=== PATIENT | male | born 1940 | race Caucasian/White ===

== ENCOUNTER → 2016-09-24 | Outpatient (CLI) | payer OTHER ==
[~2016-09-24] MED LIST: ASPI81TA28 PO; BUPR-79 PO; CHOL100010 PO; CMD5 PO; EZET10TA44 PO; FENO145T26 PO; FRS/40 PO; INSDGI SC; IPRA1AER2 INH; ISOS120T5 PO; ISOS30TA35 PO; LISI-461 PO; METO50TA7 PO; NIAC1TAB56 PO; NTRGSL/4 UT; NVLGI SC; SPR25 PO; WARF5TAB90 PO
[2016-09-24 12:39] LABS: ALT/SGPT 31 U/L (12-78); AST/SGOT 22 U/L (15-37); BLOOD UREA NITROGEN 24 mg/dl (7-18); BUN/CREATININE RATIO 15.8 (10-20); CALCIUM 9.3 mg/dl (8.5-10.1); CARBON DIOXIDE 28 mmol/L (21-32); CHLORIDE 102 mmol/L (98-107); GLUCOSE 161 mg/dl (70-99); SODIUM 139 mmol/L (136-145)
[2016-09-24 12:44] LABS: ESTIMATED AVERAGE GLUCOSE 200 mg/dl; HA1C FLAG Normal (Normal)
[2016-09-24 12:50] LABS: ALB/GLOB RATIO 0.9 (0.9-2); ALKALINE PHOSPHATASE 66 U/L (45-117); CHOLESTEROL 172 mg/dl (0-200); CHOLESTEROL/HDL RATIO 7.8; HDL CHOLESTEROL 22 mg/dl; TRIGLYCERIDES 636 mg/dl (0-150)
== END | disposition home or self-care (01) ==
LOC: C.LABBFT 09:15
PROVIDERS: ATTEND Internal Medicine
DX: E78.5 Hyperlipidemia, unspecified (principal); E03.9 Hypothyroidism, unspecified; E11.65 Type 2 diabetes mellitus with hyperglycemia

== ENCOUNTER → 2017-03-23 | Outpatient (CLI) | payer OTHER ==
[2017-03-23 12:41] LABS: ESTIMATED AVERAGE GLUCOSE 209 mg/dl; HA1C FLAG Normal (Normal)
[2017-03-23 13:06] LABS: ALT/SGPT 34 U/L (12-78); AST/SGOT 28 U/L (15-37); BLOOD UREA NITROGEN 26 mg/dl (7-18); BUN/CREATININE RATIO 16.3 (10-20); CALCIUM 9.4 mg/dl (8.5-10.1); CARBON DIOXIDE 24 mmol/L (21-32); CHLORIDE 102 mmol/L (98-107); GLUCOSE 213 mg/dl (70-99); HDL CHOLESTEROL 22 mg/dl; POTASSIUM 4.3 mmol/L (3.5-5.1); SODIUM 133 mmol/L (136-145)
[2017-03-23 13:17] LABS: ALB/GLOB RATIO 0.9 (0.9-2); ALKALINE PHOSPHATASE 64 U/L (45-117); CHOLESTEROL 182 mg/dl (0-200); CHOLESTEROL/HDL RATIO 8.3; TRIGLYCERIDES 708 mg/dl (0-150)
== END | disposition home or self-care (01) ==
LOC: C.LABBFT 09:23
PROVIDERS: ATTEND Internal Medicine
DX: E03.9 Hypothyroidism, unspecified (principal); E11.21 Type 2 diabetes mellitus with diabetic nephropathy; E78.5 Hyperlipidemia, unspecified

== ENCOUNTER 2017-07-21 08:56 | Emergency (ER) | payer OTHER ==
[~2017-07-21] VITALS: Ht 188 cm; Wt 121.2 kg
[2017-07-21 08:58] VITALS: TEMP 36.5; Ht 188 cm; Wt 121.2 kg
[2017-07-21] MEDS ORDERED: CIPRO 0.2%/HYDROCORTISONE 1% OTIC SUSP 10 ML BTL OT STA (09:23)
[2017-07-21] MEDS ORDERED: ACETAMINOPHEN 500 MG TAB PO STA (09:23)
[2017-07-21] MEDS ORDERED: CIPROFLOXACIN 500 MG TAB PO STA (09:23)
--- NOTE | 2017-07-21 09:30 | EMERGENCY ROOM VISIT NOTE ---
History First contact with patient: 09:13 Chief Complaint: EAR PAIN Stated Complaint: R EAR PAIN AND PRESSURE History of Present Illness The patient is a 76 year old male who presents to the Emergency Room with complaints of right ear pain. The patient has a history of diabetes and has had similar infections in the past were treated with irrigation and eardrops. The patient started an [id number] earwax drops because he thought he had cerumen impaction. He also started an leqg-djy-zeghjpw drop for pain. The patient has not been seen by his primary care physician for this. He was seen by another provider who recommended the pain drop. The patient denies having any chest pain shortness of breath. He states the pain is moderate to severe especially with pressure on the right ear and putting his hearing aid in the right ear. The patient denies having any difficulty breathing or fever. Denies having any headache. He states the pain is moderate at this time. He is not taking any pain medication the patient has been compliant with his usual medication. Review of Systems See HPI for pertinent positives & negatives. A total of 6 systems reviewed and were otherwise negative. Past Medical/Surgical History Medical Problems: (1) Atrial fibrillation (2) Chronic congestive heart failure (3) Coronary artery bypass grafts x 3 (4) Diabetes (5) Hemorrhoid (6) History of GA (myocardial infarction) (7) Hypertension (8) Ischemic cardiomyopathy (9) Prostate cancer (10) V tach Surgical Problems: (1) History of appendectomy Family History FHx: cancer FHx: coronary artery disease FHx: diabetes Social History Smoking Status: Never Smoker Alcohol Use: none Drug Use: none Marital Status: Housing Status: lives with significant other Occupation Status: retired Current/Historical Medications Scheduled Aspirin (Aspirin Ec), 81 MG PO DAILY Bupropion (Wellbutrin Sr), 150 MG PO DAILY Ciprofloxacin (Otic) (Otiprio), 0.25 ML OTR BID Ciprofloxacin Hcl (Cipro), 500 MG PO BID Ezetimibe/Simvastatin (Vytorin 10MG/80MG), 1 TAB PO QPM Fenofibrate (Tricor), 145 MG PO DAILY Furosemide (Lasix), 60 MG PO BID Insulin Aspart (Novolog), 20 UNITS SQ BID Insulin Glargine (Lantus Solostar), 70 UNITS SC BID Isosorbide Mononitrate Ext Rel (Imdur Ext Rel), 120 MG PO QAM Isosorbide Mononitrate Ext Rel (Imdur Ext Rel), 30 MG PO QPM Lisinopril (Zestril), 10 MG PO HS Metoprolol Succ (Toprol Xl) (Toprol-Xl), 50 MG PO DAILY Niacin (Antihyperlipidemic) (Niacin Er), 1,000 MG PO QPM Nitroglycerin (Nitrostat), 0.4 MG UT PRN Spironolactone (Spironolactone), 25 MG PO DAILY Warfarin Sod (Coumadin), 5 MG PO 4XWK Warfarin Sodium (Coumadin), 2.5 MG PO 3XWK Scheduled PRN Ipratropium-Albuterol (Combivent Respimat), 2 PUFFS INH QID PRN for PHLEGM Physical Exam Vital Signs Date Time Temp Pulse Resp B/P (MAP) Pulse Ox O2 Delivery O2 Flow Rate FiO2 07/21/17 10:04 73 18 111/68 97 07/21/17 08:58 36.5 73 18 151/84 97 Room Air Physical Exam GENERAL: Patient is awake alert in no acute distress patient is resting comfortably and showing no signs of anxiety EYES: The conjunctivae are clear. The pupils are round and reactive. EARS, NOSE, MOUTH AND THROAT: Nares are patent. Posterior oropharynx is clear. Left tympanic membrane is clear. Right tympanic membrane is dull and erythematous. The ear canal is erythematous as well. There is a small amount of discharge which appears to be related to recent ear drops patient. There is a small amount of cerumen noted as well. There is no tenderness over the right mastoid. Pain is noted with movement of the external ear. NECK: The neck is nontender and supple. RESPIRATORY: Normal respiratory effort is noted there is no evidence of wheezing rhonchi or rales CARDIOVASCULAR: Regular rate and rhythm noted there no murmurs rubs or gallops normal S1 normal S2 GASTROINTESTINAL: The abdomen is soft. Bowel sounds are present in all quadrants. Abdomen is nontender MUSCULOSKELETAL/EXTREMITIES: There is no evidence of gross deformity full range of motion is noted in the hips and shoulders SKIN: There is no obvious evidence of any rash. Trace pedal edema was noted bilaterally. NEUROLOGIC: Patient is awake alert and oriented x3. Medical Decision & Procedures Medications Administered Medications (Trade) Dose Ordered Sig/Susy Route Start Time Stop Time Status Last Admin Dose Admin Ciprofloxacin/ Hydrocortisone (Cipro Hc Otic Susp) 2 drops ONE STAT OT 07/21/17 09:23 07/21/17 09:26 DC 07/21/17 09:41 2 DROPS Ciprofloxacin (Cipro Tab) 500 mg NOW STAT PO 07/21/17 09:23 07/21/17 09:26 DC 07/21/17 09:40 500 MG Acetaminophen (Tylenol Tab) 1,000 mg NOW STAT PO 07/21/17 09:23 07/21/17 09:26 DC 07/21/17 09:40 1,000 MG Medical Decision Nursing notes reviewed. Differential diagnosis in this patient could include foreign body, otitis externa, malignant otitis externa, referred pain, cellulitis, trauma, and other differential diagnoses were considered. The patient is a 76-year-old male who presented to the emergency department for evaluation of right ear pain. The patient has had a history of otitis externa in the past which was treated with eardrops. The patient has been using over-the -counter medication without relief. I irrigated a small amount of cerumen from the right ear as well as a small amount of purulent material. There is no tenderness over the mastoid. Overall his physical exam appears to be consistent with otitis externa be given the patient's age and history of diabetes he will be covered for otitis externa caused by Pseudomonas. I discussed patient's condition with him. He was told not to use his hearing aid in the right ear. He was also encouraged to continue all medications as prescribed. He was also encouraged to follow-up with his primary doctor this week for evaluation. Return to the emergency department immediately if symptoms change worsen or the need arises. The patient was started on medications in the emergency department. Medication Reconcilliation Current Medication List: was personally reviewed by me Blood Pressure Screening Patient's blood pressure: Elevated blood pressure Blood pressure disposition: Elevated BP felt to be situational Impression Primary Impression: Otitis externa Departure Information Prescriptions Ciprofloxacin (Otic) (Otiprio) 6 % Nadine 0.25 ML OTR BID, #1 BTL Prov: Joshua Stark DO 07/21/17 Ciprofloxacin Hcl (CIPRO) 500 Mg Tab 500 MG PO BID, #14 TAB Prov: Joshua Stark DO 07/21/17 Referrals Clovis Klein M.D. (PCP) Patient Instructions My [facility] Problem Qualifiers Primary Impression: Otitis externa Otitis externa type: unspecified type Chronicity: acute Laterality: right Qualified Codes: H60.501 - Unspecified acute noninfective otitis externa, right ear
[2017-07-21] MEDS ORDERED: CIPR-255 PO (09:36)
[2017-07-21] MEDS ORDERED: CIPR1SUS5 OTR (09:36)
[2017-07-21] MEDS ORDERED: INSDGIPEN SC (09:44)
[2017-07-21] MEDS ORDERED: NVLG SQ (09:44)
[2017-07-21 10:04] VITALS: BP 111/68; PULSE 73; O2SAT 97
== END 2017-07-21 10:08 | disposition home or self-care (01) ==
LOC: C.EDB 08:58
DX: H60.501 Unspecified acute noninfective otitis externa, right ear (principal); E11.9 Type 2 diabetes mellitus without complications; I11.0 Hypertensive heart disease with heart failure; I50.9 Heart failure, unspecified; I48.91 Unspecified atrial fibrillation; I25.5 Ischemic cardiomyopathy; I25.2 Old myocardial infarction; Z85.46 Personal history of malignant neoplasm of prostate; Z95.1 Presence of aortocoronary bypass graft; Z79.82 Long term (current) use of aspirin; Z79.4 Long term (current) use of insulin; Z79.01 Long term (current) use of anticoagulants; Z82.49 Family history of ischemic heart disease and other diseases of the circulatory system

== ENCOUNTER → 2017-08-21 | Outpatient (CLI) | payer OTHER ==
[~2017-08-21] MED LIST changes: -CHOL100010 PO; +CIPR-255 PO; +CIPR1SUS5 OTR; -INSDGI SC; +INSDGIPEN SC; +NVLG SQ; -NVLGI SC
[2017-08-21 12:27] LABS: BASO % 0.7 %; BASO ABS # 0.04 K/uL (0-0.2); EOS % 3.7 %; EOS ABS # 0.22 K/uL (0-0.5); HEMATOCRIT 44.1 % (42-52); HEMOGLOBIN 14.8 g/dL (14.0-18.0); IG# 0.03 K/uL (0.00-0.02); LYMPH % 33.2 %; LYMPH ABS # 1.99 K/uL (1.2-3.4); MEAN CELL VOLUME 85.3 fL (80-100); MEAN CORPUSCULAR HEMOGLOBIN 28.6 pg (25-34); MEAN CORPUSCULAR HGB CONC 33.6 g/dl (32-36); MEAN PLATELET VOLUME 9.4 fL (7.4-10.4); MONO % 6.7 %; NEUT % 55.2 %; NEUT ABS # 3.31 K/uL (1.4-6.5); PLATELET COUNT 229 K/uL (130-400); RED CELL DISTRIBUTION WIDTH SD 49.7 fL (36.4-46.3); WHITE BLOOD COUNT 5.99 K/uL (4.8-10.8)
[2017-08-21 12:50] LABS: HEMOGLOBIN A1C 8.2 % (4.5-5.6)
[2017-08-21 14:16] LABS: ALBUMIN 3.6 gm/dl (3.4-5.0); ALT/SGPT 37 U/L (12-78); AST/SGOT 34 U/L (15-37); BLOOD UREA NITROGEN 41 mg/dl (7-18); CALCIUM 9.4 mg/dl (8.5-10.1); CARBON DIOXIDE 27 mmol/L (21-32); CHOLESTEROL 205 mg/dl (0-200); CREATININE 2.06 mg/dl (0.60-1.40); GLUCOSE 183 mg/dl (70-99); POTASSIUM 4.2 mmol/L (3.5-5.1); SODIUM 136 mmol/L (136-145)
[2017-08-21 14:27] LABS: ALKALINE PHOSPHATASE 57 U/L (45-117); TOTAL PROTEIN 7.6 gm/dl (6.4-8.2)
== END | disposition home or self-care (01) ==
LOC: C.LABBFT 08:41
PROVIDERS: ATTEND Internal Medicine
DX: E11.21 Type 2 diabetes mellitus with diabetic nephropathy (principal)

== ENCOUNTER 2019-12-24 10:04 | Observation (INO) ==
--- NOTE | 2019-12-24 10:21 | Emergency Department Note ---
Impression & Plan Precordial chest pain, Dizziness, Lightheadedness, Orthostasis ED Provider Note NAME: SAMANTHA SALAS AGE: 79 SEX: M : 1940 ARRIVES VIA: Ambulance INFORMANT: [Patient][ems] ED PROVIDER(S): [Indio Treviño MD] CHIEF COMPLAINT: Chest pain HISTORY OF PRESENT ILLNESS: The patient is a 79-year-old male who presents to the ED with about 5 days of constant chest discomfort. The pain was a 3/10 and described as a knot. The pain was located just to the left of the sternum. Nothing made the pain better or worse. The patient was not short of breath. There was no sweating. The patient states that 2 days ago, he had several bouts of vomiting. The vomiting has resolved. He adds that for the last 5 days since he has had his chest pain, he has been dizzy with standing and has felt off balance. He has stumbled a few times, no injury. There has been no fever, no cough. No stuffy nose. He has not suffered chest trauma. There rouse been no abdominal pain. The patient was given aspirin by the EMS crew, his pain is now resolved. This is the first time he has not had chest pain in 5 days. The patient has a history of a bypass x3. He also has a history of a pacer/defibrillator. He did not feel his defibrillator fire at any point. REVIEW OF SYSTEMS: See HPI for pertinent positives and negatives. A total of ten systems were reviewed and were otherwise negative. PMHx/PSHx: See Below SOCIAL HISTORY: See Below. PHYSICAL EXAM: GENERAL: Patient is in no acute distress. HEENT: No acute trauma, normocephalic atraumatic, mucous membranes moist, no nasal congestion, no scleral icterus. NECK: No stridor, no adenopathy, no meningismus, trachea is midline. LUNGS: Few crackles at his left base, no wheezing, no respiratory distress, equal breath sounds. HEART: Without murmurs gallops or rubs, regular rate and rhythm. Chest: Nontender chest wall, no rash. ABDOMEN: Soft, nontender, bowel sounds positive, no hernias, no peritonitis. EXTREMITIES: No cyanosis or edema, full range of motion of all the joints without pain or difficulty, no signs for acute trauma. NEUROLOGIC: Oriented x 3, no acute motor or sensory deficits, no focal weakness. SKIN: No rash, no jaundice, no diaphoresis. DIFFERENTIAL DIAGNOSIS: EMERGENCY DEPARTMENT COURSE/PROCEDURES: ECG: Indication was chest pain. The EKG shows a ventricular pacemaker with a rate of 68. The QTc is 412. There is no ST elevation, no PVCs. Compared to an ECG from 06 January 2019, there is no significant change. Repeat EKG: Indication was weakness. The EKG shows a ventricular pacemaker with a PVC. There is no ST elevation, no PACs. The ventricular rate was 71. QTc was 502. No real significant change compared to the EKG done earlier today. Continuous Cardiac Monitoring: An order was placed for continuous cardiac monitoring. The monitor shows a rate of 71 with ventricular pacing. Orthostatic vital signs showed a drop in blood pressure to stand although, he did not drop by more than 20 points. No significant increase in the heart rate with standing. He did feel dizzy though. Repeat orthostatic vital signs were done when the patient was feeling poorly and lightheaded. He was orthostatic. Systolic blood pressure dropped by over 20 points. MEDICAL DECISION MAKING: There is no leukocytosis or concerning anemia. No coagulopathy. There is some renal insufficiency however, this is baseline. No concerning electrolyte abnormality. No evidence for liver enzyme elevation. No evidence for pancreatitis. EKG shows ventricular pacing, no acute ischemia. Cardiac enzyme testing x1 is not consistent with acute cardiac injury. Chest film shows some cardiomegaly, no pneumonia or CHF. Orthostatic vital signs were basically positive. The patient received IV saline, a total of 1 L was given. He was given IV Zofran eventually when he noticed some nausea here in the ED. The patient seemed to be doing well at first and arrangements were being made for discharge home. He was reassured by his negative work-up. He then tried to get off the stretcher and became very lightheaded and dizzy, he got quite nauseated. He had to be laid back down. Repeat orthostatic vital signs showed a 20 point drop in systolic blood pressure with standing. The patient at this point is not safe for discharge home, he is not comfortable being at home. I do think further work-up in the hospital is warranted. The cause for the orthostasis is not completely clear. He remains orthostatic despite IV fluids. Possibly, his symptoms are medication related. The reason for the chest pain also is unclear, the pain is not present currently. Certainly, a cardiac etiology must still be considered. I spoke to the patient at length, I talked with case management. The on-call hospitalist was consulted. Past Med/Surg History Medical History Acute diastolic congestive heart failure (Acute) AICD discharge (Acute) DALE (acute kidney injury) (Inactive 08/22/13) Anemia (Acute) Anxiety (Acute) Atrial fibrillation Atrial fibrillation (Acute) Bradycardia (Acute) Cardiomyopathy Chronic congestive heart failure (Acute 04/03/13) Chronic kidney disease, stage III (moderate) (Chronic) COPD, moderate (Acute) Coronary artery disease (Chronic) Depression (Acute) Diabetes Diabetes mellitus type 2, uncontrolled (Acute) Diabetes mellitus with kidney disease Dyslipidemia Hemorrhoid History of [place] (myocardial infarction) Hypercholesterolemia (Acute) Hypertension (Chronic) Hypertension Hypothyroidism (Chronic) Insomnia Ischemic cardiomyopathy (Chronic) Pacemaker malfunction (Acute) Peptic ulcer (Acute) Prostate cancer Prostate cancer (Acute) Sleep apnea (Acute) Ventricular tachycardia (paroxysmal) (Acute) Surgical History History of appendectomy 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) History of heart bypass surgery Family History Unknown Diabetes Prostate cancer Uncle Prostate cancer Father Myocardial infarction Brother Myocardial infarction Other Family history non-contributory Denies family history of Ovarian cancer Breast cancer Colorectal cancer Social History Preferred Language: Upper Sorbian Communication Ability: Effective Hearing Ability: Use of Hearing Aid 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 Servicer Required: No Beliefs That Will Affect Care: None marital status: Current Living Situation: Spouse current occupational status: retired Other Information That Helps Us Care for You: No Feels Safe at Home: Yes Safety Concerns: Feels Safe At This Time Smoking Status: Unknown if ever smoked Hx Alcohol Use: No Hx Substance Use: No Dental Care, Regularly: No Physical Activity Frequency: Does not Exercise Seatbelt Use: never Sunscreen Use: No Allergies Allergies Allergy/AdvReac Type Severity Reaction Status Date / Time carvedilol Allergy Verified 12/24/19 11:07 [facility] Allergy Verified 12/24/19 11:07 Home Meds Home Medications Medication Instructions Recorded Confirmed apixaban 5 mg tablet 5 mg PO BID 02/16/19 12/24/19 ascorbic acid (vitamin C) 500 mg 500 mg PO HS tab 02/16/19 12/24/19 tablet bupropion HCl 150 mg tablet,12 hr 150 mg PO QAM #90 ea 02/16/19 12/24/19 sustained-release folic acid 1 mg tablet 1 mg PO HS tab 02/16/19 12/24/19 furosemide 40 mg tablet 60 mg PO BID tab 02/16/19 12/24/19 lisinopril 10 mg tablet 10 mg PO QAM 02/16/19 12/24/19 niacin 1,000 mg tablet,extended 1,000 mg PO HS tab 02/16/19 12/24/19 release vit C-vit M-fvxlaq-zrha ox-lutein 1 cap PO BID cap 02/16/19 12/24/19 226 mg-200 unit-5 mg-0.8 mg capsule vitamin E (dl, acetate) 400 unit 400 units PO HS 02/16/19 12/24/19 capsule cholecalciferol (vitamin D3) 25 1,000 units PO HS 02/17/19 12/24/19 mcg (1,000 unit) capsule aspirin 81 mg PO HS 12/24/19 12/24/19 dulaglutide [Trulicity] 1.5 mg SQ TH 12/24/19 12/24/19 fenofibrate nanocrystallized 145 mg PO HS 12/24/19 12/24/19 isosorbide mononitrate 30 mg PO HS 12/24/19 12/24/19 isosorbide mononitrate 120 mg PO QAM 12/24/19 12/24/19 levothyroxine 100 mcg PO QAM 12/24/19 12/24/19 omega 8-jgm-vht-fish oil [Fish Oil] 1 cap PO HS 12/24/19 12/24/19 spironolactone 25 mg PO HS 12/24/19 12/24/19 Previous Rx's Medication Instructions Recorded ondansetron HCl 4 mg tablet 4 mg PO Q6H PRN #30 tab 02/21/19 metoprolol succinate 25 mg 25 mg PO BID #60 tab 02/24/19 tablet,extended release 24 hr nitroglycerin 0.4 mg sublingual 0.4 mg SL .COMPLEX PRN #25 tab 05/10/19 tablet ezetimibe 10 mg-simvastatin 80 mg See Rx Instructions .ROUTE 08/22/19 tablet .COMPLEX #90 tablet blood sugar diagnostic #100 ea 11/15/19 insulin degludec 100 unit/mL (3 80 units SQ BID #45 ml 11/18/19 mL) subcutaneous pen insulin aspart U-100 100 unit/mL 15 units SQ BID #15 ml 12/15/19 (3 mL) subcutaneous pen Results & Data (ED) Vital Signs Vital Signs - 24 hr 12/24/19 10:03 12/24/19 11:01 12/24/19 11:17 Temperature 36.4 C L Temperature Source Oral Pulse Rate - Lying 66 Pulse Rate - Sitting 68 Pulse Rate - Standing 72 Pulse Rate 66 Pulse Rate [Apical] 66 Pulse Rhythm [Apical] Regular Pulse Strength [Apical] Normal Respiratory Rate 20 22 Respiratory Effort / Characteristics Non-Labored Non-Labored Spontaneous Respiratory Depth Normal Normal Respiratory Pattern Regular Blood Pressure - Lying 142/67 H Blood Pressure - Sitting 136/77 Blood Pressure- Standing 124/67 Blood Pressure 163/86 H Blood Pressure [Right Arm] 146/80 H Blood Pressure Mean 111 Blood Pressure Mean [Right Arm] 102 Blood Pressure Position [Right Arm] Sitting Pulse Oximetry 98 97 Oxygen Delivery Method Room Air Room Air Room Air Sepsis Recent Fever Within 48 Hours No Sepsis Action Taken by Nursing No Action Required 12/24/19 13:25 Temperature Temperature Source Pulse Rate - Lying 71 Pulse Rate - Sitting 75 Pulse Rate - Standing 76 Pulse Rate Pulse Rate [Apical] 71 Pulse Rhythm [Apical] Regular Pulse Strength [Apical] Normal Respiratory Rate 24 Respiratory Effort / Characteristics Non-Labored Spontaneous Respiratory Depth Normal Respiratory Pattern Regular Blood Pressure - Lying 125/72 Blood Pressure - Sitting 123/76 Blood Pressure- Standing 113/66 Blood Pressure Blood Pressure [Right Arm] 125/72 Blood Pressure Mean Blood Pressure Mean [Right Arm] 89 Blood Pressure Position [Right Arm] Lying Pulse Oximetry 97 Oxygen Delivery Method Room Air Sepsis Recent Fever Within 48 Hours Sepsis Action Taken by [facility] Medications Current Medication List: was personally reviewed by me Laboratory Data Attestation: I reviewed the patient's lab results. Result diagrams: 12/24/19 09:31 05/23/20 09:31 Lab Results 12/24/19 12/24/19 12/24/19 Range/Units 09:31 09:31 09:31 WBC 6.40 (4.8-10.8) K/uL RBC 4.84 (4.7-6.1) M/uL Hgb 13.8 L (14.0-18.0) g/dL Hct 41.1 L (42-52) % MCV 84.9 (80-100) fL MCH 28.5 (25-34) pg MCHC 33.6 (32-36) g/dL RDW Std Deviation 50.1 H (36.4-46.3) fL RDW Coeff of Beck 16.2 H (11.5-14.5) % Plt Count 178 (130-400) K/uL MPV 9.4 (7.4-10.4) fL Immature Gran % (Auto) 0.3 % Neut % (Auto) 70.4 % Lymph % (Auto) 18.8 % Thomas % (Auto) 7.8 % Eos % (Auto) 2.2 % Baso % (Auto) 0.5 % Immature Gran # (Auto) 0.02 (0.00-0.02) K/uL Neut # (Auto) 4.51 (1.4-6.5) K/uL Lymph # (Auto) 1.20 (1.2-3.4) K/uL Thomas # (Auto) 0.50 (0.11-0.59) K/uL Eos # (Auto) 0.14 (0-0.5) K/uL Baso # (Auto) 0.03 (0-0.2) K/uL PT 11.1 (9.0-12.0) Seconds INR 1.1 (0.9-1.1) APTT 30.9 (21.0-31.0) Seconds PTT Ratio 1.1 Sodium 138 (136-145) mmol/L Potassium 3.6 (3.5-5.1) mmol/L Chloride 103 (98-107) mmol/L Carbon Dioxide 26 (21-32) mmol/L Anion Gap 10.0 (3-11) BUN 26 H (7-18) mg/dl Creatinine 1.41 H (0.6-1.4) mg/dl Est Cr Clr Drug Dosing Not Reportable Est GFR ( Amer) 55.3 Est GFR (Non-Af Amer) 47.7 BUN/Creatinine Ratio 18.2 (10-20) Glucose 151 H (70-99) mg/dl Calcium 9.7 (8.5-10.1) mg/dl Magnesium 2.2 (1.8-2.4) mg/dl Total Bilirubin 0.5 (0.2-1) mg/dl AST 37 (15-37) U/L ALT 45 (12-78) U/L Alkaline Phosphatase 95 (45-117) U/L Troponin I < 0.015 (0-0.045) ng/ml Total Protein 7.6 (6.4-8.2) gm/dl Albumin 3.4 (3.4-5.0) gm/dl Globulin 4.2 H (2.5-4.0) gm/dl Albumin/Globulin Ratio 0.8 L (0.9-2) Lipase 135 (73-393) U/L Administered Medications Furosemide (Lasix) 60 mg PO BID17 [facility] Stop: 01/23/20 16:59 Last Admin: 12/24/19 17:05 Dose: 60 mg Documented by: [id number] Insulin Aspart (Novolog Flexpen) 15 units SQ BIDM [facility] Stop: 01/23/20 16:59 Last Admin: 12/24/19 17:19 Dose: 15 units Documented by: [id number] Cosigned by: [id number] Meclizine HCl (Antivert) 12.5 mg PO Q6H PRN PRN Reason: Dizziness or Vertigo Stop: 01/23/20 15:25 Last Admin: 12/24/19 17:04 Dose: 12.5 mg Documented by: [id number] Miscellaneous (Order Awaiting Action) 1 ea N/A QS [facility] Stop: 01/23/20 15:59 Last Admin: 12/24/19 17:03 Dose: Not Given Documented by: [id number] Spironolactone (Aldactone) 25 mg PO DAILY@1700 [facility] Stop: 01/23/20 16:59 Last Admin: 12/24/19 17:05 Dose: 25 mg Documented by: [id number] Discontinued Medications Sodium Chloride (Nss 1000ml) 500 mls @ 999 mls/hr IV .Q31M ONE Stop: 12/24/19 12:00 Last Infusion: 12/24/19 13:55 Dose: 0 mls/hr Documented by: [id number] Admin: 12/24/19 12:40 Dose: 999 mls/hr Documented by: [id number] Sodium Chloride (Nss 1000ml) 500 mls @ 999 mls/hr IV .Q31M ONE Stop: 12/24/19 14:09 Last Infusion: 12/24/19 14:25 Dose: 0 mls/hr Documented by: [id number] Admin: 12/24/19 13:55 Dose: 999 mls/hr Documented by: [id number] Ondansetron HCl (Zofran) 4 mg IV NOW STA Stop: 12/24/19 13:26 Last Admin: 12/24/19 13:34 Dose: 4 mg Documented by: [id number] Imaging Data Radiologist's Impression: XR chest 1V portable HISTORY: Atypical Chest Pain COMPARISON: Chest 01/06/2019. FINDINGS: No pneumothorax. No pleural effusions. The heart is moderately enlarged. This remains unchanged. There is mild central pulmonary vascular congestion without overt edema. This has improved in the interval. There are a f ew bibasilar linear densities. The upper lung zones remain clear. There is a left-sided pacemaker/defibrillator. IMPRESSION: 1. Mild central pulmonary vascular congestion without overt edema. This has improved in the interval. 2. Stable cardiomegaly. 3. A few bibasilar linear densities. These are nonspecific but favor atelectasis. Blood Pressure Blood Pressure Findings: Elevated blood pressure Blood Pressure Disposition: further management by hospitalist Discharge Plan Visit Data *Final* Discharge Date/Time: 12/24/19 14:59 Chief Complaint: Chest Pain ED Provider: Indio Treviño Discharge Problem: Precordial chest pain, Dizziness, Lightheadedness, Orthostasis Patient Disposition: Being Evaluated by Hospitalist Condition: Good Discharge Instructions Interventions: ED Discharge Assessment Last Done: 12/24/19 14:59
[2019-12-24 10:23] LABS: Basophils # (auto) 0.03 K/uL (0-0.2); Basophils % (auto) 0.5 %; Eosinophils # (auto) 0.14 K/uL (0-0.5); Eosinophils % (auto) 2.2 %; Hematocrit (blood only) 41.1 % (42-52); Hemoglobin 13.8 g/dL (14.0-18.0); Immature Granulocytes # (auto) 0.02 K/uL (0.00-0.02); Immature Granulocytes % (auto) 0.3 %; Lymphocytes % (auto) 18.8 %; Mean Corpuscular Hemoglobin 28.5 pg (25-34); Mean Corpuscular Hgb Conc 33.6 g/dL (32-36); Mean Corpuscular Volume 84.9 fL (80-100); Mean Platelet Volume 9.4 fL (7.4-10.4); Monocytes % (auto) 7.8 %; Neutrophils # (auto) 4.51 K/uL (1.4-6.5); Neutrophils % (auto) 70.4 %; Platelet Count 178 K/uL (130-400); RDW Coefficient of Variation 16.2 % (11.5-14.5); RDW Standard Deviation 50.1 fL (36.4-46.3); Red Blood Count 4.84 M/uL (4.7-6.1)
[2019-12-24 10:35] LABS: INR 1.1 (0.9-1.1); Partial Thromboplastin Ratio 1.1; Partial Thromboplastin Time 30.9 Seconds (21.0-31.0); Prothrombin Time 11.1 Seconds (9.0-12.0)
[2019-12-24 10:36] LABS: Alanine Aminotransferase 45 U/L (12-78); Albumin Level 3.4 gm/dl (3.4-5.0); Aspartate Aminotransferase 37 U/L (15-37); BUN Creatinine Ratio 18.2 (10-20); Blood Urea Nitrogen 26 mg/dl (7-18); Calcium 9.7 mg/dl (8.5-10.1); Carbon Dioxide 26 mmol/L (21-32); Chloride 103 mmol/L (98-107); Est GFR (African American) 55.3; Est GFR (Non-African American) 47.7; Glucose 151 mg/dl (70-99); Lipase 135 U/L (73-393); Magnesium 2.2 mg/dl (1.8-2.4); Potassium 3.6 mmol/L (3.5-5.1); Sodium 138 mmol/L (136-145)
[2019-12-24 10:40] LABS: Albumin Globulin Ratio 0.8 (0.9-2); Alkaline Phosphatase 95 U/L (45-117); Bilirubin,Total 0.5 mg/dl (0.2-1); Globulin 4.2 gm/dl (2.5-4.0); Total Protein 7.6 gm/dl (6.4-8.2); Troponin I < 0.015 ng/ml (0-0.045)
[2019-12-24] MEDS ORDERED: SODIUM CHLORIDE 0.9% 1000ML 500 ML IV ONE ×2 (11:30→13:39)
--- NOTE | 2019-12-24 11:38 | XRay Report ---
XR chest 1V portable HISTORY: Atypical Chest Pain COMPARISON: Chest 01/06/2019. FINDINGS: No pneumothorax. No pleural effusions. The heart is moderately enlarged. This remains uncha nged. There is mild central pulmonary vascular congestion without overt edema. This has improved in t he interval. There are a few bibasilar linear densities. The upper lung zones remain clear. There is a left-sided pacemaker/defibrillator. IMPRESSION: 1. Mild central pulmonary vascular congestion without overt edema. This has improved in the interval. 2. Stable cardiomegaly. 3. A few bibasilar linear densities. These are nonspecific but favor atelectasis. ACT 112: Negative or not required by law. Electronically signed by: Filiberto Camacho M.D. 12/24/2019 11:37 AM
--- NOTE | 2019-12-24 12:16 | Electrocardiogram Report ---
Test Reason : Blood Pressure : / mmHG Vent. Rate : 068 BPM Atrial Rate : 068 BPM P-R Int : 136 ms QRS Dur : 154 ms QT Int : 482 ms P-R-T Axes : -08 043 021 degrees QTc Int : 512 ms Atrial-sensed ventricular-paced rhythm Abnormal ECG When compared with ECG of 06-JAN-2019 21:25, Vent. rate has decreased BY 8 BPM Confirmed by Sj Hilton ([id number]) on 12/24/2019 12:16:04 PM Referred By: REFERRED SELF Confirmed By:Sj Hilton
[2019-12-24] MEDS ORDERED: ONDANSETRON INJ 2 MG/ML 2 ML VIAL IV STA (13:25)
--- NOTE | 2019-12-24 14:32 | History & Physical Report ---
Date of Service December 24, 2019 Assessment & Plan (1) Lightheadedness: Initial concern for orthostatic hypoTN in the setting of multiple medications and dehydration Possibly an issue, however pt has onset of sx with turning his head as well making BPPV a more likely cause CBC, PRP, trop WNL Carotid US done 09/22 were neg for significant stenosis, will not repeat ECHO pending t/c CT head if further concern PT for repositioning maneuvers EKG WNL Pacer interrogation done in ED and reported as no abn findings Tele monitor Holding IVF for now given CHF hx meclizine PRN Continue current meds for now, but may need adjustments given orthostatics if ongoing s/p PT tx Denies recent changes in BP medications (2) Chest pain: Seems likely MSK given resolution with aspirin and reproducible on exam Trop neg Will not monitor further trops (3) Nausea & vomiting: Appears resolved Trulicity is a new medication for pt, has been on about 1 month Monitor for dosing patterns given this is a common side effect of trulicity (4) Uncontrolled type 2 diabetes mellitus with chronic kidney disease, with long-term current use of insulin: Home meds SSI PRN A1c pending Trulicity use on (5) Hypothyroidism: continue home meds (6) Hypercholesterolemia: continue home meds (7) Depression: continue home meds (8) Chronic kidney disease, stage III (moderate): Baseline cr around 1.7, was 1.4 on admission Monitor (9) Chronic congestive heart failure: continue home meds Lasix 60mg BID + spironolactone (10) Atrial fibrillation: continue home meds, eliquis (11) Ischemic cardiomyopathy: ECHO 05/2019 with EF 35-40% (12) Hypertension: continue home meds (13) Sleep apnea: States no home tx (14) DVT prophylaxis: Govind Bartholomew History of Present Illness Primary Care Provider: Clovis Klein MD 79 y/o M c/o lightheadedness. Pt states that he has been having L sided chest pain and feeling weak and lightheaded for about 4-5 days. Pain does not radiate. It is located around the area of his defibrillator. He gets weak and lightheaded any time he moves to stand up or even if he turns his head to either side. He feels like he is "wobbling" from side to side when he walks. He sits down and it does not go away immediately. Sometimes it persists for quite some time. He has never had this issue prior. Pt had 2 days of n/v and abd cramping that resolved spontaneously about 2 days ago. Pt denies fever, SOB, c/d, LE pain or swelling. Pt states he gets immediately nauseated and with some lightheadedness tilting his head to either side or fully turning his head. He can do this on command. Pt was given aspirin by EMS and his chest pain resolved. It has not returned. Pt was noted initially to have a 15 point BP drop when moving from seated to standing, but no full orthostatic hypoTN. He ate lunch in the ED and was feeling improved until they attempted to stand him for d/c, when he had sudden onset of his sx. Pt had repeat orthostatics done and was noted for fully orthostatic BP. Pt took AM meds today. Allergies Allergy/AdvReac Type Severity Reaction Status Date / Time carvedilol Allergy Verified 12/24/19 11:07 dulaglutide [From [facility]] Allergy Verified 12/24/19 11:07 Home Medications Home Medications Medication Instructions Recorded Confirmed Type apixaban 5 mg tablet 5 mg PO BID 02/16/19 12/24/19 History ascorbic acid (vitamin C) 500 mg 500 mg PO HS tab 02/16/19 12/24/19 History tablet bupropion HCl 150 mg tablet,12 hr 150 mg PO QAM #90 ea 02/16/19 12/24/19 History sustained-release folic acid 1 mg tablet 1 mg PO HS tab 02/16/19 12/24/19 History furosemide 40 mg tablet 60 mg PO BID tab 02/16/19 12/24/19 History lisinopril 10 mg tablet 10 mg PO QAM 02/16/19 12/24/19 History niacin 1,000 mg tablet,extended 1,000 mg PO HS tab 02/16/19 12/24/19 History release vit C-vit G-hzbehn-fkzr ox-lutein 1 cap PO BID cap 02/16/19 12/24/19 History 226 mg-200 unit-5 mg-0.8 mg capsule vitamin E (dl, acetate) 400 unit 400 units PO HS 02/16/19 12/24/19 History capsule cholecalciferol (vitamin D3) 25 1,000 units PO HS 02/17/19 12/24/19 History mcg (1,000 unit) capsule ondansetron HCl 4 mg tablet 4 mg PO Q6H PRN #30 tab 02/21/19 12/24/19 Rx metoprolol succinate 25 mg 25 mg PO BID #60 tab 02/24/19 12/24/19 Rx tablet,extended release 24 hr nitroglycerin 0.4 mg sublingual 0.4 mg SL .COMPLEX PRN #25 tab 05/10/19 12/24/19 Rx tablet ezetimibe 10 mg-simvastatin 80 mg See Rx Instructions .ROUTE 08/22/19 12/24/19 Rx tablet .COMPLEX #90 tablet blood sugar diagnostic #100 ea 11/15/19 Rx insulin degludec 100 unit/mL (3 80 units SQ BID #45 ml 11/18/19 12/24/19 Rx mL) subcutaneous pen insulin aspart U-100 100 unit/mL 15 units SQ BID #15 ml 12/15/19 12/24/19 Rx (3 mL) subcutaneous pen aspirin 81 mg PO HS 12/24/19 12/24/19 History dulaglutide [Trulicity] 1.5 mg SQ TH 12/24/19 12/24/19 History fenofibrate nanocrystallized 145 mg PO 12/24/19 12/24/19 History isosorbide mononitrate 30 mg PO HS 12/24/19 12/24/19 History isosorbide mononitrate 120 mg PO QAM 12/24/19 12/24/19 History levothyroxine 100 mcg PO QAM 12/24/19 12/24/19 History omega 2-srw-dim-fish oil [Fish Oil] 1 cap PO HS 12/24/19 12/24/19 History spironolactone 25 mg PO 12/24/19 12/24/19 History Past Med/Surg History Medical History Acute diastolic congestive heart failure (Acute) AICD discharge (Acute) DALE (acute kidney injury) (Inactive 08/22/13) Anemia (Acute) Anxiety (Acute) Atrial fibrillation Atrial fibrillation (Acute) Bradycardia (Acute) Cardiomyopathy Chronic congestive heart failure (Acute 04/03/13) Chronic kidney disease, stage III (moderate) (Chronic) COPD, moderate (Acute) Coronary artery disease (Chronic) Depression (Acute) Diabetes Diabetes mellitus type 2, uncontrolled (Acute) Diabetes mellitus with kidney disease Dyslipidemia Hemorrhoid History of [place] (myocardial infarction) Hypercholesterolemia (Acute) Hypertension (Chronic) Hypertension Hypothyroidism (Chronic) Insomnia Ischemic cardiomyopathy (Chronic) Pacemaker malfunction (Acute) Peptic ulcer (Acute) Prostate cancer Prostate cancer (Acute) Sleep apnea (Acute) Ventricular tachycardia (paroxysmal) (Acute) Surgical History History of appendectomy 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) History of heart bypass surgery Family History (Updated 12/24/19 @ 14:25 by Jenna Campuzano DO) Unknown Diabetes Prostate cancer Uncle Prostate cancer Father Myocardial infarction Brother Myocardial infarction Other Family history non-contributory Denies family history of Ovarian cancer Breast cancer Colorectal cancer Social History Preferred Language: Montenegrin Communication Ability: Effective Hearing Ability: Use of Hearing Aid marital status: Current Living Situation: Alone current occupational status: retired Feels Safe at Home: Yes Smoking Status: Former smoker Age Started Using Tobacco: 13 ; Age Quit Using Tobacco: 57 ; packs per day: 1 ; Cigarettes Per Day: 20 ; Number of Years Since Quit: 32 ; Second Hand Exposure: No ; Hx Alcohol Use: No Hx Substance Use: No Dental Care, Regularly: No Physical Activity Frequency: Does not Exercise Seatbelt Use: never Sunscreen Use: No Review of Systems Review of Systems: Pertinent positives and negatives reviewed in HPI--all others negative Physical Exam Constitutional: WD/WN, vitals as above Eyes: normal visual jaramillo by confrontation and + anicteric sclerae Neck: normal visual inspection and trachea midline Respiratory: normal respiratory effort, lungs clear to auscultation Cardiovascular: Rate/Rhythm: regular rate and regular rhythm Chest (Breasts): Additional Comments: point tender over defibrillator Gastrointestinal (Abdomen): Inspection/Auscultation: abdomen not distended Percussion/Palpation: abdomen soft; abdomen nontender Musculoskeletal: Head/Neck/Chest: normocephalic and head atraumatic negat fadia for edema, peripheral pulses intact Skin: no rashes, warm and dry Neurologic: awake; not confused Speech / Cognition: normal speech Psychiatric: A+Ox3, euthymic affect Results & Data Results & Data ([facility]) Vital Signs (Past 12 Hours) Vital Signs Temp Pulse Pulse Resp BP BP Pulse Ox 12/24/19 13:25 71 24 125/72 97 12/24/19 11:17 66 22 146/80 H 97 12/24/19 10:03 36.4 C L 66 20 163/86 H 98 Diagnostic Findings CXR: neg for acute ECG Additional Comments: ventricular pacing x2 EKGs Code Status & VTE Plan Code Status Full code, although pt states no prolonged mechanical life support, feeding tubes, etc VTE Prophylaxis Plan VTE Prophylaxis will be ordered: Yes PG Care Time/CCT Total # of Minutes Spent Total Time Spent with Patient: Total time spent is greater than 50% in coord ination of care (as documented) at patient's floor/unit and/or counseling patient: Coding Level of Care Code 43627 OBS Care - Level 3 Diagnoses Lightheadedness R42 Chest pain R07.9 Nausea & vomiting R11.2 Uncontrolled type 2 diabetes mellitus with chronic kidney disease, with long- term current use of insulin E11.22; E11.65; Z79.4 Hypothyroidism E03.9 Hypercholesterolemia E78.00 Depression F32.9 Chronic kidney disease, stage III (moderate) N18.3 Chronic congestive heart failure I50.9 Atrial fibrillation I48.91 Ischemic cardiomyopathy I25.5 Hypertension I10 Sleep apnea G47.30 DVT prophylaxis Z29.9
[2019-12-24] MEDS ORDERED: GLUCAGON FOR INJ 1 MG VIAL SQ PRN (15:26)
[2019-12-24] MEDS ORDERED: ACETAMINOPHEN 325 MG TAB PO PRN (15:26)
[2019-12-24] MEDS ORDERED: MAGNESIUM HYDROXIDE SUSP 30 ML UDC PO PRN (15:26)
[2019-12-24] MEDS ORDERED: CARBOHYDRATES FOR HYPOGLYCEMIA PO PRN (15:26)
[2019-12-24] MEDS ORDERED: GLUCOSE 40% GEL 15 GM TUBE PO PRN (15:26)
[2019-12-24] MEDS ORDERED: GLUCOSE 10 TABS/TUBE PO PRN (15:26)
[2019-12-24] MEDS ORDERED: DEXTROSE 50% 50 ML SYRINGE IV PRN (15:26)
[2019-12-24] MEDS ORDERED: NITROGLYCERIN SL 0.4 MG/TAB TAB SL PRN (15:26)
[2019-12-24] MEDS ORDERED: ONDANSETRON 4 MG OD TAB PO PRN (15:35)
[2019-12-24] MEDS: TRULICITY: ORDER AWAITING ACTION SCH (17:03)
[2019-12-24] MEDS: MECLIZINE 12.5 MG TAB PO PRN (17:04)
[2019-12-24] MEDS: SPIRONOLACTONE 25 MG TAB PO SCH (17:05)
[2019-12-24] MEDS: FUROSEMIDE 20 MG TAB PO SCH (17:05)
[2019-12-24] MEDS: INSULIN ASPART 100 UNITS/ML 3 ML PEN SQ SCH (17:19)
[2019-12-24] MEDS: ONDANSETRON INJ 2 MG/ML 2 ML VIAL IV PRN (20:53)
[2019-12-24] MEDS: FENOFIBRATE NANOCRYSTALLIZED 145 MG TABLET PO SCH (21:01)
[2019-12-24] MEDS: TOCOPHERYL, DL-ALPHA 400 UNITS CAP PO SCH (21:01)
[2019-12-24] MEDS: CHOLECALCIFEROL 1,000 UNITS 25 MCG TAB PO SCH (21:02)
[2019-12-24] MEDS: APIXABAN 5 MG TABLET PO SCH (21:02)
[2019-12-24] MEDS: FOLIC ACID 1 MG TAB PO SCH (21:02)
[2019-12-24] MEDS: ASCORBIC ACID 500 MG TAB PO SCH (21:03)
[2019-12-24] MEDS: ASPIRIN 81 MG ECTAB PO SCH (21:03)
[2019-12-24] MEDS: EZETIMIBE 10 MG TABLET PO SCH (21:03)
[2019-12-24] MEDS: NIACIN EXTENDED REL 500 MG TABCR PO SCH (21:04)
[2019-12-24] MEDS: SIMVASTATIN 80 MG TAB PO SCH (21:04)
[2019-12-24] MEDS: OMEGA-3 (PURIFIED FISH OIL) 1 GM CAP PO SCH (21:04)
[2019-12-24] MEDS: ISOSORBIDE MONO EXTENDED REL 30 MG TABCR PO SCH (21:05)
[2019-12-24] MEDS: INSULIN GLARGINE SOLOSTAR 100 UNITS/ML 3 ML PEN SC SCH (21:05)
[2019-12-24] MEDS: METOPROLOL SUCC 25MG EXT REL TAB PO SCH (21:05)
[2019-12-25] MEDS: TRULICITY: ORDER AWAITING ACTION SCH ×4 (03:06→23:44)
[2019-12-25] MEDS: LEVOTHYROXINE SODIUM 100 MCG TABLET PO SCH (06:32)
[2019-12-25 07:00] LABS: BUN Creatinine Ratio 19.6 (10-20); Calcium 9.2 mg/dl (8.5-10.1); Creatinine Clr Calc Pharmacy 57.6 ml/min; Est GFR (African American) 52.6; Est GFR (Non-African American) 45.4; Magnesium 2.2 mg/dl (1.8-2.4); Phosphorus 3.9 mg/dl (2.5-4.9); Potassium 3.8 mmol/L (3.5-5.1)
[2019-12-25] MEDS: APIXABAN 5 MG TABLET PO SCH ×2 (07:44→22:35)
[2019-12-25] MEDS: CEROVITE ADV FORMULA TAB PO SCH (07:44)
[2019-12-25] MEDS: METOPROLOL SUCC 25MG EXT REL TAB PO SCH ×2 (07:44→22:36)
[2019-12-25] MEDS: lisinopriL 10 MG TAB PO SCH (07:45)
[2019-12-25] MEDS: ISOSORBIDE MONO EXTENDED REL 60 MG TABCR PO SCH (07:45)
[2019-12-25] MEDS: BuPROPion SR 150 MG TABCR PO SCH (07:45)
[2019-12-25] MEDS: MECLIZINE 12.5 MG TAB PO PRN ×3 (07:46→15:30)
[2019-12-25] MEDS: FUROSEMIDE 20 MG TAB PO SCH ×2 (07:46→16:58)
[2019-12-25] MEDS: INSULIN ASPART 100 UNITS/ML 3 ML PEN SQ SCH ×2 (08:19→16:59)
[2019-12-25] MEDS: INSULIN GLARGINE SOLOSTAR 100 UNITS/ML 3 ML PEN SC SCH ×2 (08:21→22:37)
--- NOTE | 2019-12-25 09:47 | Electrocardiogram Report ---
Test Reason : Blood Pressure : / mmHG Vent. Rate : 071 BPM Atrial Rate : 071 BPM P-R Int : 000 ms QRS Dur : 154 ms QT Int : 462 ms P-R-T Axes : -14 050 059 degrees QTc Int : 502 ms Normal sinus rhythm Ventricular-paced rhythm with occasional Premature ventricular complexes Abnormal ECG When compared with ECG of 24-DEC-2019 10:09, Premature ventricular complexes are now Present Vent. rate has increased BY 3 BPM Confirmed by Sj Hilton ([id number]) on 12/25/2019 9:46:39 AM Referred By: REFERRED SELF Confirmed By:Sj Hilton
--- NOTE | 2019-12-25 10:06 | Electrocardiogram Report ---
Test Reason : Blood Pressure : / mmHG Vent. Rate : 065 BPM Atrial Rate : 065 BPM P-R Int : 000 ms QRS Dur : 154 ms QT Int : 490 ms P-R-T Axes : 019 179 -12 degrees QTc Int : 509 ms Normal sinus rhythm Ventricular-paced rhythm Biventricular pacemaker detected Abnormal ECG When compared with ECG of 24-DEC-2019 13:29, (unconfirmed) Premature ventricular complexes are no longer Present Vent. rate has decreased BY 6 BPM Confirmed by Sj Hilton ([id number]) on 12/25/2019 10:06:24 AM Referred By: REFERRED SELF Confirmed By:Sj Hilton
[2019-12-25 10:58] LABS: Estimated Average Glucose 209 mg/dl; Hemoglobin A1C 8.9 % (4.5-5.6)
[2019-12-25] MEDS: ONDANSETRON INJ 2 MG/ML 2 ML VIAL IV PRN (12:40)
--- NOTE | 2019-12-25 15:26 | Family Medicine Progress Note ---
Date of Service December 25, 2019 Assessment & Plan (1) Lightheadedness: Suspect positional vertigo As noted, carotid ultrasounds done earlier this year were negative for significant stenosis Echocardiogram repeated today is pending Physical therapy has been ordered Meclizine as needed (2) Nausea & vomiting: Appears to be associated with the vertigo He has some nausea but no vomiting Continue to monitor (3) Uncontrolled type 2 diabetes mellitus with chronic kidney disease, with long-term current use of insulin: Home meds SSI PRN A1c pending Trulicity use on (4) Hypothyroidism: continue home meds (5) Hypercholesterolemia: continue home meds (6) Depression: continue home meds (7) Chronic kidney disease, stage III (moderate): Baseline cr around 1.7, was 1.4 on admission Monitor (8) Chronic congestive heart failure: continue home meds Lasix 60mg BID + spironolactone (9) Atrial fibrillation: continue home meds, eliquis (10) Ischemic cardiomyopathy: ECHO 05/2019 with EF 35-40% Repeat echocardiogram pending (11) Hypertension: continue home meds (12) Sleep apnea: States no home tx (13) DVT prophylaxis: Govind Bartholomew Admission and Anticipated Discharge Date Admission Date: Uncertain Subjective Mr. Taylor is seen early afternoon. I did go into his room this morning but he was sleeping pretty well so I revisited him this afternoon. He is known to be fairly hard of hearing. He is in no obvious distress. He denies having symptoms as long as he lies supine with his head facing forward; if he looks to the left he notes an increase in vertiginous symptoms; he also some vertigo if he looks to the right, but to the left seems much worse. He tel ls me he is unable to go to the bathroom without assistance; walking produces significant vertigo, and some nausea. He tells me he has had this before -but not to the point where he had to be hospitalized. He cannot recall how long ago he had similar symptoms, but it sounds as if it is been off and on. He denies a headache. Denies any visual changes. Denies any focal neuro motor weakness. Review of Systems Constitutional: no fever Eyes: no diplopia Ear, Nose, Mouth, Throat: + hearing loss Respiratory: no cough and no dyspnea Cardiovascular: no chest pain with activity and no dyspnea at rest Gastrointestinal: + nausea and + constipation; no vomiting Genitourinary: no dysuria Neurologic: + unsteadiness; no falls and no generalized weakness Psychiatric: no depression Physical Exam Constitutional: WD/WN, vitals as above Eyes: PERRL, conjunctivae normal, anicteric sclerae ENMT: external ear and nose normal, oropharynx normal Neck: trachea midline, no thyromegaly normal visual inspection and trachea midline; no tracheal deviation Respiratory: normal respiratory effort; no respiratory distress Cardiovascular: Rate/Rhythm: regular rate Gastrointestinal (Abdomen): normal bowel sounds, soft, nontender, no hepatosplenomegaly Inspection/Auscultation: abdomen normal to inspection and normal bowel sounds; abdomen not distended Percussion/Palpation: abdomen nontender and no guarding Musculoskeletal: Head/Neck/Chest: normocephalic Skin: no rashes, warm and dry no rashes Psychiatric: Orientation: oriented x 3 Speech: normal rate/rhythm/volume of speech Results & Data ([facility]) Vital Signs (Past 12 Hours) Vital Signs Temp Pulse Pulse Resp BP Pulse Ox Pulse Ox 12/25/19 15:11 36.8 C 67 18 127/72 96 12/25/19 12:52 36.6 C 66 18 115/69 94 12/25/19 08:00 65 96 12/25/19 07:00 36.8 C 63 20 145/79 H 96 Laboratory Results Labs from this morning show a BUN of 29, creatinine 1.47 -this appears to be around his baseline if not slightly better. Hemoglobin A1c is 8.9%. Bedside glucose have been ranging from 112 to 160 today. Diagnostic Findings Chest x-ray from yesterday showed mild central pulmonary vascular congestion without overt edema, stable cardiomegaly, and some atelectatic changes.
[2019-12-25] MEDS: SPIRONOLACTONE 25 MG TAB PO SCH (16:58)
[2019-12-25] MEDS ORDERED: MECLIZINE HCL 25 MG TAB PO PRN (18:46)
--- NOTE | 2019-12-25 19:20 | CT Scan Report ---
CT OF THE HEAD WITHOUT CONTRAST CLINICAL HISTORY: dizziness/vertigo COMPARISON STUDY: Head CT December 27, 2015. CT DOSE: 537.48 mGy.cm TECHNIQUE: Helical axial images of the head were obtained without IV contrast. Automated exposure con trol was utilized for the study. A dose lowering technique was utilized adhering to the principles o f ALARA. FINDINGS: No acute intracranial hemorrhage, midline shift or mass effect is present. Moderate atrophy is noted. This accounts for mild ventricular dilatation. The basilar cisterns are patent. There are no extra-axial collections. Moderate hypodensity suggests small vessel disease. There are no findings to suggest acute dural sinus thrombosis or acute territorial infarct. Visualized portions of the rig ht maxillary sinus are opacified. This is similar to prior exam and likely chronic. Trace fluid withi n the right mastoid air cells is noted. IMPRESSION: 1. No acute intracranial findings. 2. Trace fluid within the right mastoid air cells. 3. Opacification of the right maxillary sinus, likely chronic. ACT 112: Negative or not required by law. Electronically signed by: Jason La M.D. 12/25/2019 7:19 PM
[2019-12-25] MEDS: ISOSORBIDE MONO EXTENDED REL 30 MG TABCR PO SCH (22:33)
[2019-12-25] MEDS: TOCOPHERYL, DL-ALPHA 400 UNITS CAP PO SCH (22:34)
[2019-12-25] MEDS: OMEGA-3 (PURIFIED FISH OIL) 1 GM CAP PO SCH (22:34)
[2019-12-25] MEDS: ASPIRIN 81 MG ECTAB PO SCH (22:34)
[2019-12-25] MEDS: FOLIC ACID 1 MG TAB PO SCH (22:34)
[2019-12-25] MEDS: FENOFIBRATE NANOCRYSTALLIZED 145 MG TABLET PO SCH (22:35)
[2019-12-25] MEDS: CHOLECALCIFEROL 1,000 UNITS 25 MCG TAB PO SCH (22:35)
[2019-12-25] MEDS: SIMVASTATIN 80 MG TAB PO SCH (22:35)
[2019-12-25] MEDS: ASCORBIC ACID 500 MG TAB PO SCH (22:36)
[2019-12-25] MEDS: EZETIMIBE 10 MG TABLET PO SCH (22:37)
[2019-12-25] MEDS: NIACIN EXTENDED REL 500 MG TABCR PO SCH (22:37)
[2019-12-26] MEDS: ONDANSETRON INJ 2 MG/ML 2 ML VIAL IV PRN (04:11)
[2019-12-26] MEDS: LEVOTHYROXINE SODIUM 100 MCG TABLET PO SCH (06:33)
[2019-12-26] MEDS: ISOSORBIDE MONO EXTENDED REL 60 MG TABCR PO SCH ×2 (08:10→20:09)
[2019-12-26] MEDS: APIXABAN 5 MG TABLET PO SCH ×2 (08:10→20:10)
[2019-12-26] MEDS: lisinopriL 10 MG TAB PO SCH (08:10)
[2019-12-26] MEDS: BuPROPion SR 150 MG TABCR PO SCH (08:10)
[2019-12-26] MEDS: FUROSEMIDE 20 MG TAB PO SCH ×2 (08:11→17:18)
[2019-12-26] MEDS: METOPROLOL SUCC 25MG EXT REL TAB PO SCH ×2 (08:11→20:08)
[2019-12-26] MEDS: CEROVITE ADV FORMULA TAB PO SCH (08:11)
[2019-12-26] MEDS: INSULIN GLARGINE SOLOSTAR 100 UNITS/ML 3 ML PEN SC SCH (08:11)
[2019-12-26] MEDS: INSULIN ASPART 100 UNITS/ML 3 ML PEN SQ SCH ×2 (08:12→17:19)
[2019-12-26] MEDS: TRULICITY: ORDER AWAITING ACTION SCH ×3 (08:18→22:06)
[2019-12-26] MEDS ORDERED: INSULIN GLARGINE 100 UNIT/ML VIAL SC SCH (09:00)
--- NOTE | 2019-12-26 15:26 | Hospitalist Progress Note ---
Date of Service December 26, 2019 Assessment & Plan (1) Lightheadedness: Suspect positional vertigo vs. some mild orthostatic hypotension. As noted, carotid ultrasounds done earlier this year were negative for significant stenosis. - PT discussed today that his exam is inconsistent. Yesterday seemed like BPPV, now with no real signs of BPPV, but more orthostatic. - Continue meclizine as needed - Will get orthostatics (2) Uncontrolled type 2 diabetes mellitus with chronic kidney disease, with long-term current use of insulin: A1c is 8.9% this admission. - Hold home oral meds - Sliding scale insulin - Trulicity use on (3) Hypothyroidism: TSH was 1.9 in 08/2019. - Continue home levothyroxine 100 mcg (4) Chronic kidney disease, stage III (moderate): Baseline cr around 1.7, was 1.4 on admission. - Cr today is 1.5. (5) Chronic congestive heart failure: Chronic systolic heart failure. Echo this admission shows EF 35%. This is stable from prior echo in 05/2019. - Continue home Lasix 60 mg PO BID - Continue home spironolactone, beta-gavin, Imdur, ACEi - Monitor weights and I&Os. Baseline weight appears to be ~120 kg, and he is now below that. Dehydration possibly playing a role. (6) Hypercholesterolemia: - Continue home meds (7) Depression: - Continue home meds (8) Atrial fibrillation: EKG shows sinus rhythm on admission. - Continue home meds, Eliquis (9) Hypertension: BP presently 110/60. - Continue home meds (10) Sleep apnea: States no home tx. (11) DVT prophylaxis: JENNIFER Bartholomews Admission and Anticipated Discharge Date Admission Date: December 24, 2019 Subjective Still with some dizziness. It occurs most with position changes. Less so with head position changes, but overall improved. Still thinks he's unsteady on his feet and unsafe to go home. Reports no fevers/chills, chest pain, shortness of breath, abdominal pain, nausea, or vomiting. Physical Exam Constitutional: WD/WN, vitals as above Eyes: EOM intact bilaterally; no conjunctival abnormality ENMT: external ear and nose normal, oropharynx normal Neck: trachea midline, no thyromegaly normal visual inspection Respiratory: normal respiratory effort, lungs clear to auscultation no respiratory distress Cardiovascular: RRR, no murmur, no edema Gastrointestinal (Abdomen): Inspection/Auscultation: abdomen normal to inspection; abdomen not distended Musculoskeletal: no cyanosis or clubbing, extremities motor strength 5/5 Skin: no rashes, warm and dry Neurologic: moves all extremities and awake Psychiatric: Orientation: alert, oriented to person and cooperative Results & Data Results & Data ([facility]) Vital Signs (Past 12 Hours) Vital Signs Temp Pulse Resp BP BP Pulse Ox 12/26/19 11:21 36.6 C 67 20 112/61 96 12/26/19 07:11 36.6 C 70 15 96/58 L 95 12/26/19 03:37 36.5 C 64 18 122/43 L 96 PG Care Time/CCT Total # of Minutes Spent Total Time Spent with Patient: Total time spent is greater than 50% in coordination of care (as documented) at patient's floor/unit and/or counseling patient: Coding Level of Care Code 62221 Subseq Hosp Care Lvl 2 Diagnoses Lightheadedness R42 Uncontrolled type 2 diabetes mellitus with chronic kidney disease, with long- term current use of insulin E11.22; E11.65; Z79.4 Hypothyroidism E03.9 Chronic kidney disease, stage III (moderate) N18.3 Chronic congestive heart failure I50.9 Hypercholesterolemia E78.00 Depression F32.9 Atrial fibrillation I48.91 Hypertension I10 Sleep apnea G47.30 DVT prophylaxis Z29.9
[2019-12-26] MEDS: SPIRONOLACTONE 25 MG TAB PO SCH (17:18)
[2019-12-26] MEDS: SIMVASTATIN 80 MG TAB PO SCH (20:08)
[2019-12-26] MEDS: EZETIMIBE 10 MG TABLET PO SCH (20:08)
[2019-12-26] MEDS: FENOFIBRATE NANOCRYSTALLIZED 145 MG TABLET PO SCH (20:08)
[2019-12-26] MEDS: OMEGA-3 (PURIFIED FISH OIL) 1 GM CAP PO SCH (20:09)
[2019-12-26] MEDS: FOLIC ACID 1 MG TAB PO SCH (20:09)
[2019-12-26] MEDS: NIACIN EXTENDED REL 500 MG TABCR PO SCH (20:09)
[2019-12-26] MEDS: ASPIRIN 81 MG ECTAB PO SCH (20:10)
[2019-12-26] MEDS: ISOSORBIDE MONO EXTENDED REL 30 MG TABCR PO SCH ×2 (20:11→20:12)
[2019-12-26] MEDS: CHOLECALCIFEROL 1,000 UNITS 25 MCG TAB PO SCH (20:12)
[2019-12-26] MEDS: TOCOPHERYL, DL-ALPHA 400 UNITS CAP PO SCH (20:12)
[2019-12-26] MEDS: ASCORBIC ACID 500 MG TAB PO SCH (20:13)
[2019-12-26] MEDS: INSULIN GLARGINE 100 UNIT/ML VIAL SC SCH (20:15)
[2019-12-27] MEDS: LEVOTHYROXINE SODIUM 100 MCG TABLET PO SCH (06:04)
[2019-12-27 07:24] LABS: Creatinine Clr Calc Pharmacy 50.6 ml/min; Est GFR (African American) 45.1; Est GFR (Non-African American) 38.9
[2019-12-27] MEDS: BuPROPion SR 150 MG TABCR PO SCH (08:32)
[2019-12-27] MEDS: CEROVITE ADV FORMULA TAB PO SCH (08:32)
[2019-12-27] MEDS: FUROSEMIDE 20 MG TAB PO SCH (08:32)
[2019-12-27] MEDS: APIXABAN 5 MG TABLET PO SCH ×2 (08:32→21:45)
[2019-12-27] MEDS: METOPROLOL SUCC 25MG EXT REL TAB PO SCH (08:32)
[2019-12-27] MEDS: lisinopriL 10 MG TAB PO SCH (08:33)
[2019-12-27] MEDS: TRULICITY: ORDER AWAITING ACTION SCH ×2 (08:33→15:42)
[2019-12-27] MEDS: INSULIN GLARGINE 100 UNIT/ML VIAL SC SCH ×2 (08:52→21:50)
[2019-12-27] MEDS: INSULIN ASPART 100 UNITS/ML 3 ML PEN SQ SCH ×2 (08:52→16:58)
--- NOTE | 2019-12-27 16:50 | Hospitalist Progress Note ---
Date of Service December 27, 2019 Assessment & Plan (1) Lightheadedness: Suspect positional vertigo vs. some mild orthostatic hypotension. As noted, carotid ultrasounds done earlier this year were negative for significant stenosis. - PT discussed on 12/25 that his exam is inconsistent. Initially seemed like BPPV, now with no real signs of BPPV, but more orthostatic. - Continue meclizine as needed - Holding diuretics at present (Lasix and spironolactone). LUIS bland. Continue PT/OT work. (2) Uncontrolled type 2 diabetes mellitus with chronic kidney disease, with long-term current use of insulin: A1c is 8.9% this admission. - Hold home oral meds - Sliding scale insulin - Trulicity use on (3) Hypothyroidism: TSH was 1.9 in 08/2019. - Continue home levothyroxine 100 mcg (4) Chronic kidney disease, stage III (moderate): Baseline cr around 1.7, was 1.4 on admission. - Cr today is 1.7. - Holding Lasix & spironolactone today. (5) Chronic congestive heart failure: Chronic systolic heart failure. Echo this admission shows EF 35%. This is stable from prior echo in 05/2019. - Hold home Lasix 60 mg PO BID & spironolactone; lowered beta-gavin & Imdur - Continue home ACEi - Monitor weights and I&Os. Baseline weight appears to be ~120 kg, and he is now below that. Dehydration possibly playing a role. (6) Hypercholesterolemia: - Continue home meds (7) Depression: - Continue home meds (8) Atrial fibrillation: EKG shows sinus rhythm on admission. - Continue home meds, Eliquis (9) Hypertension: BP presently 135/75. - Continue home meds (10) Sleep apnea: States no home tx. (11) DVT prophylaxis: JENNIFER Bartholomews Admission and Anticipated Discharge Date Admission Date: December 24, 2019 Subjective [place] better this morning, but had an episode of orthostasis in the afternoon with PT. Reports no fevers/chills, chest pain, shortness of breath, abdominal pain, nausea, or vomiting. Physical Exam 2 Constitutional: WD/WN, vitals as above Eyes: EOM intact bilaterally; no conjunctival abnormality ENMT: external ear and nose normal, oropharynx normal Neck: trachea midline, no thyromegaly normal visual inspection Respiratory: normal respiratory effort, lungs clear to auscultation no respiratory distress Cardiovascular: RRR, no murmur, no edema Gastrointestinal (Abdomen): Inspection/Auscultation: abdomen normal to inspection; abdomen not distended Musculoskeletal: no cyanosis or clubbing, extremities motor strength 5/5 Skin: no rashes, warm and dry Neurologic: moves all extremities and awake Psychiatric: Orientation: alert, oriented to person and cooperative Results & Data Results & Data ([facility]) Vital Signs (Past 12 Hours) Vital Signs Temp Pulse Pulse Resp BP Pulse Ox 12/27/19 15:46 36.7 C 69 18 134/74 98 12/27/19 14:47 68 12/27/19 14:19 97 12/27/19 11:44 36.3 C L 70 20 119/71 96 12/27/19 07:46 36.3 C L 67 18 120/68 96 12/27/19 07:40 68 PG Care Time/CCT Total # of Minutes Spent Total Time Spent with Patient: Total time spent is greater than 50% in coordination of care (as documented) at patient's floor/unit and/or counseling patient: Coding Level of Care Code 00072 Subseq Hosp Care Lvl 3 Diagnoses Lightheadedness R42 Uncontrolled type 2 diabetes mellitus with chronic kidney disease, with long- term current use of insulin E11.22; E11.65; Z79.4 Hypothyroidism E03.9 Chronic kidney disease, stage III (moderate) N18.3 Chronic congestive heart failure I50.9 Hypercholesterolemia E78.00 Depression F32.9 Atrial fibrillation I48.91 Hypertension I10 Sleep apnea G47.30 DVT prophylaxis Z29.9
[2019-12-27] MEDS: OMEGA-3 (PURIFIED FISH OIL) 1 GM CAP PO SCH (21:44)
[2019-12-27] MEDS: FENOFIBRATE NANOCRYSTALLIZED 145 MG TABLET PO SCH (21:44)
[2019-12-27] MEDS: SIMVASTATIN 80 MG TAB PO SCH (21:44)
[2019-12-27] MEDS: TOCOPHERYL, DL-ALPHA 400 UNITS CAP PO SCH (21:44)
[2019-12-27] MEDS: CHOLECALCIFEROL 1,000 UNITS 25 MCG TAB PO SCH (21:44)
[2019-12-27] MEDS: ASPIRIN 81 MG ECTAB PO SCH (21:45)
[2019-12-27] MEDS: EZETIMIBE 10 MG TABLET PO SCH (21:45)
[2019-12-27] MEDS: ASCORBIC ACID 500 MG TAB PO SCH (21:45)
[2019-12-27] MEDS: FOLIC ACID 1 MG TAB PO SCH (21:45)
[2019-12-27] MEDS: NIACIN EXTENDED REL 500 MG TABCR PO SCH (21:45)
[2019-12-28] MEDS: ONDANSETRON INJ 2 MG/ML 2 ML VIAL IV PRN (04:31)
[2019-12-28] MEDS: LEVOTHYROXINE SODIUM 100 MCG TABLET PO SCH (05:36)
[2019-12-28 07:02] LABS: Hematocrit (blood only) 41.1 % (42-52); Hemoglobin 13.5 g/dL (14.0-18.0); Mean Corpuscular Hemoglobin 28.3 pg (25-34); Mean Corpuscular Hgb Conc 32.8 g/dL (32-36); Mean Corpuscular Volume 86.2 fL (80-100); Mean Platelet Volume 9.3 fL (7.4-10.4); Platelet Count 182 K/uL (130-400); RDW Coefficient of Variation 16.4 % (11.5-14.5); RDW Standard Deviation 51.8 fL (36.4-46.3); Red Blood Count 4.77 M/uL (4.7-6.1); White Blood Count 9.22 K/uL (4.8-10.8)
[2019-12-28 07:28] LABS: BUN Creatinine Ratio 17.6 (10-20); Calcium 9.9 mg/dl (8.5-10.1); Creatinine Clr Calc Pharmacy 53.3 ml/min; Est GFR (African American) 48.2; Est GFR (Non-African American) 41.6; Magnesium 2.5 mg/dl (1.8-2.4); Potassium 4.4 mmol/L (3.5-5.1)
[2019-12-28] MEDS: CEROVITE ADV FORMULA TAB PO SCH (07:56)
[2019-12-28] MEDS: lisinopriL 10 MG TAB PO SCH (07:56)
[2019-12-28] MEDS: METOPROLOL SUCC 25MG EXT REL TAB PO SCH (07:56)
[2019-12-28] MEDS: APIXABAN 5 MG TABLET PO SCH ×2 (07:57→21:56)
[2019-12-28] MEDS: ISOSORBIDE MONO EXTENDED REL 60 MG TABCR PO SCH (07:57)
[2019-12-28] MEDS: BuPROPion SR 150 MG TABCR PO SCH (07:57)
[2019-12-28] MEDS: INSULIN GLARGINE 100 UNIT/ML VIAL SC SCH ×2 (08:44→22:04)
[2019-12-28] MEDS: INSULIN ASPART 100 UNITS/ML 3 ML PEN SQ SCH ×2 (08:45→18:10)
--- NOTE | 2019-12-28 16:08 | Hospitalist Progress Note ---
Date of Service December 28, 2019 Assessment & Plan (1) Ear infection: Patient noted right ear pain to the RN on 12/27. - Exam indicates right-sided inflammation. Left ear is pearly & white. - Started Augmentin on 12/27 for 7-day course. (2) Lightheadedness: Suspect positional vertigo vs. some mild orthostatic hypotension. As noted, carotid ultrasounds done earlier this year were negative for significant stenosis. - Improving today as we held some of his BP medications yesterday. - PT still recommending short-term rehab stay. Will consult CM. (3) Uncontrolled type 2 diabetes mellitus with chronic kidney disease, with long-term current use of insulin: A1c is 8.9% this admission. - Hold home meds - Sliding scale insulin -> Blood sugars generally acceptable today at 140-220. (4) Hypothyroidism: TSH was 1.9 in 08/2019. - Continue home levothyroxine 100 mcg (5) Chronic kidney disease, stage III (moderate): Baseline Cr around 1.7, was 1.4 on admission. - Cr today is 1.6. - Holding Lasix & spironolactone today. (6) Chronic congestive heart failure: Chronic systolic heart failure. Echo this admission shows EF 35%. This is stable from prior echo in 05/2019. - Hold home Lasix 60 mg PO BID & spironolactone; lowered beta-gavin & Imdur - Continue home ACEi - Monitor weights and I&Os. Baseline weight appears to be ~120 kg, and he is now below that. Dehydration possibly playing a role. (7) Hypercholesterolemia: - Continue home meds (8) Depression: - Continue home meds (9) Atrial fibrillation: EKG shows sinus rhythm on admission. - Continue home meds, Eliquis (10) Hypertension: BP presently 115/60. Negative orthostatics today. - Continue home meds (11) Sleep apnea: States no home tx. (12) DVT prophylaxis: Govind Bartholomew Admission and Anticipated Discharge Date Admission Date: December 24, 2019 Subjective Less dizzy today. Reports no fevers/chills, chest pain, shortness of breath, abdominal pain, nausea, or vomiting. Physical Exam Constitutional: WD/WN, vitals as above Eyes: EOM intact bilaterally; no conjunctival abnormality ENMT: external ear and nose normal, oropharynx normal Neck: trachea midline, no thyromegaly normal visual inspection Respiratory: normal respiratory effort, lungs clear to auscultation no respiratory distress Cardiovascular: RRR, no murmur, no edema Gastrointestinal (Abdomen): Inspection/Auscultation: abdomen normal to inspection; abdomen not distended Musculoskeletal: no cyanosis or clubbing, extremities motor strength 5/5 Skin: no rashes, warm and dry Neurologic: moves all extremities and awake Psychiatric: Orientation: alert, oriented to person and cooperative Results & Data Results & Data ([facility]) Vital Signs (Past 12 Hours) Vital Signs Temp Pulse Resp BP Pulse Ox 12/28/19 13:11 96 12/28/19 07:27 36.7 C 67 20 116/61 95 PG Care Time/CCT Total # of Minutes Spent Total Time Spent with Patient: Total time spent is greater than 50% in coordination of care (as documented) at patient's floor/unit and/or counseling patient: Coding Level of Care Code 38624 Subseq Hosp Care Lvl 3 Diagnoses Ear infection H66.90 Lightheadedness R42 Uncontrolled type 2 diabetes mellitus with chronic kidney disease, with long- term current use of insulin E11.22; E11.65; Z79.4 Hypothyroidism E03.9 Chronic kidney disease, stage III (moderate) N18.3 Chronic congestive heart failure I50.9 Hypercholesterolemia E78.00 Depression F32.9 Atrial fibrillation I48.91 Hypertension I10 Sleep apnea G47.30 DVT prophylaxis Z29.9
[2019-12-28] MEDS: AMOXICILLIN/CLAVULANATE 875 MG TAB PO SCH (18:10)
[2019-12-28] MEDS: ASPIRIN 81 MG ECTAB PO SCH (21:55)
[2019-12-28] MEDS: FOLIC ACID 1 MG TAB PO SCH (21:57)
[2019-12-28] MEDS: NIACIN EXTENDED REL 500 MG TABCR PO SCH (21:58)
[2019-12-28] MEDS: ASCORBIC ACID 500 MG TAB PO SCH (21:58)
[2019-12-28] MEDS: CHOLECALCIFEROL 1,000 UNITS 25 MCG TAB PO SCH (21:58)
[2019-12-28] MEDS: FENOFIBRATE NANOCRYSTALLIZED 145 MG TABLET PO SCH (21:58)
[2019-12-28] MEDS: TOCOPHERYL, DL-ALPHA 400 UNITS CAP PO SCH (21:59)
[2019-12-28] MEDS: OMEGA-3 (PURIFIED FISH OIL) 1 GM CAP PO SCH (21:59)
[2019-12-28] MEDS: SIMVASTATIN 80 MG TAB PO SCH (22:00)
[2019-12-28] MEDS: EZETIMIBE 10 MG TABLET PO SCH (22:00)
[2019-12-29] MEDS: LEVOTHYROXINE SODIUM 100 MCG TABLET PO SCH (06:00)
[2019-12-29] MEDS: METOPROLOL SUCC 25MG EXT REL TAB PO SCH (08:43)
[2019-12-29] MEDS: lisinopriL 10 MG TAB PO SCH (08:46)
[2019-12-29] MEDS: CEROVITE ADV FORMULA TAB PO SCH (08:46)
[2019-12-29] MEDS: AMOXICILLIN/CLAVULANATE 875 MG TAB PO SCH ×2 (08:46→17:28)
[2019-12-29] MEDS: BuPROPion SR 150 MG TABCR PO SCH (08:46)
[2019-12-29] MEDS: APIXABAN 5 MG TABLET PO SCH (08:46)
[2019-12-29] MEDS: ISOSORBIDE MONO EXTENDED REL 60 MG TABCR PO SCH (08:46)
[2019-12-29] MEDS: INSULIN ASPART 100 UNITS/ML 3 ML PEN SQ SCH (08:47)
[2019-12-29] MEDS: INSULIN GLARGINE 100 UNIT/ML VIAL SC SCH (08:47)
--- NOTE | 2019-12-29 17:11 | Discharge Summary ---
Date of Service December 29, 2019 Admission HPI Per Admitting Provider 79 y/o M c/o lightheadedness. Pt states that he has been having L sided chest pain and feeling weak and lightheaded for about 4-5 days. Pain does not radiate. It is located around the area of his defibrillator. He gets weak and lightheaded any time he moves to stand up or even if he turns his head to either side. He feels like he is "wobbling" from side to side when he walks. He sits down and it does not go away immediately. Sometimes it persists for quite some time. He has never had this issue prior. Pt had 2 days of n/v and abd cramping that resolved spontaneously about 2 days ago. Pt denies fever, SOB, c/d, LE pain or swelling. Pt states he gets immediately nauseated and with some lightheadedness tilting his head to either side or fully turning his head. He can do this on command. Pt was given aspirin by EMS and his chest pain resolved. It has not returned. Pt was noted initially to have a 15 point BP drop when moving from seated to standing, but no full orthostatic hypoTN. He ate lunch in the ED and was feeling improved until they attempted to stand him for d/c, when he had sudden onset of his sx. Pt had repeat orthostatics done and was noted for fully orthostatic BP. Pt took AM meds today. Principal Diagnosis Inner ear infection Orthostatic hypotension from medications Discharge Exam Constitutional WD/WN, vitals as above Eyes EOM intact bilaterally; no conjunctival abnormality ENMT external ear and nose normal, oropharynx normal Neck trachea midline, no thyromegaly normal visual inspection Respiratory normal respiratory effort, lungs clear to auscultation no respiratory distress Cardiovascular RRR, no murmur, no edema Gastrointestinal (Abdomen) Inspection/Auscultation: abdomen normal to inspection; abdomen not distended Musculoskeletal no cyanosis or clubbing, extremities motor strength 5/5 Skin no rashes, warm and dry Neurologic moves all extremities and awake Psychiatric Orientation: alert, oriented to person and cooperative Discharge Data Allergies Allergy/AdvReac Type Severity Reaction Status Date / Time carvedilol Allergy Verified 12/24/19 11:07 [facility] Allergy Verified 12/24/19 11:07 Consultations 12/24/19 13:52 ED Decision to Admit Stat 12/28/19 16:08 Consult Case Management - Discharge Planning Routine Ordered Studies 12/25/19 18:33 CT head/brain wo con Stat Hospital Course (1) Ear infection: Patient noted right ear pain to the RN on 12/27. - Exam indicates right-sided inflammation. Left ear is pearly & white. - Started Augmentin on 12/27 for 7-day course. Follow up with Dr. Osuna (ENT) in 1 week. (2) Lightheadedness: Suspect positional vertigo vs. some mild orthostatic hypotension. As noted, carotid ultrasounds done earlier this year were negative for significant stenosis. - Resolved with lowering of BP meds and diuretic. Will need to follow up closely with cardiology to prevent CHF exacerbation, but weight was stable at 117 kg in the hospital. (3) Uncontrolled type 2 diabetes mellitus with chronic kidney disease, with long-term current use of insulin: A1c is 8.9% this admission. - Home meds on discharge. Outpatient adjustment as needed. (4) Hypothyroidism: TSH was 1.9 in 08/2019. - Continue home levothyroxine 100 mcg (5) Chronic kidney disease, stage III (moderate): Baseline Cr around 1.7, was 1.4 on admission. - Cr today is 1.6. - Reduced Lasix to daily (6) Chronic congestive heart failure: Chronic systolic heart failure. Echo this admission shows EF 35%. This is stable from prior echo in 05/2019. - Reduced home Lasix 60 mg PO to daily. - Continue home ACEi - Reduced beta-gavin and Imdur to daily as well. Weight here was steady at 117 kg. (7) Hypercholesterolemia: - Continue home meds (8) Depression: - Continue home meds (9) Atrial fibrillation: EKG shows sinus rhythm on admission. - Continue home meds, Eliquis (10) Hypertension: BP presently 115/60. Negative orthostatics today. - Continue home meds (11) Sleep apnea: States no home tx. (12) DVT prophylaxis: Ximenaqudeven SCDs Total Time Total Time Spent Total Time Spent (In Minutes): 35 Discharge Plan Discharge Items Patient Disposition: Home - Home Health Services Reason For Visit: NEAR SYNCOPE Discharge Diagnosis: Ear infection, vertigo from ear issues Condition on Discharge: Good Activity: Resume your previous activity Non-emergency contact: Primary Care Provider and Specialist Call non-emergency contact if: your symptoms worsen Follow-up/Referrals: Clovis Klein III, MD [Primary Care Provider] - Zenia Osuna MD [Surgeon] - (Please see Dr. Osuna in his office in 1-2 weeks.) Diet: Carb Consistent or DM2 and Heart Healthy Addtl Attending Provider Instructions: Mr. Taylor, You were admitted to the hospital with vertigo and dizziness. We believe this was caused by some inner ear issues as well as possibly over-use of some of your heart medications (which can lower blood pressure and also cause dizziness). 1) We started an antibiotic to help your inner ear infection. Please take this antibiotic for 1 week (two times per day) until your ear is feeling better. Please see Dr. Osuna (the ear doctor) in his office sometime in the next few weeks to be sure your ears are improving. 2) We lowered a few of your heart medications. Please see the medication list at the end of your discharge packet. We didn't *STOP* any medications, but we are having you hold some evening doses to prevent some of the lower blood pressures. Please follow up with your cylinder block mechanic (heart doctor) in [place] to touch base on these changes. For your Lasix, we did lower this to once a day dosing instead of twice a day. Please follow your weight at home. At the hospital, it was 258 lbs. If your weight starts to increase at home and goes past 260 lbs, please call your cylinder block mechanic and discuss how to adjust your Lasix. Pending Studies at Discharge: No Stand-Alone Forms: My [facility] [employer], Smoking Cessation Medications and DC Order Prescriptions: New amoxicillin-pot clavulanate [Augmentin] 875-125 mg Tablet 1 tab PO BIDM Qty: 12 RF: 0 Continued nitroglycerin 0.4 mg tablet, sublingual 0.4 mg SL .COMPLEX PRN (Reason: chest pain) Qty: 25 RF: 5 ezetimibe-simvastatin 10-80 mg tablet See Rx Instructions .ROUTE .COMPLEX Qty: 90 RF: 3 (DME) OneTouch Ultra Blue Test Strip Strip See Dose Instructions .ROUTE .MEDSUPPLY Qty: 100 RF: 3 Tresiba FlexTouch U-100 100 unit/mL (3 mL) insulin pen 80 units SQ BID Qty: 45 RF: 5 Novolog Flexpen U-100 Insulin 100 unit/mL (3 mL) insulin pen 15 units SQ BID Qty: 15 RF: 3 folic acid 1 mg tablet 1 mg PO HS RF: 0 bupropion HCl 150 mg tablet sustained-release 12 hr 150 mg PO QAM Qty: 90 RF: 0 ascorbic acid (vitamin C) 500 mg tablet 500 mg PO HS RF: 0 PreserVision Lutein 226 mg-200 unit -5 mg-0.8 mg capsule 1 cap PO BID RF: 0 vitamin E (dl, acetate) 400 unit capsule 400 units PO HS RF: 0 niacin 1,000 mg tablet extended release 1,000 mg PO HS RF: 0 Eliquis 5 mg tablet 5 mg PO BID RF: 0 lisinopril 10 mg tablet 10 mg PO QAM RF: 0 cholecalciferol (vitamin D3) 1,000 unit capsule 1,000 units PO HS RF: 0 ondansetron HCl [Zofran] 4 mg tablet 4 mg PO Q6H PRN (Reason: nausea and vomiting) Qty: 30 RF: 4 aspirin 81 mg Tablet,Delayed Release (Dr/Ec) 81 mg PO HS RF: 0 omega 5-pvg-ucg-fish oil [Fish Oil] 1,000 mg (120 mg-180 mg) Capsule 1 cap PO HS RF: 0 spironolactone 25 mg tablet 25 mg PO HS RF: 0 isosorbide mononitrate 120 mg tablet extended release 24 hr 120 mg PO QAM RF: 0 levothyroxine 100 mcg tablet 100 mcg PO QAM RF: 0 fenofibrate nanocrystallized 145 mg tablet 145 mg PO HS RF: 0 Trulicity 1.5 mg/0.5 mL pen injector 1.5 mg SQ TH RF: 0 Changed furosemide 40 mg tablet 60 mg PO DAILY Qty: 0 RF: 0 metoprolol succinate 25 mg tablet extended release 24 hr 25 mg PO DAILY Qty: 60 RF: 5 Discontinued isosorbide mononitrate 30 mg tablet extended release 24 hr 30 mg PO HS RF: 0 Discharge Orders: Discharge Order (Routine); Ordered 12/29/19 Ordered By: Rusty Ludwig/Other Patient Handouts: Diabetes Type 2 Managing Admission Data Admit Date/Time: 12/24/19 14:22 Attending Provider: Gallegos,Rusty J. Admit Provider: Jenna Campuzano Primary Care Provider: Clovis Klein III Other Providers: Rusty Gallegos ; Jenna Campuzano ; Ashleigh,[facility] Other Interventions: Discharge Summary Assessment (RN) Last Done: 12/29/19 14:31 Coding Level of Care Code D/C Day Management >30 mins Diagnoses Ear infection H66.90 Lightheadedness R42 Uncontrolled type 2 diabetes mellitus with chronic kidney disease, with long- term current use of insulin E11.22; E11.65; Z79.4 Hypothyroidism E03.9 Chronic kidney disease, stage III (moderate) N18.3 Chronic congestive heart failure I50.9 Hypercholesterolemia E78.00 Depression F32.9 Atrial fibrillation I48.91 Hypertension I10 Sleep apnea G47.30 DVT prophylaxis Z29.9
--- NOTE | 2020-01-10 14:05 | Coding Query ---
A supporting diagnosis is required for the test/procedure performed on this patient in order for us to be reimbursed by the patient's insurance. Please provide a supporting diagnosis for the following test/procedure listed below next to the test name along with your signature. *If there is no additional diagnosis for this patient that would support the following test/procedure please document that below next to the test/procedure. Test(s)/Procedure(s) that require a supporting diagnosis: CANALITH REPOSITIONING PROC DIAGNOSIS positional pre-syncope Provider Signature: ____Jenna Campuzano, Date: __01/26/2020 Thank you Ashely Hernandez Health Information Management Once completed, please kindly fax back to [phone] For questions please call [phone] NEVIN
== END 2019-12-29 17:48 | disposition home health service (06) ==
LOC: ED 10:04 → INTOOBSV 14:22 → SUATTDRO 14:22 → 2S 14:22 → 3N 12-27 16:51

== ENCOUNTER 2020-10-25 04:32 | Inpatient (IN) ==
[2020-10-25] MEDS ORDERED: PROMETHAZINE 12.5 MG/50.5 ML BAG IV STA (04:42)
[2020-10-25] MEDS ORDERED: SODIUM CHLORIDE 0.9% 500 ML IV ONE (04:42)
--- NOTE | 2020-10-25 05:01 | Emergency Department Note ---
History of Present Illness General Chief complaint: Abdominal Pain Stated complaint: ABDOMINAL PAIN Time Seen by Provider: 10/25/20 04:35 Source: patient Mode of arrival: EMS Limitations: other (extremely hard of hearing) History of Present Illness This patient is a 79-year-old male who arrives to the emergency department via EMS for evaluation of nausea/vomiting. Patient symptoms started yesterday afternoon, about 12 hours prior to arrival. He has had 5 episodes of vomiting. He has also complained of chills. Patient believes that he ate something bad "from [employer]." He reportedly had some abdominal tenderness on palpati on but was not complaining of pain. Unknown if he has had fevers at home. He denies diarrhea, headache, cough or shortness of breath. History somewhat limited as patient is extremely hard of hearing. Home Medications Medication Instructions Recorded Confirmed Type ascorbic acid (vitamin C) 500 mg 500 mg PO HS tab 02/16/19 10/25/20 History tablet folic acid 1 mg tablet 1 mg PO HS tab 02/16/19 10/25/20 History lisinopril 10 mg tablet 10 mg PO QAM 02/16/19 10/25/20 History cholecalciferol (vitamin D3) 25 1,000 units PO HS 02/17/19 10/25/20 History mcg (1,000 unit) capsule ondansetron HCl 4 mg tablet 4 mg PO Q6H PRN #30 tab 02/21/19 10/25/20 Rx insulin aspart U-100 100 unit/mL 15 units SQ BID #15 ml 12/15/19 10/25/20 Rx (3 mL) subcutaneous pen aspirin 81 mg PO HS 12/24/19 10/25/20 History omega 6-sjx-[id number]-fish oil [Fish Oil] 1 cap PO HS 12/24/19 10/25/20 History fenofibrate nanocrystallized 145 145 mg PO HS #90 tab 02/27/20 10/25/20 Rx mg tablet furosemide 60 mg PO BID 03/19/20 10/25/20 History metoprolol succinate 25 mg PO BID 03/19/20 10/25/20 History nitroglycerin 0.4 mg SL .PPRN/UD PRN 03/19/20 10/25/20 History levothyroxine 100 mcg tablet 100 mcg PO QAM #90 tab 07/17/20 10/25/20 Rx apixaban 5 mg PO BID 07/31/20 10/25/20 History bupropion HCl 150 mg PO BID 07/31/20 10/25/20 History Trulicity 1.5 mg SUBCUT WK 08/01/20 10/25/20 History ezetimibe 10 mg-simvastatin 80 mg 1 tab PO HS #90 tab 08/14/20 10/25/20 Rx tablet insulin degludec 100 unit/mL (3 80 unit SUBCUT BID #15 ml 08/28/20 10/25/20 Rx mL) subcutaneous pen spironolactone 25 mg tablet 25 mg PO QAM #90 tab 09/06/20 10/25/20 Rx isosorbide mononitrate 60 mg 60 mg PO DAILY #90 tab 10/09/20 10/25/20 Rx tablet,extended release 24 hr Allergies Allergy/AdvReac Type Severity Reaction Status Date / Time carvedilol Allergy Unknown Unknown Verified 10/25/20 06:10 Past Med/Surg History Medical History Acute diastolic congestive heart failure AICD discharge DALE (acute kidney injury) (08/22/13) Anemia Anxiety Atrial fibrillation Atrial fibrillation Bradycardia Cardiomyopathy Chronic congestive heart failure (04/03/13) Chronic kidney disease, stage III (moderate) COPD, moderate Coronary artery disease Depression Diabetes Diabetes mellitus type 2, uncontrolled Diabetes mellitus with kidney disease Dyslipidemia Hemorrhoid History of ND (myocardial infarction) Hypercholesterolemia Hypertension Hypertension Hypothyroidism Insomnia Ischemic cardiomyopathy Pacemaker malfunction Peptic ulcer Prostate cancer Prostate cancer Sleep apnea Ventricular tachycardia (paroxysmal) Surgical History History of appendectomy 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) History of heart bypass surgery Family History Unknown Diabetes Prostate cancer Uncle Prostate cancer Father Myocardial infarction Brother Myocardial infarction Other Family history non-contributory Denies family history of Ovarian cancer Breast cancer Colorectal cancer Social History Smoking Status: Former smoker Tobacco Type: Cigarettes Age Started Using Tobacco: 13; Age Quit Using Tobacco: 57; packs per day: 1; Years Smoked: 44; Cigarettes Per Day: 20; Number of Years Since Quit: 32; Second Hand Exposure: No; Hx Alcohol Use: No Hx Substance Use: No Preferred Language: Czech Communication Ability: Impaired Hearing Ability: Use of Hearing Aid Life Insurance Actuary Required: No Beliefs That Will Affect Care: None marital status: Current Living Situation: Spouse current occupational status: retired How many Children do You have: 2 Feels Safe at Home: Yes Dental Care, Regularly: No Physical Activity Frequency: Does not Exercise Seatbelt Use: never Sunscreen Use: No Assistive Devices: Glasses and Hearing Aid - Bilateral Review of Systems A total of 10 systems reviewed and were otherwise negative Physical Exam Vital Signs Vital Signs - 24 hr 10/25/20 04:32 10/25/20 04:46 10/25/20 04:52 Temperature 36.8 C Temperature Source Oral Pulse Rate 81 85 Respiratory Rate 24 25 H Blood Pressure 119/57 L 131/64 Blood Pressure Mean 77 86 Pulse Oximetry 92 93 Oxygen Delivery Method Room Air Room Air Room Air Sepsis Recent Fever Within 48 Hours No Sepsis New/Unexplained Change in Mental Status No Sepsis Action Taken by Nursing No Action Required 10/25/20 05:00 10/25/20 06:00 Temperature Temperature Source Pulse Rate 86 96 H Respiratory Rate 25 H 23 Blood Pressure 126/63 101/66 Blood Pressure Mean 84 77 Pulse Oximetry 94 93 Oxygen Delivery Method Room Air Sepsis Recent Fever Within 48 Hours Sepsis New/Unexplained Change in Mental Status Sepsis Action Taken by Nursing VITALS: Vitals are noted on the nurse's note and reviewed by myself. GENERAL: This is a 79-year-old male, chronically unwell appearing, sitting up in bed. SKIN: The skin was without rashes. EARS: External auditory canals clear, tympanic membranes pearly martinez without erythema or effusion bilaterally. EYES: Pupils equal round and reactive to light and accommodation. MOUTH: Mucous membranes are dry. NECK: Supple without nuchal rigidity. No lymphadenopathy. HEART: Regular rate and rhythm without murmurs gallops or rubs. LUNGS: Clear to auscultation bilaterally without wheezes, rales or rhonchi. ABDOMEN: Positive bowel sounds x 4. Abdomen mildly distended. There is tenderness to palpation in the left upper quadrant. No guarding or rebound tenderness. No palpable masses or organomegaly. RECTAL: Small amount of light brown heme-negative stool present. NEURO: Patient was alert and oriented to person place and time. Course Administered Medications Discontinued Medications Sodium Chloride (Nss) 500 mls @ 999 mls/hr IV .Q31M ONE Stop: 10/25/20 05:12 Last Infusion: 10/25/20 05:09 Dose: 0 mls/hr Documented by: [id number] Admin: 10/25/20 04:53 Dose: 999 mls/hr Documented by: [id number] Promethazine HCl (Phenergan) 12.5 mg in 50.5 mls @ 202 mls/hr IV NOW STA Stop: 10/25/20 04:56 Last Infusion: 10/25/20 05:09 Dose: 0 mls/hr Documented by: [id number] Admin: 10/25/20 04:53 Dose: 202 mls/hr Documented by: [id number] Medical Decision Making Differential Diagnosis Gastroenteritis, food borne illness, infections, appendicitis, diverticulitis, inflammatory bowel disease, obstruction, GI bleed, biliary pathology, volvulus, as well as other pathologies. Medical Records Attestation: I reviewed the patient's medical records. Patient admitted in July 2020 with similar presentation, had Klebsiella b acteremia at that time from unknown source. Home Medications Current Medication List: was personally reviewed by me Laboratory Data Attestation: I reviewed the patient's lab results. Result diagrams: 10/25/20 05:26 10/25/20 05:26 Lab Results 10/25/20 10/25/20 10/25/20 Range/Units 04:56 04:56 05:26 WBC 8.96 (4.8-10.8) K/uL RBC 3.84 L (4.7-6.1) M/uL Hgb 10.4 L (14.0-18.0) g/dL Hct 30.6 L (42-52) % MCV 79.7 L (80-100) fL MCH 27.1 (25-34) pg MCHC 34.0 (32-36) g/dL RDW Std Deviation 45.7 (36.4-46.3) fL RDW Coeff of Beck 15.6 H (11.5-14.5) % Plt Count 184 (130-400) K/uL MPV 8.9 (7.4-10.4) fL Immature Gran % (Auto) 0.3 % Neut % (Auto) 86.4 % Lymph % (Auto) 5.0 % [place] % (Auto) 8.1 % Eos % (Auto) 0.1 % Baso % (Auto) 0.1 % Neut # (Auto) 7.73 H (1.4-6.5) K/uL Lymph # (Auto) 0.45 L (1.2-3.4) K/uL [place] # (Auto) 0.73 H (0.11-0.59) K/uL Eos # (Auto) 0.01 (0-0.5) K/uL Baso # (Auto) 0.01 (0-0.2) K/uL Immature Gran # (Auto) 0.03 H (0.00-0.02) K/uL Sodium (136-145) mmol/L Potassium (3.5-5.1) mmol/L Chloride (98-107) mmol/L Carbon Dioxide (21-32) mmol/L Anion Gap (3-11) BUN (7-18) mg/dl Creatinine (0.6-1.4) mg/dl Est Cr Clr Drug Dosing ml/min Est GFR ( Amer) Est GFR (Non-Af Amer) BUN/Creatinine Ratio (10-20) Glucose (70-99) mg/dl Lactate (0.4-2.0) mmol/L Calcium (8.5-10.1) mg/dl Total Bilirubin (0.2-1) mg/dl AST (15-37) U/L ALT (12-78) U/L Alkaline Phosphatase (45-117) U/L Troponin I (0-0.045) ng/ml Total Protein (6.4-8.2) gm/dl Albumin (3.4-5.0) gm/dl Globulin (2.5-4.0) gm/dl Albumin/Globulin Ratio (0.9-2) Lipase (73-393) U/L COVID-19 Eval Order CovFluRsv at [facility] SARS-CoV-2 (PCR) NEGATIVE (Negative) Influenza Type A (PCR) Negative (Neg) Influenza Type B (PCR) Negative (Neg) RSV (RT-PCR) Negative (Neg) 10/25/20 10/25/20 Range/Units 05:26 05:26 WBC (4.8-10.8) K/uL RBC (4.7-6.1) M/uL Hgb (14.0-18.0) g/dL Hct (42-52) % MCV (80-100) fL MCH (25-34) pg MCHC (32-36) g/dL RDW Std Deviation (36.4-46.3) fL RDW Coeff of Beck (11.5-14.5) % Plt Count (130-400) K/uL MPV (7.4-10.4) fL Immature Gran % (Auto) % Neut % (Auto) % Lymph % (Auto) % [place] % (Auto) % Eos % (Auto) % Baso % (Auto) % Neut # (Auto) (1.4-6.5) K/uL Lymph # (Auto) (1.2-3.4) K/uL [place] # (Auto) (0.11-0.59) K/uL Eos # (Auto) (0-0.5) K/uL Baso # (Auto) (0-0.2) K/uL Immature Gran # (Auto) (0.00-0.02) K/uL Sodium 136 (136-145) mmol/L Potassium 3.6 (3.5-5.1) mmol/L Chloride 106 (98-107) mmol/L Carbon Dioxide 27 (21-32) mmol/L Anion Gap 3.0 (3-11) BUN 24 H (7-18) mg/dl Creatinine 1.66 H (0.6-1.4) mg/dl Est Cr Clr Drug Dosing 50.2 ml/min Est GFR ( Amer) 45.4 Est GFR (Non-Af Amer) 39.2 BUN/Creatinine Ratio 14.5 (10-20) Glucose 98 (70-99) mg/dl Lactate 2.3 H* (0.4-2.0) mmol/L Calcium 8.6 (8.5-10.1) mg/dl Total Bilirubin 0.6 (0.2-1) mg/dl AST 25 (15-37) U/L ALT 19 (12-78) U/L Alkaline Phosphatase 74 (45-117) U/L Troponin I < 0.015 (0-0.045) ng/ml Total Protein 6.7 (6.4-8.2) gm/dl Albumin 2.7 L (3.4-5.0) gm/dl Globulin 4.0 (2.5-4.0) gm/dl Albumin/Globulin Ratio 0.7 L (0.9-2) Lipase 119 (73-393) U/L COVID-19 Eval Order SARS-CoV-2 (PCR) (Negative) Influenza Type A (PCR) (Neg) Influenza Type B (PCR) (Neg) RSV (RT-PCR) (Neg) Imaging Data Attestation: I personally reviewed and interpreted this imaging study as follows: Radiologist's Impression: CT ABDOMEN & PELVIS Without Contrast: Impression: Mild cardiomegaly Dependent gallstone is seen. Left renal cortical cyst with rim calcifications. Colonic diverticulosis. Moderate splenomegaly measuring 21 cm in craniocaudal dimension's's CT HEAD: Impression: Mild cerebral atrophy No acute intracranial process No intracranial metastatic disease identified Radiologist: Bravo Chery MD ECG Data Attestation: I personally reviewed and interpreted this ECG as follows: Indication: + vomiting Rate (beats per minute): 82 Rhythm: + other (paced rhythm) Change: no significant change MDM Narrative Continuous return clerk: Order was placed for continuous return clerk. Patient was placed on the return clerk. Patient was noted to be in normal sinus rhythm at an initial rate of 81 bpm. The patient is a 79-year-old male who presents today for evaluation of vomiting. Patient was diaphoretic on EMS arrival. Labs revealed no leukocytosis. Patient is anemic with a drop in his hemoglobin from 12.3 in August to 10.4. Rectal exam was heme negative. CT of the abdomen/pelvis shows no obstruction or other acute findings. A CT of the head was also performed given patient's possible metastasis and vomiting, which was also negative. Labs showed a cre atinine of 1.66 which is the patient's baseline. Lactate was slightly elevated at 2.3. Blood cultures were drawn and are pending. I am concerned as patient was here in July with very similar symptoms and was bacteremic at that time. Given this, I did feel it was reasonable to keep the patient for observation. [facility] hospitalist was consulted and will evaluate the patient for [facility] care. Antibiotics deferred to hospitalist as urine was still pending. Impression & Plan Vomiting, Elevated lactic acid level Discharge Plan Visit Data Chief Complaint: Abdominal Pain Stated Complaint: ABDOMINAL PAIN ED Provider: Gabriela White ED Midlevel Provider: Erica Lazo Discharge Problem: Vomiting, Elevated lactic acid level Forms Stand Alone Forms: My [facility] [place] People Prescriptions Prescriptions: No Action Novolog Flexpen U-100 Insulin 100 unit/mL (3 mL) insulin pen 15 units SQ BID Qty: 15 RF: 3 fenofibrate nanocrystallized 145 mg tablet 145 mg PO HS Qty: 90 RF: 3 levothyroxine 100 mcg tablet 100 mcg PO QAM Qty: 90 RF: 3 ezetimibe-simvastatin 10-80 mg tablet 1 tab PO HS Qty: 90 RF: 3 Tresiba FlexTouch U-100 100 unit/mL (3 mL) insulin pen 80 unit SUBCUT BID Qty: 15 RF: 5 spironolactone 25 mg tablet 25 mg PO QAM Qty: 90 RF: 3 isosorbide mononitrate 60 mg tablet extended release 24 hr 60 mg PO DAILY Qty: 90 RF: 3 folic acid 1 mg tablet 1 mg PO HS RF: 0 ascorbic acid (vitamin C) 500 mg tablet 500 mg PO HS RF: 0 lisinopril 10 mg tablet 10 mg PO QAM RF: 0 cholecalciferol (vitamin D3) 1,000 unit capsule 1,000 units PO HS RF: 0 ondansetron HCl [Zofran] 4 mg tablet 4 mg PO Q6H PRN (Reason: nausea and vomiting) Qty: 30 RF: 4 nitroglycerin 0.4 mg tablet, sublingual 0.4 mg SL .PPRN/UD PRN (Reason: chest pain) RF: 0 furosemide 40 mg Tablet 60 mg PO BID RF: 0 metoprolol succinate 25 mg tablet extended release 24 hr 25 mg PO BID RF: 0 apixaban 5 mg Tablet 5 mg PO BID RF: 0 bupropion HCl 150 mg Tablet Sustained-Release 12 Hr 150 mg PO BID RF: 0 Trulicity 1.5 mg/0.5 mL pen injector 1.5 mg SUBCUT WK RF: 0 aspirin 81 mg Tablet,Delayed Release (Dr/Ec) 81 mg PO HS RF: 0 omega 8-bxn-ltf-fish oil [Fish Oil] 1,000 mg (120 mg-180 mg) Capsule 1 cap PO HS RF: 0 Discharge Problem: Vomiting Qualifiers: Vomiting type: unspecified Vomiting Intractability: non-intractable Nausea presence: with nausea Qualified Code(s): R11.2 - Nausea with vomiting, unspecified
[2020-10-25 05:34] LABS: Basophils # (auto) 0.01 K/uL (0-0.2); Basophils % (auto) 0.1 %; Eosinophils # (auto) 0.01 K/uL (0-0.5); Eosinophils % (auto) 0.1 %; Hematocrit (blood only) 30.6 % (42-52); Hemoglobin 10.4 g/dL (14.0-18.0); Immature Granulocytes # (auto) 0.03 K/uL (0.00-0.02); Immature Granulocytes % (auto) 0.3 %; Lymphocytes # (auto) 0.45 K/uL (1.2-3.4); Mean Corpuscular Hemoglobin 27.1 pg (25-34); Mean Corpuscular Volume 79.7 fL (80-100); Mean Platelet Volume 8.9 fL (7.4-10.4); Monocytes # (auto) 0.73 K/uL (0.11-0.59); Monocytes % (auto) 8.1 %; Neutrophils # (auto) 7.73 K/uL (1.4-6.5); Neutrophils % (auto) 86.4 %; Platelet Count 184 K/uL (130-400); RDW Coefficient of Variation 15.6 % (11.5-14.5); RDW Standard Deviation 45.7 fL (36.4-46.3); Red Blood Count 3.84 M/uL (4.7-6.1); White Blood Count 8.96 K/uL (4.8-10.8)
[2020-10-25 05:56] LABS: Alanine Aminotransferase 19 U/L (12-78); Albumin Level 2.7 gm/dl (3.4-5.0); Aspartate Aminotransferase 25 U/L (15-37); BUN Creatinine Ratio 14.5 (10-20); Blood Urea Nitrogen 24 mg/dl (7-18); Calcium 8.6 mg/dl (8.5-10.1); Carbon Dioxide 27 mmol/L (21-32); Chloride 106 mmol/L (98-107); Creatinine Clr Calc Pharmacy 50.2 ml/min; Est GFR (African American) 45.4; Est GFR (Non-African American) 39.2; Glucose 98 mg/dl (70-99); Lipase 119 U/L (73-393); Potassium 3.6 mmol/L (3.5-5.1); Sodium 136 mmol/L (136-145)
[2020-10-25 06:01] LABS: Albumin Globulin Ratio 0.7 (0.9-2); Alkaline Phosphatase 74 U/L (45-117); Bilirubin,Total 0.6 mg/dl (0.2-1); Total Protein 6.7 gm/dl (6.4-8.2); Troponin I < 0.015 ng/ml (0-0.045)
[2020-10-25 06:07] LABS: Influenza A virus by PCR Negative (Neg); Influenza B virus by PCR Negative (Neg); RSV by PCR Negative (Neg); SARS CoV2 RNA(COVID-19) InHosp NEGATIVE (Negative)
--- NOTE | 2020-10-25 06:36 | CT Scan Report ---
CT head/brain wo con CLINICAL HISTORY: 79 years-old Male with vomiting, eval for mets. Acutely altered mental status with vomiting TECHNIQUE: Multiple axial CT images of the head were obtained without contrast. A dose lowering tech nique was utilized adhering to the principles of ALARA. CT DOSE: 2559.27 mGy.cm COMPARISON: Head CT 12/25/2019 FINDINGS: Motion degraded exam. Age-related involutional changes with ex vacuo ventriculomegaly. Calcifications of the falx cerebri. White matter hypodensities suggest chronic microvascular ischemic disease. No a cute intracranial hemorrhage, midline shift, intracranial mass, hydrocephalus, territorial ischemia o r abnormal extra-axial collection. The calvarium is intact. The paranasal sinuses, mastoid air cells, and middle ear cavities are clear . IMPRESSION: No acute intracranial abnormality. ACT 112: Negative or not required by law. The above report was generated using voice recognition software. It may contain grammatical, syntax o r spelling errors. Electronically signed by: Mateus Ramsey M.D. 10/25/2020 6:34 AM
[2020-10-25] MEDS ORDERED: PHARMACY GLYCEMIC MGMT CONSULT STA (08:00)
--- NOTE | 2020-10-25 08:03 | History & Physical Report ---
Date of Service October 25, 2020 Assessment & Plan (1) Nausea & vomiting: Presented with 24 hours of nausea/vomiting along with sweats and chills at home. Lactate elevated at 2.3 and creatinine mildly elevated over baseline at 1.66. Has a history of similar presentation recently with admission resulting in Klebsiella bacteremia. Has a known liver mass as well for which he has declined previous work-up, but question if could be an abscess? LFTs, lipase normal With worsening microcytic anemia with hemoglobin of 10, has a history of GERD, could have peptic ulcer disease, gastritis, or esophageal mass? -Bring in on observation -Hydrate with IV fluids -Keep n.p.o. except for sips with meds -Consult GI to see about EGD -Start Protonix 40 mg p.o. twice daily -Follow CBC, CMP, magnesium -Blood cultures were drawn in the ER, will hold off on antibiotics for now unless shows more convincing evidence of sepsis and/or becomes bacteremic -Check UA-pending -IV Zofran as needed, no further Phenergan as it makes him extremely drowsy (2) Liver mass: Known to be 5.2 cm on previous scan, has previously declined work-up Check alpha-fetoprotein Could be metastatic versus primary Hep C antibodies negative from previous Has splenomegaly 21 cm and cirrhosis on previous CT (3) Anemia: As above, worsening and microcytic Check iron studies Follow CBC Consult GI to see about EGD Holding Eliquis in case of bleeding Continue aspirin given high risk with history of CABG (4) Elevated lactic acid level: Elevated on admission at 2.3, now resolved after IV fluids Related to sepsis versus dehydration (5) Atrial fibrillation: With a history of such Is in ventricularly paced rhythm Monitor on telemetry Hold Eliquis in case of procedure Continue metoprolol (6) Chronic congestive heart failure: Chronic systolic CHF ischemic cardiomyopathy with EF 30-35% -Holding home Lasix, spironolactone, and lisinopril for mild renal insufficiency and borderline low blood pressure Continue metoprolol (7) Chronic kidney disease, stage III (moderate): Baseline creatinine around 1.4 -Avoid nephrotoxins -renally dose meds when appropriate -follow BMP With mild renal insufficiency here, holding lisinopril, Lasix, spironolactone (8) COPD, moderate: No acute issues Not on inhalers (9) Coronary artery disease: Status post CABG Continue aspirin, metoprolol, isosorbide No chest pain or acute issues, troponin negative (10) Depression: Continue bupropion (11) Diabetes mellitus type 2, uncontrolled: Glucose within normal limits upon admission likely secondary to recent vomiting Hold all basal insulin and Trulicity from home Glycemic pharmacy management appreciated Insulin sliding scale and Accu-Cheks Check hemoglobin A1c in the morning (12) Hypercholesterolemia: Hold home Vytorin until taking p.o. (13) Hypertension: Blood pressures low on admission from dehydration but improved with IV fluids Holding home lisinopril, Lasix, spironolactone as above Continue metoprolol and isosorbide for history of CAD (14) Hypothyroidism: TSH last year normal, check again in the morning Continue home levothyroxine (15) Ischemic cardiomyopathy: As above (16) Prostate cancer: Status post brachytherapy seeds in prostate Watch for urinary retention issues (17) Pulmonary nodule: Followed as an outpatient (18) Sleep apnea: Noted, will need to find out if he uses CPAP (19) Ventricular tachycardia (paroxysmal): Has ICD in place Monitor on telemetry Continue beta-gavin (20) Anxiety: Continue bupropion (21) DVT prophylaxis: Eliquis on hold in case of procedure Disposition-bring in on observation to telemetry Full code History of Present Illness Chief Complaint: Nausea/vomiting Primary Care Provider: Clovis Klein MD This patient is a 79-year-old male with a history of atrial fibrillation on Eliquis, COPD, CAD status post CABG, HTN, pacemaker, HAYLEE, V. tach, prostate cancer status post brachytherapy seeds, CKD stage III, liver mass, ischemic cardiomyopathy, hypothyroidism, DM 2,? Cirrhosis, with fairly recent admission for Klebsiella bacteremia of unknown source. He presents to the ER similar to last admission with nausea and vomiting at home x24 hours and his reports he had fevers and chills. The patient is very drowsy when I saw him after receiving Phenergan and is unable to give me much information but does deny any abdominal pains. Denies lightheadedness or headache, denies chest pains or shortness of breath. His was contacted over the phone and she speaks [place] and little [place] and was very tired and wanted to go back to sleep and also did not provide much information. Last admission, he was found to have a liver mass which had increased in size from previous. A CT of the abdomen/pelvis here was performed without contrast due to creatinine being 1.6 and showed a hypodense 3 cm lesion, but again was done without contrast. Urinalysis was not collected at the time of admission yet. His CBC was showing worsening microcytic anemia with hemoglobin of 10.4, but no leukocytosis. His lactate was elevated at 2.3. Troponin was negative, LFTs were negative, lipase was negative, and Covid-[address] of the head was negative, his ECG was in a ventricularly paced rhythm. Blood cultures were collected and he will be admitted on observation for nausea/vomiting, with concern for early sepsis with a history of bacteremia. Allergies Allergy/AdvReac Type Severity Reaction Status Date / Time carvedilol Allergy Unknown Unknown Verified 10/25/20 06:10 Home Medications Medication Instructions Recorded Confirmed Type ascorbic acid (vitamin C) 500 mg 500 mg PO HS tab 02/16/19 10/25/20 History tablet folic acid 1 mg tablet 1 mg PO HS tab 02/16/19 10/25/20 History lisinopril 10 mg tablet 10 mg PO QAM 02/16/19 10/25/20 History cholecalciferol (vitamin D3) 25 1,000 units PO HS 02/17/19 10/25/20 History mcg (1,000 unit) capsule ondansetron HCl 4 mg tablet 4 mg PO Q6H PRN #30 tab 02/21/19 10/25/20 Rx insulin aspart U-100 100 unit/mL 15 units SQ BID #15 ml 12/15/19 10/25/20 Rx (3 mL) subcutaneous pen aspirin 81 mg PO HS 12/24/19 10/25/20 History omega 3-xyz-ymg-fish oil [Fish Oil] 1 cap PO HS 12/24/19 10/25/20 History fenofibrate nanocrystallized 145 145 mg PO HS #90 tab 02/27/20 10/25/20 Rx mg tablet furosemide 60 mg PO BID 03/19/20 10/25/20 History metoprolol succinate 25 mg PO BID 03/19/20 10/25/20 History nitroglycerin 0.4 mg SL .PPRN/UD PRN 03/19/20 10/25/20 History levothyroxine 100 mcg tablet 100 mcg PO QAM #90 tab 07/17/20 10/25/20 Rx apixaban 5 mg PO BID 07/31/20 10/25/20 History bupropion HCl 150 mg PO BID 07/31/20 10/25/20 History Trulicity 1.5 mg SUBCUT WK 08/01/20 10/25/20 History ezetimibe 10 mg-simvastatin 80 mg 1 tab PO HS #90 tab 08/14/20 10/25/20 Rx tablet insulin degludec 100 unit/mL (3 80 unit SUBCUT BID #15 ml 08/28/20 10/25/20 Rx mL) subcutaneous pen spironolactone 25 mg tablet 25 mg PO QAM #90 tab 09/06/20 10/25/20 Rx isosorbide mononitrate 60 mg 60 mg PO DAILY #90 tab 10/09/20 10/25/20 Rx tablet,extended release 24 hr Past Med/Surg History Medical History Acute diastolic congestive heart failure AICD discharge [place] (acute kidney injury) (08/22/13) Anemia Anxiety Atrial fibrillation Atrial fibrillation Bradycardia Cardiomyopathy Chronic congestive heart failure (04/03/13) Chronic kidney disease, stage III (moderate) COPD, moderate Coronary artery disease Depression Diabetes Diabetes mellitus type 2, uncontrolled Diabetes mellitus with kidney disease Dyslipidemia Hemorrhoid History of [place] (myocardial infarction) Hypercholesterolemia Hypertension Hypertension Hypothyroidism Insomnia Ischemic cardiomyopathy Pacemaker malfunction Peptic ulcer Prostate cancer Prostate cancer Sleep apnea Ventricular tachycardia (paroxysmal) Surgical History History of appendectomy 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) History of heart bypass surgery Family History Unknown Diabetes Prostate cancer Uncle Prostate cancer Father Myocardial infarction Brother Myocardial infarction Other Family history non-contributory Denies family history of Ovarian cancer Breast cancer Colorectal cancer Social History Smoking Status: Former smoker Tobacco Type: Cigarettes Age Started Using Tobacco: 13; Age Quit Using Tobacco: 57; packs per day: 1; Years Smoked: 44; Cigarettes Per Day: 20; Smoking End Date: age 57; Number of Years Since Quit: 32; Second Hand Exposure: Yes; Do You Dip or Chew Tobacco: No; Tobacco Cessation Education Requested by Patient: No Hx Alcohol Use: No Hx Substance Use: No Preferred Language: [place] Communication Ability: Effective Hearing Ability: Use of Hearing Aid Backpackers Manager Required: No Beliefs That Will Affect Care: None marital status: Current Living Situation: Spouse Current Living Situation Comment: lives w/ current occupational status: retired How many Children do You have: 2 Feels Safe at Home: Yes Safety Concerns: Feels Safe At This Time Dental Care, Regularly: No Physical Activity Frequency: Does not Exercise Seatbelt Use: never Sunscreen Use: No Assistive Devices: Glasses, Hearing Aid - Bilateral, Hearing Aid - Left and Hearing Aid - Right Review of Systems Review of Systems: All systems reviewed & are unremarkable except as noted in HPI & below Physical Exam Constitutional: WD/WN, vitals as above + obese and + lethargic (But wakes up to loud verbal and soft tactile stimulus) Eyes: PERRL, conjunctivae normal, anicteric sclerae ENMT: external ear and nose normal, oropharynx normal Ears: + hearing impairment Neck: trachea midline, no thyromegaly Respiratory: normal respiratory effort, lungs clear to auscultation Cardiovascular: RRR, no murmur, no edema Chest (Breasts): Chest: normal inspection of chest Gastrointestinal (Abdomen): normal bowel sounds, soft, nontender, no hepatosplenomegaly Percussion/Palpation: + hernia (Small reducible periumbilical hernia) Musculoskeletal: Extremities: extremities normal to inspection; no cyanosis and no clubbing Skin: no rashes, warm and dry Neurologic: moves all extremities and awake; no focal motor deficits Psychiatric: Orientation: oriented to person, oriented to place and cooperative; + not alert (Drowsy but able to wake up and answer questions) Speech: normal rate/rhythm/volume of speech Lymphatic: no lymphedema Results & Data Results & Data ([facility]) Vital Signs (Past 12 Hours) Vital Signs Temp Pulse Resp BP Pulse Ox 10/25/20 07:00 18 99/46 L 93 10/25/20 06:00 96 H 23 101/66 93 10/25/20 05:00 86 25 H 126/63 94 10/25/20 04:52 85 25 H 131/64 93 10/25/20 04:32 36.8 C 81 24 119/57 L 92 Laboratory Results 10/25/20 10/25/20 10/25/20 Range/Units 08:07 05:26 05:26 WBC (4.8-10.8) K/uL RBC (4.7-6.1) M/uL Hgb (14.0-18.0) g/dL Hct (42-52) % MCV (80-100) fL MCH (25-34) pg MCHC (32-36) g/dL RDW Std Deviation (36.4-46.3) fL RDW Coeff of Beck (11.5-14.5) % Plt Count (130-400) K/uL MPV (7.4-10.4) fL Immature Gran % (Auto) % Neut % (Auto) % Lymph % (Auto) % Valley % (Auto) % Eos % (Auto) % Baso % (Auto) % Neut # (Auto) (1.4-6.5) K/uL Lymph # (Auto) (1.2-3.4) K/uL Valley # (Auto) (0.11-0.59) K/uL Eos # (Auto) (0-0.5) K/uL Baso # (Auto) (0-0.2) K/uL Immature Gran # (Auto) (0.00-0.02) K/uL Sodium 136 (136-145) mmol/L Potassium 3.6 (3.5-5.1) mmol/L Chloride 106 (98-107) mmol/L Carbon Dioxide 27 (21-32) mmol/L Anion Gap 3.0 (3-11) BUN 24 H (7-18) mg/dl Creatinine 1.66 H (0.6-1.4) mg/dl Est Cr Clr Drug Dosing 50.2 ml/min Est GFR ( Amer) 45.4 Est GFR (Non-Af Amer) 39.2 BUN/Creatinine Ratio 14.5 (10-20) Glucose 98 (70-99) mg/dl Lactate 1.3 2.3 H* (0.4-2.0) mmol/L Calcium 8.6 (8.5-10.1) mg/dl Total Bilirubin 0.6 (0.2-1) mg/dl AST 25 (15-37) U/L ALT 19 (12-78) U/L Alkaline Phosphatase 74 (45-117) U/L Troponin I < 0.015 (0-0.045) ng/ml Total Protein 6.7 (6.4-8.2) gm/dl Albumin 2.7 L (3.4-5.0) gm/dl Globulin 4.0 (2.5-4.0) gm/dl Albumin/Globulin Ratio 0.7 L (0.9-2) Lipase 119 (73-393) U/L COVID-19 Eval Order SARS-CoV-2 (PCR) (Negative) Influenza Type A (PCR) (Neg) Influenza Type B (PCR) (Neg) RSV (RT-PCR) (Neg) 10/25/20 10/25/20 10/25/20 Range/Units 05:26 04:56 04:56 WBC 8.96 (4.8-10.8) K/uL RBC 3.84 L (4.7-6.1) M/uL Hgb 10.4 L (14.0-18.0) g/dL Hct 30.6 L (42-52) % MCV 79.7 L (80-100) fL MCH 27.1 (25-34) pg MCHC 34.0 (32-36) g/dL RDW Std Deviation 45.7 (36.4-46.3) fL RDW Coeff of Beck 15.6 H (11.5-14.5) % Plt Count 184 (130-400) K/uL MPV 8.9 (7.4-10.4) fL Immature Gran % (Auto) 0.3 % Neut % (Auto) 86.4 % Lymph % (Auto) 5.0 % Valley % (Auto) 8.1 % Eos % (Auto) 0.1 % Baso % (Auto) 0.1 % Neut # (Auto) 7.73 H (1.4-6.5) K/uL Lymph # (Auto) 0.45 L (1.2-3.4) K/uL Valley # (Auto) 0.73 H (0.11-0.59) K/uL Eos # (Auto) 0.01 (0-0.5) K/uL Baso # (Auto) 0.01 (0-0.2) K/uL Immature Gran # (Auto) 0.03 H (0.00-0.02) K/uL Sodium (136-145) mmol/L Potassium (3.5-5.1) mmol/L Chloride (98-107) mmol/L Carbon Dioxide (21-32) mmol/L Anion Gap (3-11) BUN (7-18) mg/dl Creatinine (0.6-1.4) mg/dl Est Cr Clr Drug Dosing ml/min Est GFR ( Amer) Est GFR (Non-Af Amer) BUN/Creatinine Ratio (10-20) Glucose (70-99) mg/dl Lactate (0.4-2.0) mmol/L Calcium (8.5-10.1) mg/dl Total Bilirubin (0.2-1) mg/dl AST (15-37) U/L ALT (12-78) U/L Alkaline Phosphatase (45-117) U/L Troponin I (0-0.045) ng/ml Total Protein (6.4-8.2) gm/dl Albumin (3.4-5.0) gm/dl Globulin (2.5-4.0) gm/dl Albumin/Globulin Ratio (0.9-2) Lipase (73-393) U/L COVID-19 Eval Order CovFluRsv at [facility] SARS-CoV-2 (PCR) NEGATIVE (Negative) Influenza Type A (PCR) Negative (Neg) Influenza Type B (PCR) Negative (Neg) RSV (RT-PCR) Negative (Neg) Diagnostic Findings CT SCAN OF THE ABDOMEN AND PELVIS WITHOUT CONTRAST CLINICAL HISTORY: abdominal pain, vomiting COMPARISON STUDY: 07/30/2020 TECHNIQUE: CT scan of the abdomen and pelvis was performed from the lung bases to the proximal femurs. Images are reviewed in the axial, sagittal, and coronal planes. IV contrast was not administered for this examination. A dose lowering technique was utilized adhering to the principles of ALARA. CT DOSE: FINDINGS: Lower chest: The heart is enlarged. There are calcified right hilar lymph nodes. There is respiratory motion artifact. There are dependent atelectatic changes. Liver: There is a stable subtle 3 cm hypodense lesion within the left hepatic lobe. Gallbladder: Cholelithiasis Spleen: The spleen is enlarged measuring 21 cm. Pancreas: Unremarkable. Adrenal glands: Unremarkable. Kidneys: There is no hydronephrosis. There are bilateral vascular calcifications. There is a rim calcified 4 cm left renal cyst Bowel: There are no transition zones indicate bowel obstruction. There is colonic diverticulosis. There is no evidence of acute diverticulitis. The appen denilson appears normal. Peritoneum: There is no intraperitoneal free air or abdominal ascites. There is a fat-containing umbilical hernia Vasculature: There is ectasia of infrarenal abdominal aorta which measures 29 mm. Adenopathy: None. Pelvic viscera: Prostate radiotherapy seeds are visualized. Skeletal structures: No destructive osseous lesions are seen. IMPRESSION: 1. No evidence of bowel obstruction. No evidence of free air 2. No evidence of acute diverticulitis. No evidence of acute appendicitis 3. Stable 3 cm indeterminate left lobe hypodense lesion 4. Cholelithiasis 5. Splenomegaly CT head/brain wo con CLINICAL HISTORY: 79 years-old Male with vomiting, eval for mets. Acutely altered mental status with vomiting TECHNIQUE: Multiple axial CT images of the head were obtained without contrast. A dose lowering technique was utilized adhering to the principles of ALARA. CT DOSE: 2559.27 mGy.cm COMPARISON: Head CT 12/25/2019 FINDINGS: Motion degraded exam. Age-related involutional changes with ex vacuo ventriculomegaly. Calcifications of the falx cerebri. White matter hypodensities suggest chronic microvascular ischemic disease. No acute intracranial hemorrhage, midline shift, intracranial mass, hydrocephalus, territorial ischemia or abnormal extra-axial collection. The calvarium is intact. The paranasal sinuses, mastoid air cells, and middle ear cavities are clear. IMPRESSION: No acute intracranial abnormality. ECG Additional Comments: ECG with ventricularly paced rhythm, rate 82 Code Status & VTE Plan Code Status Full code VTE Prophylaxis Plan VTE Prophylaxis will be ordered: Yes PG Care Time/CCT Total # of Minutes Spent Total Time Spent with Patient: Total time spent is greater than 50% in coordination of care (as documented) at patient's floor/unit and/or counseling patient: Coding Level of Care Code 49045 OBS Care - Level 3 Diagnoses Nausea & vomiting R11.2 Vomiting type: unspecified Vomiting Intractability: unspecified Liver mass R16.0 Anemia D64.9 Elevated lactic acid level R79.89 Atrial fibrillation I48.20 Atrial fibrillation type: unspecified chronic Chronic congestive heart failure I50.9 Heart failure type: unspecified Chronic kidney disease, stage III (moderate) N18.3 COPD, moderate J44.9 Coronary artery disease I25.10 Coronary Disease-Associated Artery/Lesion type: [place] artery [place] vs. transplanted heart: council heart Associated angina: angina presence unspecified Depression F32.9 Depression Type: major depressive disorder Major depression recurrence: unspecified whether recurrent Active/Remission status: remission status unspecified Diabetes mellitus type 2, uncontrolled E11.65 Hypercholesterolemia E78.00 Hypertension I10 Hypertension type: essential hypertension Hypothyroidism E03.9 Hypothyroidism type: unspecified Ischemic cardiomyopathy I25.5 Prostate cancer C61 Pulmonary nodule R91.1 Sleep apnea G47.30 Ventricular tachycardia (paroxysmal) I47.2 Anxiety F41.9 DVT prophylaxis Z29.9 (1) Atrial fibrillation Atrial fibrillation type: unspecified chronic Qualified Code(s): I48.20 - Chronic atrial fibrillation, unspecified (2) Chronic congestive heart failure Heart failure type: unspecified Qualified Code(s): I50.9 - Heart failure, unspecified (3) Coronary artery disease Coronary Disease-Associated Artery/Lesion type: council artery [place] vs. transplanted heart: council heart Associated angina: angina presence unspecified Qualified Code(s): I25.10 - Atherosclerotic heart disease of council coronary artery without angina pectoris (4) Depression Depression Type: major depressive disorder Major depression recurrence: unspecified whether recurrent Active/Remission status: remission status unspecified Qualified Code(s): F32.9 - Major depressive disorder, single episode, unspecified (5) Hypertension Hypertension type: essential hypertension Qualified Code(s): I10 - Essential (primary) hypertension (6) Hypothyroidism Hypothyroidism type: unspecified Qualified Code(s): E03.9 - Hypothyroidism, unspecified (7) Nausea & vomiting Vomiting type: unspecified Vomiting Intractability: unspecified Qualified Code(s): R11.2 - Nausea with vomiting, unspecified
--- NOTE | 2020-10-25 08:21 | CT Scan Report ---
CT SCAN OF THE ABDOMEN AND PELVIS WITHOUT CONTRAST CLINICAL HISTORY: abdominal pain, vomiting COMPARISON STUDY: 07/30/2020 TECHNIQUE: CT scan of the abdomen and pelvis was performed from the lung bases to the proximal femurs . Images are reviewed in the axial, sagittal, and coronal planes. IV contrast was not administered fo r this examination. A dose lowering technique was utilized adhering to the principles of ALARA. CT DOSE: FINDINGS: Lower chest: The heart is enlarged. There are calcified right hilar lymph nodes. There is respiratory motion artifact. There are dependent atelectatic changes. Liver: There is a stable subtle 3 cm hypodense lesion within the left hepatic lobe. Gallbladder: Cholelithiasis Spleen: The spleen is enlarged measuring 21 cm. Pancreas: Unremarkable. Adrenal glands: Unremarkable. Kidneys: There is no hydronephrosis. There are bilateral vascular calcifications. There is a rim calc ified 4 cm left renal cyst Bowel: There are no transition zones indicate bowel obstruction. There is colonic diverticulosis. The re is no evidence of acute diverticulitis. The appendix appears normal. Peritoneum: There is no intraperitoneal free air or abdominal ascites. There is a fat-containing umbi lical hernia Vasculature: There is ectasia of infrarenal abdominal aorta which measures 29 mm. Adenopathy: None. Pelvic viscera: Prostate radiotherapy seeds are visualized. Skeletal structures: No destructive osseous lesions are seen. IMPRESSION: 1. No evidence of bowel obstruction. No evidence of free air 2. No evidence of acute diverticulitis. No evidence of acute appendicitis 3. Stable 3 cm indeterminate left lobe hypodense lesion 4. Cholelithiasis 5. Splenomegaly ACT 112: Negative or not required by law. Electronically signed by: Jose Sanchez M.D. 10/25/2020 8:19 AM
[2020-10-25] MEDS ORDERED: DEXTROSE 50% 50 ML SYRINGE IV PRN (09:05)
[2020-10-25] MEDS ORDERED: NITROGLYCERIN SL 0.4 MG/TAB TAB SL PRN (09:05)
[2020-10-25] MEDS ORDERED: GLUCAGON FOR INJ 1 MG VIAL SQ PRN (09:05)
[2020-10-25] MEDS ORDERED: GLUCOSE 40% GEL 15 GM TUBE PO PRN (09:05)
[2020-10-25] MEDS ORDERED: CARBOHYDRATES FOR HYPOGLYCEMIA PO PRN (09:05)
[2020-10-25] MEDS ORDERED: PROMETHAZINE HCL 12.5 MG in SODIUM CHLORIDE 0.9% 50 ML IV PRN (09:05)
[2020-10-25] MEDS ORDERED: GLUCOSE 10 TABS/TUBE PO PRN (09:05)
[2020-10-25] MEDS: LACTATED RINGER'S 1,000 ML IV SCH ×2 (09:20→19:57)
[2020-10-25] MEDS ORDERED: PHARMACY GLYCEMIC MGMT CONSULT PRN (09:28)
[2020-10-25] MEDS: APIXABAN 5 MG TABLET PO SCH (09:51)
[2020-10-25] MEDS: buPROPion SR 150 MG TABCR PO SCH ×2 (09:52→20:10)
[2020-10-25] MEDS: METOPROLOL SUCC 25MG EXT REL TAB PO SCH ×2 (09:52→20:11)
[2020-10-25] MEDS: ISOSORBIDE MONO EXTENDED REL 60 MG TABCR PO SCH (09:52)
--- NOTE | 2020-10-25 10:33 | Pharmacy Report ---
Pharmacy Glycemic Short Note 2 - Date of Service October 25, 2020 - Glycemic Short BSG Results (Last 24 hours): 10/25/20 05:26 Glucose 98 OUTPATIENT ANTIDIABETIC REGIMEN: * Tresiba 80 units SC BID * Novolog 15 units SC BID * Trulicity 1.5 mg SC weekly * HbA1c = pending ASSESSMENT: * 79 yo M admitted secondary to nausea and vomiting. Pharmacy has been consulted to assist with inpatient glycemic management. Patient is known to pharmacy glycemic service. * BSG upon admission was 98 mg/dL * Will hold all basal insulin at this time per consulting provider * Likely that patient will require some Lantus this evening * Starting Novolog based on previous admission data PLAN FOR INPATIENT GLYCEMIC CONTROL: * Basal insulin * Held this morning * Start a scale for this evening depending on BSG * BSG < 140 mg/dL = 15 units; BSG 140 - 200 mg/dL = 20 units; BSG > 200 mg/dL = 25 units * Bolus insulin * NovoLog per scale ACHS or Q6hrs while NPO * Goal Range: Low 110 mg/dL - High 140 mg/dL * Correction Factor: 10 mg/dL/unit * Nutritional / Prandial insulin per carb ratio of 1 unit per 4 grams CHO consumed PLAN FOR DISCHARGE: * To be determined
[2020-10-25] MEDS: PANTOprazole 40 MG TAB PO SCH ×2 (10:45→20:09)
[2020-10-25] MEDS: INSULIN ASPART 100 UNITS/ML 3 ML PEN SC SCH ×3 (11:32→21:47)
[2020-10-25 15:11] LABS: Appearance Urine Clear (Clear); Bilirubin Urine Negative (Negative); Blood Urine Negative (Negative); Color Urine Yellow; Glucose Urine UA Negative (Negative); Ketones Urine Negative (Negative); Leukocyte Esterase Urine Negative (Negative); Nitrite Urine Negative (Negative); Protein Urine Negative (Negative); Specific Gravity Urine 1.014 (1.000-1.030); Urobilinogen Urine Negative (Negative); pH Urine 6.5 (4.5-7.5)
--- NOTE | 2020-10-25 16:39 | Electrocardiogram Report ---
Test Reason : Blood Pressure : / mmHG Vent. Rate : 082 BPM Atrial Rate : 102 BPM P-R Int : 000 ms QRS Dur : 160 ms QT Int : 430 ms P-R-T Axes : 000 088 041 degrees QTc Int : 502 ms Ventricular-paced rhythm with demand atrial pacing Abnormal ECG When compared with ECG of 30-JUL-2020 21:37, Premature ventricular complexes are no longer Present Vent. rate has decreased BY 16 BPM Confirmed by Duong Cali ([id number]) on 10/25/2020 4:39:28 PM Referred By: REFERRED SELF Confirmed By:Jeet Cali
[2020-10-25] MEDS ORDERED: VANCOMYCIN CONSULT ACTIVE PRN (19:09)
[2020-10-25] MEDS ORDERED: VANCOMYCIN HCL 2,750 MG in SODIUM CHLORIDE 0.9% 500 ML IV ONE (20:00)
[2020-10-25] MEDS: TAMSULOSIN HCL 0.4 MG CAP PO SCH (20:08)
[2020-10-25] MEDS: ASPIRIN 81 MG ECTAB PO SCH (20:08)
[2020-10-25] MEDS: INSULIN GLARGINE SOLOSTAR 100 UNITS/ML 3 ML PEN SC SCH (21:59)
[2020-10-26 06:06] LABS: Basophils # (auto) 0.01 K/uL (0-0.2); Basophils % (auto) 0.1 %; Eosinophils # (auto) 0.09 K/uL (0-0.5); Eosinophils % (auto) 1.2 %; Hematocrit (blood only) 30.1 % (42-52); Hemoglobin 9.9 g/dL (14.0-18.0); Immature Granulocytes # (auto) 0.01 K/uL (0.00-0.02); Immature Granulocytes % (auto) 0.1 %; Lymphocytes # (auto) 1.23 K/uL (1.2-3.4); Lymphocytes % (auto) 16.8 %; Mean Corpuscular Hemoglobin 26.4 pg (25-34); Mean Corpuscular Hgb Conc 32.9 g/dL (32-36); Mean Corpuscular Volume 80.3 fL (80-100); Mean Platelet Volume 9.3 fL (7.4-10.4); Monocytes # (auto) 0.65 K/uL (0.11-0.59); Monocytes % (auto) 8.9 %; Neutrophils # (auto) 5.33 K/uL (1.4-6.5); Neutrophils % (auto) 72.9 %; Platelet Count 182 K/uL (130-400); RDW Coefficient of Variation 16.1 % (11.5-14.5); RDW Standard Deviation 47.4 fL (36.4-46.3); Red Blood Count 3.75 M/uL (4.7-6.1); White Blood Count 7.32 K/uL (4.8-10.8)
[2020-10-26 06:47] LABS: Albumin Level 2.4 gm/dl (3.4-5.0); BUN Creatinine Ratio 19.4 (10-20); Calcium 8.5 mg/dl (8.5-10.1); Creatinine Clr Calc Pharmacy 54.4 ml/min; Est GFR (African American) 49.3; Est GFR (Non-African American) 42.5; Potassium 4.2 mmol/L (3.5-5.1)
[2020-10-26 07:04] LABS: Albumin Globulin Ratio 0.6 (0.9-2); Bilirubin,Total 0.4 mg/dl (0.2-1); Globulin 4.1 gm/dl (2.5-4.0); Thyroid Stimulating Hormone 0.64 uIu/ml (0.300-4.500); Total Protein 6.5 gm/dl (6.4-8.2)
[2020-10-26] MEDS: LACTATED RINGER'S 1,000 ML IV SCH (08:02)
[2020-10-26] MEDS: INSULIN ASPART 100 UNITS/ML 3 ML PEN SC SCH ×4 (08:03→21:03)
[2020-10-26] MEDS: VANCOMYCIN HCL 1,250 MG in SODIUM CHLORIDE 0.9% 250 ML IV SCH ×2 (08:03→20:51)
[2020-10-26] MEDS: INSULIN GLARGINE SOLOSTAR 100 UNITS/ML 3 ML PEN SC SCH ×2 (08:03→21:02)
[2020-10-26] MEDS: PANTOprazole 40 MG TAB PO SCH ×2 (08:05→20:53)
[2020-10-26] MEDS: buPROPion SR 150 MG TABCR PO SCH ×2 (08:05→20:54)
[2020-10-26] MEDS: LEVOTHYROXINE SODIUM 100 MCG TABLET PO SCH (08:05)
[2020-10-26] MEDS: ISOSORBIDE MONO EXTENDED REL 60 MG TABCR PO SCH (08:05)
[2020-10-26] MEDS: METOPROLOL SUCC 25MG EXT REL TAB PO SCH ×2 (08:05→20:54)
[2020-10-26 09:52] LABS: Estimated Average Glucose 160 mg/dl; Hemoglobin A1C 7.2 % (4.5-5.6)
--- NOTE | 2020-10-26 10:38 | Gastrointestinal Consultation ---
Date of Consultation October 26, 2020 Assessment & Plan (1) Vomiting: Resolved at present -Utilize prn anti-emetics for now -Protonix 40 mg BID -Famotidine 20 mg BID (2) Liver mass: Hypodense lesion ranging 3-5 cm on US & CT imaging since August 2020. There was a question regarding a possible abscess, which given his bacteremia seems possible, however if the finding persists despite further antibiotic treatment would need to consider further evaluation with biopsy. Patient has previously refused any further work-up of this liver abnormality and maintains this decision with me during my evaluation. Can check AFP to assess for obvious abnormalities, though not entirely reliable for HCC. (3) Anemia: H/H 9.9/30.1. MCV 80.3. I do not have any records of previous endoscopies. Patient is without overt GI bleeding. -Continue to monitor H/H -Protonix 40 mg BID -Famotidine 20 mg BID -Carafate 1 gm four times daily prior to meals & breakfast -Given bacteremia of unclear source, resolution of n/v, and lack of GI bleeding, would defer endoscopic evaluation at this time. Can consider at a future point when other issues have been treated or if with significant bleeding. Supervising Physician Co-Signing Physician Notes Agree with JAMEEL Shaw as above Discussed case with Dr. Mccrary of Hospitalist service Abd: Soft, NT, ND, +BS Continue current therapy Followup in our office as outpatient for further discussion of endoscopic workup of anemia, and chronic liver disease. History of Present Illness Reason for Consultation: Nausea & vomiting, Anemia, Liver Mass, EGD Attending Physician: Savannah Mccrary MD History of Present Illness Patient is a 79 yo male with PMH of a pulmonary nodule, CKD, liver mass, HAYLEE, prostate cancer, peptic ulcer, hypothyroidism, hyperlipidemia, DM2, depression, CAD, chronic diastolic congestive heart failure, COPD, Afib, & Ischemic cardiomyopathy with ICD placement who presented to [facility] with ongoing issues after a recent hospitalization with Klebsiella bacteremia of unknown source. He returned to the ED with similar symptoms of nausea, vomiting, & rigors/chills. The patient is very hard of hearing. GI has been consulted for further evaluation of nausea, vomiting, anemia, & liver mass. As for the nausea & vomiting, patient reports he had the same symptoms during his last admission for bacteremia and he tells me today that these symptoms were intermittent at home. At the time of my visit, he reports resolution of nausea & vomiting. He denies abdominal pain. He has a history of a liver mass noted in August on an abdominal ultrasound. At the time, this measured up to 5 cm. He has consistently refused further work-up of this abnormality and maintains today that he wants no invasive work-up such as a biopsy. A CT during this admission suggests that this left hepatic lobe hypodense lesion is approximately 3 cm. LFTs are unremarkable. Upon review of his labs otherwise, it appears his H/H is currently 9.9/30.1. Cr 1.55. No pertinent family history noted throughout chart. Allergies Allergy/AdvReac Type Severity Reaction Status Date / Time carvedilol Allergy Unknown Unknown Verified 10/25/20 06:10 Home Medications Medication Instructions Recorded Confirmed Type ascorbic acid (vitamin C) 500 mg 500 mg PO HS tab 02/16/19 10/25/20 History tablet folic acid 1 mg tablet 1 mg PO HS tab 02/16/19 10/25/20 History lisinopril 10 mg tablet 10 mg PO QAM 02/16/19 10/25/20 History cholecalciferol (vitamin D3) 25 1,000 units PO HS 02/17/19 10/25/20 History mcg (1,000 unit) capsule ondansetron HCl 4 mg tablet 4 mg PO Q6H PRN #30 tab 02/21/19 10/25/20 Rx insulin aspart U-100 100 unit/mL 15 units SQ BID #15 ml 12/15/19 10/25/20 Rx (3 mL) subcutaneous pen aspirin 81 mg PO HS 12/24/19 10/25/20 History omega 3-tcf-prc-fish oil [Fish Oil] 1 cap PO HS 12/24/19 10/25/20 History fenofibrate nanocrystallized 145 145 mg PO HS #90 tab 02/27/20 10/25/20 Rx mg tablet furosemide 60 mg PO BID 03/19/20 10/25/20 History metoprolol succinate 25 mg PO BID 03/19/20 10/25/20 History nitroglycerin 0.4 mg SL .PPRN/UD PRN 03/19/20 10/25/20 History levothyroxine 100 mcg tablet 100 mcg PO QAM #90 tab 07/17/20 10/25/20 Rx apixaban 5 mg PO BID 07/31/20 10/25/20 History bupropion HCl 150 mg PO BID 07/31/20 10/25/20 History Trulicity 1.5 mg SUBCUT WK 08/01/20 10/25/20 History ezetimibe 10 mg-simvastatin 80 mg 1 tab PO HS #90 tab 08/14/20 10/25/20 Rx tablet insulin degludec 100 unit/mL (3 80 unit SUBCUT BID #15 ml 08/28/20 10/25/20 Rx mL) subcutaneous pen spironolactone 25 mg tablet 25 mg PO QAM #90 tab 09/06/20 10/25/20 Rx isosorbide mononitrate 60 mg 60 mg PO DAILY #90 tab 10/09/20 10/25/20 Rx tablet,extended release 24 hr Patient History Medical History Acute diastolic congestive heart failure AICD discharge DALE (acute kidney injury) (08/22/13) Anemia Anxiety Atrial fibrillation Atrial fibrillation Bradycardia Cardiomyopathy Chronic congestive heart failure (04/03/13) Chronic kidney disease, stage III (moderate) COPD, moderate Coronary artery disease Depression Diabetes Diabetes mellitus type 2, uncontrolled Diabetes mellitus with kidney disease Dyslipidemia Hemorrhoid History of [place] (myocardial infarction) Hypercholesterolemia Hypertension Hypertension Hypothyroidism Insomnia Ischemic cardiomyopathy Pacemaker malfunction Peptic ulcer Prostate cancer Prostate cancer Sleep apnea Ventricular tachycardia (paroxysmal) Surgical History History of appendectomy 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) History of heart bypass surgery Family History Unknown Diabetes Prostate cancer Uncle Prostate cancer Father Myocardial infarction Brother Myocardial infarction Other Family history non-contributory Denies family history of Ovarian cancer Breast cancer Colorectal cancer Social History Smoking Status: Former smoker Tobacco Type: Cigarettes Age Started Using Tobacco: 13; Age Quit Using Tobacco: 57; packs per day: 1; Years Smoked: 44; Cigarettes Per Day: 20; Smoking End Date: age 57; Number of Years Since Quit: 32; Second Hand Exposure: Yes; Do You Dip or Chew Tobacco: No; Tobacco Cessation Education Requested by Patient: No Hx Alcohol Use: No Hx Substance Use: No Preferred Language: Kazakh Communication Ability: Effective Hearing Ability: Use of Hearing Aid Supply [employer] Project [employer] Required: No Beliefs That Will Affect Care: None marital status: Current Living Situation: Spouse Current Living Situation Comment: lives w/ current occupational status: retired How many Children do You have: 2 Feels Safe at Home: Yes Safety Concerns: Feels Safe At This Time Dental Care, Regularly: No Physical Activity Frequency: Does not Exercise Seatbelt Use: never Sunscreen Use: No Assistive Devices: Glasses, Hearing Aid - Bilateral, Hearing Aid - Left and Hearing Aid - Right Review of Systems Constitutional: chills have resolved Respiratory: no cough and no dyspnea Cardiovascular: no chest pain Gastrointestinal: no abdominal pain, no nausea, no vomiting and no change in bowel habits nausea & vomiting resolved Psychiatric: no problem reported Physical Exam Constitutional: well developed ENMT: Ears: + hearing impairment Respiratory: normal respiratory effort Cardiovascular: Extremities: no edema Gastrointestinal (Abdomen): normal bowel sounds, soft, nontender, no hepatosplenomegaly Musculoskeletal: Head/Neck/Chest: normocephalic Psychiatric: A+Ox3, euthymic affect Results & Data ([facility]) Vital Signs (Past 12 Hours) Vital Signs Temp Pulse Resp BP Pulse Ox 10/26/20 07:55 36.5 C 73 20 154/78 H 96 10/26/20 02:47 36.7 C 71 20 138/73 94 10/25/20 22:57 36.8 C 79 18 104/61 95 PG Care Time/CCT Total # of Minutes Spent Total Time Spent with Patient: Total time spent is greater than 50% in coordination of care (as documented) at patient's floor/unit and/or counseling patient: Coding Level of Care Code 29049 Initial Inpt Care Lvl 3 Diagnoses Vomiting R11.2 Nausea presence: with nausea Vomiting Intractability: non-intractable Vomiting type: unspecified Liver mass R16.0 Anemia D64.9 (1) Vomiting Nausea presence: with nausea Vomiting Intractability: non-intractable Vomiting type: unspecified Qualified Code(s): R11.2 - Nausea with vomiting, unspecified
--- NOTE | 2020-10-26 11:00 | Pharmacy Report ---
Pharmacy Glycemic Short Note 2 - Date of Service October 26, 2020 - Glycemic Short BSG Results (Last 24 hours): 10/25/20 10/25/20 10/25/20 11:26 16:37 20:34 Glucose POC Glucose 150 H 99 122 H 10/26/20 10/26/20 05:46 07:56 Glucose 135 H POC Glucose 126 H OUTPATIENT ANTIDIABETIC REGIMEN: * Tresiba 80 units SC BID * Novolog 15 units SC BID * Trulicity 1.5 mg SC weekly * HbA1c = pending ASSESSMENT: 10/26: * Patient received a total of 16 units of insulin yesterday * 15 units basal + 1 unit bolus * BSGs were well controlled: 150-99-122 mg/dL * Fasting BSG was well controlled at 126 mg/dL * Gave another 15 units of Lantus this AM * Patient remains NPO at this time so plan is to hold any further basal insulin today * No change in Novolog at this time 10/25: * 79 yo M admitted secondary to nausea and vomiting. Pharmacy has been consulted to assist with inpatient glycemic management. Patient is known to pharmacy glycemic service. * BSG upon admission was 98 mg/dL * Will hold all basal insulin at this time per consulting provider * Likely that patient will require some Lantus this evening * Starting Novolog based on previous admission data PLAN FOR INPATIENT GLYCEMIC CONTROL: * Basal insulin * Lantus 15 units x 1 this AM * Bolus insulin * NovoLog per scale ACHS or Q6hrs while NPO * Goal Range: Low 110 mg/dL - High 140 mg/dL * Correction Factor: 10 mg/dL/unit * Nutritional / Prandial insulin per carb ratio of 1 unit per 4 grams CHO consumed PLAN FOR DISCHARGE: * HbA1c = 7.2% (10/26/20). This is at patient's goal of less than 8% and has improved from 8.6% in July 2020. * Recommend continuing outpatient regimen upon discharge.
--- NOTE | 2020-10-26 11:03 | Pharmacy Report ---
Pharmacy Abx Initial Consult - Date of Service October 26, 2020 - Pharmacy Dosing Scope Date of Consult: 10/25/20 Consultation requested by: Dr. Mccrary Pharmacy is consulted to initiate Vancomycin IV dosing therapy, order appropriate labs and adjust drug dose/frequency. - Subjective The patient is a 79 year old M admitted on 10/26/20 09:01. - Objective Height: 6 ft 2 in Weight: 117.5 kg Vital Signs (Past 12hrs): Vital Signs Temp Pulse Resp BP Pulse Ox 10/26/20 07:55 36.5 C 73 20 154/78 H 96 10/26/20 02:47 36.7 C 71 20 138/73 94 Lab Results (24hrs): Laboratory Tests (24 Hours) 10/26/20 10/26/20 05:46 05:46 WBC 7.32 Neut # (Auto) 5.33 Creatinine 1.55 H Est Cr Clr Drug Dosing 54.4 - Risk Factors for Resistance * Hospitalization for 48 hours or more within the past 90 days - Assessment & Plan Assessment 79 year old M admitted secondary to nausea/vomiting * Patient was started on IV vancomycin last evening when blood cultures started growing GPCs in chains * Now listed as strep spp. Will await final cx results * Afebrile. No leukocytosis. Renal fxn stable. * Timothy AGUILAR has been consulted Plan Vancomycin for treatment of bacteremia Vancomycin IV * Loading dose: 2250 mg (25 mg/kg) * Maintenance dose: 1250 mg IV (11 mg/kg) every 12 hours * Goal trough level: 15 to 20 mcg/mL * Trough level ordered for Thursday morning * A less than traditional dose has been selected due to likelihood of drug accumulation in obese patient Pharmacy will continue to follow and will adjust dose/frequency as necessary. Thank you.
--- NOTE | 2020-10-26 12:42 | XCELERA ---
[id number]
[2020-10-26] MEDS: SUCRALFATE 1 GM/10 ML UDC PO SCH ×3 (12:55→20:52)
--- NOTE | 2020-10-26 15:27 | Hospitalist Progress Note ---
Date of Service October 26, 2020 Assessment & Plan (1) Bacteremia: Growing Streptococcus species and 4/4 bottles Unknown source, but does have this liver mass We'll check liver ultrasound again -Continue IV vancomycin Follow-up on final species Consult ID-awaiting recommendations but will most likely need 2 weeks at least of IV antibiotics Checked echocardiogram-no definite valvular vegetation noted, may need SUE but patient will likely not be agreeable to this as he tends to decline most p rocedures Repeat blood cultures at the 24-hour dominique after starting antibiotics which will be tonight (2) Nausea & vomiting: Presented with 24 hours of nausea/vomiting along with sweats and chills at home. Lactate elevated at 2.3 and creatinine mildly elevated over baseline at 1.66. Has a history of similar presentation recently with admission resulting in Klebsiella bacteremia. LFTs, lipase normal -Again presents this time with bacteremia as above Nausea vomiting have now resolved and he is tolerating regular diet With worsening microcytic anemia with hemoglobin of 9-10, has a history of GERD, could have peptic ulcer disease, gastritis, or esophageal mass? -DC IV fluids -Advance diet to regular -Consult GI to see about EGD-plan to do this as an outpatient if patient agreeable once he is over his bacteremia -Continue Protonix 40 mg p.o. twice daily and GI added Pepcid and Carafate today -Follow CBC, CMP, magnesium (3) Liver mass: Known to be 5.2 cm on previous scan, has previously declined work-up CT here noncontrast shows only 3 cm hypodense lesion Question if is abscess versus solid mass? Check [id number] Could be metastatic versus primary Hep C antibodies negative from previous Has splenomegaly 21 cm and cirrhosis on CT Check liver ultrasound (4) Anemia: As above, worsening and microcytic Iron studies consistent with significant iron deficiency although ferritin elevated likely in the setting of infection with bacteremia Follow CBC Consult GI to see about EGD-plan as outpatient as above Okay to restart Eliquis and follow CBC Continue aspirin given high risk with history of CABG -Start ferrous sulfate 325 mg p.o. twice daily Would not give IV iron in the setting of bacteremia (5) Elevated lactic acid level: Elevated on admission at 2.3, now resolved after IV fluids Related to sepsis versus dehydration (6) Atrial fibrillation: With a history of such Is in ventricularly paced rhythm on telemetry here Continue to monitor on telemetry Okay to restart Eliquis as there will be no procedures Continue metoprolol (7) Chronic congestive heart failure: Chronic systolic CHF ischemic cardiomyopathy with EF 30-35% -Initially held home Lasix, spironolactone, and lisinopril for mild renal insufficiency and borderline low blood pressure, however patient insists that we restart his diuretics He is also developing decreased breath sounds at the bases and shortness of breath Echocardiogram with severely reduced EF Continue metoprolol -Restart home Lasix and spironolactone Continue to hold lisinopril (8) Chronic kidney disease, stage III (moderate): Baseline creatinine around 1.4 -Avoid nephrotoxins -renally dose meds when appropriate -follow BMP With mild renal insufficiency here, holding lisinopril, Lasix, spironolactone as above and now restarting Lasix and spironolactone (9) COPD, moderate: No acute issues Not on inhalers (10) Coronary artery disease: Status post CABG Continue aspirin, metoprolol, isosorbide No chest pain or acute issues, troponin negative (11) Depression: Continue bupropion (12) Diabetes mellitus type 2, uncontrolled: Glucose within normal limits upon admission likely secondary to recent vomiting Holding Trulicity from home Glycemic pharmacy management appreciated Insulin sliding scale and Accu-Cheks Hemoglobin A1c well controlled at 7.2% (13) Hypercholesterolemia: Okay to restart home Vytorin as is taking p.o. (14) Hypertension: Blood pressures low on admission from dehydration but improved with IV fluids Continue to hold home lisinopril, but restart Lasix, spironolactone as above Continue metoprolol and isosorbide for history of CAD (15) Hypothyroidism: TSH normal Continue home levothyroxine (16) Ischemic cardiomyopathy: As above (17) Prostate cancer: Status post brachytherapy seeds in prostate Having urinary retention requiring multiple straight catheterizations He is refusing Person catheter Start Flomax Continue to straight cath for PVR greater than 400 mL Consider consulting urology if needed (18) Pulmonary nodule: Followed as an outpatient (19) Sleep apnea: Noted, will need to find out if he uses CPAP (20) Ventricular tachycardia (paroxysmal): Has ICD in place Monitor on telemetry Continue beta-gavin (21) Anxiety: Continue bupropion (22) DVT prophylaxis: Eliquis to be restarted Disposition-continued stay Full code Discussed his care at length with his daughter, Sherrill, on the phone. She will communicate in Tongan using a lithograph designer with patient's -she says this works best. Sherrill is a nurse and is able to do home IV antibiotics if needed. Admission and Anticipated Discharge Date Admission Date: October 26, 2020 Subjective Pt extremely hard of hearing. He insists that the reason he is not able to get his urine out is because he must have his lasix. He demands his lasix to be added back on. He is eating and drinking today and has no further N/V. He has a poor understanding of medical issues in general and insists that he got this bloodstream infection from bad food from [employer] [facility]. He also says that [facility] a new pill for indigestion that is a miracle drug and works in 15 min. He says it replaced Zantac but when I suggested Pepcid or famotidine, he said "no it's one little pill!" He reports weakness and typically can only walk from the chair to the bathroom and back. Review of Systems Review of Systems: All systems reviewed & are unremarkable except as noted in HPI & below Physical Exam Constitutional: WD/WN, vitals as above + obese Eyes: + anicteric sclerae ENMT: Ears: + hearing impairment Neck: trachea midline, no thyromegaly Respiratory: + tachypneic (With exertion to sit himself up in the bed) Auscultation: + diminished lung sounds (At the bases bilaterally); no crackles and no wheezes Cardiovascular: RRR, no murmur, no edema Chest (Breasts): Chest: normal inspection of chest Gastrointestinal (Abdomen): Inspection/Auscultation: normal bowel sounds; abdomen not distended Percussion/Palpation: abdomen soft, + splenomegaly (Palpable) and + hernia (Small reducible periumbilical hernia); abdomen nontender and no guarding Musculoskeletal: Extremities: extremities normal to inspection; no cyanosis and no clubbing Skin: no rashes, warm and dry Neurologic: moves all extremities and awake; no focal motor deficits Psychiatric: Orientation: alert, oriented x 3 and cooperative Eye Contact: good eye contact Speech: normal rate/rhythm/volume of speech Affect: + irritable affect Lymphatic: no lymphedema Results & Data Results & Data ([facility]) Vital Signs (Past 12 Hours) Vital Signs Temp Pulse Pulse Resp BP Pulse Ox 10/26/20 12:25 37 C 78 18 121/62 92 10/26/20 08:00 75 10/26/20 07:55 36.5 C 73 20 154/78 H 96 Laboratory Results 10/26/20 10/26/20 10/26/20 Range/Units 16:21 12:00 07:56 WBC (4.8-10.8) K/uL RBC (4.7-6.1) M/uL Hgb (14.0-18.0) g/dL Hct (42-52) % MCV (80-100) fL MCH (25-34) pg MCHC (32-36) g/dL RDW Std Deviation (36.4-46.3) fL RDW Coeff of Beck (11.5-14.5) % Plt Count (130-400) K/uL MPV (7.4-10.4) fL Immature Gran % (Auto) % Neut % (Auto) % Lymph % (Auto) % [place] % (Auto) % Eos % (Auto) % Baso % (Auto) % Neut # (Auto) (1.4-6.5) K/uL Lymph # (Auto) (1.2-3.4) K/uL [place] # (Auto) (0.11-0.59) K/uL Eos # (Auto) (0-0.5) K/uL Baso # (Auto) (0-0.2) K/uL Immature Gran # (Auto) (0.00-0.02) K/uL Sodium (136-145) mmol/L Potassium (3.5-5.1) mmol/L Chloride (98-107) mmol/L Carbon Dioxide (21-32) mmol/L Anion Gap (3-11) BUN (7-18) mg/dl Creatinine (0.6-1.4) mg/dl Est Cr Clr Drug Dosing ml/min Est GFR ( Amer) Est GFR (Non-Af Amer) BUN/Creatinine Ratio (10-20) Glucose (70-99) mg/dl POC Glucose 187 H 188 H 126 H (70-99) mg/dl Estimat Average Glucose mg/dl Hemoglobin A1c (4.5-5.6) % Calcium (8.5-10.1) mg/dl Magnesium (1.8-2.4) mg/dl Iron (35-175) mcg/dl TIBC (250-450) mcg/dl Transferrin (200-360) mg/dl Transferrin % Sat (20-50) % Ferritin (8-388) ng/ml Total Bilirubin (0.2-1) mg/dl AST (15-37) U/L ALT (12-78) U/L Alkaline Phosphatase (45-117) U/L Total Protein (6.4-8.2) gm/dl Albumin (3.4-5.0) gm/dl Globulin (2.5-4.0) gm/dl Albumin/Globulin Ratio (0.9-2) Tumor Marker AFP TSH (0.300-4.500) uIu/ml 10/26/20 10/26/20 10/26/20 Range/Units 05:46 05:46 05:46 WBC (4.8-10.8) K/uL RBC (4.7-6.1) M/uL Hgb (14.0-18.0) g/dL Hct (42-52) % MCV (80-100) fL MCH (25-34) pg MCHC (32-36) g/dL RDW Std Deviation (36.4-46.3) fL RDW Coeff of Beck (11.5-14.5) % Plt Count (130-400) K/uL MPV (7.4-10.4) fL Immature Gran % (Auto) % Neut % (Auto) % Lymph % (Auto) % [place] % (Auto) % Eos % (Auto) % Baso % (Auto) % Neut # (Auto) (1.4-6.5) K/uL Lymph # (Auto) (1.2-3.4) K/uL [place] # (Auto) (0.11-0.59) K/uL Eos # (Auto) (0-0.5) K/uL Baso # (Auto) (0-0.2) K/uL Immature Gran # (Auto) (0.00-0.02) K/uL Sodium 136 (136-145) mmol/L Potassium 4.2 D (3.5-5.1) mmol/L Chloride 108 H (98-107) mmol/L Carbon Dioxide 25 (21-32) mmol/L Anion Gap 3.0 (3-11) BUN 30 H (7-18) mg/dl Creatinine 1.55 H (0.6-1.4) mg/dl Est Cr Clr Drug Dosing 54.4 ml/min Est GFR ( Amer) 49.3 Est GFR (Non-Af Amer) 42.5 BUN/Creatinine Ratio 19.4 (10-20) Glucose 135 H (70-99) mg/dl POC Glucose (70-99) mg/dl Estimat Average Glucose 160 mg/dl Hemoglobin A1c 7.2 H (4.5-5.6) % Calcium 8.5 (8.5-10.1) mg/dl Magnesium 2.0 (1.8-2.4) mg/dl Iron 29 L (35-175) mcg/dl TIBC 292 (250-450) mcg/dl Transferrin 223 (200-360) mg/dl Transferrin % Sat 9 L (20-50) % Ferritin 103.0 (8-388) ng/ml Total Bilirubin 0.4 (0.2-1) mg/dl AST 17 (15-37) U/L ALT 16 (12-78) U/L Alkaline Phosphatase 61 (45-117) U/L Total Protein 6.5 (6.4-8.2) gm/dl Albumin 2.4 L (3.4-5.0) gm/dl Globulin 4.1 H (2.5-4.0) gm/dl Albumin/Globulin Ratio 0.6 L (0.9-2) Tumor Marker AFP Pending TSH 0.640 (0.300-4.500) uIu/ml 10/26/20 10/25/20 Range/Units 05:46 20:34 WBC 7.32 (4.8-10.8) K/uL RBC 3.75 L (4.7-6.1) M/uL Hgb 9.9 L (14.0-18.0) g/dL Hct 30.1 L (42-52) % MCV 80.3 (80-100) fL MCH 26.4 (25-34) pg MCHC 32.9 (32-36) g/dL RDW Std Deviation 47.4 H (36.4-46.3) fL RDW Coeff of Beck 16.1 H (11.5-14.5) % Plt Count 182 (130-400) K/uL MPV 9.3 (7.4-10.4) fL Immature Gran % (Auto) 0.1 % Neut % (Auto) 72.9 % Lymph % (Auto) 16.8 % [place] % (Auto) 8.9 % Eos % (Auto) 1.2 % Baso % (Auto) 0.1 % Neut # (Auto) 5.33 (1.4-6.5) K/uL Lymph # (Auto) 1.23 (1.2-3.4) K/uL [place] # (Auto) 0.65 H (0.11-0.59) K/uL Eos # (Auto) 0.09 (0-0.5) K/uL Baso # (Auto) 0.01 (0-0.2) K/uL Immature Gran # (Auto) 0.01 (0.00-0.02) K/uL Sodium (136-145) mmol/L Potassium (3.5-5.1) mmol/L Chloride (98-107) mmol/L Carbon Dioxide (21-32) mmol/L Anion Gap (3-11) BUN (7-18) mg/dl Creatinine (0.6-1.4) mg/dl Est Cr Clr Drug Dosing ml/min Est GFR ( Amer) Est GFR (Non-Af Amer) BUN/Creatinine Ratio (10-20) Glucose (70-99) mg/dl POC Glucose 122 H (70-99) mg/dl Estimat Average Glucose mg/dl Hemoglobin A1c (4.5-5.6) % Calcium (8.5-10.1) mg/dl Magnesium (1.8-2.4) mg/dl Iron (35-175) mcg/dl TIBC (250-450) mcg/dl Transferrin (200-360) mg/dl Transferrin % Sat (20-50) % Ferritin (8-388) ng/ml Total Bilirubin (0.2-1) mg/dl AST (15-37) U/L ALT (12-78) U/L Alkaline Phosphatase (45-117) U/L Total Protein (6.4-8.2) gm/dl Albumin (3.4-5.0) gm/dl Globulin (2.5-4.0) gm/dl Albumin/Globulin Ratio (0.9-2) Tumor Marker AFP TSH (0.300-4.500) uIu/ml Blood cultures 4/4 bottles with Streptococcus species PG Care Time/CCT Total # of Minutes Spent Total Time Spent with Patient: Total time spent is greater than 50% in coordination of care (as documented) at patient's floor/unit and/or counseling patient: Coding Level of Care Code 48934 Subseq Hosp Care Lvl 3 Diagnoses Bacteremia R78.81 Nausea & vomiting R11.2 Vomiting Intractability: unspecified Vomiting type: unspecified Liver mass R16.0 Anemia D64.9 Elevated lactic acid level R79.89 Atrial fibrillation I48.20 Atrial fibrillation type: unspecified chronic Chronic congestive heart failure I50.9 Heart failure type: unspecified Chronic kidney disease, stage III (moderate) N18.3 COPD, moderate J44.9 Coronary artery disease I25.10 Associated angina: angina presence unspecified Coronary Disease-Associated Artery/Lesion type: [place] artery [place] vs. transplanted heart: [place] heart Depression F32.9 Active/Remission status: remission status unspecified Depression Type: major depressive disorder Major depression recurrence: unspecified whether recurrent Diabetes mellitus type 2, uncontrolled E11.65 Hypercholesterolemia E78.00 Hypertension I10 Hypertension type: essential hypertension Hypothyroidism E03.9 Hypothyroidism type: unspecified Ischemic cardiomyopathy I25.5 Prostate cancer C61 Pulmonary nodule R91.1 Sleep apnea G47.30 Ventricular tachycardia (paroxysmal) I47.2 Anxiety F41.9 DVT prophylaxis Z29.9 (1) Coronary artery disease Associated angina: angina presence unspecified Coronary Disease-Associated Artery/Lesion type: [place] artery [place] vs. transplanted heart: [place] heart Qualified Code(s): I25.10 - Atherosclerotic heart disease of [place] coronary artery without angina pectoris (2) Chronic congestive heart failure Heart failure type: unspecified Qualified Code(s): I50.9 - Heart failure, unspecified (3) Atrial fibrillation Atrial fibrillation type: unspecified chronic Qualified Code(s): I48.20 - Chronic atrial fibrillation, unspecified (4) Depression Active/Remission status: remission status unspecified Depression Type: major depressive disorder Major depression recurrence: unspecified whether recurrent Qualified Code(s): F32.9 - Major depressive disorder, single episode, unspec ified (5) Hypothyroidism Hypothyroidism type: unspecified Qualified Code(s): E03.9 - Hypothyroidism, unspecified (6) Nausea & vomiting Vomiting Intractability: unspecified Vomiting type: unspecified Qualified Code(s): R11.2 - Nausea with vomiting, unspecified (7) Hypertension Hypertension type: essential hypertension Qualified Code(s): I10 - Essential (primary) hypertension
[2020-10-26] MEDS: FERROUS SULFATE 325 MG TAB PO SCH (17:57)
[2020-10-26] MEDS: FUROSEMIDE 20 MG TAB PO SCH (18:01)
--- NOTE | 2020-10-26 20:51 | Ultrasound Report ---
US liver HISTORY: 79 years-old Male reassess liver mass vs abscess acute upper abdominal pain COMPARISON: CT abdomen and pelvis 10/25/2020 and 07/30/2020, abdominal ultrasound 08/04/2020 TECHNIQUE: Multiple real-time sonographic images of the liver were obtained assessing grayscale appea eduard and color flow FINDINGS: Limited exam secondary to patient inability to breath-hold. Pancreas is partially obscured by bowel gas. Imaged portions appear unremarkable. Respiratory motion artifact limits evaluation of the liver. The previously noted 3 cm left hepatic lobe lesion is not id entified. Mild marginal nodularity of the liver suggestive of cirrhosis. No new hepatic lesions are s een. Gallbladder is unremarkable. No shadowing cholelithiasis, wall thickening or pericholecystic flu id. Normal common bile duct, 4 mm. The imaged right kidney is unremarkable without hydronephrosis. IMPRESSION: 1. Limited exam as above. The previously noted 3 cm indeterminate left hepatic lobe lesion is not josette ntified. Again, this could be better characterized with CT or MRI liver protocol if the patient is ab le. 2. Unremarkable gallbladder. 3. No biliary ductal dilation. ACT 112: Negative or not required by law. The above report was generated using voice recognition software. It may contain grammatical, syntax o r spelling errors. Electronically signed by: Mateus Ramsey M.D. 10/26/2020 8:50 PM
[2020-10-26] MEDS: APIXABAN 5 MG TABLET PO SCH (20:52)
[2020-10-26] MEDS: ASPIRIN 81 MG ECTAB PO SCH (20:52)
[2020-10-26] MEDS: FOLIC ACID 1 MG TAB PO SCH (20:53)
[2020-10-26] MEDS: FAMOTIDINE 20 MG TAB PO SCH (20:53)
[2020-10-26] MEDS: TAMSULOSIN HCL 0.4 MG CAP PO SCH (20:53)
[2020-10-26] MEDS: CHOLECALCIFEROL 1,000 UNITS 25 MCG TAB PO SCH (20:54)
[2020-10-26] MEDS: FENOFIBRATE NANOCRYSTALLIZED 145 MG TABLET PO SCH (20:54)
[2020-10-26] MEDS: EZETIMIBE 10 MG TABLET PO SCH (20:55)
[2020-10-26] MEDS: SIMVASTATIN 40 MG TAB PO SCH (20:55)
[2020-10-26] MEDS ORDERED: EZETIMIBE/SIMVASTATIN 10/80MG TAB PO SCH (21:00)
[2020-10-26] MEDS ORDERED: PANTOprazole 40 MG TAB PO SCH (21:00)
[2020-10-27] MEDS: ONDANSETRON INJ 2 MG/ML 2 ML VIAL IV PRN (03:49)
[2020-10-27] MEDS: LEVOTHYROXINE SODIUM 100 MCG TABLET PO SCH (06:22)
[2020-10-27] MEDS ORDERED: VANCOMYCIN TROUGH ONE (07:30)
[2020-10-27 08:09] LABS: Basophils # (auto) 0.02 K/uL (0-0.2); Basophils % (auto) 0.2 %; Eosinophils # (auto) 0.05 K/uL (0-0.5); Eosinophils % (auto) 0.6 %; Hematocrit (blood only) 32.2 % (42-52); Hemoglobin 10.7 g/dL (14.0-18.0); Immature Granulocytes # (auto) 0.04 K/uL (0.00-0.02); Immature Granulocytes % (auto) 0.4 %; Lymphocytes # (auto) 1.28 K/uL (1.2-3.4); Lymphocytes % (auto) 14.2 %; Mean Corpuscular Hemoglobin 26.6 pg (25-34); Mean Corpuscular Hgb Conc 33.2 g/dL (32-36); Mean Corpuscular Volume 80.1 fL (80-100); Mean Platelet Volume 9.2 fL (7.4-10.4); Monocytes # (auto) 0.73 K/uL (0.11-0.59); Monocytes % (auto) 8.1 %; Neutrophils # (auto) 6.91 K/uL (1.4-6.5); Neutrophils % (auto) 76.5 %; Platelet Count 205 K/uL (130-400); RDW Coefficient of Variation 15.9 % (11.5-14.5); RDW Standard Deviation 46.7 fL (36.4-46.3); Red Blood Count 4.02 M/uL (4.7-6.1); White Blood Count 9.03 K/uL (4.8-10.8)
[2020-10-27 08:41] LABS: BUN Creatinine Ratio 14.5 (10-20); C Reactive Protein 6.78 mg/dl (0-0.29); Calcium 8.9 mg/dl (8.5-10.1); Creatinine Clr Calc Pharmacy 57.3 ml/min; Est GFR (Non-African American) 45.7; Magnesium 2.1 mg/dl (1.8-2.4); Potassium 4.2 mmol/L (3.5-5.1)
[2020-10-27] MEDS: FUROSEMIDE 20 MG TAB PO SCH ×2 (09:17→18:08)
[2020-10-27] MEDS: METOPROLOL SUCC 25MG EXT REL TAB PO SCH ×2 (09:17→19:48)
[2020-10-27] MEDS: buPROPion SR 150 MG TABCR PO SCH ×2 (09:17→19:50)
[2020-10-27] MEDS: ISOSORBIDE MONO EXTENDED REL 60 MG TABCR PO SCH (09:17)
[2020-10-27] MEDS: FAMOTIDINE 20 MG TAB PO SCH ×2 (09:17→19:49)
[2020-10-27] MEDS: FERROUS SULFATE 325 MG TAB PO SCH ×2 (09:17→18:08)
[2020-10-27] MEDS: PANTOprazole 40 MG TAB PO SCH ×2 (09:17→19:49)
[2020-10-27] MEDS: SUCRALFATE 1 GM/10 ML UDC PO SCH ×4 (09:18→19:45)
[2020-10-27] MEDS: SPIRONOLACTONE 25 MG TAB PO SCH (09:18)
[2020-10-27] MEDS: INSULIN ASPART 100 UNITS/ML 3 ML PEN SC SCH ×4 (09:18→21:57)
[2020-10-27] MEDS: INSULIN GLARGINE SOLOSTAR 100 UNITS/ML 3 ML PEN SC SCH ×2 (09:18→21:56)
[2020-10-27] MEDS: APIXABAN 5 MG TABLET PO SCH ×2 (09:20→19:47)
--- NOTE | 2020-10-27 09:20 | Pharmacy Report ---
Pharmacy Abx Dose Short Note - Date of Service October 27, 2020 - Assessment & Plan Assessment * 79 year old M receiving vancomycin for treatment of Strep bacteremia, unknown source but possibly liver mass/abscess * WBC wnl. Low-grade fever noted this AM - possibly due to lack of source control? * SCr with slight trend down x2 days - unclear clinical significance * Blood cultures with 4/4 Strep - species and sensitivities pending Vancomycin * Goal trough 15-20 mcg/mL * Trough of 23.5 mcg/mL is supratherapeutic. However, will only slightly reduce vancomycin dose as would prefer level to be in the upper end of goal range for bacteremia and dose of vancomycin administered prior to the trough was ~1 hour late, thus not making this a true 12 hour level Plan * Decrease vancomycin 1000 mg IV q12h * Trough in 48 hours, 10/29 @ 0930 Pharmacy will continue to follow and will adjust dose/frequency as necessary. Thank you.
[2020-10-27] MEDS ORDERED: VANCOMYCIN HCL 1,000 MG in SODIUM CHLORIDE 0.9% 250 ML IV SCH (10:00)
--- NOTE | 2020-10-27 11:18 | Pharmacy Report ---
Pharmacy Glycemic Short Note 2 - Date of Service October 27, 2020 - Glycemic Short BSG Results (Last 24 hours): 10/26/20 10/26/20 10/26/20 12:00 16:21 20:58 Glucose POC Glucose 188 H 187 H 137 H 10/27/20 10/27/20 07:29 07:39 Glucose 151 H POC Glucose 160 H OUTPATIENT ANTIDIABETIC REGIMEN: * Tresiba 80 units SC BID * Novolog 15 units SC BID * Trulicity 1.5 mg SC weekly * HbA1c = pending ASSESSMENT: 10/27: * Pt has received 50 units of insulin over the past 24hrs * 30 units of basal with Lantus * 20 units of bolus with NovoLog * BSGs [id number] mg/dl * AM fasting BSG above goal range at 160mg/dl. Pt will receive increased Lantus dose this AM of 20 units per Lantus dosing scale. * Post-prandial BSGs elevated - will tighten CR but loosen CF since pt will have more basal insulin on board. 10/26: * Patient received a total of 16 units of insulin yesterday * 15 units basal + 1 unit bolus * BSGs were well controlled: 150-99-122 mg/dL * Fasting BSG was well controlled at 126 mg/dL * Gave another 15 units of Lantus this AM * Patient remains NPO at this time so plan is to hold any further basal insulin today * No change in Novolog at this time 10/25: * 79 yo M admitted secondary to nausea and vomiting. Pharmacy has been consulted to assist with inpatient glycemic management. Patient is known to pharmacy glycemic service. * BSG upon admission was 98 mg/dL * Will hold all basal insulin at this time per consulting provider * Likely that patient will require some Lantus this evening * Starting Novolog based on previous admission data PLAN FOR INPATIENT GLYCEMIC CONTROL: * Basal insulin: no change * Lantus 15-25 units BID - dose based on BSG * Bolus insulin: tighten CR; loosen CF * NovoLog per scale ACHS or Q6hrs while NPO * Goal Range: Low 110 mg/dL - High 140 mg/dL * Correction Factor: 12 mg/dL/unit * Nutritional / Prandial insulin per carb ratio of 1 unit per 3 grams CHO consumed PLAN FOR DISCHARGE: * HbA1c = 7.2% (10/26/20). This is at patient's goal of less than 8% and has improved from 8.6% in July 2020. * Recommend continuing outpatient regimen upon discharge.
--- NOTE | 2020-10-27 12:07 | Hospitalist Progress Note ---
Date of Service October 27, 2020 Assessment & Plan (1) Bacteremia: Growing Enterococcus faecalis 4/4 bottles Unknown source, but does have this liver mass which could be an abscess UA is negative No skin wounds, no abdominal pain, no diarrhea - liver ultrasound performed here and no longer shows a mass -Would recommend repeating CT of the abdomen as an outpatient in 1 month to see if 3 cm lesion still present-could be abscess? -Discontinue IV vancomycin and narrow down to IV ampicillin -Repeat blood cultures drawn on 10/26-no growth to date Consult ID-awaiting official report of recommendations but will most likely need 2 weeks at least of IV antibiotics Checked echocardiogram-no definite valvular vegetation noted; SUE would only be needed if blood cultures remain persistently positive (2) Nausea & vomiting: Presented with 24 hours of nausea/vomiting along with sweats and chills at home. Lactate elevated at 2.3 and creatinine mildly elevated over baseline at 1.66. Has a history of similar presentation recently with admission resulting in Klebsiella bacteremia. And now again here with Enterococcus bacteremia LFTs, lipase normal Nausea vomiting have now resolved and he is tolerating regular diet With worsening microcytic anemia with hemoglobin of 9-10, has a history of GERD, could have peptic ulcer disease, gastritis, or esophageal mass? -Consulted GI to see about EGD-plan to do this as an outpatient if patient agreeable once he is over his bacteremia -Continue Protonix 40 mg p.o. twice daily and GI added Pepcid and Carafate -Follow CBC, CMP, magnesium (3) Liver mass: Known to be 5.2 cm on previous scan, has previously declined work-up CT here noncontrast shows only 3 cm hypodense lesion Question if is abscess versus solid mass? Liver ultrasound here negative for mass Check [id number] Could be metastatic versus primary Hep C antibodies negative from previous Has splenomegaly 21 cm and cirrhosis on CT As above, would repeat CT abdomen in 1 month (4) Anemia: As above, worsening from previous and microcytic, stable today at 10.7 Iron studies consistent with significant iron deficiency although ferritin elevated likely in the setting of infection with bacteremia Follow CBC Consult GI to see about EGD-plan as outpatient as above Okay to continue Eliquis and follow CBC Continue aspirin given high risk with history of CABG -Started ferrous sulfate 325 mg p.o. twice daily Would not give IV iron in the setting of bacteremia (5) Elevated lactic acid level: Elevated on admission at 2.3, now resolved after IV fluids Related to sepsis versus dehydration (6) Atrial fibrillation: With a history of such Is in ventricularly paced rhythm on telemetry here Continue to monitor on telemetry Continue Eliquis as there will be no procedures this admission Continue metoprolol (7) Chronic congestive heart failure: Chronic systolic CHF ischemic cardiomyopathy with EF 30-35% -Initially held home Lasix, spironolactone, and lisinopril for mild renal insufficiency and borderline low blood pressure in the setting of nausea/vomiting Echocardiogram with severely reduced EF Continue metoprolol -Restarted home Lasix and spironolactone Continue to hold lisinopril Follow I's and O's, daily weights (8) Chronic kidney disease, stage III (moderate): Baseline creatinine around 1.4 -Avoid nephrotoxins -renally dose meds when appropriate -follow BMP With mild renal insufficiency here, holding lisinopril, Lasix, spironolactone as above and now restarting Lasix and spironolactone (9) COPD, moderate: No acute issues Not on inhalers (10) Coronary artery disease: Status post CABG Continue aspirin, metoprolol, isosorbide No chest pain or acute issues, troponin negative (11) Depression: Continue bupropion (12) Diabetes mellitus type 2, uncontrolled: Glucose within normal limits upon admission likely secondary to recent vomiting Holding Trulicity from home Glycemic pharmacy management appreciated Insulin sliding scale and Accu-Cheks Hemoglobin A1c well controlled at 7.2% (13) Hypercholesterolemia: Continue Vytorin (14) Hypertension: Blood pressures low on admission from dehydration but improved with IV fluids Continue to hold home lisinopril, but restarted Lasix, spironolactone as above Continue metoprolol and isosorbide for history of CAD (15) Hypothyroidism: TSH normal Continue home levothyroxine (16) Ischemic cardiomyopathy: As above (17) Prostate cancer: Status post brachytherapy seeds in prostate Having urinary retention requiring multiple straight catheterizations He is refusing Person catheter Started Flomax Continue to straight cath for PVR greater than 400 mL-PVRs have been 250 mL max today Consider consulting urology if needed (18) Pulmonary nodule: Followed as an outpatient (19) Sleep apnea: Noted, will need to find out if he uses CPAP (20) Ventricular tachycardia (paroxysmal): Has ICD in place Monitor on telemetry Continue beta-gavin (21) Anxiety: Significantly increased by having to stay in the hospital Continue bupropion -Add on hydroxyzine 10 mg p.o. every 8 hours as needed (22) DVT prophylaxis: Eliquis Disposition-continued stay until repeat blood cultures negative x48 hours, PICC line versus ultrasound-guided IV will need to be placed, and IV antibiotics will need to be set up at home through the [place] Full code Discussed his care at length with his daughter, Sherrill, on the phone. She will communicate in [place] using a prepared foods supervisor with patient's -she says this works best. Sherrill is a nurse and is able to do home IV antibiotics if needed. daughter Sherrill Admission and Anticipated Discharge Date Admission Date: October 26, 2020 Subjective Patient reports feeling extremely anxious about having to remain in the hospital and feels cooped up. We did have a better time communicating today when I started writing things down on a note pad for him as his hearing is extremely poor even with his hearing aids in. He was agreeable to taking medication to help with anxiety-hydroxyzine ordered. I explained to him that he would have to be in the hospital least Thursday until case management can [facility]. He denies any abdominal pain. No further nausea or vomiting is eating well. He is adamant that he be allowed to use a bedside commode as he does not feel like walking to the bathroom. He is agreeable to going for a wheelchair ride in the hallway to get out of the room to help his anxiety. I discussed his care with his daughter on the phone. Telemetry with paced rhythm, PVCs, small runs of PVCs and rates in the 90s. Review of Systems Review of Systems: All systems reviewed & are unremarkable except as noted in HPI & below Physical Exam Constitutional: WD/WN, vitals as above + obese Eyes: + anicteric sclerae ENMT: Ears: + hearing impairment Neck: trachea midline, no thyromegaly Respiratory: + tachypneic (With exertion to sit himself up in the bed) Auscultation: + diminished lung sounds (At the bases bilaterally); no crackles and no wheezes Cardiovascular: RRR, no murmur, no edema Chest (Breasts): Chest: normal inspection of chest Gastrointestinal (Abdomen): normal bowel sounds, soft, nontender, no hepatosplenomegaly Inspection/Auscultation: normal bowel sounds; abdomen not distended Percussion/Palpation: abdomen soft, + splenomegaly (Palpable) and + hernia (Small reducible periumbilical hernia); abdomen nontender and no guarding Musculoskeletal: Extremities: extremities normal to inspection; no cyanosis and no clubbing Skin: no rashes, warm and dry Neurologic: moves all extremities and awake; no focal motor deficits Psychiatric: Orientation: alert, oriented x 3 and cooperative Eye Contact: good eye contact Speech: normal rate/rhythm/volume of speech Affect: + irritable affect Lymphatic: no lymphedema Results & Data Results & Data ([facility]) Vital Signs (Past 12 Hours) Vital Signs Temp Pulse Resp BP Pulse Ox 10/27/20 11:21 36.6 C 91 H 20 100/60 95 10/27/20 07:56 37.7 C H 64 20 113/55 L 90 10/27/20 04:19 36.8 C 80 20 120/61 97 Laboratory Results 10/27/20 10/27/20 10/27/20 Range/Units 16:28 11:29 07:39 WBC (4.8-10.8) K/uL RBC (4.7-6.1) M/uL Hgb (14.0-18.0) g/dL Hct (42-52) % MCV (80-100) fL MCH (25-34) pg MCHC (32-36) g/dL RDW Std Deviation (36.4-46.3) fL RDW Coeff of Beck (11.5-14.5) % Plt Count (130-400) K/uL MPV (7.4-10.4) fL Immature Gran % (Auto) % Neut % (Auto) % Lymph % (Auto) % Teller % (Auto) % Eos % (Auto) % Baso % (Auto) % Neut # (Auto) (1.4-6.5) K/uL Lymph # (Auto) (1.2-3.4) K/uL Teller # (Auto) (0.11-0.59) K/uL Eos # (Auto) (0-0.5) K/uL Baso # (Auto) (0-0.2) K/uL Immature Gran # (Auto) (0.00-0.02) K/uL ESR (0-14) mm/hr Sodium (136-145) mmol/L Potassium (3.5-5.1) mmol/L Chloride (98-107) mmol/L Carbon Dioxide (21-32) mmol/L Anion Gap (3-11) BUN (7-18) mg/dl Creatinine (0.6-1.4) mg/dl Est Cr Clr Drug Dosing ml/min Est GFR ( Amer) Est GFR (Non-Af Amer) BUN/Creatinine Ratio (10-20) Glucose (70-99) mg/dl POC Glucose 121 H 125 H 160 H (70-99) mg/dl Calcium (8.5-10.1) mg/dl Magnesium (1.8-2.4) mg/dl C-Reactive Protein (0-0.29) mg/dl Stool Occult Bld Scrn (Negative) Vancomycin Trough (See Comment) mcg/ml 10/27/20 10/27/20 10/27/20 Range/Units 07:29 07:29 07:29 WBC 9.03 (4.8-10.8) K/uL RBC 4.02 L (4.7-6.1) M/uL Hgb 10.7 L (14.0-18.0) g/dL Hct 32.2 L (42-52) % MCV 80.1 (80-100) fL MCH 26.6 (25-34) pg MCHC 33.2 (32-36) g/dL RDW Std Deviation 46.7 H (36.4-46.3) fL RDW Coeff of Beck 15.9 H (11.5-14.5) % Plt Count 205 (130-400) K/uL MPV 9.2 (7.4-10.4) fL Immature Gran % (Auto) 0.4 % Neut % (Auto) 76.5 % Lymph % (Auto) 14.2 % Teller % (Auto) 8.1 % Eos % (Auto) 0.6 % Baso % (Auto) 0.2 % Neut # (Auto) 6.91 H (1.4-6.5) K/uL Lymph # (Auto) 1.28 (1.2-3.4) K/uL Teller # (Auto) 0.73 H (0.11-0.59) K/uL Eos # (Auto) 0.05 (0-0.5) K/uL Baso # (Auto) 0.02 (0-0.2) K/uL Immature Gran # (Auto) 0.04 H (0.00-0.02) K/uL ESR 44 H (0-14) mm/hr Sodium 134 L (136-145) mmol/L Potassium 4.2 (3.5-5.1) mmol/L Chloride 104 (98-107) mmol/L Carbon Dioxide 23 (21-32) mmol/L Anion Gap 7.0 (3-11) BUN 21 H (7-18) mg/dl Creatinine 1.46 H (0.6-1.4) mg/dl Est Cr Clr Drug Dosing 57.3 ml/min Est GFR ( Amer) 53.0 Est GFR (Non-Af Amer) 45.7 BUN/Creatinine Ratio 14.5 (10-20) Glucose 151 H (70-99) mg/dl POC Glucose (70-99) mg/dl Calcium 8.9 (8.5-10.1) mg/dl Magnesium 2.1 (1.8-2.4) mg/dl C-Reactive Protein 6.78 H (0-0.29) mg/dl Stool Occult Bld Scrn (Negative) Vancomycin Trough (See Comment) mcg/ml 10/27/20 10/27/20 10/26/20 Range/Units 07:29 04:09 20:58 WBC (4.8-10.8) K/uL RBC (4.7-6.1) M/uL Hgb (14.0-18.0) g/dL Hct (42-52) % MCV (80-100) fL MCH (25-34) pg MCHC (32-36) g/dL RDW Std Deviation (36.4-46.3) fL RDW Coeff of Beck (11.5-14.5) % Plt Count (130-400) K/uL MPV (7.4-10.4) fL Immature Gran % (Auto) % Neut % (Auto) % Lymph % (Auto) % Teller % (Auto) % Eos % (Auto) % Baso % (Auto) % Neut # (Auto) (1.4-6.5) K/uL Lymph # (Auto) (1.2-3.4) K/uL Teller # (Auto) (0.11-0.59) K/uL Eos # (Auto) (0-0.5) K/uL Baso # (Auto) (0-0.2) K/uL Immature Gran # (Auto) (0.00-0.02) K/uL ESR (0-14) mm/hr Sodium (136-145) mmol/L Potassium (3.5-5.1) mmol/L Chloride (98-107) mmol/L Carbon Dioxide (21-32) mmol/L Anion Gap (3-11) BUN (7-18) mg/dl Creatinine (0.6-1.4) mg/dl Est Cr Clr Drug Dosing ml/min Est GFR ( Amer) Est GFR (Non-Af Amer) BUN/Creatinine Ratio (10-20) Glucose (70-99) mg/dl POC Glucose 137 H (70-99) mg/dl Calcium (8.5-10.1) mg/dl Magnesium (1.8-2.4) mg/dl C-Reactive Protein (0-0.29) mg/dl Stool Occult Bld Scrn Negative (Negative) Vancomycin Trough 23.5 (See Comment) mcg/ml PG Care Time/CCT Total # of Minutes Spent Total Time Spent with Patient: Total time spent is greater than 50% in coordination of care (as documented) at patient's floor/unit and/or counseling patient: Coding Level of Care Code 31204 Subseq Hosp Care Lvl 3 Diagnoses Bacteremia R78.81 Nausea & vomiting R11.2 Vomiting Intractability: unspecified Vomiting type: unspecified Liver mass R16.0 Anemia D64.9 Elevated lactic acid level R79.89 Atrial fibrillation I48.20 Atrial fibrillation type: unspecified chronic Chronic congestive heart failure I50.9 Heart failure type: unspecified Chronic kidney disease, stage III (moderate) N18.3 COPD, moderate J44.9 Coronary artery disease I25.10 Associated angina: angina presence unspecified Coronary Disease-Associated Artery/Lesion type: [place] artery [place] vs. transplanted heart: [place] heart Depression F32.9 Active/Remission status: remission status unspecified Depression Type: major depressive disorder Major depression recurrence: unspecified whether recurrent Diabetes mellitus type 2, uncontrolled E11.65 Hypercholesterolemia E78.00 Hypertension I10 Hypertension type: essential hypertension Hypothyroidism E03.9 Hypothyroidism type: unspecified Ischemic cardiomyopathy I25.5 Prostate cancer C61 Pulmonary nodule R91.1 Sleep apnea G47.30 Ventricular tachycardia (paroxysmal) I47.2 Anxiety F41.9 DVT prophylaxis Z29.9 (1) Coronary artery disease Associated angina: angina presence unspecified Coronary Disease-Associated Artery/Lesion type: [place] artery [place] vs. transplanted heart: [place] heart Qualified Code(s): I25.10 - Atherosclerotic heart disease of [place] coronary artery without angina pectoris (2) Chronic congestive heart failure Heart failure type: unspecified Qualified Code(s): I50.9 - Heart failure, unspecified (3) Atrial fibrillation Atrial fibrillation type: unspecified chronic Qualified Code(s): I48.20 - Chronic atrial fibrillation, unspecified (4) Depression Active/Remission status: remission status unspecified Depression Type: major depressive disorder Major depression recurrence: unspecified whether recurrent Qualified Code(s): F32.9 - Major depressive disorder, single episode, unspecified (5) Hypothyroidism Hypothyroidism type: unspecified Qualified Code(s): E03.9 - Hypothyroidism, unspecified (6) Nausea & vomiting Vomiting Intractability: unspecified Vomiting type: unspecified Qualified Code(s): R11.2 - Nausea with vomiting, unspecified (7) Hypertension Hypertension type: essential hypertension Qualified Code(s): I10 - Essential (primary) hypertension
[2020-10-27] MEDS: AMPICILLIN 2,000 MG in SODIUM CHLOR 0.9% AD-VAN 100 ML IV SCH ×3 (14:36→22:00)
[2020-10-27] MEDS: ASPIRIN 81 MG ECTAB PO SCH (19:46)
[2020-10-27] MEDS: FOLIC ACID 1 MG TAB PO SCH (19:47)
[2020-10-27] MEDS: TAMSULOSIN HCL 0.4 MG CAP PO SCH (19:47)
[2020-10-27] MEDS: FENOFIBRATE NANOCRYSTALLIZED 145 MG TABLET PO SCH (19:49)
[2020-10-27] MEDS: CHOLECALCIFEROL 1,000 UNITS 25 MCG TAB PO SCH (19:50)
[2020-10-27] MEDS: EZETIMIBE 10 MG TABLET PO SCH (19:51)
[2020-10-27] MEDS: SIMVASTATIN 40 MG TAB PO SCH (19:52)
[2020-10-27] MEDS: hydrOXYzine HCl 10 MG TAB PO PRN (21:57)
[2020-10-28] MEDS: AMPICILLIN 2,000 MG in SODIUM CHLOR 0.9% AD-VAN 100 ML IV SCH ×6 (01:31→22:18)
[2020-10-28] MEDS: LEVOTHYROXINE SODIUM 100 MCG TABLET PO SCH (05:41)
[2020-10-28 07:12] LABS: Basophils # (auto) 0.02 K/uL (0-0.2); Basophils % (auto) 0.2 %; Eosinophils # (auto) 0.04 K/uL (0-0.5); Eosinophils % (auto) 0.5 %; Hematocrit (blood only) 29.3 % (42-52); Hemoglobin 10.2 g/dL (14.0-18.0); Immature Granulocytes # (auto) 0.03 K/uL (0.00-0.02); Immature Granulocytes % (auto) 0.4 %; Lymphocytes # (auto) 1.35 K/uL (1.2-3.4); Lymphocytes % (auto) 16.4 %; Mean Corpuscular Hemoglobin 27.3 pg (25-34); Mean Corpuscular Hgb Conc 34.8 g/dL (32-36); Mean Corpuscular Volume 78.3 fL (80-100); Mean Platelet Volume 8.8 fL (7.4-10.4); Monocytes # (auto) 0.76 K/uL (0.11-0.59); Monocytes % (auto) 9.2 %; Neutrophils # (auto) 6.03 K/uL (1.4-6.5); Neutrophils % (auto) 73.3 %; Platelet Count 205 K/uL (130-400); RDW Coefficient of Variation 15.9 % (11.5-14.5); Red Blood Count 3.74 M/uL (4.7-6.1); White Blood Count 8.23 K/uL (4.8-10.8)
[2020-10-28 07:44] LABS: Albumin Level 2.4 gm/dl (3.4-5.0); BUN Creatinine Ratio 14.6 (10-20); C Reactive Protein 9.52 mg/dl (0-0.29); Calcium 8.5 mg/dl (8.5-10.1); Creatinine Clr Calc Pharmacy 55.7 ml/min; Est GFR (African American) 50.9; Est GFR (Non-African American) 43.9; Potassium 3.7 mmol/L (3.5-5.1)
[2020-10-28 07:48] LABS: Albumin Globulin Ratio 0.6 (0.9-2); Bilirubin,Total 0.6 mg/dl (0.2-1); Globulin 4.1 gm/dl (2.5-4.0); Total Protein 6.5 gm/dl (6.4-8.2)
[2020-10-28] MEDS: SPIRONOLACTONE 25 MG TAB PO SCH (09:26)
[2020-10-28] MEDS: APIXABAN 5 MG TABLET PO SCH ×2 (09:26→20:06)
[2020-10-28] MEDS: FUROSEMIDE 20 MG TAB PO SCH ×2 (09:26→18:02)
[2020-10-28] MEDS: FERROUS SULFATE 325 MG TAB PO SCH ×2 (09:26→18:01)
[2020-10-28] MEDS: SUCRALFATE 1 GM/10 ML UDC PO SCH ×4 (09:26→20:06)
[2020-10-28] MEDS: ISOSORBIDE MONO EXTENDED REL 60 MG TABCR PO SCH (09:26)
[2020-10-28] MEDS: METOPROLOL SUCC 25MG EXT REL TAB PO SCH ×2 (09:26→20:05)
[2020-10-28] MEDS: hydrOXYzine HCl 10 MG TAB PO PRN (09:26)
[2020-10-28] MEDS: FAMOTIDINE 20 MG TAB PO SCH ×2 (09:27→20:05)
[2020-10-28] MEDS: INSULIN GLARGINE SOLOSTAR 100 UNITS/ML 3 ML PEN SC SCH ×2 (09:27→20:46)
[2020-10-28] MEDS: buPROPion SR 150 MG TABCR PO SCH ×2 (09:27→20:05)
[2020-10-28] MEDS: PANTOprazole 40 MG TAB PO SCH ×2 (09:27→20:05)
[2020-10-28] MEDS: INSULIN ASPART 100 UNITS/ML 3 ML PEN SC SCH ×4 (09:28→20:28)
--- NOTE | 2020-10-28 11:13 | Hospitalist Progress Note ---
Date of Service October 28, 2020 Assessment & Plan (1) Bacteremia: Growing Enterococcus faecalis 4/4 bottles on initial BCxs Now repeat BCxs taken at 24 hrs after starting IV abx also 1/2 sets with GPC in chains Unknown source, but does have this liver mass seen on CT abd/pel which could be an abscess-pt declines procedure to biopsy/aspirate this UA is negative No skin wounds, no abdominal pain, no diarrhea - liver ultrasound performed here and no longer shows a mass -Would recommend repeating CT of the abdomen as an outpatient in 1 month to see if 3 cm lesion still present-could be abscess? -have since discontinued IV vancomycin and narrowed down to IV ampicillin -follow BCXs from 10/26--> GPC in chains, likely still Enterococcus -Repeat blood cultures drawn on 10/29-FOLLOW Consult ID-report reviewed via CM with access to [employer] chart--> recommending Ceftriaxone if Strep however now known Enterococcus; recommended SUE if persistent cultures -pt not agreeable to most procedures including SUE; will need to further discuss with ID HOWEVER, most likely would be best if could treat empirically for SBE with 6 weeks IV ampicillin---> this can be given as a continuous infusion at home Checked echocardiogram-no definite valvular vegetation noted -will need PICC line on Thursday once BCxs from today hopefully have no growth (2) Nausea & vomiting: Presented with 24 hours of nausea/vomiting along with sweats and chills at home. Lactate elevated at 2.3 and creatinine mildly elevated over baseline at 1.66. Has a history of similar presentation recently with admission resulting in Klebsiella bacteremia. And now again here with Enterococcus bacteremia LFTs, lipase normal Nausea vomiting have now resolved and he is tolerating regular diet With worsening microcytic anemia with hemoglobin of 9-10, has a history of GERD, could have peptic ulcer disease, gastritis, or esophageal mass? -Consulted GI to see about EGD-plan to do this as an outpatient if patient agreeable once he is over his bacteremia -Continue Protonix 40 mg p.o. twice daily and GI added Pepcid and Carafate -Follow CBC, CMP, magnesium (3) Liver mass: Known to be 5.2 cm on previous scan, has previously declined work-up CT here noncontrast shows only 3 cm hypodense lesion Question if is abscess versus solid mass? Liver ultrasound here negative for mass Check [id number] Could be metastatic versus primary Hep C antibodies negative from previous Has splenomegaly 21 cm and cirrhosis on CT As above, would repeat CT abdomen in 1 month f/u with GI (4) Anemia: As above, worsening from previous and microcytic, stable today at 10.2 Iron studies consistent with significant iron deficiency although ferritin elevated likely in the setting of infection with bacteremia Follow CBC Consult GI to see about EGD-plan as outpatient as above Okay to continue Eliquis and follow CBC Continue aspirin given high risk with history of CABG -Started ferrous sulfate 325 mg p.o. twice daily Would not give IV iron in the setting of bacteremia (5) Elevated lactic acid level: Elevated on admission at 2.3, now resolved after IV fluids Related to sepsis versus dehydration (6) Atrial fibrillation: With a history of such Is in ventricularly paced rhythm on telemetry here Continue to monitor on telemetry Continue Eliquis as there will be no procedures this admission Continue metoprolol (7) Chronic congestive heart failure: Acute on Chronic systolic CHF--now with worsening dyspnea, tachypnea at rest Did receive IVFs on admission for dehydration/N/V ischemic cardiomyopathy with EF 30-35% -Initially held home Lasix, spironolactone, and lisinopril for mild renal insufficiency and borderline low blood pressure in the setting of nausea/vomiting-they have since been restarted except lisinopril Echocardiogram with severely reduced EF here Continue metoprolol -Restarted home Lasix and spironolactone Continue to hold lisinopril -give an extra dose of IV lasix 40mg today for SOB Follow I's and O's, daily weights (8) Chronic kidney disease, stage III (moderate): Baseline creatinine around 1.4 -Avoid nephrotoxins -renally dose meds when appropriate -follow BMP With mild renal insufficiency here, holding lisinopril, Lasix, spironolactone as above and have since restarted Lasix and spironolactone (9) COPD, moderate: No acute issues Not on inhalers (10) Coronary artery disease: Status post CABG Continue aspirin, metoprolol, isosorbide No chest pain or acute issues, troponin negative (11) Depression: Continue bupropion (12) Diabetes mellitus type 2, uncontrolled: Glucose within normal limits upon admission likely secondary to recent vomiting Holding Trulicity from home Glycemic pharmacy management appreciated Insulin sliding scale and Accu-Cheks Hemoglobin A1c well controlled at 7.2% (13) Hypercholesterolemia: Continue Vytorin (14) Hypertension: Blood pressures low on admission from dehydration but improved with IV fluids Continue to hold home lisinopril, but restarted Lasix, spironolactone as above Continue metoprolol and isosorbide for history of CAD (15) Hypothyroidism: TSH normal Continue home levothyroxine (16) Ischemic cardiomyopathy: As above (17) Prostate cancer: Status post brachytherapy seeds in prostate Having urinary retention requiring multiple straight catheterizations He is refusing Person catheter Started Flomax Continue to straight cath for PVR greater than 400 mL-PVRs have been 300 mL max today Consider consulting urology if needed (18) Pulmonary nodule: Followed as an outpatient (19) Sleep apnea: Noted, will need to find out if he uses CPAP (20) Ventricular tachycardia (paroxysmal): Has ICD in place Monitor on telemetry Continue beta-gavin (21) Anxiety: Significantly increased by having to stay in the hospital Continue bupropion -continue hydroxyzine 10 mg p.o. every 8 hours as needed (22) Hyponatremia: Na+ low today at 132, likely due to volume overload giving IV lasix follow BMP in AM (23) DVT prophylaxis: Eliquis Disposition-continued stay until repeat blood cultures negative x48 hours, PICC line versus ultrasound-guided IV will need to be placed, and IV antibiotics will need to be [facility] at [facility] Full code Discussed his care at length with his daughter, Sherrill, on the phone. She will communicate in Bengali using a hospital secretary with patient's -she says this works best. Sherrill is a nurse and is able to do home IV antibiotics if needed. daughter Sherrill Admission and Anticipated Discharge Date Admission Date: October 26, 2020 Subjective Pt remains extremely irritable and anxious about having to be in the hospital. He is forgetful and thinks today is Thursday after being told it is Thursday. Shouts "you told me I'd be discharged today!" This is after a long discussion yesterday about how he would be here until at least Thursday to get SD to set up home IV abx. Pt is significantly more dyspneic today. He begrudgingly worked with PT and was very unsteady on his feet but refuses to go to rehab ever as per his daughter. Continues to complain about how the food here is terrible. After a discussion on notepad about the plan, we also discussed code status. In response to asking if he wanted to be a DNR, he said "yeah, just give it (CPR) a try, that's why I have this (while pointing to his pacer/AICD)." Unfortunately, later in the day, his repeat BCxs 1/2 sets positive again for GPC in chains and repeat BCxs were obtained. Tele with paced thyrhtm, rates 90s , some PVCs Review of Systems Review of Systems: All systems reviewed & are unremarkable except as noted in HPI & below continues to have PVRs as high as 300mL Physical Exam Constitutional: WD/WN, vitals as above + obese Eyes: + anicteric sclerae ENMT: Ears: + hearing impairment Neck: trachea midline, no thyromegaly Respiratory: + tachypneic (at rest) Auscultation: + diminished lung sounds (At the bases bilaterally) and + crackles (bibasilar); no wheezes Cardiovascular: RRR, no murmur, no edema Chest (Breasts): Chest: normal inspection of chest Gastrointestinal (Abdomen): normal bowel sounds, soft, nontender, no hepatosplenomegaly Inspection/Auscultation: normal bowel sounds; abdomen not distended Percussion/Palpation: abdomen soft, + splenomegaly (Palpable) and + hernia (Small reducible periumbilical hernia); abdomen nontender and no guarding Musculoskeletal: Extremities: extremities normal to inspection; no cyanosis and no clubbing Skin: no rashes, warm and dry Neurologic: moves all extremities and awake; no focal motor deficits Psychiatric: Orientation: alert, oriented x 3 and cooperative Eye Contact: good eye contact Speech: normal rate/rhythm/volume of speech Affect: + irritable affect Lymphatic: no lymphedema Results & Data Results & Data ([facility]) Vital Signs (Past 12 Hours) Vital Signs Temp Pulse Resp BP BP Pulse Ox 10/28/20 08:00 36.8 C 84 20 130/79 94 10/28/20 03:24 36.9 C 90 20 127/74 93 Laboratory Results 10/28/20 10/28/20 10/28/20 Range/Units 20:18 16:33 11:46 WBC (4.8-10.8) K/uL RBC (4.7-6.1) M/uL Hgb (14.0-18.0) g/dL Hct (42-52) % MCV (80-100) fL MCH (25-34) pg MCHC (32-36) g/dL RDW Std Deviation (36.4-46.3) fL RDW Coeff of Beck (11.5-14.5) % Plt Count (130-400) K/uL MPV (7.4-10.4) fL Immature Gran % (Auto) % Neut % (Auto) % Lymph % (Auto) % [place] % (Auto) % Eos % (Auto) % Baso % (Auto) % Neut # (Auto) (1.4-6.5) K/uL Lymph # (Auto) (1.2-3.4) K/uL [place] # (Auto) (0.11-0.59) K/uL Eos # (Auto) (0-0.5) K/uL Baso # (Auto) (0-0.2) K/uL Immature Gran # (Auto) (0.00-0.02) K/uL Sodium (136-145) mmol/L Potassium (3.5-5.1) mmol/L Chloride (98-107) mmol/L Carbon Dioxide (21-32) mmol/L Anion Gap (3-11) BUN (7-18) mg/dl Creatinine (0.6-1.4) mg/dl Est Cr Clr Drug Dosing ml/min Est GFR ( Amer) Est GFR (Non-Af Amer) BUN/Creatinine Ratio (10-20) Glucose (70-99) mg/dl POC Glucose 128 H 133 H 118 H (70-99) mg/dl Calcium (8.5-10.1) mg/dl Magnesium (1.8-2.4) mg/dl Total Bilirubin (0.2-1) mg/dl AST (15-37) U/L ALT (12-78) U/L Alkaline Phosphatase (45-117) U/L C-Reactive Protein (0-0.29) mg/dl Total Protein (6.4-8.2) gm/dl Albumin (3.4-5.0) gm/dl Globulin (2.5-4.0) gm/dl Albumin/Globulin Ratio (0.9-2) 10/28/20 10/28/20 10/28/20 Range/Units 07:47 06:44 06:44 WBC 8.23 (4.8-10.8) K/uL RBC 3.74 L (4.7-6.1) M/uL Hgb 10.2 L (14.0-18.0) g/dL Hct 29.3 L (42-52) % MCV 78.3 L (80-100) fL MCH 27.3 (25-34) pg MCHC 34.8 (32-36) g/dL RDW Std Deviation 46.0 (36.4-46.3) fL RDW Coeff of Beck 15.9 H (11.5-14.5) % Plt Count 205 (130-400) K/uL MPV 8.8 (7.4-10.4) fL Immature Gran % (Auto) 0.4 % Neut % (Auto) 73.3 % Lymph % (Auto) 16.4 % [place] % (Auto) 9.2 % Eos % (Auto) 0.5 % Baso % (Auto) 0.2 % Neut # (Auto) 6.03 (1.4-6.5) K/uL Lymph # (Auto) 1.35 (1.2-3.4) K/uL [place] # (Auto) 0.76 H (0.11-0.59) K/uL Eos # (Auto) 0.04 (0-0.5) K/uL Baso # (Auto) 0.02 (0-0.2) K/uL Immature Gran # (Auto) 0.03 H (0.00-0.02) K/uL Sodium 132 L (136-145) mmol/L Potassium 3.7 (3.5-5.1) mmol/L Chloride 103 (98-107) mmol/L Carbon Dioxide 22 (21-32) mmol/L Anion Gap 7.0 (3-11) BUN 22 H (7-18) mg/dl Creatinine 1.51 H (0.6-1.4) mg/dl Est Cr Clr Drug Dosing 55.7 ml/min Est GFR ( Amer) 50.9 Est GFR (Non-Af Amer) 43.9 BUN/Creatinine Ratio 14.6 (10-20) Glucose 88 (70-99) mg/dl POC Glucose 98 (70-99) mg/dl Calcium 8.5 (8.5-10.1) mg/dl Magnesium 2.0 (1.8-2.4) mg/dl Total Bilirubin 0.6 (0.2-1) mg/dl AST 16 (15-37) U/L ALT 14 (12-78) U/L Alkaline Phosphatase 72 (45-117) U/L C-Reactive Protein 9.52 H (0-0.29) mg/dl Total Protein 6.5 (6.4-8.2) gm/dl Albumin 2.4 L (3.4-5.0) gm/dl Globulin 4.1 H (2.5-4.0) gm/dl Albumin/Globulin Ratio 0.6 L (0.9-2) BCxs Enterococcus faecalis BCxs 10/26 with 1/2 + for GPC in chains PG Care Time/CCT Total # of Minutes Spent Total Time Spent with Patient: Total time spent is greater than 50% in coordination of care (as documented) at patient's floor/unit and/or counseling patient: Coding Level of Care Code 39364 Subseq Hosp Care Lvl 3 Diagnoses Bacteremia R78.81 Nausea & vomiting R11.2 Vomiting Intractability: unspecified Vomiting type: unspecified Liver mass R16.0 Anemia D64.9 Elevated lactic acid level R79.89 Atrial fibrillation I48.20 Atrial fibrillation type: unspecified chronic Chronic congestive heart failure I50.9 Heart failure type: unspecified Chronic kidney disease, stage III (moderate) N18.3 COPD, moderate J44.9 Coronary artery disease I25.10 Associated angina: angina presence unspecified Coronary Disease-Associated Artery/Lesion type: [place] artery [place] vs. transplanted heart: [place] heart Depression F32.9 Active/Remission status: remission status unspecified Depression Type: major depressive disorder Major depression recurrence: unspecified whether recurrent Diabetes mellitus type 2, uncontrolled E11.65 Hypercholesterolemia E78.00 Hypertension I10 Hypertension type: essential hypertension Hypothyroidism E03.9 Hypothyroidism type: unspecified Ischemic cardiomyopathy I25.5 Prostate cancer C61 Pulmonary nodule R91.1 Sleep apnea G47.30 Ventricular tachycardia (paroxysmal) I47.2 Anxiety F41.9 Hyponatremia E87.1 DVT prophylaxis Z29.9 (1) Coronary artery disease Associated angina: angina presence unspecified Coronary Disease-Associated Artery/Lesion type: [place] artery [place] vs. transplanted heart: [place] heart Qualified Code(s): I25.10 - Atherosclerotic heart disease of [place] coronary artery without angina pectoris (2) Chronic congestive heart failure Heart failure type: unspecified Qualified Code(s): I50.9 - Heart failure, unspecified (3) Atrial fibrillation Atrial fibrillation type: unspecified chronic Qualified Code(s): I48.20 - Chronic atrial fibrillation, unspecified (4) Depression Active/Remission status: remission status unspecified Depression Type: major depressive disorder Major depression recurrence: unspecified whether recurrent Qualified Code(s): F32.9 - Major depressive disorder, single episode, unspecified (5) Hypothyroidism Hypothyroidism type: unspecified Qualified Code(s): E03.9 - Hypothyroidism, unspecified (6) Nausea & vomiting Vomiting Intractability: unspecified Vomiting type: unspecified Qualified Code(s): R11.2 - Nausea with vomiting, unspecified (7) Hypertension Hypertension type: essential hypertension Qualified Code(s): I10 - Essential (primary) hypertension
[2020-10-28] MEDS ORDERED: FUROSEMIDE 40 MG in SYRINGE 0 ML IV ONE (11:30)
[2020-10-28] MEDS ORDERED: POTASSIUM CHLORIDE CRTAB 20 MEQ TABCR PO ONE (11:30)
[2020-10-28] MEDS: FENOFIBRATE NANOCRYSTALLIZED 145 MG TABLET PO SCH (20:05)
[2020-10-28] MEDS: FOLIC ACID 1 MG TAB PO SCH (20:05)
[2020-10-28] MEDS: SIMVASTATIN 40 MG TAB PO SCH (20:05)
[2020-10-28] MEDS: TAMSULOSIN HCL 0.4 MG CAP PO SCH (20:06)
[2020-10-28] MEDS: CHOLECALCIFEROL 1,000 UNITS 25 MCG TAB PO SCH (20:06)
[2020-10-28] MEDS: ASPIRIN 81 MG ECTAB PO SCH (20:06)
[2020-10-28] MEDS: EZETIMIBE 10 MG TABLET PO SCH (20:06)
[2020-10-28] MEDS ORDERED: SODIUM CHLORIDE 0.65% NA SOLN 45 ML (OCEAN) PRN (22:22)
[2020-10-29] MEDS: AMPICILLIN 2,000 MG in SODIUM CHLOR 0.9% AD-VAN 100 ML IV SCH ×6 (02:05→21:52)
[2020-10-29] MEDS: LEVOTHYROXINE SODIUM 100 MCG TABLET PO SCH (05:06)
[2020-10-29 07:20] LABS: BUN Creatinine Ratio 13.8 (10-20); Calcium 8.4 mg/dl (8.5-10.1); Creatinine Clr Calc Pharmacy 51.9 ml/min; Est GFR (African American) 46.7; Est GFR (Non-African American) 40.3; Potassium 3.6 mmol/L (3.5-5.1)
[2020-10-29] MEDS: buPROPion SR 150 MG TABCR PO SCH ×2 (08:37→20:33)
[2020-10-29] MEDS: FAMOTIDINE 20 MG TAB PO SCH ×2 (08:37→20:38)
[2020-10-29] MEDS: FUROSEMIDE 20 MG TAB PO SCH ×2 (08:37→17:48)
[2020-10-29] MEDS: SUCRALFATE 1 GM/10 ML UDC PO SCH ×4 (08:37→20:36)
[2020-10-29] MEDS: SPIRONOLACTONE 25 MG TAB PO SCH (08:37)
[2020-10-29] MEDS: FERROUS SULFATE 325 MG TAB PO SCH ×2 (08:37→17:48)
[2020-10-29] MEDS: ISOSORBIDE MONO EXTENDED REL 60 MG TABCR PO SCH (08:37)
[2020-10-29] MEDS: APIXABAN 5 MG TABLET PO SCH ×2 (08:37→20:31)
[2020-10-29] MEDS: PANTOprazole 40 MG TAB PO SCH ×2 (08:37→20:34)
[2020-10-29] MEDS: METOPROLOL SUCC 25MG EXT REL TAB PO SCH ×2 (08:37→20:35)
[2020-10-29] MEDS: INSULIN ASPART 100 UNITS/ML 3 ML PEN SC SCH ×4 (08:59→20:41)
[2020-10-29] MEDS ORDERED: INSULIN GLARGINE SOLOSTAR 100 UNITS/ML 3 ML PEN SC SCH (09:00)
--- NOTE | 2020-10-29 09:00 | Pharmacy Report ---
Pharmacy Glycemic Short Note 2 - Date of Service October 29, 2020 - Glycemic Short BSG Results (Last 24 hours): 10/28/20 10/28/20 10/28/20 11:46 16:33 20:18 Glucose POC Glucose 118 H 133 H 128 H 10/29/20 10/29/20 06:34 08:00 Glucose 115 H POC Glucose 122 H OUTPATIENT ANTIDIABETIC REGIMEN: * Tresiba 80 units SC BID * Novolog 15 units SC BID * Trulicity 1.5 mg SC weekly * HbA1c = 7.2% (10/26/20) ASSESSMENT: 10/29: * Pt has received 48 units of insulin over the past 24hrs * 30 units of basal with Lantus * 18 units of bolus with NovoLog * BSGs well controlled at 98, 118, 133, and 128 mg/dL * AM fasting BSG of 122 mg/dL this morning, up from 98 mg/dL yesterday * Will plan to increase basal today ~10-20% * Patient with bacteremia (E. faecalis) secondary to unknown source - receiving ampicillin 2 g IV q4h 10/25: * 79 yo M admitted secondary to nausea and vomiting. Pharmacy has been consulted to assist with inpatient glycemic management. Patient is known to pharmacy glycemic service. * BSG upon admission was 98 mg/dL * Will hold all basal insulin at this time per consulting provider * Likely that patient will require some Lantus this evening * Starting Novolog based on previous admission data PLAN FOR INPATIENT GLYCEMIC CONTROL: * Basal insulin: increase * Lantus 18 units SC this morning * Will plan on scale at HS (15-18 units based on BSG - see EHR for details) * Bolus insulin: continue * NovoLog per scale ACHS or Q6hrs while NPO * Goal Range: Low 110 mg/dL - High 140 mg/dL * Correction Factor: 12 mg/dL/unit * Nutritional / Prandial insulin per carb ratio of 1 unit per 3 grams CHO consumed PLAN FOR DISCHARGE: * HbA1c = 7.2% (10/26/20). This is at patient's goal of less than 8% and has improved from 8.6% in July 2020. * Recommend continuing outpatient regimen upon discharge, provided patient has baseline appetite at discharge * Insulin needs have been significantly reduced as an inpatient (will continue to follow)
[2020-10-29] MEDS ORDERED: VANCOMYCIN TROUGH ONE (09:30)
[2020-10-29] MEDS: TAMSULOSIN HCL 0.4 MG CAP PO SCH (20:31)
[2020-10-29] MEDS: SIMVASTATIN 40 MG TAB PO SCH (20:32)
[2020-10-29] MEDS: EZETIMIBE 10 MG TABLET PO SCH (20:32)
[2020-10-29] MEDS: FENOFIBRATE NANOCRYSTALLIZED 145 MG TABLET PO SCH (20:33)
[2020-10-29] MEDS: ASPIRIN 81 MG ECTAB PO SCH (20:34)
[2020-10-29] MEDS: FOLIC ACID 1 MG TAB PO SCH (20:34)
[2020-10-29] MEDS: CHOLECALCIFEROL 1,000 UNITS 25 MCG TAB PO SCH (20:36)
[2020-10-29] MEDS: INSULIN GLARGINE SOLOSTAR 100 UNITS/ML 3 ML PEN SC SCH (20:42)
[2020-10-29] MEDS: ONDANSETRON INJ 2 MG/ML 2 ML VIAL IV PRN (21:52)
--- NOTE | 2020-10-30 00:22 | Hospitalist Progress Note ---
Date of Service October 29, 2020 Assessment & Plan (1) Bacteremia: Growing Enterococcus faecalis 4/4 bottles on initial BCxs Unknown source, but does have this liver mass seen on CT abd/pel which could be an abscess-pt declines procedure to biopsy/aspirate this UA is negative No skin wounds, no abdominal pain, no diarrhea - liver ultrasound performed here and no longer shows a mass -Would recommend repeating CT of the abdomen as an outpatient in 1 month to see if 3 cm lesion still present -have since discontinued IV vancomycin and narrowed down to IV ampicillin -Repeat blood cultures drawn on 10/29 no growth thus far Consult ID-report reviewed via CM with access to [employer] chart--> recommending Ceftriaxone if Strep however now known Enterococcus; recommended SUE if persistent cultures -pt not agreeable to most procedures including SUE; will need to further discuss with ID HOWEVER, most likely would be best if could treat empirically for SBE with 6 weeks IV ampicillin---> this can be given as a continuous infusion at home Checked echocardiogram-no definite valvular vegetation noted no fever, WBC normal and cultures thus far show no growth patient is adamant about going home in the evening on 10/30, got very angry when I said it might be Wed 10/31 will plan for PICC line and CM will arrange for home IV ampicillin if possible (2) Nausea & vomiting: Presented with 24 hours of nausea/vomiting along with sweats and chills at home. Lactate elevated at 2.3 and creatinine mildly elevated over baseline at 1.66. Has a history of similar presentation recently with admission resulting in Klebsiella bacteremia. And now again here with Enterococcus bacteremia LFTs, lipase normal Nausea vomiting have now resolved and he is tolerating regular diet With worsening microcytic anemia with hemoglobin of 9-10, has a history of GERD, could have peptic ulcer disease, gastritis, or esophageal mass? -Consulted GI to see about EGD-plan to do this as an outpatient if patient agreeable once he is over his bacteremia -Continue Protonix 40 mg p.o. twice daily and GI added Pepcid and Carafate -Follow CBC, CMP, magnesium (3) Liver mass: Known to be 5.2 cm on previous scan, has previously declined work-up CT here noncontrast shows only 3 cm hypodense lesion Question if is abscess versus solid mass? Liver ultrasound here negative for mass Check alpha-fetoprotein: normal, argues against HCC Could be metastatic versus primary, but it is shrinking Hep C antibodies negative from previous Has splenomegaly 21 cm and cirrhosis on CT As above, would repeat CT abdomen in 1 month f/u with GI (4) Anemia: As above, worsening from previous and microcytic, stable though for a few days Iron studies consistent with significant iron deficiency although ferritin elevated likely in the setting of infection with bacteremia Follow CBC Consult GI to see about EGD-plan as outpatient as above Okay to continue Eliquis and follow CBC Continue aspirin given high risk with history of CABG -Started ferrous sulfate 325 mg p.o. twice daily Would not give IV iron in the setting of bacteremia (5) Elevated lactic acid level: Elevated on admission at 2.3, now resolved after IV fluids Related to sepsis versus dehydration (6) Atrial fibrillation: With a history of such Is in ventricularly paced rhythm on telemetry here Continue to monitor on telemetry Continue Eliquis as there will be no procedures this admission Continue metoprolol (7) Chronic congestive heart failure: Acute on Chronic systolic CHF--now with worsening dyspnea, tachypnea at rest Did receive IVFs on admission for dehydration/N/V ischemic cardiomyopathy with EF 30-35% -Initially held home Lasix, spironolactone, and lisinopril for mild renal insufficiency and borderline low blood pressure in the setting of nausea/vomiting-they have since been restarted except lisinopril Echocardiogram with severely reduced EF here Continue metoprolol -Restarted home Lasix and spironolactone Continue to hold lisinopril, BP is low normal (8) Chronic kidney disease, stage III (moderate): Baseline creatinine around 1.4 -Avoid nephrotoxins -renally dose meds when appropriate -follow BMP With mild renal insufficiency here, holding lisinopril, Lasix, spironolactone as above and have since restarted Lasix and spironolactone (9) COPD, moderate: No acute issues Not on inhalers (10) Coronary artery disease: Status post CABG Continue aspirin, metoprolol, isosorbide No chest pain or acute issues, troponin negative (11) Depression: Continue bupropion (12) Diabetes mellitus type 2, uncontrolled: Glucose within normal limits upon admission likely secondary to recent vomiting Holding Trulicity from home Glycemic pharmacy management appreciated Insulin sliding scale and Accu-Cheks Hemoglobin A1c well controlled at 7.2% (13) Hypercholesterolemia: Continue Vytorin (14) Hypertension: Blood pressures low on admission from dehydration but improved with IV fluids Continue to hold home lisinopril, but restarted Lasix, spironolactone as above Continue metoprolol and isosorbide for history of CAD (15) Hypothyroidism: TSH normal Continue home levothyroxine (16) Ischemic cardiomyopathy: As above (17) Prostate cancer: Status post brachytherapy seeds in prostate Having urinary retention requiring multiple straight catheterizations He is refusing Person catheter Started Flomax Continue to straight cath for PVR greater than 400 mL-PVRs have been 300 mL max today Consider consulting urology if needed (18) Pulmonary nodule: Followed as an outpatient (19) Sleep apnea: Noted, will need to find out if he uses CPAP (20) Ventricular tachycardia (paroxysmal): Has ICD in place Monitor on telemetry Continue beta-gavin (21) Anxiety: Significantly increased by having to stay in the hospital Continue bupropion -continue hydroxyzine 10 mg p.o. every 8 hours as needed (22) Hyponatremia: stable (23) DVT prophylaxis: Eliquis Disposition-continued stay until repeat blood cultures negative x48 hours, PICC line versus ultrasound-guided IV will need to be placed, and IV antibiotics will need to be [facility] at [facility] Full code cr [place] Admission and Anticipated Discharge Date Admission Date: October 26, 2020 Subjective patient is feeling fine, he says he just wants to go home on Monday 10/30, he says he was promised this explained that we need to follow up final cultures which so far are negative CM has been talking with his family, can get home IV's, his daughter can help, she is an RN he is complaining about physical therapy seeing him, he said that they threatened that he could not leave the hospital without them evaluating him he says he is going to go home and get an divorce attorney, you "cannot scare people like that" I kindly explained that therapy is just doing their job, physicians order therapy to make sure that someone is strong enough to go home, question of safety he assures me that he get around fine at home with a walker, he absolutely does not want to see therapy vitals stable, labs stable, prior cultures with Enterococcus he has refused SUE and has refused drainage/biopsy of 3cm lesion on liver of note, his AFP returned normal which is reassuring Review of Systems Review of Systems: All systems reviewed & are unremarkable except as noted in Subjective Physical Exam Constitutional: WD/WN, vitals as above Neck: trachea midline, no thyromegaly Respiratory: normal respiratory effort, lungs clear to auscultation Cardiovascular: RRR, no murmur, no edema Gastrointestinal (Abdomen): normal bowel sounds, soft, nontender, no hepatosplenomegaly Musculoskeletal: no cyanosis or clubbing, extremities motor strength 5/5 Skin: no rashes, warm and dry Neurologic: patellar DTR's 2+ bilat, sensation intact and PERRL, EOMI, accommodation nl, no face palsy, no dysarthria Psychiatric: A+Ox3, euthymic affect Lymphatic: no cervical or axillary lymphadenopathy Results & Data Results & Data ([facility]) Vital Signs (Past 12 Hours) Vital Signs Temp Pulse Resp BP Pulse Ox 10/29/20 22:51 36.6 C 91 H 18 105/58 L 93 10/29/20 16:17 36.6 C 92 H 18 111/63 93 Laboratory Results Laboratory Results - last 24 hr 10/26/20 10/29/20 10/29/20 05:46 06:34 08:00 Sodium 131 L Potassium 3.6 Chloride 101 Carbon Dioxide 21 Anion Gap 8.0 BUN 22 H Creatinine 1.62 H Est Cr Clr Drug Dosing 51.9 Est GFR ( Amer) 46.7 Est GFR (Non-Af Amer) 40.3 BUN/Creatinine Ratio 13.8 Glucose 115 H POC Glucose 122 H Calcium 8.4 L Tumor Marker AFP 2.3 10/29/20 10/29/20 10/29/20 12:05 16:53 20:38 Sodium Potassium Chloride Carbon Dioxide Anion Gap BUN Creatinine Est Cr Clr Drug Dosing Est GFR ( Amer) Est GFR (Non-Af Amer) BUN/Creatinine Ratio Glucose POC Glucose 143 H 175 H 128 H Calcium Tumor Marker AFP Medications Administered Current Inpatient Medications Apixaban (Apixaban 5 Mg Tablet) 5 mg PO BID [facility] Stop: 11/24/20 09:04 Last Admin: 10/29/20 20:31 Dose: 5 mg Documented by: Aspirin (Aspirin 81 Mg Ectab) 81 mg PO HS [facility] Stop: 11/24/20 20:59 Last Admin: 10/29/20 20:34 Dose: 81 mg Documented by: Bupropion HCl (Bupropion Sr 150 Mg Tabcr) 150 mg PO BID [facility] Stop: 11/24/20 09:04 Last Admin: 10/29/20 20:33 Dose: 150 mg Documented by: Dextrose (Dextrose 50% 50 Ml Syringe) 25 - 50 ml IV UD PRN; Protocol PRN Reason: Hypoglycemia Protocol Stop: 11/24/20 09:04 Ezetimibe (Ezetimibe 10 Mg Tablet) 10 mg PO HS [facility] Stop: 11/25/20 20:59 Last Admin: 10/29/20 20:32 Dose: 10 mg Documented by: Famotidine (Famotidine 20 Mg Tab) 20 mg PO BID [facility] Stop: 11/25/20 20:59 Last Admin: 10/29/20 20:38 Dose: 20 mg Documented by: Fenofibrate (Fenofibrate Nanocrystallized 145 Mg Tablet) 145 mg PO HS [facility] Stop: 11/25/20 20:59 Last Admin: 10/29/20 20:33 Dose: 145 mg Documented by: Ferrous Sulfate (Ferrous Sulfate 325 Mg Tab) 325 mg PO BIDM [facility] Stop: 11/25/20 16:59 Last Admin: 10/29/20 17:48 Dose: 325 mg Documented by: Folic Acid (Folic Acid 1 Mg Tab) 1 mg PO HS [facility] Stop: 11/25/20 20:59 Last Admin: 10/29/20 20:34 Dose: 1 mg Documented by: Furosemide (Furosemide 20 Mg Tab) 60 mg PO BID17 [facility] Stop: 11/25/20 16:59 Last Admin: 10/29/20 17:48 Dose: 60 mg Documented by: Glucagon (Glucagon For Inj 1 Mg Vial) 1 mg SQ UD PRN; Protocol PRN Reason: Hypoglycemia Protocol Stop: 11/24/20 09:04 Glucose (Glucose 10 Tabs/Tube) 4 - 8 tabs PO UD PRN; Protocol PRN Reason: Hypoglycemia Protocol Stop: 11/24/20 09:04 Glucose (Glucose 40% Gel 15 Gm Tube) 15 - 30 gm PO UD PRN; Protocol PRN Reason: Hypoglycemia Protocol Stop: 11/24/20 09:04 Hydroxyzine HCl (Hydroxyzine Hcl 10 Mg Tab) 10 mg PO Q8H PRN PRN Reason: anxiety Stop: 11/26/20 14:27 Last Admin: 10/28/20 09:26 Dose: 10 mg Documented by: Ampicillin Sodium 2,000 mg/ (Sodium Chloride) 100 mls @ 200 mls/hr IV Q4H [facility] Stop: 11/10/20 13:59 Last Infusion: 10/29/20 22:44 Dose: Infused Documented by: Insulin Aspart (Insulin Aspart 100 Units/Ml 3 Ml Pen) 0 units SC ACHS [facility]; Protocol Stop: 11/24/20 11:29 Last Admin: 10/29/20 20:41 Dose: Not Given Documented by: Insulin Glargine (Insulin Glargine Solostar 100 Units/Ml 3 Ml Pen) 0 units SC BID [facility]; Protocol Stop: 11/24/20 20:59 Last Admin: 10/29/20 20:42 Dose: 18 units Documented by: Isosorbide Mononitrate (Isosorbide [place] Extended Rel 60 Mg Tabcr) 60 mg PO DAILY [facility] Stop: 11/24/20 09:04 Last Admin: 10/29/20 08:37 Dose: 60 mg Documented by: Levothyroxine Sodium (Levothyroxine Sodium 100 Mcg Tablet) 100 mcg PO DAILYBB [facility] Stop: 11/25/20 06:29 Last Admin: 10/29/20 05:06 Dose: 100 mcg Documented by: Metoprolol Succinate (Metoprolol Succ 25mg Ext Rel Tab) 25 mg PO BID [facility] Stop: 11/24/20 09:04 Last Admin: 10/29/20 20:35 Dose: 25 mg Documented by: Miscellaneous (Carbohydrates For Hypoglycemia ) 15 - 30 gm PO UD PRN PRN Reason: Hypoglycemia Protocol Stop: 11/24/20 09:04 Miscellaneous Information (Pharmacy Glycemic Mgmt Consult) 1 ea N/A UD PRN; Protocol PRN Reason: Consult Stop: 11/24/20 09:27 Nitroglycerin (Nitroglycerin Sl 0.4 Mg/Tab Tab) 0.4 mg SL UD PRN PRN Reason: chest pain Stop: 11/24/20 09:04 Ondansetron HCl (Ondansetron Inj 2 Mg/Ml 2 Ml Vial) 4 mg IV Q6H PRN PRN Reason: Nausea Stop: 11/24/20 07:59 Last Admin: 10/29/20 21:52 Dose: 4 mg Documented by: Pantoprazole Sodium (Pantoprazole 40 Mg Tab) 40 mg PO BID [facility] Stop: 11/24/20 10:14 Last Admin: 10/29/20 20:34 Dose: 40 mg Documented by: Simvastatin (Simvastatin 40 Mg Tab) 80 mg PO HS [facility] Stop: 11/25/20 20:59 Last Admin: 10/29/20 20:32 Dose: 80 mg Documented by: Sodium Chloride (Sodium Chloride 0.65% Na Soln 45 Ml ([place])) 1 sprays NA NOW PRN PRN Reason: Congestion Stop: 11/27/20 22:21 Spironolactone (Spironolactone 25 Mg Tab) 25 mg PO QAM [facility] Stop: 11/26/20 08:59 Last Admin: 10/29/20 08:37 Dose: 25 mg Documented by: Sucralfate (Sucralfate 1 Gm/10 Ml Udc) 1 gm PO QID [facility] Stop: 11/25/20 12:59 Last Admin: 10/29/20 20:36 Dose: 1 gm Documented by: Tamsulosin HCl (Tamsulosin Hcl 0.4 Mg Cap) 0.4 mg PO [facility] Stop: 11/24/20 20:59 Last Admin: 10/29/20 20:31 Dose: 0.4 mg Documented by: Vitamin D (Cholecalciferol 1,000 Units 25 Mcg Tab) 1,000 units PO [facility] Stop: 11/25/20 20:59 Last Admin: 10/29/20 20:36 Dose: 1,000 units Documented by: PG Care Time/CCT Total # of Minutes Spent Total Time Spent with Patient: Total time spent is greater than 50% in coordination of care (as documented) at patient's floor/unit and/or counseling patient: Coding Level of Care Code 33865 Subseq Hosp Care Lvl 3 Diagnoses Bacteremia R78.81 Nausea & vomiting R11.2 Vomiting Intractability: unspecified Vomiting type: unspecified Liver mass R16.0 Anemia D64.9 Elevated lactic acid level R79.89 Atrial fibrillation I48.20 Atrial fibrillation type: unspecified chronic Chronic congestive heart failure I50.9 Heart failure type: unspecified Chronic kidney disease, stage III (moderate) N18.3 COPD, moderate J44.9 Coronary artery disease I25.10 Associated angina: angina presence unspecified Coronary Disease-Associated Artery/Lesion type: [place] artery [place] vs. transplanted heart: [place] heart Depression F32.9 Active/Remission status: remission status unspecified Depression Type: major depressive disorder Major depression recurrence: unspecified whether recurrent Diabetes mellitus type 2, uncontrolled E11.65 Hypercholesterolemia E78.00 Hypertension I10 Hypertension type: essential hypertension Hypothyroidism E03.9 Hypothyroidism type: unspecified Ischemic cardiomyopathy I25.5 Prostate cancer C61 Pulmonary nodule R91.1 Sleep apnea G47.30 Ventricular tachycardia (paroxysmal) I47.2 Anxiety F41.9 Hyponatremia E87.1 DVT prophylaxis Z29.9 (1) Coronary artery disease Associated angina: angina presence unspecified Coronary Disease-Associated Artery/Lesion type: [place] artery [place] vs. transplanted heart: [place] heart Qualified Code(s): I25.10 - Atherosclerotic heart disease of [place] coronary artery without angina pectoris (2) Chronic congestive heart failure Heart failure type: unspecified Qualified Code(s): I50.9 - Heart failure, un specified (3) Atrial fibrillation Atrial fibrillation type: unspecified chronic Qualified Code(s): I48.20 - Chronic atrial fibrillation, unspecified (4) Depression Active/Remission status: remission status unspecified Depression Type: major depressive disorder Major depression recurrence: unspecified whether recurrent Qualified Code(s): F32.9 - Major depressive disorder, single episode, unspecified (5) Hypothyroidism Hypothyroidism type: unspecified Qualified Code(s): E03.9 - Hypothyroidism, unspecified (6) Nausea & vomiting Vomiting Intractability: unspecified Vomiting type: unspecified Qualified Code(s): R11.2 - Nausea with vomiting, unspecified (7) Hypertension Hypertension type: essential hypertension Qualified Code(s): I10 - Essential (primary) hypertension
[2020-10-30] MEDS: AMPICILLIN 2,000 MG in SODIUM CHLOR 0.9% AD-VAN 100 ML IV SCH ×6 (01:42→21:25)
[2020-10-30] MEDS: LEVOTHYROXINE SODIUM 100 MCG TABLET PO SCH (05:32)
[2020-10-30 08:26] LABS: Hematocrit (blood only) 28.5 % (42-52); Hemoglobin 9.8 g/dL (14.0-18.0); Mean Corpuscular Hemoglobin 27.3 pg (25-34); Mean Corpuscular Hgb Conc 34.4 g/dL (32-36); Mean Corpuscular Volume 79.4 fL (80-100); Mean Platelet Volume 8.7 fL (7.4-10.4); Platelet Count 261 K/uL (130-400); RDW Standard Deviation 46.7 fL (36.4-46.3); Red Blood Count 3.59 M/uL (4.7-6.1); White Blood Count 7.19 K/uL (4.8-10.8)
[2020-10-30 09:03] LABS: Calcium 8.7 mg/dl (8.5-10.1); Creatinine Clr Calc Pharmacy 50.6 ml/min; Est GFR (African American) 45.4; Est GFR (Non-African American) 39.2; Potassium 3.9 mmol/L (3.5-5.1)
[2020-10-30 09:06] LABS: Albumin Globulin Ratio 0.4 (0.9-2); Bilirubin,Total 0.4 mg/dl (0.2-1); Globulin 4.6 gm/dl (2.5-4.0); Total Protein 6.6 gm/dl (6.4-8.2)
[2020-10-30] MEDS: ISOSORBIDE MONO EXTENDED REL 60 MG TABCR PO SCH (09:23)
[2020-10-30] MEDS: PANTOprazole 40 MG TAB PO SCH ×2 (09:23→20:31)
[2020-10-30] MEDS: hydrOXYzine HCl 10 MG TAB PO PRN (09:23)
[2020-10-30] MEDS: buPROPion SR 150 MG TABCR PO SCH ×2 (09:23→20:37)
[2020-10-30] MEDS: APIXABAN 5 MG TABLET PO SCH ×2 (09:24→20:31)
[2020-10-30] MEDS: FERROUS SULFATE 325 MG TAB PO SCH ×2 (09:24→17:33)
[2020-10-30] MEDS: FUROSEMIDE 20 MG TAB PO SCH ×2 (09:24→17:32)
[2020-10-30] MEDS: METOPROLOL SUCC 25MG EXT REL TAB PO SCH ×3 (09:24→20:32)
[2020-10-30] MEDS: SPIRONOLACTONE 25 MG TAB PO SCH (09:24)
[2020-10-30] MEDS: SUCRALFATE 1 GM/10 ML UDC PO SCH ×4 (09:25→20:29)
[2020-10-30] MEDS: INSULIN GLARGINE SOLOSTAR 100 UNITS/ML 3 ML PEN SC SCH ×2 (09:29→21:13)
[2020-10-30] MEDS: INSULIN ASPART 100 UNITS/ML 3 ML PEN SC SCH ×4 (09:30→21:12)
[2020-10-30] MEDS: FAMOTIDINE 20 MG TAB PO SCH ×2 (10:35→20:37)
--- NOTE | 2020-10-30 14:37 | XRay Report ---
XR chest 1V portable HISTORY: 79 years-old Male confirm PICC placement; pt a-fib; located in [place] status post placement of a right-sided PICC COMPARISON: Chest radiograph 08/03/2020 TECHNIQUE: Portable AP view of the chest FINDINGS: Limited exam secondary to positioning. Left subclavian pacer/AICD. Cardiomegaly with prior median barbara rnotomy. Calcified plaque of the thoracic aorta. Pulmonary vascular congestion with interstitial coar sening. Left midlung and left lung base consolidation. No pneumothorax. A right-sided PICC is present with distal tip in the expected location of the right atrium. Degenerative changes of the shoulders and spine. IMPRESSION: 1. Cardiomegaly with pulmonary edema. 2. Right-sided PICC distal tip is noted in the region of the right atrium. 3. No pneumothorax. 4. Left midlung and left lung base consolidation. ACT 112: Negative or not required by law. The above report was generated using voice recognition software. It may contain grammatical, syntax o r spelling errors. Electronically signed by: Mateus Ramsey M.D. 10/30/2020 2:36 PM
--- NOTE | 2020-10-30 15:19 | Pharmacy Report ---
Pharmacy Glycemic Short Note 2 - Date of Service October 30, 2020 - Glycemic Short BSG Results (Last 24 hours): 10/29/20 10/29/20 10/30/20 16:53 20:38 08:02 Glucose 76 POC Glucose 175 H 128 H 10/30/20 10/30/20 08:36 11:52 Glucose POC Glucose 86 88 OUTPATIENT ANTIDIABETIC REGIMEN: * Tresiba 80 units SC BID * Novolog 15 units SC BID * Trulicity 1.5 mg SC weekly * HbA1c = 7.2% (10/26/20) ASSESSMENT: 10/30: * Patient received a total of 47 units of insulin yesterday * Fasting was significantly decreased this morning and BSG remained lower at lunch. Will decrease total basal dose and loosen NovoLog scale. 10/29: * Pt has received 48 units of insulin over the past 24hrs * 30 units of basal with Lantus * 18 units of bolus with NovoLog * BSGs well controlled at 98, 118, 133, and 128 mg/dL * AM fasting BSG of 122 mg/dL this morning, up from 98 mg/dL yesterday * Will plan to increase basal today ~10-20% * Patient with bacteremia (E. faecalis) secondary to unknown source - receiving ampicillin 2 g IV q4h 10/25: * 79 yo M admitted secondary to nausea and vomiting. Pharmacy has been consulted to assist with inpatient glycemic management. Patient is known to pharmacy glycemic service. * BSG upon admission was 98 mg/dL * Will hold all basal insulin at this time per consulting provider * Likely that patient will require some Lantus this evening * Starting Novolog based on previous admission data PLAN FOR INPATIENT GLYCEMIC CONTROL: * Basal insulin: decrease * Lantus 15 units SC this morning * Will plan on scale at HS (12-15 units based on BSG - see EHR for details) * Bolus insulin: decrease * NovoLog per scale ACHS or Q6hrs while NPO * Goal Range: Low 110 mg/dL - High 140 mg/dL * Correction Factor: 18 mg/dL/unit * Nutritional / Prandial insulin per carb ratio of 1 unit per 6 grams CHO consumed PLAN FOR DISCHARGE: * HbA1c = 7.2% (10/26/20). This is at patient's goal of less than 8% and has improved from 8.6% in July 2020. * Recommend continuing outpatient regimen upon discharge, provided patient has baseline appetite at discharge * Insulin needs have been significantly reduced as an inpatient (will continue to follow)
--- NOTE | 2020-10-30 16:41 | XRay Report ---
XR chest 1V portable HISTORY: PICC line adjustment COMPARISON: Chest 10/30/2020. FINDINGS: The right PICC terminates in the expected location of the superior cavoatrial junction. No pneumothorax. The heart remains enlarged. There is moderate pulmonary edema and small bilateral pleur al effusions, left greater than right. Left basilar densities are also unchanged. There or poststerno chapito changes and a left-sided pacemaker. IMPRESSION: 1. The right PICC terminates in the superior cavoatrial junction. 2. No pneumothorax. 3. Interval progression of the cardiomegaly and moderate pulmonary edema. 4. Left basilar densities/effusions persist. ACT 112: Negative or not required by law. Electronically signed by: Filiberto Camacho M.D. 10/30/2020 4:39 PM
--- NOTE | 2020-10-30 17:51 | Hospitalist Progress Note ---
Date of Service October 30, 2020 Assessment & Plan (1) Bacteremia: Growing Enterococcus faecalis 4/4 bottles on initial BCxs Unknown source, but does have this liver mass seen on CT abd/pel which could be an abscess-pt declines procedure to biopsy/aspirate this UA is negative No skin wounds, no abdominal pain, no diarrhea - liver ultrasound performed here and no longer shows a mass -Would recommend repeating CT of the abdomen as an outpatient in 1 month to see if 3 cm lesion still present -have since discontinued IV vancomycin and narrowed down to IV ampicillin -Repeat blood cultures drawn on 10/28 no growth at two days Consult ID-report reviewed via CM with access to [facility] chart--> recommending Ampicillin for enterococcus, would recommend SUE but patient refuses TTE shows no vegetations will contact infectious disease tomorrow to discuss duration of therapy options right now for home treatment are difficult, Ampicillin would be 2gm IV q4 or continuous infusion or could go with Daptomycin 900mg IV daily PICC line placed on 10/30 WBC normal, no fever, feeling a lot better overall likely for discharge tomorrow (2) Nausea & vomiting: Presented with 24 hours of nausea/vomiting along with sweats and chills at home. Lactate elevated at 2.3 and creatinine mildly elevated over baseline at 1.66. Has a history of similar presentation recently with admission resulting in Klebsiella bacteremia. And now again here with Enterococcus bacteremia LFTs, lipase normal Nausea vomiting have now resolved and he is tolerating regular diet With worsening microcytic anemia with hemoglobin of 9-10, has a history of GERD, could have peptic ulcer disease, gastritis, or esophageal mass? -Consulted GI to see about EGD-plan to do this as an outpatient if patient agreeable once he is over his bacteremia -Continue Protonix 40 mg p.o. twice daily and GI added Pepcid and Carafate -Follow CBC, CMP, magnesium (3) Liver mass: Known to be 5.2 cm on previous scan, has previously declined work-up CT here noncontrast shows only 3 cm hypodense lesion Question if is abscess versus solid mass? Liver ultrasound here negative for mass Check alpha-fetoprotein: normal, argues against HCC Could be metastatic versus primary, but it is shrinking Hep C antibodies negative from previous Has splenomegaly 21 cm and cirrhosis on CT As above, would repeat CT abdomen in 1 month f/u with GI (4) Anemia: As above, worsening from previous and microcytic, stable though for a few days Iron studies consistent with significant iron deficiency although ferritin elevated likely in the setting of infection with bacteremia Follow CBC Consult GI to see about EGD-plan as outpatient as above Okay to continue Eliquis and follow CBC Continue aspirin given high risk with history of CABG -Started ferrous sulfate 325 mg p.o. twice daily Would not give IV iron in the setting of bacteremia (5) Elevated lactic acid level: Elevated on admission at 2.3, now resolved after IV fluids Related to sepsis versus dehydration (6) Atrial fibrillation: With a history of such Is in ventricularly paced rhythm on telemetry here Continue Eliquis as there will be no procedures this admission Continue metoprolol (7) Chronic congestive heart failure: Acute on Chronic systolic CHF--now with worsening dyspnea, tachypnea at rest Did receive IVFs on admission for dehydration/N/V ischemic cardiomyopathy with EF 30-35% -Initially held home Lasix, spironolactone, and lisinopril for mild renal insufficiency and borderline low blood pressure in the setting of nausea/vomiting-they have since been restarted except lisinopril Echocardiogram with severely reduced EF here Continue metoprolol -Restarted home Lasix and spironolactone Continue to hold lisinopril, BP is low normal (8) Chronic kidney disease, stage III (moderate): Baseline creatinine around 1.4 -Avoid nephrotoxins -renally dose meds when appropriate -follow BMP With mild renal insufficiency here, holding lisinopril, Lasix, spironolactone as above and have since restarted Lasix and spironolactone (9) COPD, moderate: No acute issues Not on inhalers (10) Coronary artery disease: Status post CABG Continue aspirin, metoprolol, isosorbide No chest pain or acute issues, troponin negative (11) Depression: Continue bupropion (12) Diabetes mellitus type 2, uncontrolled: Glucose within normal limits upon admission likely secondary to recent vomiting Holding Trulicity from home Glycemic pharmacy management appreciated Insulin sliding scale and Accu-Cheks Hemoglobin A1c well controlled at 7.2% (13) Hypercholesterolemia: Continue Vytorin (14) Hypertension: Blood pressures low on admission from dehydration but improved with IV fluids Continue to hold home lisinopril, but restarted Lasix, spironolactone as above Continue metoprolol and isosorbide for history of CAD (15) Hypothyroidism: TSH normal Continue home levothyroxine (16) Ischemic cardiomyopathy: As above (17) Prostate cancer: Status post brachytherapy seeds in prostate Having urinary retention requiring multiple straight catheterizations He is refusing Person catheter Started Flomax Continue to straight cath for PVR greater than 400 mL-PVRs have been 300 mL max today Consider consulting urology if needed (18) Pulmonary nodule: Followed as an outpatient (19) Sleep apnea: Noted, will need to find out if he uses CPAP (20) Ventricular tachycardia (paroxysmal): Has ICD in place Monitor on telemetry Continue beta-gavin (21) Anxiety: Significantly increased by having to stay in the hospital Continue bupropion -continue hydroxyzine 10 mg p.o. 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 very difficult situation as he needs Ampicillin but the dose is 2000mg IV q4 looked into continuous infusion, could try Daptomycin earliest home nursing can start is his daughter can help but she lives 1.5 hours away, difficult for her to travel all the time will contact ID again to determine what the duration of antibiotics should be he is eating well, breathing well, no fever/chills, no GI symptoms Review of Systems Review of Systems: All systems reviewed & are unremarkable except as noted in Subjective Physical Exam Constitutional: WD/WN, vitals as above Neck: trachea midline, no thyromegaly Respiratory: normal respiratory effort, lungs clear to auscultation Cardiovascular: RRR, no murmur, no edema Gastrointestinal (Abdomen): normal bowel sounds, soft, nontender, no hepatosplenomegaly Musculoskeletal: no cyanosis or clubbing, extremities motor strength 5/5 Skin: no rashes, warm and dry Neurologic: patellar DTR's 2+ bilat, sensation intact and PERRL, EOMI, accommodation nl, no face palsy, no dysarthria Psychiatric: A+Ox3, euthymic affect Lymphatic: no cervical or axillary lymphadenopathy Results & Data Results & Data ([facility]) Vital Signs (Past 12 Hours) Vital Signs Temp Pulse Resp BP Pulse Ox 10/30/20 14:56 36.9 C 88 18 120/74 94 10/30/20 07:53 36.6 C 87 16 117/69 93 Laboratory Results Laboratory Results - last 24 hr 10/29/20 10/30/20 10/30/20 20:38 08:02 08:02 WBC 7.19 RBC 3.59 L Hgb 9.8 L Hct 28.5 L MCV 79.4 L MCH 27.3 MCHC 34.4 RDW Std Deviation 46.7 H RDW Coeff of Beck 16.0 H Plt Count 261 MPV 8.7 Sodium 135 L Potassium 3.9 Chloride 103 Carbon Dioxide 25 Anion Gap 7.0 BUN 25 H Creatinine 1.66 H Est Cr Clr Drug Dosing 50.6 Est GFR ( Amer) 45.4 Est GFR (Non-Af Amer) 39.2 BUN/Creatinine Ratio 15.0 Glucose 76 POC Glucose 128 H Calcium 8.7 Total Bilirubin 0.4 AST 20 ALT 15 Alkaline Phosphatase 101 Total Protein 6.6 Albumin 2.0 L Globulin 4.6 H Albumin/Globulin Ratio 0.4 L 10/30/20 10/30/20 10/30/20 08:36 11:52 16:58 WBC RBC Hgb Hct MCV MCH MCHC RDW Std Deviation RDW Coeff of Beck Plt Count MPV Sodium Potassium Chloride Carbon Dioxide Anion Gap BUN Creatinine Est Cr Clr Drug Dosing Est GFR ( Amer) Est GFR (Non-Af Amer) BUN/Creatinine Ratio Glucose POC Glucose 86 88 115 H Calcium Total Bilirubin AST ALT Alkaline Phosphatase Total Protein Albumin Globulin Albumin/Globulin Ratio Medications Administered Current Inpatient Medications Apixaban (Apixaban 5 Mg Tablet) 5 mg PO BID [facility] Stop: 11/24/20 09:04 Last Admin: 10/30/20 09:24 Dose: 5 mg Documented by: Aspirin (Aspirin 81 Mg Ectab) 81 mg PO [facility] Stop: 11/24/20 20:59 Last Admin: 10/29/20 20:34 Dose: 81 mg Documented by: Bupropion HCl (Bupropion Sr 150 Mg Tabcr) 150 mg PO BID [facility] Stop: 11/24/20 09:04 Last Admin: 10/30/20 09:23 Dose: 150 mg Documented by: Dextrose (Dextrose 50% 50 Ml Syringe) 25 - 50 ml IV UD PRN; Protocol PRN Reason: Hypoglycemia Protocol Stop: 11/24/20 09:04 Ezetimibe (Ezetimibe 10 Mg Tablet) 10 mg PO HS [facility] Stop: 11/25/20 20:59 Last Admin: 10/29/20 20:32 Dose: 10 mg Documented by: Famotidine (Famotidine 20 Mg Tab) 20 mg PO BID [facility] Stop: 11/25/20 20:59 Last Admin: 10/30/20 10:35 Dose: 20 mg Documented by: Fenofibrate (Fenofibrate Nanocrystallized 145 Mg Tablet) 145 mg PO HS [facility] Stop: 11/25/20 20:59 Last Admin: 10/29/20 20:33 Dose: 145 mg Documented by: Ferrous Sulfate (Ferrous Sulfate 325 Mg Tab) 325 mg PO BIDM [facility] Stop: 11/25/20 16:59 Last Admin: 10/30/20 17:33 Dose: 325 mg Documented by: Folic Acid (Folic Acid 1 Mg Tab) 1 mg PO HS [facility] [place] Stop: 11/25/20 20:59 Last Admin: 10/29/20 20:34 Dose: 1 mg Documented by: Furosemide (Furosemide 20 Mg Tab) 60 mg PO BID17 [facility] Stop: 11/25/20 16:59 Last Admin: 10/30/20 17:32 Dose: 60 mg Documented by: Glucagon (Glucagon For Inj 1 Mg Vial) 1 mg SQ UD PRN; Protocol PRN Reason: Hypoglycemia Protocol Stop: 11/24/20 09:04 Glucose (Glucose 10 Tabs/Tube) 4 - 8 tabs PO UD PRN; Protocol PRN Reason: Hypoglycemia Protocol Stop: 11/24/20 09:04 Glucose (Glucose 40% Gel 15 Gm Tube) 15 - 30 gm PO UD PRN; Protocol PRN Reason: Hypoglycemia Protocol Stop: 11/24/20 09:04 Hydroxyzine HCl (Hydroxyzine Hcl 10 Mg Tab) 10 mg PO Q8H PRN PRN Reason: anxiety Stop: 11/26/20 14:27 Last Admin: 10/30/20 09:23 Dose: 10 mg Documented by: Ampicillin Sodium 2,000 mg/ (Sodium Chloride) 100 mls @ 200 mls/hr IV Q4H [facility] [place] Stop: 11/10/20 13:59 Last Infusion: 10/30/20 13:50 Dose: 0 mls/hr Documented by: Insulin Aspart (Insulin Aspart 100 Units/Ml 3 Ml Pen) 0 units SC ACHS [facility]; Protocol Stop: 11/24/20 11:29 Last Admin: 10/30/20 13:43 Dose: 9 units Documented by: Insulin Glargine (Insulin Glargine Solostar 100 Units/Ml 3 Ml Pen) 0 units SC BID [facility]; Protocol Stop: 11/24/20 20:59 Last Admin: 10/30/20 09:29 Dose: 15 units Documented by: Isosorbide Mononitrate (Isosorbide [place] Extended Rel 60 Mg Tabcr) 60 mg PO DAILY [facility] [place] Stop: 11/24/20 09:04 Last Admin: 10/30/20 09:23 Dose: 60 mg Documented by: Levothyroxine Sodium (Levothyroxine Sodium 100 Mcg Tablet) [facility] Stop: 11/25/20 06:29 Last Admin: 10/30/20 05:32 Dose: 100 mcg Documented by: Metoprolol Succinate (Metoprolol Succ 25mg Ext Rel Tab) 25 mg PO BID [facility] [place] Stop: 11/24/20 09:04 Last Admin: 10/30/20 10:35 Dose: 25 mg Documented by: Miscellaneous (Carbohydrates For Hypoglycemia ) 15 - 30 gm PO UD PRN PRN Reason: Hypoglycemia Protocol Stop: 11/24/20 09:04 Miscellaneous Information (Pharmacy Glycemic Mgmt Consult) 1 ea N/A UD PRN; Protocol PRN Reason: Consult Stop: 11/24/20 09:27 Nitroglycerin (Nitroglycerin Sl 0.4 Mg/Tab Tab) 0.4 mg SL UD PRN PRN Reason: chest pain Stop: 11/24/20 09:04 Ondansetron HCl (Ondansetron Inj 2 Mg/Ml 2 Ml Vial) 4 mg IV Q6H PRN PRN Reason: Nausea Stop: 11/24/20 07:59 Last Admin: 10/29/20 21:52 Dose: 4 mg Documented by: Pantoprazole Sodium (Pantoprazole 40 Mg Tab) 40 mg PO BID [facility] Stop: 11/24/20 10:14 Last Admin: 10/30/20 09:23 Dose: 40 mg Documented by: Simvastatin (Simvastatin 40 Mg Tab) 80 mg PO HS [facility] Stop: 11/25/20 20:59 Last Admin: 10/29/20 20:32 Dose: 80 mg Documented by: Sodium Chloride (Sodium Chloride 0.65% Na Soln 45 Ml ([place])) 1 sprays NA NOW PRN PRN Reason: Congestion Stop: 11/27/20 22:21 Spironolactone (Spironolactone 25 Mg Tab) 25 mg PO QAM [facility] Stop: 11/26/20 08:59 Last Admin: 10/30/20 09:24 Dose: 25 mg Documented by: Sucralfate (Sucralfate 1 Gm/10 Ml Udc) 1 gm PO QID [facility] Stop: 11/25/20 12:59 Last Admin: 10/30/20 17:34 Dose: 1 gm Documented by: Tamsulosin HCl (Tamsulosin Hcl 0.4 Mg Cap) 0.4 mg PO [facility] Stop: 11/24/20 20:59 Last Admin: 10/29/20 20:31 Dose: 0.4 mg Documented by: Vitamin D (Cholecalciferol 1,000 Units 25 Mcg Tab) 1,000 units PO [facility] Stop: 11/25/20 20:59 Last Admin: 10/29/20 20:36 Dose: 1,000 units Documented by: PG Care Time/CCT Total # of Minutes Spent Total Time Spent with Patient: Total time spent is greater than 50% in coordination of care (as documented) at patient's floor/unit and/or counseling patient: Coding Level of Care Code 15298 Subseq Hosp Care Lvl 2 Diagnoses Bacteremia R78.81 Nausea & vomiting R11.2 Vomiting Intractability: unspecified Vomiting type: unspecified Liver mass R16.0 Anemia D64.9 Elevated lactic acid level R79.89 Atrial fibrillation I48.20 Atrial fibrillation type: unspecified chronic Chronic congestive heart failure I50.9 Heart failure type: unspecified Chronic kidney disease, stage III (moderate) N18.3 COPD, moderate J44.9 Coronary artery disease I25.10 Associated angina: angina presence unspecified Coronary Disease-Associated Artery/Lesion type: [place] artery [place] vs. transplanted heart: [place] heart Depression F32.9 Active/Remission status: remission status unspecified Depression Type: major depressive disorder Major depression recurrence: unspecified whether recurrent Diabetes mellitus type 2, uncontrolled E11.65 Hypercholesterolemia E78.00 Hypertension I10 Hypertension type: essential hypertension Hypothyroidism E03.9 Hypothyroidism type: unspecified Ischemic cardiomyopathy I25.5 Prostate cancer C61 Pulmonary nodule R91.1 Sleep apnea G47.30 Ventricular tachycardia (paroxysmal) I47.2 Anxiety F41.9 Hyponatremia E87.1 DVT prophylaxis Z29.9 (1) Coronary artery disease Associated angina: angina presence unspecified Coronary Disease-Associated Artery/Lesion type: [place] artery [place] vs. transplanted heart: [place] heart Qualified Code(s): I25.10 - Atherosclerotic heart disease of [place] coronary artery without angina pectoris (2) Chronic congestive heart failure Heart failure type: unspecified Qualified Code(s): I50.9 - Heart failure, unspecified (3) Atrial fibrillation Atrial fibrillation type: unspecified chronic Qualified Code(s): I48.20 - C hronic atrial fibrillation, unspecified (4) Depression Active/Remission status: remission status unspecified Depression Type: major depressive disorder Major depression recurrence: unspecified whether recurrent Qualified Code(s): F32.9 - Major depressive disorder, single episode, unspecified (5) Hypothyroidism Hypothyroidism type: unspecified Qualified Code(s): E03.9 - Hypothyroidism, unspecified (6) Nausea & vomiting Vomiting Intractability: unspecified Vomiting type: unspecified Qualified Code(s): R11.2 - Nausea with vomiting, unspecified (7) Hypertension Hypertension type: essential hypertension Qualified Code(s): I10 - Essential (primary) hypertension
[2020-10-30] MEDS: FENOFIBRATE NANOCRYSTALLIZED 145 MG TABLET PO SCH (20:29)
[2020-10-30] MEDS: CHOLECALCIFEROL 1,000 UNITS 25 MCG TAB PO SCH (20:31)
[2020-10-30] MEDS: TAMSULOSIN HCL 0.4 MG CAP PO SCH (20:31)
[2020-10-30] MEDS: EZETIMIBE 10 MG TABLET PO SCH (20:32)
[2020-10-30] MEDS: FOLIC ACID 1 MG TAB PO SCH (20:33)
[2020-10-30] MEDS: ASPIRIN 81 MG ECTAB PO SCH (20:33)
[2020-10-30] MEDS: SIMVASTATIN 40 MG TAB PO SCH (20:34)
[2020-10-31] MEDS: AMPICILLIN 2,000 MG in SODIUM CHLOR 0.9% AD-VAN 100 ML IV SCH ×6 (01:49→21:43)
[2020-10-31] MEDS: LEVOTHYROXINE SODIUM 100 MCG TABLET PO SCH (05:35)
[2020-10-31 06:39] LABS: Creatinine Clr Calc Pharmacy 52.2 ml/min; Est GFR (African American) 47.1; Est GFR (Non-African American) 40.6
[2020-10-31] MEDS: FERROUS SULFATE 325 MG TAB PO SCH ×2 (08:39→17:02)
[2020-10-31] MEDS: hydrOXYzine HCl 10 MG TAB PO PRN (08:39)
[2020-10-31] MEDS: ISOSORBIDE MONO EXTENDED REL 60 MG TABCR PO SCH (08:39)
[2020-10-31] MEDS: buPROPion SR 150 MG TABCR PO SCH ×2 (08:39→21:31)
[2020-10-31] MEDS: APIXABAN 5 MG TABLET PO SCH ×2 (08:39→21:22)
[2020-10-31] MEDS: METOPROLOL SUCC 25MG EXT REL TAB PO SCH ×2 (08:39→21:28)
[2020-10-31] MEDS: PANTOprazole 40 MG TAB PO SCH ×2 (08:40→21:25)
[2020-10-31] MEDS: SPIRONOLACTONE 25 MG TAB PO SCH (08:40)
[2020-10-31] MEDS: FUROSEMIDE 20 MG TAB PO SCH ×2 (08:40→17:01)
[2020-10-31] MEDS: SUCRALFATE 1 GM/10 ML UDC PO SCH ×4 (08:41→21:21)
[2020-10-31] MEDS: INSULIN GLARGINE SOLOSTAR 100 UNITS/ML 3 ML PEN SC SCH ×2 (09:37→21:46)
[2020-10-31] MEDS: INSULIN ASPART 100 UNITS/ML 3 ML PEN SC SCH ×4 (09:38→21:45)
[2020-10-31] MEDS: FAMOTIDINE 20 MG TAB PO SCH ×2 (09:42→21:26)
[2020-10-31] MEDS: ASPIRIN 81 MG ECTAB PO SCH (21:21)
[2020-10-31] MEDS: TAMSULOSIN HCL 0.4 MG CAP PO SCH (21:23)
[2020-10-31] MEDS: FOLIC ACID 1 MG TAB PO SCH (21:24)
[2020-10-31] MEDS: CHOLECALCIFEROL 1,000 UNITS 25 MCG TAB PO SCH (21:28)
[2020-10-31] MEDS: FENOFIBRATE NANOCRYSTALLIZED 145 MG TABLET PO SCH (21:29)
[2020-10-31] MEDS: SIMVASTATIN 40 MG TAB PO SCH (21:33)
[2020-10-31] MEDS: EZETIMIBE 10 MG TABLET PO SCH (21:51)
--- NOTE | 2020-10-31 23:05 | Hospitalist Progress Note ---
Date of Service October 31, 2020 Assessment & Plan (1) Bacteremia: Growing Enterococcus faecalis 4/4 bottles on initial BCxs Unknown source, but does have this liver mass seen on CT abd/pel which could be an abscess-pt declines procedure to biopsy/aspirate this UA is negative No skin wounds, no abdominal pain, no diarrhea - liver ultrasound performed here and no longer shows a mass -Would recommend repeating CT of the abdomen as an outpatient in 1 month to see if 3 cm lesion still present -have since discontinued IV vancomycin and narrowed down to IV ampicillin -Repeat blood cultures drawn on 10/28 no growth at two days Consult ID-report reviewed via CM with access to [facility] chart--> recommending Ampicillin for enterococcus, would recommend SUE but patient refuses TTE shows no vegetations talked with ID on 10/31, final recommendation is for Ampicillin for 6 weeks to cover possible SBE plan for SNF, making referrals today PICC line placed on 10/30 WBC normal, no fever, feeling a lot better overall likely for discharge once SNF approved (2) Nausea & vomiting: Presented with 24 hours of nausea/vomiting along with sweats and chills at home. Lactate elevated at 2.3 and creatinine mildly elevated over baseline at 1.66. Has a history of similar presentation recently with admission resulting in Klebsiella bacteremia. And now again here with Enterococcus bacteremia LFTs, lipase normal Nausea vomiting have now resolved and he is tolerating regular diet With worsening microcytic anemia with hemoglobin of 9-10, has a history of GERD, could have peptic ulcer disease, gastritis, or esophageal mass? -Consulted GI to see about EGD-plan to do this as an outpatient if patient agreeable once he is over his bacteremia -Continue Protonix 40 mg p.o. twice daily and GI added Pepcid and Carafate -Follow CBC, CMP, magnesium (3) Liver mass: Known to be 5.2 cm on previous scan, has previously declined work-up CT here noncontrast shows only 3 cm hypodense lesion Question if is abscess versus solid mass? Liver ultrasound here negative for mass Check alpha-fetoprotein: normal, argues against HCC Could be metastatic versus primary, but it is shrinking Hep C antibodies negative from previous Has splenomegaly 21 cm and cirrhosis on CT As above, would repeat CT abdomen in 1 month f/u with GI (4) Anemia: As above, worsening from previous and microcytic, stable though for a few days Iron studies consistent with significant iron deficiency although ferritin elevated likely in the setting of infection with bacteremia Follow CBC Consult GI to see about EGD-plan as outpatient as above Okay to continue Eliquis and follow CBC Continue aspirin given high risk with history of CABG -Started ferrous sulfate 325 mg p.o. twice daily Would not give IV iron in the setting of bacteremia (5) Elevated lactic acid level: Elevated on admission at 2.3, now resolved after IV fluids Related to sepsis versus dehydration (6) Atrial fibrillation: With a history of such Is in ventricularly paced rhythm on telemetry here Continue Eliquis as there will be no procedures this admission Continue metoprolol (7) Chronic congestive heart failure: Acute on Chronic systolic CHF--now with worsening dyspnea, tachypnea at rest Did receive IVFs on admission for dehydration/N/V ischemic cardiomyopathy with EF 30-35% -Initially held home Lasix, spironolactone, and lisinopril for mild renal insufficiency and borderline low blood pressure in the setting of nausea/vomiting-they have since been restarted except lisinopril Echocardiogram with severely reduced EF here Continue metoprolol -Restarted home Lasix and spironolactone Continue to hold lisinopril, BP is low normal (8) Chronic kidney disease, stage III (moderate): Baseline creatinine around 1.4 -Avoid nephrotoxins -renally dose meds when appropriate -follow BMP With mild renal insufficiency here, holding lisinopril, Lasix, spironolactone as above and have since restarted Lasix and spironolactone (9) COPD, moderate: No acute issues Not on inhalers (10) Coronary artery disease: Status post CABG Continue aspirin, metoprolol, isosorbide No chest pain or acute issues, troponin negative (11) Depression: Continue bupropion (12) Diabetes mellitus type 2, uncontrolled: Glucose within normal limits upon admission likely secondary to recent vomiting Holding Trulicity from home Glycemic pharmacy management appreciated Insulin sliding scale and Accu-Cheks Hemoglobin A1c well controlled at 7.2% (13) Hypercholesterolemia: Continue Vytorin (14) Hypertension: Blood pressures low on admission from dehydration but improved with IV fluids Continue to hold home lisinopril, but restarted Lasix, spironolactone as above Continue metoprolol and isosorbide for history of CAD (15) Hypothyroidism: TSH normal Continue home levothyroxine (16) Ischemic cardiomyopathy: As above (17) Prostate cancer: Status post brachytherapy seeds in prostate Having urinary retention requiring multiple straight catheterizations He is refusing Person catheter Started Flomax Continue to straight cath for PVR greater than 400 mL-PVRs have been 300 mL max today Consider consulting urology if needed (18) Pulmonary nodule: Followed as an outpatient (19) Sleep apnea: Noted, will need to find out if he uses CPAP (20) Ventricular tachycardia (paroxysmal): Has ICD in place Monitor on telemetry Continue beta-gavin (21) Anxiety: Significantly increased by having to stay in the hospital Continue bupropion -continue hydroxyzine 10 mg p.o. every 8 hours as needed (22) Hyponatremia: stable (23) DVT prophylaxis: Eliquis Disposition-continued stay until repeat blood cultures negative x48 hours, PICC line versus ultrasound-guided IV will need to be placed, and IV antibiotics will need to be [facility] at [facility] Full code daughter Sherrill Admission and Anticipated Discharge Date Admission Date: October 26, 2020 Subjective spoke with patient and his daughter at the bedside discussed options, plan for SNF called ID, they recommended 6 weeks to cover for possible endocarditis, especially since he won't agree to SUE eating well, breathing well, no fever he is weak Review of Systems Review of Systems: All systems reviewed & are unremarkable except as noted in Subjective Constitutional: + weakness Musculoskeletal: + muscle weakness Neurologic: + unsteadiness Physical Exam Constitutional: WD/WN, vitals as above Neck: trachea midline, no thyromegaly Respiratory: normal respiratory effort, lungs clear to auscultation Cardiovascular: RRR, no murmur, no edema Gastrointestinal (Abdomen): normal bowel sounds, soft, nontender, no hepatosplenomegaly Musculoskeletal: no cyanosis or clubbing, extremities motor strength 5/5 Skin: no rashes, warm and dry Neurologic: patellar DTR's 2+ bilat, sensation intact and PERRL, EOMI, accommodation nl, no face palsy, no dysarthria Psychiatric: A+Ox3, euthymic affect Lymphatic: no cervical or axillary lymphadenopathy Results & Data Results & Data ([facility]) Vital Signs (Past 12 Hours) Vital Signs Temp Pulse Resp BP Pulse Ox 10/31/20 16:06 36.5 C 87 22 151/78 H 96 10/31/20 11:25 95 Laboratory Results Laboratory Results - last 24 hr 10/31/20 10/31/20 10/31/20 05:39 08:32 12:04 Creatinine 1.61 H Est Cr Clr Drug Dosing 52.2 Est GFR ( Amer) 47.1 Est GFR (Non-Af Amer) 40.6 POC Glucose 107 H 155 H 10/31/20 10/31/20 17:18 20:30 Creatinine Est Cr Clr Drug Dosing Est GFR ( Amer) Est GFR (Non-Af Amer) POC Glucose 82 170 H Medications Administered Current Inpatient Medications Apixaban (Apixaban 5 Mg Tablet) 5 mg PO BID [facility] Stop: 11/24/20 09:04 Last Admin: 10/31/20 21:22 Dose: 5 mg Documented by: Aspirin (Aspirin 81 Mg Ectab) 81 mg PO HS [facility] Stop: 11/24/20 20:59 Last Admin: 10/31/20 21:21 Dose: 81 mg Documented by: Bupropion HCl (Bupropion Sr 150 Mg Tabcr) 150 mg PO BID [facility] Stop: 11/24/20 09:04 Last Admin: 10/31/20 21:31 Dose: 150 mg Documented by: Dextrose (Dextrose 50% 50 Ml Syringe) 25 - 50 ml IV UD PRN; Protocol PRN Reason: Hypoglycemia Protocol Stop: 11/24/20 09:04 Ezetimibe (Ezetimibe 10 Mg Tablet) [address] [facility] Stop: 11/25/20 20:59 Last Admin: 10/31/20 21:51 Dose: 10 mg Documented by: Famotidine (Famotidine 20 Mg Tab) 20 mg PO BID [facility] Stop: 11/25/20 20:59 Last Admin: 10/31/20 21:26 Dose: 20 mg Documented by: Fenofibrate (Fenofibrate Nanocrystallized 145 Mg Tablet) 145 mg PO HS [facility] Stop: 11/25/20 20:59 Last Admin: 10/31/20 21:29 Dose: 145 mg Documented by: Ferrous Sulfate (Ferrous Sulfate 325 Mg Tab) 325 mg PO BID [facility] Stop: 11/25/20 16:59 Last Admin: 10/31/20 17:02 Dose: 325 mg Documented by: Folic Acid (Folic Acid 1 Mg Tab) 1 mg PO HS [facility] Stop: 11/25/20 20:59 Last Admin: 10/31/20 21:24 Dose: 1 mg Documented by: Furosemide (Furosemide 20 Mg Tab) 60 mg PO BID17 [facility] Stop: 11/25/20 16:59 Last Admin: 10/31/20 17:01 Dose: 60 mg Documented by: Glucagon (Glucagon For Inj 1 Mg Vial) 1 mg SQ UD PRN; Protocol PRN Reason: Hypoglycemia Protocol Stop: 11/24/20 09:04 Glucose (Glucose 10 Tabs/Tube) 4 - 8 tabs PO UD PRN; Protocol PRN Reason: Hypoglycemia Protocol Stop: 11/24/20 09:04 Glucose (Glucose 40% Gel 15 Gm Tube) 15 - 30 gm PO UD PRN; Protocol PRN Reason: Hypoglycemia Protocol Stop: 11/24/20 09:04 Heparin Sodium (Beef Lung) (Heparin 10 Unit/Ml 5 Ml Flush) 5 ml FLUSH PRN PRN PRN Reason: Flush Stop: 11/29/20 17:54 Last Admin: 10/31/20 22:48 Dose: 5 ml Documented by: Hydroxyzine HCl (Hydroxyzine Hcl 10 Mg Tab) 10 mg PO Q8H PRN PRN Reason: anxiety Stop: 11/26/20 14:27 Last Admin: 10/31/20 08:39 Dose: 10 mg Documented by: Ampicillin Sodium 2,000 mg/ (Sodium Chloride) 100 mls @ 200 mls/hr IV Q4H [facility] Stop: 11/10/20 13:59 Last Infusion: 10/31/20 22:48 Dose: Infused Documented by: Insulin Aspart (Insulin Aspart 100 Units/Ml 3 Ml Pen) 0 units SC ACHS [facility]; Protocol Stop: 11/24/20 11:29 Last Admin: 10/31/20 21:45 Dose: 3 units Documented by: Insulin Glargine (Insulin Glargine Solostar 100 Units/Ml 3 Ml Pen) 0 units SC BID [facility]; Protocol Stop: 11/24/20 20:59 Last Admin: 10/31/20 21:46 Dose: 18 units Documented by: Isosorbide Mononitrate (Isosorbide [place] Extended Rel 60 Mg Tabcr) 60 mg PO DAILY [facility] Stop: 11/24/20 09:04 Last Admin: 10/31/20 08:39 Dose: 60 mg Documented by: Levothyroxine Sodium (Levothyroxine Sodium 100 Mcg Tablet) 100 mcg PO DAILYBB [facility] Stop: 11/25/20 06:29 Last Admin: 10/31/20 05:35 Dose: 100 mcg Documented by: Metoprolol Succinate (Metoprolol Succ 25mg Ext Rel Tab) 25 mg PO BID [facility] Stop: 11/24/20 09:04 Last Admin: 10/31/20 21:28 Dose: 25 mg Documented by: Miscellaneous (Carbohydrates For Hypoglycemia ) 15 - 30 gm PO UD PRN PRN Reason: Hypoglycemia Protocol Stop: 11/24/20 09:04 Miscellaneous Information (Pharmacy Glycemic Mgmt Consult) 1 ea N/A UD PRN; Protocol PRN Reason: Consult Stop: 11/24/20 09:27 Nitroglycerin (Nitroglycerin Sl 0.4 Mg/Tab Tab) 0.4 mg SL UD PRN PRN Reason: chest pain Stop: 11/24/20 09:04 Ondansetron HCl (Ondansetron Inj 2 Mg/Ml 2 Ml Vial) 4 mg IV Q6H PRN PRN Reason: Nausea Stop: 11/24/20 07:59 Last Admin: 10/29/20 21:52 Dose: 4 mg Documented by: Pantoprazole Sodium (Pantoprazole 40 Mg Tab) 40 mg PO BID [facility] Stop: 11/24/20 10:14 Last Admin: 10/31/20 21:25 Dose: 40 mg Documented by: Simvastatin (Simvastatin 40 Mg Tab) 80 mg PO HS [facility] Stop: 11/25/20 20:59 Last Admin: 10/31/20 21:33 Dose: 80 mg Documented by: Sodium Chloride (Sodium Chloride 0.65% Na Soln 45 Ml ([place])) 1 sprays NA NOW PRN PRN Reason: Congestion Stop: 11/27/20 22:21 Spironolactone (Spironolactone 25 Mg Tab) 25 mg PO QAM [facility] Stop: 11/26/20 08:59 Last Admin: 10/31/20 08:40 Dose: 25 mg Documented by: Sucralfate (Sucralfate 1 Gm/10 Ml Udc) 1 gm PO QID [facility] Stop: 11/25/20 12:59 Last Admin: 10/31/20 21:21 Dose: 1 gm Documented by: Tamsulosin HCl (Tamsulosin Hcl 0.4 Mg Cap) 0.4 mg PO HS [facility] Stop: 11/24/20 20:59 Last Admin: 10/31/20 21:23 Dose: 0.4 mg Documented by: Vitamin D (Cholecalciferol 1,000 Units 25 Mcg Tab) 1,000 units PO HS [facility] Stop: 11/25/20 20:59 Last Admin: 10/31/20 21:28 Dose: 1,000 units Documented by: PG Care Time/CCT Total # of Minutes Spent Total Time Spent with Patient: Total time spent is greater than 50% in coordination of care (as documented) at patient's floor/unit and/or counseling patient: Coding Level of Care Code 90156 Subseq Hosp Care Lvl 2 Diagnoses Bacteremia R78.81 Nausea & vomiting R11.2 Vomiting Intractability: unspecified Vomiting type: unspecified Liver mass R16.0 Anemia D64.9 Elevated lactic acid level R79.89 Atrial fibrillation I48.20 Atrial fibrillation type: unspecified chronic Chronic congestive heart failure I50.9 Heart failure type: unspecified Chronic kidney disease, stage III (moderate) N18.3 COPD, moderate J44.9 Coronary artery disease I25.10 Associated angina: angina presence unspecified Coronary Disease-Associated Artery/Lesion type: [place] artery [employer] [place] vs. transplanted heart: [place]bins heart Depression F32.9 Active/Remission status: remission status unspecified Depression Type: major depressive disorder Major depression recurrence: unspecified whether recurrent Diabetes mellitus type 2, uncontrolled E11.65 Hypercholesterolemia E78.00 Hypertension I10 Hypertension type: essential hypertension Hypothyroidism E03.9 Hypothyroidism type: unspecified Ischemic cardiomyopathy I25.5 Prostate cancer C61 Pulmonary nodule R91.1 Sleep apnea G47.30 Ventricular tachycardia (paroxysmal) I47.2 Anxiety F41.9 Hyponatremia E87.1 DVT prophylaxis Z29.9 (1) Coronary artery disease Associated angina: angina presence unspecified Coronary Disease-Associated Artery/Lesion type: [place] artery [employer] [place] vs. transplanted heart: [place]bins heart Qualified Code(s): I25.10 - Atherosclerotic heart disease of [place] coronary artery without angina pectoris (2) Chronic congestive heart failure Heart failure type: unspecified Qualified Code(s): I50.9 - Heart failure, u nspecified (3) Atrial fibrillation Atrial fibrillation type: unspecified chronic Qualified Code(s): I48.20 - Chronic atrial fibrillation, unspecified (4) Depression Active/Remission status: remission status unspecified Depression Type: major depressive disorder Major depression recurrence: unspecified whether recurrent Qualified Code(s): F32.9 - Major depressive disorder, single episode, unspecified (5) Hypothyroidism Hypothyroidism type: unspecified Qualified Code(s): E03.9 - Hypothyroidism, unspecified (6) Nausea & vomiting Vomiting Intractability: unspecified Vomiting type: unspecified Qualified Code(s): R11.2 - Nausea with vomiting, unspecified (7) Hypertension Hypertension type: essential hypertension Qualified Code(s): I10 - Essential (primary) hypertension
[2020-11-01] MEDS: AMPICILLIN 2,000 MG in SODIUM CHLOR 0.9% AD-VAN 100 ML IV SCH ×6 (02:05→21:11)
[2020-11-01] MEDS ORDERED: DOCUSATE SODIUM 100 MG CAP PO ONE (04:53)
[2020-11-01] MEDS: LEVOTHYROXINE SODIUM 100 MCG TABLET PO SCH (05:19)
[2020-11-01 06:06] LABS: Hematocrit (blood only) 29.1 % (42-52); Hemoglobin 9.7 g/dL (14.0-18.0); Mean Corpuscular Hemoglobin 26.4 pg (25-34); Mean Corpuscular Hgb Conc 33.3 g/dL (32-36); Mean Corpuscular Volume 79.3 fL (80-100); Mean Platelet Volume 8.5 fL (7.4-10.4); Platelet Count 284 K/uL (130-400); RDW Coefficient of Variation 15.9 % (11.5-14.5); RDW Standard Deviation 46.4 fL (36.4-46.3); Red Blood Count 3.67 M/uL (4.7-6.1); White Blood Count 5.91 K/uL (4.8-10.8)
[2020-11-01 06:30] LABS: Alanine Aminotransferase 13 U/L (12-78); Aspartate Aminotransferase 14 U/L (15-37)
[2020-11-01] MEDS: METOPROLOL SUCC 25MG EXT REL TAB PO SCH ×2 (08:23→21:12)
[2020-11-01] MEDS: FAMOTIDINE 20 MG TAB PO SCH ×2 (08:23→21:08)
[2020-11-01] MEDS: PANTOprazole 40 MG TAB PO SCH ×2 (08:23→21:07)
[2020-11-01] MEDS: APIXABAN 5 MG TABLET PO SCH ×2 (08:23→21:07)
[2020-11-01] MEDS: hydrOXYzine HCl 10 MG TAB PO PRN (08:23)
[2020-11-01] MEDS: FERROUS SULFATE 325 MG TAB PO SCH ×2 (08:24→17:23)
[2020-11-01] MEDS: FUROSEMIDE 20 MG TAB PO SCH ×2 (08:24→17:22)
[2020-11-01] MEDS: SPIRONOLACTONE 25 MG TAB PO SCH (08:24)
[2020-11-01] MEDS: SUCRALFATE 1 GM/10 ML UDC PO SCH ×4 (08:25→21:06)
[2020-11-01] MEDS: buPROPion SR 150 MG TABCR PO SCH ×2 (08:25→21:07)
--- NOTE | 2020-11-01 08:51 | Pharmacy Report ---
Pharmacy Glycemic Short Note 2 - Date of Service November 01, 2020 - Glycemic Short BSG Results (Last 24 hours): 10/31/20 10/31/20 10/31/20 12:04 17:18 20:30 POC Glucose 155 H 82 170 H 11/01/20 08:07 POC Glucose 120 H OUTPATIENT ANTIDIABETIC REGIMEN: * Tresiba 80 units SC BID * Novolog 15 units SC BID * Trulicity 1.5 mg SC weekly * HbA1c = 7.2% (10/26/20) ASSESSMENT: 11/01: * BSGs yesterday of 107, 155, 82, and 170 mg/dL * Patient received 33 units of basal Lantus and 21 units of prandial/correctional Novolog * Fasting BSG of 120 mg/dL this morning - will plan to continue current basal daily dose * Continues on ampicillin 2 g IV q4h 10/29: * Pt has received 48 units of insulin over the past 24hrs * 30 units of basal with Lantus * 18 units of bolus with NovoLog * BSGs well controlled at 98, 118, 133, and 128 mg/dL * AM fasting BSG of 122 mg/dL this morning, up from 98 mg/dL yesterday * Will plan to increase basal today ~10-20% * Patient with bacteremia (E. faecalis) secondary to unknown source - receiving ampicillin 2 g IV q4h 10/25: * 79 yo M admitted secondary to nausea and vomiting. Pharmacy has been consulted to assist with inpatient glycemic management. Patient is known to pharmacy glycemic service. * BSG upon admission was 98 mg/dL * Will hold all basal insulin at this time per consulting provider * Likely that patient will require some Lantus this evening * Starting Novolog based on previous admission data PLAN FOR INPATIENT GLYCEMIC CONTROL: * Basal insulin: * Lantus 18 units SC qAM, 15 units SC qPM * Bolus insulin: * NovoLog per scale ACHS or Q6hrs while NPO * Goal Range: Low 110 mg/dL - High 150 mg/dL * Correction Factor: 12 mg/dL/unit * Nutritional / Prandial insulin per carb ratio of 1 unit per 3 grams CHO consumed PLAN FOR DISCHARGE: * HbA1c = 7.2% (10/26/20). This is at patient's goal of less than 8% and has improved from 8.6% in July 2020. * Recommend continuing outpatient regimen upon discharge, provided patient has baseline appetite at discharge * Insulin needs have been significantly reduced as an inpatient (will continue to follow)
[2020-11-01] MEDS: ONDANSETRON INJ 2 MG/ML 2 ML VIAL IV PRN ×2 (09:04→18:44)
[2020-11-01] MEDS: ISOSORBIDE MONO EXTENDED REL 60 MG TABCR PO SCH (09:09)
[2020-11-01] MEDS: INSULIN GLARGINE SOLOSTAR 100 UNITS/ML 3 ML PEN SC SCH (09:22)
[2020-11-01] MEDS: INSULIN ASPART 100 UNITS/ML 3 ML PEN SC SCH ×4 (09:23→21:02)
[2020-11-01] MEDS: POLYETHYLENE (MIRALAX) 17 GM PACK PO SCH (17:25)
[2020-11-01] MEDS ORDERED: INSULIN GLARGINE SOLOSTAR 100 UNITS/ML 3 ML PEN SC SCH (21:00)
[2020-11-01] MEDS: SIMVASTATIN 40 MG TAB PO SCH (21:06)
[2020-11-01] MEDS: FENOFIBRATE NANOCRYSTALLIZED 145 MG TABLET PO SCH (21:06)
[2020-11-01] MEDS: CHOLECALCIFEROL 1,000 UNITS 25 MCG TAB PO SCH (21:07)
[2020-11-01] MEDS: TAMSULOSIN HCL 0.4 MG CAP PO SCH (21:07)
[2020-11-01] MEDS: FOLIC ACID 1 MG TAB PO SCH (21:07)
[2020-11-01] MEDS: ASPIRIN 81 MG ECTAB PO SCH (21:07)
[2020-11-01] MEDS: EZETIMIBE 10 MG TABLET PO SCH (21:08)
--- NOTE | 2020-11-01 23:27 | Hospitalist Progress Note ---
Date of Service November 01, 2020 Assessment & Plan (1) Bacteremia: Growing Enterococcus faecalis 4/4 bottles on initial BCxs Unknown source, but does have this liver mass seen on CT abd/pel which could be an abscess-pt declines procedure to biopsy/aspirate this UA is negative No skin wounds, no abdominal pain, no diarrhea - liver ultrasound performed here and no longer shows a mass -Would recommend repeating CT of the abdomen as an outpatient in 1 month to see if 3 cm lesion still present -have since discontinued IV vancomycin and narrowed down to IV ampicillin -Repeat blood cultures drawn on 10/28 no growth at two days Consult ID-report reviewed via CM with access to [facility] chart--> recommending Ampicillin for enterococcus, would recommend SUE but patient refuses TTE shows no vegetations talked with ID on 10/31, final recommendation is for Ampicillin for 6 weeks to cover possible SBE plan for SNF, making referrals, can go to [facility] tomorrow, daughter will transport PICC line placed on 10/30 WBC normal, no fever, feeling a lot better overall likely for discharge once SNF approved (2) Nausea & vomiting: Presented with 24 hours of nausea/vomiting along with sweats and chills at home. Lactate elevated at 2.3 and creatinine mildly elevated over baseline at 1.66. Has a history of similar presentation recently with admission resulting in Klebsiella bacteremia. And now again here with Enterococcus bacteremia LFTs, lipase normal Nausea vomiting have now resolved and he is tolerating regular diet With worsening microcytic anemia with hemoglobin of 9-10, has a history of GERD, could have peptic ulcer disease, gastritis, or esophageal mass? -Consulted GI to see about EGD-plan to do this as an outpatient if patient agreeable once he is over his bacteremia -Continue Protonix 40 mg p.o. twice daily and GI added Pepcid and Carafate -Follow CBC, CMP, magnesium (3) Liver mass: Known to be 5.2 cm on previous scan, has previously declined work-up CT here noncontrast shows only 3 cm hypodense lesion Question if is abscess versus solid mass? Liver ultrasound here negative for mass Check alpha-fetoprotein: normal, argues against HCC Could be metastatic versus primary, but it is shrinking Hep C antibodies negative from previous Has splenomegaly 21 cm and cirrhosis on CT As above, would repeat CT abdomen in 1 month f/u with GI (4) Anemia: As above, worsening from previous and microcytic, stable though for a few days Iron studies consistent with significant iron deficiency although ferritin elevated likely in the setting of infection with bacteremia Follow CBC Consult GI to see about EGD-plan as outpatient as above Okay to continue Eliquis and follow CBC Continue aspirin given high risk with history of CABG -Started ferrous sulfate 325 mg p.o. twice daily Would not give IV iron in the setting of bacteremia (5) Elevated lactic acid level: Elevated on admission at 2.3, now resolved after IV fluids Related to sepsis versus dehydration (6) Atrial fibrillation: With a history of such Is in ventricularly paced rhythm on telemetry here Continue Eliquis as there will be no procedures this admission Continue metoprolol (7) Chronic congestive heart failure: Acute on Chronic systolic CHF--now with worsening dyspnea, tachypnea at rest Did receive IVFs on admission for dehydration/N/V ischemic cardiomyopathy with EF 30-35% -Initially held home Lasix, spironolactone, and lisinopril for mild renal insufficiency and borderline low blood pressure in the setting of nausea/vomiting-they have since been restarted except lisinopril Echocardiogram with severely reduced EF here Continue metoprolol -Restarted home Lasix and spironolactone Continue to hold lisinopril, BP is low normal (8) Chronic kidney disease, stage III (moderate): Baseline creatinine around 1.4 -Avoid nephrotoxins -renally dose meds when appropriate -follow BMP With mild renal insufficiency here, holding lisinopril, Lasix, spironolactone as above and have since restarted Lasix and spironolactone (9) COPD, moderate: No acute issues Not on inhalers (10) Coronary artery disease: Status post CABG Continue aspirin, metoprolol, isosorbide No chest pain or acute issues, troponin negative (11) Depression: Continue bupropion (12) Diabetes mellitus type 2, uncontrolled: Glucose within normal limits upon admission likely secondary to recent vomiting Holding Trulicity from home Glycemic pharmacy management appreciated Insulin sliding scale and Accu-Cheks Hemoglobin A1c well controlled at 7.2% monitor for hypoglycemia (13) Hypercholesterolemia: Continue Vytorin (14) Hypertension: Blood pressures low on admission from dehydration but improved with IV fluids Continue to hold home lisinopril, but restarted Lasix, spironolactone as above Continue metoprolol and isosorbide for history of CAD (15) Hypothyroidism: TSH normal Continue home levothyroxine (16) Ischemic cardiomyopathy: As above (17) Prostate cancer: Status post brachytherapy seeds in prostate Having urinary retention requiring multiple straight catheterizations He is refusing Person catheter Started Flomax Continue to straight cath for PVR greater than 400 mL-PVRs have been 300 mL max today Consider consulting urology if needed (18) Pulmonary nodule: Followed as an outpatient (19) Sleep apnea: Noted, will need to find out if he uses CPAP (20) Ventricular tachycardia (paroxysmal): Has ICD in place Monitor on telemetry Continue beta-gavin (21) Anxiety: Significantly increased by having to stay in the hospital Continue bupropion -continue hydroxyzine 10 mg p.o. every 8 hours as needed (22) Hyponatremia: stable (23) DVT prophylaxis: Eliquis Disposition-continued stay until repeat blood cultures negative x48 hours, PICC line versus ultrasound-guided IV will need to be placed, and IV antibiotics will need to be set up at home through the [place] Full code daughter Sherrill Admission and Anticipated Discharge Date Admission Date: October 26, 2020 Subjective patient doing well, only complaint is constipation, will give Miralax spoke with CM, can go to [facility] tomorrow they updated his daughter, she can transport tomorrow Review of Systems Review of Systems: All systems reviewed & are unremarkable except as noted in Subjective Gastrointestinal: + constipation Physical Exam Constitutional: WD/WN, vitals as above Neck: trachea midline, no thyromegaly Respiratory: normal respiratory effort, lungs clear to auscultation Cardiovascular: RRR, no murmur, no edema Gastrointestinal (Abdomen): normal bowel sounds, soft, nontender, no hepatosplenomegaly Musculoskeletal: no cyanosis or clubbing, extremities motor strength 5/5 Skin: no rashes, warm and dry Neurologic: patellar DTR's 2+ bilat, sensation intact and PERRL, EOMI, accommo dation nl, no face palsy, no dysarthria Psychiatric: A+Ox3, euthymic affect Lymphatic: no cervical or axillary lymphadenopathy Results & Data Results & Data ([facility]) Vital Signs (Past 12 Hours) Vital Signs Temp Pulse Pulse Resp BP BP Pulse Ox 11/01/20 22:28 36.7 C 91 H 18 136/79 94 11/01/20 21:11 91 H 137/84 11/01/20 15:36 36.8 C 90 18 119/75 95 Laboratory Results Laboratory Results - last 24 hr 11/01/20 11/01/20 11/01/20 05:10 05:10 08:07 WBC 5.91 RBC 3.67 L Hgb 9.7 L Hct 29.1 L MCV 79.3 L MCH 26.4 MCHC 33.3 RDW Std Deviation 46.4 H RDW Coeff of Beck 15.9 H Plt Count 284 MPV 8.5 POC Glucose 120 H AST 14 L ALT 13 COVID-19 Eval Order SARS-CoV-2, RNA, NAAT 11/01/20 11/01/20 11/01/20 12:11 16:20 16:20 WBC RBC Hgb Hct MCV MCH MCHC RDW Std Deviation RDW Coeff of Beck Plt Count MPV POC Glucose 169 H AST ALT COVID-19 Eval [facility] SARS-CoV-2, RNA, NAAT NEGATIVE 11/01/20 11/01/20 17:10 20:25 WBC RBC Hgb Hct MCV MCH MCHC RDW Std Deviation RDW Coeff of Beck Plt Count MPV POC Glucose 117 H 126 H AST ALT COVID-19 Eval Order SARS-CoV-2, RNA, NAAT Medications Administered Current Inpatient Medications Apixaban (Apixaban 5 Mg Tablet) 5 mg PO BID [facility] Stop: 11/24/20 09:04 Last Admin: 11/01/20 21:07 Dose: 5 mg Documented by: Aspirin (Aspirin 81 Mg Ectab) 81 mg PO HS [facility] Stop: 11/24/20 20:59 Last Admin: 11/01/20 21:07 Dose: 81 mg Documented by: Bupropion HCl (Bupropion Sr 150 Mg Tabcr) 150 mg PO BID [facility] Stop: 11/24/20 09:04 Last Admin: 11/01/20 21:07 Dose: 150 mg Documented by: Dextrose (Dextrose 50% 50 Ml Syringe) 25 - 50 ml IV UD PRN; Protocol PRN Reason: Hypoglycemia Protocol Stop: 11/24/20 09:04 Ezetimibe (Ezetimibe 10 Mg Tablet) 10 mg PO HS [facility] Stop: 11/25/20 20:59 Last Admin: 11/01/20 21:08 Dose: 10 mg Documented by: Famotidine (Famotidine 20 Mg Tab) 20 mg PO BID [facility] Stop: 11/25/20 20:59 Last Admin: 11/01/20 21:08 Dose: 20 mg Documented by: Fenofibrate (Fenofibrate Nanocrystallized 145 Mg Tablet) 145 mg PO HS [facility] Stop: 11/25/20 20:59 Last Admin: 11/01/20 21:06 Dose: 145 mg Documented by: Ferrous Sulfate (Ferrous Sulfate 325 Mg Tab) 325 mg PO BIDM [facility] Stop: 11/25/20 16:59 Last Admin: 11/01/20 17:23 Dose: 325 mg Documented by: Folic Acid (Folic Acid 1 Mg Tab) 1 mg PO HS [facility] Stop: 11/25/20 20:59 Last Admin: 11/01/20 21:07 Dose: 1 mg Documented by: Furosemide (Furosemide 20 Mg Tab) 60 mg PO BID17 [facility] Stop: 11/25/20 16:59 Last Admin: 11/01/20 17:22 Dose: 60 mg Documented by: Glucagon (Glucagon For Inj 1 Mg Vial) 1 mg SQ UD PRN; Protocol PRN Reason: Hypoglycemia Protocol Stop: 11/24/20 09:04 Glucose (Glucose 10 Tabs/Tube) 4 - 8 tabs PO UD PRN; Protocol PRN Reason: Hypoglycemia Protocol Stop: 11/24/20 09:04 Glucose (Glucose 40% Gel 15 Gm Tube) 15 - 30 gm PO UD PRN; Protocol PRN Reason: Hypoglycemia Protocol Stop: 11/24/20 09:04 Heparin Sodium (Beef Lung) (Heparin 10 Unit/Ml 5 Ml Flush) 5 ml FLUSH PRN PRN PRN Reason: Flush Stop: 11/29/20 17:54 Last Admin: 11/01/20 22:03 Dose: 5 ml Documented by: Hydroxyzine HCl (Hydroxyzine Hcl 10 Mg Tab) 10 mg PO Q8H PRN PRN Reason: anxiety Stop: 11/26/20 14:27 Last Admin: 11/01/20 08:23 Dose: 10 mg Documented by: Ampicillin Sodium 2,000 mg/ (Sodium Chloride) 100 mls @ 200 mls/hr IV Q4H [facility] Stop: 11/10/20 13:59 Last Infusion: 11/01/20 22:02 Dose: Infused Documented by: Insulin Aspart (Insulin Aspart 100 Units/Ml 3 Ml Pen) 0 units SC ACHS [facility]; Protocol Stop: 11/24/20 11:29 Last Admin: 11/01/20 21:02 Dose: Not Given Documented by: Insulin Glargine (Insulin Glargine Solostar 100 Units/Ml 3 Ml Pen) 15 units SC HS [facility]; Protocol Stop: 11/28/20 20:59 Last Admin: 11/01/20 21:03 Dose: 15 units Documented by: Isosorbide Mononitrate (Isosorbide [place] Extended Rel 60 Mg Tabcr) 60 mg PO DAILY [facility] Stop: 11/24/20 09:04 Last Admin: 11/01/20 09:09 Dose: 60 mg Documented by: Levothyroxine Sodium ([facility]othyroxine S[facility] 100 Mcg Tablet) [facility] Stop: 11/25/20 06:29 Last Admin: 11/01/20 05:19 Dose: 100 mcg Documented by: Metoprolol Succinate (Metoprolol Succ 25mg Ext Rel Tab) 25 mg PO BID [facility] Stop: 11/24/20 09:04 Last Admin: 11/01/20 21:12 Dose: 25 mg Documented by: Miscellaneous (Carbohydrates For Hypoglycemia ) 15 - 30 gm PO UD PRN PRN Reason: Hypoglycemia Protocol Stop: 11/24/20 09:04 Miscellaneous Information (Pharmacy Glycemic Mgmt Consult) 1 ea N/A UD PRN; Protocol PRN Reason: Consult Stop: 11/24/20 09:27 Nitroglycerin (Nitroglycerin Sl 0.4 Mg/Tab Tab) 0.4 mg SL UD PRN PRN Reason: chest pain Stop: 11/24/20 09:04 Ondansetron HCl (Ondansetron Inj 2 Mg/Ml 2 Ml Vial) 4 mg IV Q6H PRN PRN Reason: Nausea Stop: 11/24/20 07:59 Last Admin: 11/01/20 18:44 Dose: 4 mg Documented by: Pantoprazole Sodium (Pantoprazole 40 Mg Tab) 40 mg PO BID [facility] Stop: 11/24/20 10:14 Last Admin: 11/01/20 21:07 Dose: 40 mg Documented by: Polyethylene Glycol (Polyethylene (Miralax) 17 Gm Pack) 17 gm PO DAILY [facility] Stop: 12/01/20 16:59 Last Admin: 11/01/20 17:25 Dose: 17 gm Documented by: Simvastatin (Simvastatin 40 Mg Tab) 80 mg PO [facility] Stop: 11/25/20 20:59 Last Admin: 11/01/20 21:06 Dose: 80 mg Documented by: Sodium Chloride (Sodium Chloride 0.65% Na Soln 45 Ml ([place])) 1 sprays NA NOW PRN PRN Reason: Congestion Stop: 11/27/20 22:21 Spironolactone (Spironolactone 25 Mg Tab) 25 mg PO QAM [facility] Stop: 11/26/20 08:59 Last Admin: 11/01/20 08:24 Dose: 25 mg Documented by: Sucralfate (Sucralfate 1 Gm/10 Ml Udc) 1 gm PO QID [facility] Stop: 11/25/20 12:59 Last Admin: 11/01/20 21:06 Dose: 1 gm Documented by: Tamsulosin HCl (Tamsulosin Hcl 0.4 Mg Cap) 0.4 mg PO [facility] Stop: 11/24/20 20:59 Last Admin: 11/01/20 21:07 Dose: 0.4 mg Documented by: Vitamin D (Cholecalciferol 1,000 Units 25 Mcg Tab) 1,000 units PO [facility] Stop: 11/25/20 20:59 Last Admin: 11/01/20 21:07 Dose: 1,000 units Documented by: PG Care Time/CCT Total # of Minutes Spent Total Time Spent with Patient: Total time spent is greater than 50% in coordination of care (as documented) at patient's floor/unit and/or counseling patient: Coding Level of Care Code 19834 Subseq Hosp Care Lvl 2 Diagnoses Bacteremia R78.81 Nausea & vomiting R11.2 Vomiting type: unspecified Vomiting Intractability: unspecified Liver mass R16.0 Anemia D64.9 Elevated lactic acid level R79.89 Atrial fibrillation I48.20 Atrial fibrillation type: unspecified chronic Chronic congestive heart failure I50.9 Heart failure type: unspecified Chronic kidney disease, stage III (moderate) N18.3 COPD, moderate J44.9 Coronary artery disease I25.10 Coronary Disease-Associated Artery/Lesion type: [place] artery [place] vs. transplanted heart: [place] heart Associated angina: angina presence unspecified Depression F32.9 Depression Type: major depressive disorder Major depression recurrence: unspecified whether recurrent Active/Remission status: remission status unspecified Diabetes mellitus type 2, uncontrolled E11.65 Hypercholesterolemia E78.00 Hypertension I10 Hypertension type: essential hypertension Hypothyroidism E03.9 Hypothyroidism type: unspecified Ischemic cardiomyopathy I25.5 Prostate cancer C61 Pulmonary nodule R91.1 Sleep apnea G47.30 Ventricular tachycardia (paroxysmal) I47.2 Anxiety F41.9 Hyponatremia E87.1 DVT prophylaxis Z29.9 (1) Nausea & vomiting Vomiting type: unspecified Vomiting Intractability: unspecified Qualified Code(s): R11.2 - Nausea with vomiting, unspecified (2) Atrial fibrillation Atrial fibrillation type: unspecified chronic Qualified Code(s): I48.20 - Chronic atrial fibrillation, unspecified (3) Chronic congestive heart failure Heart failure type: unspecified Qualified Code(s): I50.9 - Heart failure, unspecified (4) Coronary artery disease Coronary Disease-Associated Artery/Lesion type: [place] artery [place] vs. transplanted heart: [place] heart Associated angina: angina presence unspecified Qualified Code(s): I25.10 - Atherosclerotic heart disease of [place] coronary artery without angina pectoris (5) Depression Depression Type: major depressive disorder Major depression recurrence: unspecified whether recurrent Active/Remission status: remission status unspecified Qualified Code(s): F32.9 - Major depressive disorder, single episode, unspecified (6) Hypertension Hypertension type: essential hypertension Qualified Code(s): I10 - Essential (primary) hypertension (7) Hypothyroidism Hypothyroidism type: unspecified Qualified Code(s): E03.9 - Hypothyroidism, unspecified
[2020-11-02] MEDS: AMPICILLIN 2,000 MG in SODIUM CHLOR 0.9% AD-VAN 100 ML IV SCH ×6 (02:18→21:22)
[2020-11-02] MEDS: LEVOTHYROXINE SODIUM 100 MCG TABLET PO SCH (05:28)
[2020-11-02] MEDS: ISOSORBIDE MONO EXTENDED REL 60 MG TABCR PO SCH (07:49)
[2020-11-02] MEDS: APIXABAN 5 MG TABLET PO SCH ×2 (07:50→20:20)
[2020-11-02] MEDS: FAMOTIDINE 20 MG TAB PO SCH ×2 (07:50→20:20)
[2020-11-02] MEDS: METOPROLOL SUCC 25MG EXT REL TAB PO SCH ×2 (07:50→20:17)
[2020-11-02] MEDS: PANTOprazole 40 MG TAB PO SCH ×2 (07:50→20:20)
[2020-11-02] MEDS: buPROPion SR 150 MG TABCR PO SCH ×2 (07:51→20:17)
[2020-11-02] MEDS: FUROSEMIDE 20 MG TAB PO SCH ×2 (07:51→16:04)
[2020-11-02] MEDS: SPIRONOLACTONE 25 MG TAB PO SCH (07:52)
[2020-11-02] MEDS: FERROUS SULFATE 325 MG TAB PO SCH ×2 (07:52→16:04)
[2020-11-02] MEDS: SUCRALFATE 1 GM/10 ML UDC PO SCH ×4 (07:53→20:16)
[2020-11-02] MEDS: POLYETHYLENE (MIRALAX) 17 GM PACK PO SCH (08:49)
[2020-11-02] MEDS: INSULIN GLARGINE SOLOSTAR 100 UNITS/ML 3 ML PEN SC SCH ×2 (08:50→21:20)
[2020-11-02] MEDS: INSULIN ASPART 100 UNITS/ML 3 ML PEN SC SCH ×4 (08:51→21:19)
--- NOTE | 2020-11-02 09:14 | Pharmacy Report ---
Pharmacy Glycemic Short Note 2 - Date of Service November 02, 2020 - Glycemic Short BSG Results (Last 24 hours): 11/01/20 11/01/20 11/01/20 12:11 17:10 20:25 POC Glucose 169 H 117 H 126 H 11/02/20 08:06 POC Glucose 113 H OUTPATIENT ANTIDIABETIC REGIMEN: * Tresiba 80 units SC BID * Novolog 15 units SC BID * Trulicity 1.5 mg SC weekly * HbA1c = 7.2% (10/26/20) ASSESSMENT: 11/02: * BSGs yesterday of 120, 169, 117, and 126 mg/dL * Patient received 33 units of basal Lantus and 36 units of Novolog * Fasting BSG of 113 mg/dL this morning - will schedule Lantus 16 units SC BID * Continues on ampicillin 2 g IV q4h 10/29: * Pt has received 48 units of insulin over the past 24hrs * 30 units of basal with Lantus * 18 units of bolus with NovoLog * BSGs well controlled at 98, 118, 133, and 128 mg/dL * AM fasting BSG of 122 mg/dL this morning, up from 98 mg/dL yesterday * Will plan to increase basal today ~10-20% * Patient with bacteremia (E. faecalis) secondary to unknown source - receiving ampicillin 2 g IV q4h 10/25: * 79 yo M admitted secondary to nausea and vomiting. Pharmacy has been consulted to assist with inpatient glycemic management. Patient is known to pharmacy glycemic service. * BSG upon admission was 98 mg/dL * Will hold all basal insulin at this time per consulting provider * Likely that patient will require some Lantus this evening * Starting Novolog based on previous admission data PLAN FOR INPATIENT GLYCEMIC CONTROL: * Basal insulin: * Lantus 16 units SC BID * Bolus insulin: * NovoLog per scale ACHS or Q6hrs while NPO * Goal Range: Low 110 mg/dL - High 150 mg/dL * Correction Factor: 12 mg/dL/unit * Nutritional / Prandial insulin per carb ratio of 1 unit per 3 grams CHO consumed PLAN FOR DISCHARGE: * HbA1c = 7.2% (10/26/20). This is at patient's goal of less than 8% and has improved from 8.6% in July 2020. * Recommend continuing outpatient regimen upon discharge, provided patient has baseline appetite at discharge * Insulin needs have been significantly reduced as an inpatient (will continue to follow)
--- NOTE | 2020-11-02 16:12 | Hospitalist Progress Note ---
Date of Service November 02, 2020 Assessment & Plan (1) Bacteremia: Growing Enterococcus faecalis 4/4 bottles on initial BCxs Unknown source, but does have this liver mass seen on CT abd/pel which could be an abscess-pt declines procedure to biopsy/aspirate this UA is negative No skin wounds, no abdominal pain, no diarrhea - liver ultrasound performed here and no longer shows a mass -Would recommend repeating CT of the abdomen as an outpatient in 1 month to see if 3 cm lesion still present -have since discontinued IV vancomycin and narrowed down to IV ampicillin -Repeat blood cultures drawn on 10/28 no growth at 5 days Consult ID-report reviewed via CM with access to [facility] chart--> recommending Ampicillin for enterococcus, would recommend SUE but patient refuses TTE shows no vegetations talked with ID on 10/31, final recommendation is for Ampicillin for 6 weeks to cover possible SBE plan for SNF, making referrals, can go to [facility] tomorrow, daughter will transport PICC line placed on 10/30 he will need Ampicillin IV until 12/08/20 (2) Nausea & vomiting: Presented with 24 hours of nausea/vomiting along with sweats and chills at home. Lactate elevated at 2.3 and creatinine mildly elevated over baseline at 1.66. Has a history of similar presentation recently with admission resulting in Klebsiella bacteremia. And now again here with Enterococcus bacteremia LFTs, lipase normal Nausea vomiting have now resolved and he is tolerating regular diet With worsening microcytic anemia with hemoglobin of 9-10, has a history of GERD, could have peptic ulcer disease, gastritis, or esophageal mass? -Consulted GI to see about EGD-plan to do this as an outpatient if patient agreeable once he is over his bacteremia -Continue Protonix 40 mg p.o. twice daily and GI added Pepcid and Carafate -Follow CBC, CMP, magnesium (3) Liver mass: Known to be 5.2 cm on previous scan, has previously declined work-up CT here noncontrast shows only 3 cm hypodense lesion Question if is abscess versus solid mass? Liver ultrasound here negative for mass Check alpha-fetoprotein: normal, argues against HCC Could be metastatic versus primary, but it is shrinking Hep C antibodies negative from previous Has splenomegaly 21 cm and cirrhosis on CT As above, would repeat CT abdomen in 1 month f/u with GI (4) Anemia: As above, worsening from previous and microcytic, stable though for a few days Iron studies consistent with significant iron deficiency although ferritin elevated likely in the setting of infection with bacteremia Follow CBC Consult GI to see about EGD-plan as outpatient as above Okay to continue Eliquis and follow CBC Continue aspirin given high risk with history of CABG -Started ferrous sulfate 325 mg p.o. twice daily Would not give IV iron in the setting of bacteremia (5) Elevated lactic acid level: Elevated on admission at 2.3, now resolved after IV fluids Related to sepsis versus dehydration (6) Atrial fibrillation: With a history of such Is in ventricularly paced rhythm on telemetry here Continue Eliquis as there will be no procedures this admission Continue metoprolol (7) Chronic congestive heart failure: Acute on Chronic systolic CHF--now with worsening dyspnea, tachypnea at rest Did receive IVFs on admission for dehydration/N/V ischemic cardiomyopathy with EF 30-35% -Initially held home Lasix, spironolactone, and lisinopril for mild renal insufficiency and borderline low blood pressure in the setting of nausea/vomiting-they have since been restarted except lisinopril Echocardiogram with severely reduced EF here Continue metoprolol -Restarted home Lasix and spironolactone Continue to hold lisinopril, BP is low normal (8) Chronic kidney disease, stage III (moderate): Baseline creatinine around 1.4 -Avoid nephrotoxins -renally dose meds when appropriate -follow BMP With mild renal insufficiency here, holding lisinopril, Lasix, spironolactone as above and have since restarted Lasix and spironolactone (9) COPD, moderate: No acute issues Not on inhalers (10) Coronary artery disease: Status post CABG Continue aspirin, metoprolol, isosorbide No chest pain or acute issues, troponin negative (11) Depression: Continue bupropion (12) Diabetes mellitus type 2, uncontrolled: Glucose within normal limits upon admission likely secondary to recent vomiting Holding Trulicity from home Glycemic pharmacy management appreciated Insulin sliding scale and Accu-Cheks Hemoglobin A1c well controlled at 7.2% monitor for hypoglycemia, no episodes (13) Hypercholesterolemia: Continue Vytorin (14) Hypertension: Blood pressures low on admission from dehydration but improved with IV fluids Continue to hold home lisinopril, but restarted Lasix, spironolactone as above Continue metoprolol and isosorbide for history of CAD (15) Hypothyroidism: TSH normal Continue home levothyroxine (16) Ischemic cardiomyopathy: As above (17) Prostate cancer: Status post brachytherapy seeds in prostate Having urinary retention requiring multiple straight catheterizations He is refusing Person catheter Started Flomax Continue to straight cath for PVR greater than 400 mL-PVRs have been 300 mL max today Consider consulting urology if needed (18) Pulmonary nodule: Followed as an outpatient (19) Sleep apnea: Noted, will need to find out if he uses CPAP (20) Ventricular tachycardia (paroxysmal): Has ICD in place Monitor on telemetry Continue beta-gaivn (21) Anxiety: Significantly increased by having to stay in the hospital Continue bupropion -continue hydroxyzine 10 mg p.o. every 8 hours as needed (22) Hyponatremia: stable (23) DVT prophylaxis: Eliquis Disposition-continued stay until repeat blood cultures negative x48 hours, PICC line versus ultrasound-guided IV will need to be placed, and IV antibiotics will need to be set up at home through the [place] Full code daughter Sherrill Admission and Anticipated Discharge Date Admission Date: October 26, 2020 Subjective patient doing fine, no issues, he was able to move his bowels he is frustrated that he is stuck in the hospital and wants to go to SNF checked with case finisher several times, still awaiting insurance authorization for [facility] patient eating well, no chest pain, no dyspnea, no fever Review of Systems Review of Systems: All systems reviewed & are unremarkable except as noted in Subjective Physical Exam Constitutional: WD/WN, vitals as above Neck: trachea midline, no thyromegaly Respiratory: normal respiratory effort, lungs clear to auscultation Cardiovascular: RRR, no murmur, no edema Gastrointestinal (Abdomen): normal bowel sounds, soft, nontender, no hepatosplenomegaly Musculoskeletal: no cyanosis or clubbing, extremities motor strength 5/5 Skin: no rashes, warm and dry Neurologic: patellar DTR's 2+ bilat, sensation intact and PERRL, EOMI, a ccommodation nl, no face palsy, no dysarthria Psychiatric: A+Ox3, euthymic affect Lymphatic: no cervical or axillary lymphadenopathy Results & Data Results & Data ([facility]) Vital Signs (Past 12 Hours) Vital Signs Temp Pulse Resp BP Pulse Ox 11/02/20 15:36 36.7 C 90 18 118/72 96 11/02/20 07:25 36.6 C 90 18 128/81 95 Laboratory Results Laboratory Results - last 24 hr 11/01/20 11/01/20 11/01/20 16:20 16:20 17:10 POC Glucose 117 H COVID-19 Eval [facility] SARS-CoV-2, RNA, NAAT NEGATIVE 11/01/20 11/02/20 11/02/20 20:25 08:06 12:23 POC Glucose 126 H 113 H 189 H COVID-19 Eval Order SARS-CoV-2, RNA, NAAT Medications Administered Current Inpatient Medications Apixaban (Apixaban 5 Mg Tablet) 5 mg PO BID [facility] Stop: 11/24/20 09:04 Last Admin: 11/02/20 07:50 Dose: 5 mg Documented by: Aspirin (Aspirin 81 Mg Ectab) 81 mg PO HS [facility] Stop: 11/24/20 20:59 Last Admin: 11/01/20 21:07 Dose: 81 mg Documented by: Bupropion HCl (Bupropion Sr 150 Mg Tabcr) 150 mg PO BID [facility] Stop: 11/24/20 09:04 Last Admin: 11/02/20 07:51 Dose: 150 mg Documented by: Dextrose (Dextrose 50% 50 Ml Syringe) 25 - 50 ml IV UD PRN; Protocol PRN Reason: Hypoglycemia Protocol Stop: 11/24/20 09:04 Ezetimibe (Ezetimibe 10 Mg Tablet) 10 mg PO HS [facility] Stop: 11/25/20 20:59 Last Admin: 11/01/20 21:08 Dose: 10 mg Documented by: Famotidine (Famotidine 20 Mg Tab) 20 mg PO BID [facility] Stop: 11/25/20 20:59 Last Admin: 11/02/20 07:50 Dose: 20 mg Documented by: Fenofibrate (Fenofibrate Nanocrystallized 145 Mg Tablet) 145 mg PO HS [facility] Stop: 11/25/20 20:59 Last Admin: 11/01/20 21:06 Dose: 145 mg Documented by: Ferrous Sulfate (Ferrous Sulfate 325 Mg Tab) 325 mg PO BID [facility] Stop: 11/25/20 16:59 Last Admin: 11/02/20 16:04 Dose: 325 mg Documented by: Folic Acid (Folic Acid 1 Mg Tab) 1 mg PO HS [facility] Stop: 11/25/20 20:59 Last Admin: 11/01/20 21:07 Dose: 1 mg Documented by: Furosemide (Furosemide 20 Mg Tab) 60 mg PO BID17 [facility] Stop: 11/25/20 16:59 Last Admin: 11/02/20 16:04 Dose: 60 mg Documented by: Glucagon (Glucagon For Inj 1 Mg Vial) 1 mg SQ UD PRN; Protocol PRN Reason: Hypoglycemia Protocol Stop: 11/24/20 09:04 Glucose (Glucose 10 Tabs/Tube) 4 - 8 tabs PO UD PRN; Protocol PRN Reason: Hypoglycemia Protocol Stop: 11/24/20 09:04 Glucose (Glucose 40% Gel 15 Gm Tube) 15 - 30 gm PO UD PRN; Protocol PRN Reason: Hypoglycemia Protocol Stop: 11/24/20 09:04 Heparin Sodium (Beef Lung) (Heparin 10 Unit/Ml 5 Ml Flush) 5 ml FLUSH PRN PRN PRN Reason: Flush Stop: 11/29/20 17:54 Last Admin: 11/02/20 06:10 Dose: 5 ml Documented by: Hydroxyzine HCl (Hydroxyzine Hcl 10 Mg Tab) 10 mg PO Q8H PRN PRN Reason: anxiety Stop: 11/26/20 14:27 Last Admin: 11/01/20 08:23 Dose: 10 mg Documented by: Ampicillin Sodium 2,000 mg/ (Sodium Chloride) 100 mls @ 200 mls/hr IV Q4H [facility] Stop: 11/10/20 13:59 Last Infusion: 11/02/20 15:34 Dose: Infused Documented by: Insulin Aspart (Insulin Aspart 100 Units/Ml 3 Ml Pen) 0 units SC ACHS [facility]; Protocol Stop: 11/24/20 11:29 Last Admin: 11/02/20 12:36 Dose: 21 units Documented by: Insulin Glargine (Insulin Glargine Solostar 100 Units/Ml 3 Ml Pen) 16 units SC BID [facility]; Protocol Stop: 12/02/20 08:59 Last Admin: 11/02/20 08:50 Dose: 16 units Documented by: Isosorbide Mononitrate (Isosorbide [place] Extended Rel 60 Mg Tabcr) 60 mg PO DAILY [facility] Stop: 11/24/20 09:04 Last Admin: 11/02/20 07:49 Dose: 60 mg Documented by: Levothyroxine Sodium (Levothyroxine Sodium 100 Mcg Tablet) 100 mcg PO DAILYBB [facility] Stop: 11/25/20 06:29 Last Admin: 11/02/20 05:28 Dose: 100 mcg Documented by: Metoprolol Succinate (Metoprolol Succ 25mg Ext Rel Tab) 25 mg PO BID [facility] Stop: 11/24/20 09:04 Last Admin: 11/02/20 07:50 Dose: 25 mg Documented by: Miscellaneous (Carbohydrates For Hypoglycemia ) 15 - 30 gm PO UD PRN PRN Reason: Hypoglycemia Protocol Stop: 11/24/20 09:04 Miscellaneous Information (Pharmacy Glycemic Mgmt Consult) 1 ea N/A UD PRN; Protocol PRN Reason: Consult Stop: 11/24/20 09:27 Nitroglycerin (Nitroglycerin Sl 0.4 Mg/Tab Tab) 0.4 mg SL UD PRN PRN Reason: chest pain Stop: 11/24/20 09:04 Ondansetron HCl (Ondansetron Inj 2 Mg/Ml 2 Ml Vial) 4 mg IV Q6H PRN PRN Reason: Nausea Stop: 11/24/20 07:59 Last Admin: 11/01/20 18:44 Dose: 4 mg Documented by: Pantoprazole Sodium (Pantoprazole 40 Mg Tab) 40 mg PO BID [facility] Stop: 11/24/20 10:14 Last Admin: 11/02/20 07:50 Dose: 40 mg Documented by: Polyethylene Glycol (Polyethylene (Miralax) 17 Gm Pack) 17 gm PO DAILY [facility] Stop: 12/01/20 16:59 Last Admin: 11/02/20 08:49 Dose: 17 gm Documented by: Simvastatin (Simvastatin 40 Mg Tab) 80 mg PO HS [facility] Stop: 11/25/20 20:59 Last Admin: 11/01/20 21:06 Dose: 80 mg Documented by: Sodium Chloride (Sodium Chloride 0.65% Na Soln 45 Ml ([place])) 1 sprays NA NOW PRN PRN Reason: Congestion Stop: 11/27/20 22:21 Spironolactone (Spironolactone 25 Mg Tab) 25 mg PO QAM [facility] Stop: 11/26/20 08:59 Last Admin: 11/02/20 07:52 Dose: 25 mg Documented by: Sucralfate (Sucralfate 1 Gm/10 Ml Udc) 1 gm PO QID [facility] Stop: 11/25/20 12:59 Last Admin: 11/02/20 16:04 Dose: 1 gm Documented by: Tamsulosin HCl (Tamsulosin Hcl 0.4 Mg Cap) 0.4 mg PO HS [facility] Stop: 11/24/20 20:59 Last Admin: 11/01/20 21:07 Dose: 0.4 mg Documented by: Vitamin D (Cholecalciferol 1,000 Units 25 Mcg Tab) 1,000 units PO [facility] Stop: 11/25/20 20:59 Last Admin: 11/01/20 21:07 Dose: 1,000 units Documented by: PG Care Time/CCT Total # of Minutes Spent Total Time Spent with Patient: Total time spent is greater than 50% in coordination of care (as documented) at patient's floor/unit and/or counseling patient: Coding Level of Care Code 58979 Subseq Hosp Care Lvl 2 Diagnoses Bacteremia R78.81 Nausea & vomiting R11.2 Vomiting Intractability: unspecified Vomiting type: unspecified Liver mass R16.0 Anemia D64.9 Elevated lactic acid level R79.89 Atrial fibrillation I48.20 Atrial fibrillation type: unspecified chronic Chronic congestive heart failure I50.9 Heart failure type: unspecified Chronic kidney disease, stage III (moderate) N18.3 COPD, moderate J44.9 Coronary artery disease I25.10 Associated angina: angina presence unspecified Coronary Disease-Associated Artery/Lesion type: [place] artery [place] vs. transplanted heart: [place] heart Depression F32.9 Active/Remission status: remission status unspecified Depression Type: major depressive disorder Major depression recurrence: unspecified whether recurrent Diabetes mellitus type 2, uncontrolled E11.65 Hypercholesterolemia E78.00 Hypertension I10 Hypertension type: essential hypertension Hypothyroidism E03.9 Hypothyroidism type: unspecified Ischemic cardiomyopathy I25.5 Prostate cancer C61 Pulmonary nodule R91.1 Sleep apnea G47.30 Ventricular tachycardia (paroxysmal) I47.2 Anxiety F41.9 Hyponatremia E87.1 DVT prophylaxis Z29.9 (1) Coronary artery disease Associated angina: angina presence unspecified Coronary Disease-Associated Artery/Lesion type: [place] artery [place] vs. transplanted heart: [place] heart Qualified Code(s): I25.10 - Atherosclerotic heart disease of [place] coronary artery without angina pectoris (2) Chronic congestive heart failure Heart failure type: unspecified Qualified Code(s): I50.9 - Heart failure, unspecified (3) Atrial fibrillation Atrial fibrillation type: unspecified chronic Qualified Code(s): I48.20 - Chronic atrial fibrillation, unspecified (4) Depression Active/Remission status: remission status unspecified Depression Type: major depressive disorder Major depression recurrence: unspecified whether recurrent Qualified Code(s): F32.9 - Major depressive disorder, single episode, unspecified (5) Hypothyroidism Hypothyroidism type: unspecified Qualified Code(s): E03.9 - Hypothyroidism, unspecified (6) Nausea & vomiting Vomiting Intractability: unspecified Vomiting type: unspecified Qualified Code(s): R11.2 - Nausea with vomiting, unspecified (7) Hypertension Hypertension type: essential hypertension Qualified Code(s): I10 - Essential (primary) hypertension
[2020-11-02] MEDS: SIMVASTATIN 40 MG TAB PO SCH (20:16)
[2020-11-02] MEDS: CHOLECALCIFEROL 1,000 UNITS 25 MCG TAB PO SCH (20:17)
[2020-11-02] MEDS: FENOFIBRATE NANOCRYSTALLIZED 145 MG TABLET PO SCH (20:17)
[2020-11-02] MEDS: FOLIC ACID 1 MG TAB PO SCH (20:20)
[2020-11-02] MEDS: TAMSULOSIN HCL 0.4 MG CAP PO SCH (20:20)
[2020-11-02] MEDS: ASPIRIN 81 MG ECTAB PO SCH (20:21)
[2020-11-02] MEDS: EZETIMIBE 10 MG TABLET PO SCH (20:22)
[2020-11-02] MEDS ORDERED: POLYETHYLENE (MIRALAX) 17 GM PACK PO PRN (21:02)
[2020-11-03] MEDS: AMPICILLIN 2,000 MG in SODIUM CHLOR 0.9% AD-VAN 100 ML IV SCH ×6 (01:55→21:30)
[2020-11-03] MEDS: LEVOTHYROXINE SODIUM 100 MCG TABLET PO SCH (06:08)
[2020-11-03] MEDS: ONDANSETRON INJ 2 MG/ML 2 ML VIAL IV PRN (07:51)
[2020-11-03] MEDS: SUCRALFATE 1 GM/10 ML UDC PO SCH ×4 (07:54→20:24)
[2020-11-03] MEDS: FERROUS SULFATE 325 MG TAB PO SCH ×2 (07:55→16:27)
[2020-11-03] MEDS: ISOSORBIDE MONO EXTENDED REL 60 MG TABCR PO SCH (08:36)
[2020-11-03] MEDS: APIXABAN 5 MG TABLET PO SCH ×2 (08:36→20:23)
[2020-11-03] MEDS: FUROSEMIDE 20 MG TAB PO SCH ×2 (08:37→16:27)
[2020-11-03] MEDS: SPIRONOLACTONE 25 MG TAB PO SCH (08:37)
[2020-11-03] MEDS: FAMOTIDINE 20 MG TAB PO SCH ×2 (08:37→20:27)
[2020-11-03] MEDS: METOPROLOL SUCC 25MG EXT REL TAB PO SCH ×2 (08:37→20:22)
[2020-11-03] MEDS: PANTOprazole 40 MG TAB PO SCH ×2 (08:37→20:23)
[2020-11-03] MEDS: buPROPion SR 150 MG TABCR PO SCH ×2 (08:37→20:22)
[2020-11-03] MEDS: POLYETHYLENE (MIRALAX) 17 GM PACK PO SCH (08:38)
[2020-11-03] MEDS: INSULIN ASPART 100 UNITS/ML 3 ML PEN SC SCH ×4 (08:39→21:26)
[2020-11-03 08:46] LABS: Creatinine Clr Calc Pharmacy 50.1 ml/min; Est GFR (African American) 44.7; Est GFR (Non-African American) 38.6
[2020-11-03] MEDS: INSULIN GLARGINE SOLOSTAR 100 UNITS/ML 3 ML PEN SC SCH ×2 (09:18→21:26)
[2020-11-03] MEDS: hydrOXYzine HCl 10 MG TAB PO PRN (13:10)
--- NOTE | 2020-11-03 19:01 | Hospitalist Progress Note ---
Date of Service November 03, 2020 Assessment & Plan (1) Bacteremia: Growing Enterococcus faecalis 4/4 bottles on initial BCxs Unknown source, but does have this liver mass seen on CT abd/pel which could be an abscess-pt declines procedure to biopsy/aspirate this UA is negative No skin wounds, no abdominal pain, no diarrhea - liver ultrasound performed here and no longer shows a mass -Would recommend repeating CT of the abdomen as an outpatient in 1 month to see if 3 cm lesion still present -have since discontinued IV vancomycin and narrowed down to IV ampicillin -Repeat blood cultures drawn on 10/28 no growth at 5 days Consult ID-report reviewed via CM with access to [employer] chart--> recommending Ampicillin for enterococcus, would recommend SUE but patient refuses TTE shows no vegetations talked with ID on 10/31, final recommendation is for Ampicillin for 6 weeks to cover possible SBE plan for SNF, making referrals, can go to [facility] tomorrow, daughter will transport PICC line placed on 10/30 he will need Ampicillin IV until 12/08/20 (2) Nausea & vomiting: Presented with 24 hours of nausea/vomiting along with sweats and chills at home. Lactate elevated at 2.3 and creatinine mildly elevated over baseline at 1.66. Has a history of similar presentation recently with admission resulting in Klebsiella bacteremia. And now again here with Enterococcus bacteremia LFTs, lipase normal Nausea vomiting have now resolved and he is tolerating regular diet With worsening microcytic anemia with hemoglobin of 9-10, has a history of GERD, could have peptic ulcer disease, gastritis, or esophageal mass? -Consulted GI to see about EGD-plan to do this as an outpatient if patient agreeable once he is over his bacteremia -Continue Protonix 40 mg p.o. twice daily and GI added Pepcid and Carafate -Follow CBC, CMP, magnesium (3) Liver mass: Known to be 5.2 cm on previous scan, has previously declined work-up CT here noncontrast shows only 3 cm hypodense lesion Question if is abscess versus solid mass? Liver ultrasound here negative for mass Check alpha-fetoprotein: normal, argues against HCC Could be metastatic versus primary, but it is shrinking Hep C antibodies negative from previous Has splenomegaly 21 cm and cirrhosis on CT As above, would repeat CT abdomen in 1 month f/u with GI (4) Anemia: As above, worsening from previous and microcytic, stable though for a few days Iron studies consistent with significant iron deficiency although ferritin elevated likely in the setting of infection with bacteremia Follow CBC Consult GI to see about EGD-plan as outpatient as above Okay to continue Eliquis and follow CBC Continue aspirin given high risk with history of CABG -Started ferrous sulfate 325 mg p.o. twice daily Would not give IV iron in the setting of bacteremia (5) Elevated lactic acid level: Elevated on admission at 2.3, now resolved after IV fluids Related to sepsis versus dehydration (6) Atrial fibrillation: With a history of such Is in ventricularly paced rhythm on telemetry here Continue Eliquis as there will be no procedures this admission Continue metoprolol (7) Chronic congestive heart failure: Acute on Chronic systolic CHF--now with worsening dyspnea, tachypnea at rest Did receive IVFs on admission for dehydration/N/V ischemic cardiomyopathy with EF 30-35% -Initially held home Lasix, spironolactone, and lisinopril for mild renal insufficiency and borderline low blood pressure in the setting of nausea/vomiting-they have since been restarted except lisinopril Echocardiogram with severely reduced EF here Continue metoprolol -Restarted home Lasix and spironolactone resumed Lisinopril (8) Chronic kidney disease, stage III (moderate): Baseline creatinine around 1.4 -Avoid nephrotoxins -renally dose meds when appropriate -follow BMP renal function is stable (9) COPD, moderate: No acute issues Not on inhalers (10) Coronary artery disease: Status post CABG Continue aspirin, metoprolol, isosorbide No chest pain or acute issues, troponin negative (11) Depression: Continue bupropion (12) Diabetes mellitus type 2, uncontrolled: Glucose within normal limits upon admission likely secondary to recent vomiting Holding Trulicity from home Glycemic pharmacy management appreciated Insulin sliding scale and Accu-Cheks Hemoglobin A1c well controlled at 7.2% monitor for hypoglycemia, no episodes (13) Hypercholesterolemia: Continue Vytorin (14) Hypertension: Blood pressures low on admission from dehydration but improved with IV fluids Continue to hold home lisinopril, but restarted Lasix, spironolactone as above Continue metoprolol and isosorbide for history of CAD (15) Hypothyroidism: TSH normal Continue home levothyroxine (16) Ischemic cardiomyopathy: As above (17) Prostate cancer: Status post brachytherapy seeds in prostate Having urinary retention requiring multiple straight catheterizations He is refusing Person catheter Started Flomax Continue to straight cath for PVR greater than 400 mL-PVRs have been 300 mL max today Consider consulting urology if needed (18) Pulmonary nodule: Followed as an outpatient (19) Sleep apnea: Noted, will need to find out if he uses CPAP (20) Ventricular tachycardia (paroxysmal): Has ICD in place Monitor on telemetry Continue beta-gavin (21) Anxiety: Significantly increased by having to stay in the hospital Continue bupropion -continue hydroxyzine 10 mg p.o. every 8 hours as needed (22) Hyponatremia: stable (23) DVT prophylaxis: [place] Disposition- will d/c to [facility] once insurance authorized transfer Full code daughter Sherrill Admission and Anticipated Discharge Date Admission Date: October 26, 2020 Subjective patient doing well, just waiting on insurance auth for [facility] case specialist called insurance several times, no answer today patient is eating well, drinking well, no fever/chills he is frustrated that he cannot get out of the hospital I apologized for the delay, assured him we are checking with the insurance company often, pushing them for a response Review of Systems Review of Systems: All systems reviewed & are unremarkable except as noted in Subjective Physical Exam Constitutional: WD/WN, vitals as above Neck: trachea midline, no thyromegaly Respiratory: normal respiratory effort, lungs clear to auscultation Cardiovascular: RRR, no murmur, no edema Gastrointestinal (Abdomen): normal bowel sounds, soft, nontender, no hepatosplenomegaly Musculoskeletal: no cyanosis or clubbing, extremities motor strength 5/5 Skin: no rashes, warm and dry Neurologic: patellar DTR's 2+ bilat, sensation intact and PERRL, EOMI, accommodation nl, no face palsy, no dysarthria Psychiatric: A+Ox3, euthymic affect Lymphatic: no cervical or axillary lymphadenopathy Results & Data Results & Data ([facility]) Vital Signs (Past 12 Hours) Vital Signs Temp Pulse Resp BP Pulse Ox Pulse Ox 11/03/20 15:24 36.8 C 91 H 17 128/72 95 11/03/20 09:00 95 11/03/20 07:41 36.8 C 92 H 16 123/68 96 Laboratory Results Laboratory Results - last 24 hr 11/02/20 11/03/20 11/03/20 20:34 08:15 08:28 Creatinine 1.68 H Est Cr Clr Drug Dosing 50.1 Est GFR ( Amer) 44.7 Est GFR (Non-Af Amer) 38.6 POC Glucose 157 H 149 H 11/03/20 11/03/20 12:07 17:20 Creatinine Est Cr Clr Drug Dosing Est GFR ( Amer) Est GFR (Non-Af Amer) POC Glucose 102 H 91 Medications Administered Current Inpatient Medications Apixaban (Apixaban 5 Mg Tablet) 5 mg PO BID [facility] Stop: 11/24/20 09:04 Last Admin: 11/03/20 08:36 Dose: 5 mg Documented by: Aspirin (Aspirin 81 Mg Ectab) 81 mg PO [facility] Stop: 11/24/20 20:59 Last Admin: 11/02/20 20:21 Dose: 81 mg Documented by: Bupropion HCl (Bupropion Sr 150 Mg Tabcr) 150 mg PO BID [facility] Stop: 11/24/20 09:04 Last Admin: 11/03/20 08:37 Dose: 150 mg Documented by: Dextrose (Dextrose 50% 50 Ml Syringe) 25 - 50 ml IV UD PRN; Protocol PRN Reason: Hypoglycemia Protocol Stop: 11/24/20 09:04 Ezetimibe (Ezetimibe 10 Mg Tablet) 10 mg PO [facility] Stop: 11/25/20 20:59 Last Admin: 11/02/20 20:22 Dose: 10 mg Documented by: Famotidine (Famotidine 20 Mg Tab) 20 mg PO BID [facility] Stop: 11/25/20 20:59 Last Admin: 11/03/20 08:37 Dose: 20 mg Documented by: Fenofibrate (Fenofibrate Nanocrystallized 145 Mg Tablet) 145 mg PO HS [facility] Stop: 11/25/20 20:59 Last Admin: 11/02/20 20:17 Dose: 145 mg Documented by: Ferrous Sulfate (Ferrous Sulfate 325 Mg Tab) 325 mg PO BID [facility] Stop: 11/25/20 16:59 Last Admin: 11/03/20 16:27 Dose: 325 mg Documented by: Folic Acid (Folic Acid 1 Mg Tab) 1 mg PO HS [facility] Stop: 11/25/20 20:59 Last Admin: 11/02/20 20:20 Dose: 1 mg Documented by: Furosemide (Furosemide 20 Mg Tab) 60 mg PO BID17 [facility] Stop: 11/25/20 16:59 Last Admin: 11/03/20 16:27 Dose: 60 mg Documented by: Glucagon (Glucagon For Inj 1 Mg Vial) 1 mg SQ UD PRN; Protocol PRN Reason: Hypoglycemia Protocol Stop: 11/24/20 09:04 Glucose (Glucose 10 Tabs/Tube) 4 - 8 tabs PO UD PRN; Protocol PRN Reason: Hypoglycemia Protocol Stop: 11/24/20 09:04 Glucose (Glucose 40% Gel 15 Gm Tube) 15 - 30 gm PO UD PRN; Protocol PRN Reason: Hypoglycemia Protocol Stop: 11/24/20 09:04 Heparin Sodium (Beef Lung) (Heparin 10 Unit/Ml 5 Ml Flush) 5 ml FLUSH PRN PRN PRN Reason: Flush Stop: 11/29/20 17:54 Last Admin: 11/03/20 08:19 Dose: 5 ml Documented by: Hydroxyzine HCl (Hydroxyzine Hcl 10 Mg Tab) 10 mg PO Q8H PRN PRN Reason: anxiety Stop: 11/26/20 14:27 Last Admin: 11/03/20 13:10 Dose: 10 mg Documented by: Ampicillin Sodium 2,000 mg/ (Sodium Chloride) 100 mls @ 200 mls/hr IV Q4H [facility] Stop: 11/10/20 13:59 Last Infusion: 11/03/20 17:50 Dose: Infused Documented by: Insulin Aspart (Insulin Aspart 100 Units/Ml 3 Ml Pen) 0 units SC ACHS [facility]; Protocol Stop: 11/24/20 11:29 Last Admin: 11/03/20 17:46 Dose: 22 units Documented by: Insulin Glargine (Insulin Glargine Solostar 100 Units/Ml 3 Ml Pen) 16 units SC BID [facility]; Protocol Stop: 12/02/20 08:59 Last Admin: 11/03/20 09:18 Dose: 16 units Documented by: Isosorbide Mononitrate (Isosorbide [place] Extended Rel 60 Mg Tabcr) 60 mg PO DAILY [facility] Stop: 11/24/20 09:04 Last Admin: 11/03/20 08:36 Dose: 60 mg Documented by: Levothyroxine Sodium (Levothyroxine Sodium 100 Mcg Tablet) [facility] Stop: 11/25/20 06:29 Last Admin: 11/03/20 06:08 Dose: 100 mcg Documented by: Metoprolol Succinate (Metoprolol Succ 25mg Ext Rel Tab) 25 mg PO BID [facility] Stop: 11/24/20 09:04 Last Admin: 11/03/20 08:37 Dose: 25 mg Documented by: Miscellaneous (Carbohydrates For Hypoglycemia ) 15 - 30 gm PO UD PRN PRN Reason: Hypoglycemia Protocol Stop: 11/24/20 09:04 Miscellaneous Information (Pharmacy Glycemic Mgmt Consult) 1 ea N/A UD PRN; Protocol PRN Reason: Consult Stop: 11/24/20 09:27 Nitroglycerin (Nitroglycerin Sl 0.4 Mg/Tab Tab) 0.4 mg SL UD PRN PRN Reason: chest pain Stop: 11/24/20 09:04 Ondansetron HCl (Ondansetron Inj 2 Mg/Ml 2 Ml Vial) 4 mg IV Q6H PRN PRN Reason: Nausea Stop: 11/24/20 07:59 Last Admin: 11/03/20 07:51 Dose: 4 mg Documented by: Pantoprazole Sodium (Pantoprazole 40 Mg Tab) 40 mg PO BID [facility] Stop: 11/24/20 10:14 Last Admin: 11/03/20 08:37 Dose: 40 mg Documented by: Polyethylene Glycol (Polyethylene (Miralax) 17 Gm Pack) 17 gm PO DAILY [facility] Stop: 12/01/20 16:59 Last Admin: 11/03/20 08:38 Dose: 17 gm Documented by: Polyethylene Glycol (Polyethylene (Miralax) 17 Gm Pack) 17 gm PO DAILY PRN PRN Reason: Constipation Stop: 12/02/20 21:01 Last Admin: 11/02/20 21:22 Dose: 17 gm Documented by: Simvastatin (Simvastatin 40 Mg Tab) 80 mg PO HS [facility] Stop: 11/25/20 20:59 Last Admin: 11/02/20 20:16 Dose: 80 mg Documented by: Sodium Chloride (Sodium Chloride 0.65% Na Soln 45 Ml (Keith)) 1 sprays NA NOW PRN PRN Reason: Congestion Stop: 11/27/20 22:21 Spironolactone (Spironolactone 25 Mg Tab) 25 mg PO QAM [facility] Stop: 11/26/20 08:59 Last Admin: 11/03/20 08:37 Dose: 25 mg Documented by: Sucralfate (Sucralfate 1 Gm/10 Ml Udc) 1 gm PO QID [facility] Stop: 11/25/20 12:59 Last Admin: 11/03/20 16:27 Dose: 1 gm Documented by: Tamsulosin HCl (Tamsulosin Hcl 0.4 Mg Cap) 0.4 mg PO [facility] Stop: 11/24/20 20:59 Last Admin: 11/02/20 20:20 Dose: 0.4 mg Documented by: Vitamin D (Cholecalciferol 1,000 Units 25 Mcg Tab) 1,000 units PO HS [facility] Stop: 11/25/20 20:59 Last Admin: 11/02/20 20:17 Dose: 1,000 units Documented by: PG Care Time/CCT Total # of Minutes Spent Total Time Spent with Patient: Total time spent is greater than 50% in coordination of care (as documented) at patient's floor/unit and/or counseling patient: Coding Level of Care Code 02842 Subseq Hosp Care Lvl 2 Diagnoses Bacteremia R78.81 Nausea & vomiting R11.2 Vomiting Intractability: unspecified Vomiting type: unspecified Liver mass R16.0 Anemia D64.9 Elevated lactic acid level R79.89 Atrial fibrillation I48.20 Atrial fibrillation type: unspecified chronic Chronic congestive heart failure I50.9 Heart failure type: unspecified Chronic kidney disease, stage III (moderate) N18.3 COPD, moderate J44.9 Coronary artery disease I25.10 Associated angina: angina presence unspecified Coronary Disease-Associated Artery/Lesion type: [place] artery [place] vs. transplanted heart: [place] heart Depression F32.9 Active/Remission status: remission status unspecified Depression Type: major depressive disorder Major depression recurrence: unspecified whether recurrent Diabetes mellitus type 2, uncontrolled E11.65 Hypercholesterolemia E78.00 Hypertension I10 Hypertension type: essential hypertension Hypothyroidism E03.9 Hypothyroidism type: unspecified Ischemic cardiomyopathy I25.5 Prostate cancer C61 Pulmonary nodule R91.1 Sleep apnea G47.30 Ventricular tachycardia (paroxysmal) I47.2 Anxiety F41.9 Hyponatremia E87.1 DVT prophylaxis Z29.9 (1) Coronary artery disease Associated angina: angina presence unspecified Coronary Disease-Associated Artery/Lesion type: [place] artery [place] vs. transplanted heart: [place] heart Qualified Code(s): I25.10 - Atherosclerotic heart disease of [place] coronary artery without angina pectoris (2) Chronic congestive heart failure Heart failure type: unspecified Qualified Code(s): I50.9 - Heart failure, unspecified (3) Atrial fibrillation Atrial fibrillation type: unspecified chronic Qualified Code(s): I48.20 - Chronic atrial fibrillation, unspecified (4) Depression Active/Remission status: remission status unspecified Depression Type: major depressive disorder Major depression recurrence: unspecified whether recurrent Qualified Code(s): F32.9 - Major depressive disorder, single episode, unspecified (5) Hypothyroidism Hypothyroidism type: unspecified Qualified Code(s): E03.9 - Hypothyroidism, unspecified (6) Nausea & vomiting Vomiting Intractability: unspecified Vomiting type: unspecified Qualified Code(s): R11.2 - Nausea with vomiting, unspecified (7) Hypertension Hypertension type: essential hypertension Qualified Code(s): I10 - Essential (primary) hypertension
[2020-11-03] MEDS: SIMVASTATIN 40 MG TAB PO SCH (20:21)
[2020-11-03] MEDS: EZETIMIBE 10 MG TABLET PO SCH (20:21)
[2020-11-03] MEDS: FENOFIBRATE NANOCRYSTALLIZED 145 MG TABLET PO SCH (20:22)
[2020-11-03] MEDS: CHOLECALCIFEROL 1,000 UNITS 25 MCG TAB PO SCH (20:22)
[2020-11-03] MEDS: TAMSULOSIN HCL 0.4 MG CAP PO SCH (20:23)
[2020-11-03] MEDS: FOLIC ACID 1 MG TAB PO SCH (20:23)
[2020-11-03] MEDS: ASPIRIN 81 MG ECTAB PO SCH (20:24)
[2020-11-04] MEDS: AMPICILLIN 2,000 MG in SODIUM CHLOR 0.9% AD-VAN 100 ML IV SCH ×3 (01:45→09:13)
[2020-11-04] MEDS: LEVOTHYROXINE SODIUM 100 MCG TABLET PO SCH (05:30)
[2020-11-04] MEDS: FERROUS SULFATE 325 MG TAB PO SCH (07:28)
[2020-11-04] MEDS: FUROSEMIDE 20 MG TAB PO SCH (08:35)
[2020-11-04] MEDS: SPIRONOLACTONE 25 MG TAB PO SCH (08:36)
[2020-11-04] MEDS: METOPROLOL SUCC 25MG EXT REL TAB PO SCH (08:36)
[2020-11-04] MEDS: FAMOTIDINE 20 MG TAB PO SCH (08:36)
[2020-11-04] MEDS: APIXABAN 5 MG TABLET PO SCH (08:36)
[2020-11-04] MEDS: PANTOprazole 40 MG TAB PO SCH (08:36)
[2020-11-04] MEDS: buPROPion SR 150 MG TABCR PO SCH (08:36)
[2020-11-04] MEDS: SUCRALFATE 1 GM/10 ML UDC PO SCH (08:37)
[2020-11-04] MEDS: ISOSORBIDE MONO EXTENDED REL 60 MG TABCR PO SCH (08:37)
[2020-11-04] MEDS: POLYETHYLENE (MIRALAX) 17 GM PACK PO SCH (08:37)
[2020-11-04] MEDS: INSULIN GLARGINE SOLOSTAR 100 UNITS/ML 3 ML PEN SC SCH (08:38)
[2020-11-04] MEDS: INSULIN ASPART 100 UNITS/ML 3 ML PEN SC SCH (08:39)
--- NOTE | 2020-11-04 11:52 | Discharge Summary ---
Date of Service November 04, 2020 Admission HPI Per Admitting Provider This patient is a 79-year-old male with a history of atrial fibrillation on Eliquis, COPD, CAD status post CABG, HTN, pacemaker, HAYLEE, V. tach, prostate cancer status post brachytherapy seeds, CKD stage III, liver mass, ischemic cardiomyopathy, hypothyroidism, DM 2,? Cirrhosis, with fairly recent admission for Klebsiella bacteremia of unknown source. He presents to the ER similar to last admission with nausea and vomiting at home x24 hours and his reports he had fevers and chills. The patient is very drowsy when I saw him after receiving Phenergan and is unable to give me much information but does deny any abdominal pains. Denies lightheadedness or headache, denies chest pains or shortness of breath. His was contacted over the phone and she speaks Micronesian and little Yoruba and was very tired and wanted to go back to sleep and also did not provide much information. Last admission, he was found to have a liver mass which had increased in size from previous. A CT of the abdomen/pelvis here was performed without contrast due to creatinine being 1.6 and showed a hypodense 3 cm lesion, but again was done without contrast. Urinalysis was not collected at the time of admission yet. His CBC was showing worsening microcytic anemia with hemoglobin of 10.4, but no leukocytosis. His lactate was elevated at 2.3. Troponin was negative, LFTs were negative, lipase was negative, and Covid-[address] of the head was negative, his ECG was in a ventricularly paced rhythm. Blood cultures were collected and he will be admitted on observation for nausea/vomiting, with concern for early sepsis with a history of bacteremia. Principal Diagnosis Enterococcus bacteremia, possible endocarditis Discharge Exam Constitutional WD/WN, vitals as above Neck trachea midline, no thyromegaly Respiratory normal respiratory effort, lungs clear to auscultation Cardiovascular RRR, no murmur, no edema Gastrointestinal (Abdomen) normal bowel sounds, soft, nontender, no hepatosplenomegaly Musculoskeletal no cyanosis or clubbing, extremities motor strength 5/5 Skin no rashes, warm and dry Neurologic patellar DTR's 2+ bilat, sensation intact and PERRL, EOMI, accommodation nl, no face palsy, no dysarthria Psychiatric A+Ox3, euthymic affect Lymphatic no cervical or axillary lymphadenopathy Discharge Data Allergies Allergy/AdvReac Type Severity Reaction Status Date / Time carvedilol Allergy Unknown Unknown Verified 10/25/20 06:10 Consultations 10/25/20 09:05 Consult Gastroenterology Routine 10/26/20 09:03 Consult Infectious Diseases Routine Ordered Studies 10/25/20 04:42 CT abd pelvis wo con Urgent 10/25/20 04:55 CT head/brain wo con Urgent 10/26/20 19:50 US liver Routine Hospital Course (1) Bacteremia: Growing Enterococcus faecalis 4/4 bottles on initial BCxs Unknown source, but does have this liver mass seen on CT abd/pel which could be an abscess-pt declines procedure to biopsy/aspirate this UA is negative No skin wounds, no abdominal pain, no diarrhea - liver ultrasound performed here and no longer shows a mass -Would recommend repeating CT of the abdomen as an outpatient in 1 month to see if 3 cm lesion still present -have since discontinued IV vancomycin and narrowed down to IV ampicillin -Repeat blood cultures drawn on 10/28 no growth at 5 days Consult ID-report reviewed via CM with access to [employer] chart--> recommending Ampicillin for enterococcus, would recommend SUE but patient refuses TTE shows no vegetations talked with ID on 10/31, final recommendation is for Ampicillin for 6 weeks to cover possible SBE plan for SNF, making referrals, can go to [facility] tomorrow, daughter will transport PICC line placed on 10/30 he will need Ampicillin IV until 12/08/20 (2) Nausea & vomiting: Presented with 24 hours of nausea/vomiting along with sweats and chills at home. Lactate elevated at 2.3 and creatinine mildly elevated over baseline at 1.66. Has a history of similar presentation recently with admission resulting in Klebsiella bacteremia. And now again here with Enterococcus bacteremia LFTs, lipase normal Nausea vomiting have now resolved and he is tolerating regular diet With worsening microcytic anemia with hemoglobin of 9-10, has a history of GERD, could have peptic ulcer disease, gastritis, or esophageal mass? -Consulted GI to see about EGD-plan to do this as an outpatient if patient agreeable once he is over his bacteremia [facility] [place], can follow up with Nasrin JOSE or with Dr. Rojas or Dr. Crook -Continue Protonix 40 mg p.o. twice daily and GI added Pepcid and Carafate -Follow CBC, CMP, magnesium (3) Liver mass: Known to be 5.2 cm on previous scan, has previously declined work-up CT here noncontrast shows only 3 cm hypodense lesion Question if is abscess versus solid mass? Liver ultrasound here negative for mass Check alpha-fetoprotein: normal, argues against HCC Could be metastatic versus primary, but it is shrinking Hep C antibodies negative from previous Has splenomegaly 21 cm and cirrhosis on CT As above, would repeat CT abdomen in 1 month f/u with GI, [facility] (4) Anemia: As above, worsening from previous and microcytic, stable though for a few days Iron studies consistent with significant iron deficiency although ferritin elevated likely in the setting of infection with bacteremia Follow CBC Consult GI to see about EGD-plan as outpatient as above Okay to continue Eliquis and follow CBC Continue aspirin given high risk with history of CABG -Started ferrous sulfate 325 mg p.o. twice daily Would not give IV iron in the setting of bacteremia (5) Elevated lactic acid level: Elevated on admission at 2.3, now resolved after IV fluids Related to sepsis versus dehydration (6) Atrial fibrillation: With a history of such Is in ventricularly paced rhythm on telemetry here Continue Eliquis as there will be no procedures this admission Continue metoprolol (7) Chronic congestive heart failure: Acute on Chronic systolic CHF--now with worsening dyspnea, tachypnea at rest Did receive IVFs on admission for dehydration/N/V ischemic cardiomyopathy with EF 30-35% -Initially held home Lasix, spironolactone, and lisinopril for mild renal insufficiency and borderline low blood pressure in the setting of anabell sea/vomiting-they have since been restarted except lisinopril Echocardiogram with severely reduced EF here Continue metoprolol -Restarted home Lasix and spironolactone resumed Lisinopril examines euvolemic, breathing well fluid restriction of 2L a day (8) Chronic kidney disease, stage III (moderate): Baseline creatinine around 1.4 -Avoid nephrotoxins -renally dose meds when appropriate -follow BMP renal function is stable (9) COPD, moderate: No acute issues Not on inhalers (10) Coronary artery disease: Status post CABG Continue aspirin, metoprolol, isosorbide No chest pain or acute issues, troponin negative (11) Depression: Continue bupropion (12) Diabetes mellitus type 2, uncontrolled: Glucose within normal limits upon admission likely secondary to recent vomiting Holding Trulicity from home Glycemic pharmacy management appreciated Insulin sliding scale and Accu-Cheks Hemoglobin A1c well controlled at 7.2% monitor for hypoglycemia, no episodes (13) Hypercholesterolemia: Continue Vytorin (14) Hypertension: Blood pressures low on admission from dehydration but improved with IV fluids Continue to hold home lisinopril, but restarted Lasix, spironolactone as above Continue metoprolol and isosorbide for history of CAD (15) Hypothyroidism: TSH normal Continue home levothyroxine (16) Ischemic cardiomyopathy: As above (17) Prostate cancer: Status post brachytherapy seeds in prostate Having urinary retention requiring multiple straight catheterizations He is refusing Person catheter Started Flomax urinating much better since Flomax started, continue on discharge (18) Pulmonary nodule: Followed as an outpatient (19) Sleep apnea: Noted, will need to find out if he uses CPAP (20) Ventricular tachycardia (paroxysmal): Has ICD in place Monitor on telemetry Continue beta-gavin (21) Anxiety: Significantly increased by having to stay in the hospital Continue bupropion -continue hydroxyzine 10 mg p.o. every 8 hours as needed (22) Hyponatremia: stable (23) DVT prophylaxis: Eliquis Disposition- will d/c to [facility] Full code daughter Sherrill Total Time Total Time Spent Total Time Spent (In Minutes): 34 Total Time Includes: Examination of the Patient, Discharge Planning and Medication Reconciliation Discharge Plan Discharge Items Patient Disposition: Transfer Longterm Fac Reason For Visit: NAUSEA/VOMITING Discharge Diagnosis: Enterococcus bacteremia, possible endocarditis chronic systolic heart failure Anemia chronic kidney disease Condition on Discharge: Good Goals: complete course of Ampicillin PT/OT evaluate and treat Activity: Resume your previous activity Weightbearing: Full weightbearing Non-emergency contact: Primary Care Provider Call non-emergency contact if: you have any medication questions and you have a fever Follow-up/Referrals: Clovis Klein III, MD [Primary Care Provider] - Diet: Carb Consistent or DM2 and Heart Healthy Fluids: 2000ml (8 cups) Addtl Attending Provider Instructions: Medications: - AMPICILLIN: 2gm IV q4 until 12/08/20 which will be a total of 6 weeks of treatment for possible endocarditis - FERROUS SULFATE: twice a day for anemia - PROTONIX: 40mg daily - FLOMAX:0.4mg daily Bacteremia, final cultures grew out Enterococcus unclear etiology, he had a TTE with no evidence of vegetations initial repeat cultures with persistent growth but only in one of four final cultures on 10/28/20 with no growth at 5 days discussed with infectious disease, patient refused to get a SUE to officially rule out endocarditis ID recommends 6 weeks of antibiotics, can use Ampicillin, had a PICC line placed 10/30/20 Anemia: can follow up with GI after treatment for bacteremia, no lombardo continue Ferrous sulfate Liver lesion: has been present for some time, actually getting smaller AFP is normal which argues against HCC recommend repeat CT abd/pelvis in 4 weeks, see d/c summary for more details Pending Studies at Discharge: No Stand-Alone Forms: My [facility] Skilled Items Patient informed of condition?: Yes DNR: No Discharge Level of Care: Skilled Communicable Disease: No Discharge Prognosis: Stable Lines: PICC Urinary Catheter: No Medications and DC Order Prescriptions: New tamsulosin 0.4 mg Capsule 0.4 mg PO HS 30 Days Qty: 30 RF: 0 ferrous sulfate 325 mg (65 mg iron) Tablet,Delayed Release (Dr/Ec) 325 mg PO BIDM 30 Days Qty: 60 RF: 2 pantoprazole 40 mg Tablet,Delayed Release (Dr/Ec) 40 mg PO DAILY 30 Days Qty: 30 RF: 3 Continued Novolog Flexpen U-100 Insulin 100 unit/mL (3 mL) insulin pen 15 units SQ BID Qty: 15 RF: 3 fenofibrate nanocrystallized 145 mg tablet 145 mg PO HS Qty: 90 RF: 3 levothyroxine 100 mcg tablet 100 mcg PO QAM Qty: 90 RF: 3 ezetimibe-simvastatin 10-80 mg tablet 1 tab PO HS Qty: 90 RF: 3 Tresiba FlexTouch U-100 100 unit/mL (3 mL) insulin pen 80 unit SUBCUT BID Qty: 15 RF: 5 spironolactone 25 mg tablet 25 mg PO QAM Qty: 90 RF: 3 isosorbide mononitrate 60 mg tablet extended release 24 hr 60 mg PO DAILY Qty: 90 RF: 3 folic acid 1 mg tablet 1 mg PO HS RF: 0 ascorbic acid (vitamin C) 500 mg tablet 500 mg PO HS RF: 0 lisinopril 10 mg tablet 10 mg PO QAM RF: 0 cholecalciferol (vitamin D3) 1,000 unit capsule 1,000 units PO HS RF: 0 ondansetron HCl [Zofran] 4 mg tablet 4 mg PO Q6H PRN (Reason: nausea and vomiting) Qty: 30 RF: 4 nitroglycerin 0.4 mg tablet, sublingual 0.4 mg SL .PPRN/UD PRN (Reason: chest pain) RF: 0 furosemide 40 mg Tablet 60 mg PO BID RF: 0 metoprolol succinate 25 mg tablet extended release 24 hr 25 mg PO BID RF: 0 apixaban 5 mg Tablet 5 mg PO BID RF: 0 bupropion HCl 150 mg Tablet Sustained-Release 12 Hr 150 mg PO BID RF: 0 Trulicity 1.5 mg/0.5 mL pen injector 1.5 mg SUBCUT WK RF: 0 aspirin 81 mg Tablet,Delayed Release (Dr/Ec) 81 mg PO HS RF: 0 omega 0-opd-wmk-fish oil [Fish Oil] 1,000 mg (120 mg-180 mg) Capsule 1 cap PO HS RF: 0 Discharge Orders: Discharge Order (Routine); Ordered 11/04/20 Ordered By: Jacques Ludwig/Other Patient Handouts: High Blood Sugar (Hyperglycemia), Hypoglycemia (Low Blood Sugar), Managing Type 2 Diabetes Admission Data Admit Date/Time: 10/26/20 09:01 Attending Provider: Jacques Snow Admit Provider: Savannah Mccrary Primary Care Provider: Clovis Klein III Other Providers: Leandro Rojas ; Simon Miller ; Gloria Bansal ; Damian Griffith I. ; Yahir Bianchi II ; Becky Saleh ; Emigdio Cantu ; [facility] ; [facility] ; [facility] ; [facility], [facility] [place] Care Code D/C Day Management >30 mins Diagnoses Bacteremia R78.81 Nausea & vomiting R11.2 Vomiting type: unspecified Vomiting Intractability: unspecified Liver mass R16.0 Anemia D64.9 Elevated lactic acid level R79.89 Atrial fibrillation I48.20 Atrial fibrillation type: unspecified chronic Chronic congestive heart failure I50.9 Heart failure type: unspecified Chronic kidney disease, stage III (moderate) N18.3 COPD, moderate J44.9 Coronary artery disease I25.10 Coronary Disease-Associated Artery/Lesion type: deering artery [place] vs. transplanted heart: deering heart Associated angina: angina presence unspecified Depression F32.9 Depression Type: major depressive disorder Major depression recurrence: unspecified whether recurrent Active/Remission status: remission status unspecified Diabetes mellitus type 2, uncontrolled E11.65 Hypercholesterolemia E78.00 Hypertension I10 Hypertension type: essential hypertension Hypothyroidism E03.9 Hypothyroidism type: unspecified Ischemic cardiomyopathy I25.5 Prostate cancer C61 Pulmonary nodule R91.1 Sleep apnea G47.30 Ventricular tachycardia (paroxysmal) I47.2 Anxiety F41.9 Hyponatremia E87.1 DVT prophylaxis Z29.9
== END 2020-11-04 12:28 | DRG 871 ==
LOC: ED 04:32 → 2N 04:32 → SUATTDRO 10-26 09:01 → 3N 10-28 23:33

== ENCOUNTER 2020-11-14 10:33 | Inpatient (IN) ==
[2020-11-14] MEDS ORDERED: DAPTOmycin 500 MG in SYRINGE 0 ML IV ONE (12:30)
[2020-11-14 12:54] LABS: Basophils # (auto) 0.01 K/uL (0-0.2); Basophils % (auto) 0.2 %; Eosinophils # (auto) 0.05 K/uL (0-0.5); Eosinophils % (auto) 1.1 %; Hematocrit (blood only) 31.7 % (42-52); Hemoglobin 10.4 g/dL (14.0-18.0); Lymphocytes # (auto) 0.97 K/uL (1.2-3.4); Lymphocytes % (auto) 20.7 %; Mean Corpuscular Hemoglobin 26.3 pg (25-34); Mean Corpuscular Hgb Conc 32.8 g/dL (32-36); Mean Corpuscular Volume 80.3 fL (80-100); Mean Platelet Volume 8.6 fL (7.4-10.4); Monocytes # (auto) 0.37 K/uL (0.11-0.59); Monocytes % (auto) 7.9 %; Neutrophils # (auto) 3.28 K/uL (1.4-6.5); Neutrophils % (auto) 70.1 %; Platelet Count 208 K/uL (130-400); RDW Coefficient of Variation 16.5 % (11.5-14.5); RDW Standard Deviation 47.9 fL (36.4-46.3); Red Blood Count 3.95 M/uL (4.7-6.1); White Blood Count 4.68 K/uL (4.8-10.8)
[2020-11-14 13:01] LABS: BUN Creatinine Ratio 10.6 (10-20); Calcium 8.7 mg/dl (8.5-10.1); Creatinine Clr Calc Pharmacy 43.3 ml/min; Est GFR (African American) 38.3; Est GFR (Non-African American) 33.1; Potassium 3.9 mmol/L (3.5-5.1)
[2020-11-14 13:46] LABS: Influenza A virus by PCR Negative (Neg); Influenza B virus by PCR Negative (Neg); RSV by PCR Negative (Neg); SARS CoV2 RNA(COVID-19) InHosp NEGATIVE (Negative)
--- NOTE | 2020-11-14 13:53 | History & Physical Report ---
Date of Service November 14, 2020 Assessment & Plan (1) Bacteremia: Possible contaminant however per message from [facility] provider ID recommending inpatient admission for IV daptomycin and SUE. Possible sources of infection include left lower lobe pneumonia, mass on liver, endocarditis Will defer further imaging to ID regarding CT chest/abdomen/pelvis, SUE. Follow-up repeat blood cultures. Recommend intermittently trending inflammatory markers will get CRP/ESR/procalcitonin with a.m. labs. Consult infectious disease. (2) Liver mass: Will defer repeat CT on consultation with infectious disease. Consider CT chest at the same time if giving IV contrast given persistent opacities in left lower quadrant. (3) Pulmonary nodule: (4) Uncontrolled type 2 diabetes mellitus with chronic kidney disease, with long-term current use of insulin: HbA1c 7.2 in October. No need to repeat this. Reviewed previous pharmacy glycemic consult Start Lantus 10 units twice daily -previously on 15 units twice daily as inpatient therefore may need to be increased NovoLog: Goal BSG Range: Low 110 mg/dL, High 140 mg/dL Correction Factor: 16 mg/dL/unit INS:CHO Ratio: 1unit per 4 gms CHO consumed BSGs ACHS if eating, q6h if npo (5) Hypothyroidism: TSH 0.64 in October Continue levothyroxine 100 mcg p.o. daily (6) COPD, moderate: Notable history of this however on no routine medications (7) Ischemic cardiomyopathy: Continue his usual metoprolol and lisinopril dosing Continue Lasix for chronic congestive heart failure (8) Sleep apnea: Intolerant to CPAP prior reports (9) Hypertension: Continue his usual regimen with furosemide, isosorbide mononitrate, lisinopril, metoprolol, spironolactone. (10) DVT prophylaxis: Eliquis Admission and Anticipated Discharge Date Admission Date: November 14, 2020 History of Present Illness Chief Complaint: Positive blood cultures Primary Care Provider: Latisha Perkins at [facility] is a 79-year-old male who presents to the ER from [facility] due to positive blood cultures. He was admitted at [facility] from October 25 to November 04 due to Enterococcus bacteremia with possible endocarditis. In addition he had a recent admission in July for Klebsiella bacteremia of unknown source. He was discharged for rehabilitation to [facility] on ampicillin after his last hospital admission. On November 10 he was sent to the emergency room with chest pain but per ER note this symptoms appears more factitious and had resolved by the time he had come to the ER. As part of his work-up during that visit however he had blood cultures taken. 1 out of 2 of these blood cultures grew Staphylococcus lugdunensis and coag negative staph resistant to oxacillin. This was discussed between the providers at [facility] and his infectious disease physician and recommended inpatient admission for intravenous daptomycin. The patient has no complaints at this time. In the ER lab work was relatively unremarkable. UA negative for infection. WBC 4.68. He was referred to medicine for admission and ongoing management of positive blood cultures. Allergies Allergy/AdvReac Type Severity Reaction Status Date / Time carvedilol Allergy Unknown Unknown Verified 11/14/20 12:48 Home Medications Medication Instructions Recorded Confirmed Type ascorbic acid (vitamin C) 500 mg 500 mg PO HS tab 02/16/19 11/14/20 History tablet folic acid 1 mg tablet 1 mg PO HS tab 02/16/19 11/14/20 History lisinopril 10 mg tablet 10 mg PO QAM 02/16/19 11/14/20 History cholecalciferol (vitamin D3) 25 1,000 units PO HS 02/17/19 11/14/20 History mcg (1,000 unit) capsule ondansetron HCl 4 mg tablet 4 mg PO Q6H PRN #30 tab 02/21/19 11/14/20 Rx aspirin 81 mg PO HS 12/24/19 11/14/20 History fenofibrate nanocrystallized 145 145 mg PO HS #90 tab 02/27/20 11/14/20 Rx mg tablet metoprolol succinate 25 mg PO BID 03/19/20 11/14/20 History nitroglycerin 0.4 mg SL DIRECTED PRN 03/19/20 11/14/20 History levothyroxine 100 mcg tablet 100 mcg PO QAM #90 tab 07/17/20 11/14/20 Rx apixaban 5 mg PO BID 07/31/20 11/14/20 History bupropion HCl 150 mg PO BID 07/31/20 11/14/20 History Trulicity 1.5 mg SUBCUT WK 08/01/20 11/14/20 History ezetimibe 10 mg-simvastatin 80 mg 1 tab PO HS #90 tab 08/14/20 11/14/20 Rx tablet spironolactone 25 mg tablet 25 mg PO QAM #90 tab 09/06/20 11/14/20 Rx ferrous sulfate 325 mg PO BIDM 30 Days #60 tab 11/04/20 11/14/20 Rx tamsulosin 0.4 mg PO HS 30 Days #30 cap 11/04/20 11/14/20 Rx ampicillin sodium 2 g IV Q4H 11/10/20 11/14/20 History isosorbide mononitrate 60 mg PO QAM 11/10/20 11/14/20 History pantoprazole 40 mg PO QAM 11/10/20 11/14/20 History Tresiba FlexTouch U-100 16 unit SUBCUT BID 11/14/20 11/14/20 History acetaminophen [Tylenol] 650 mg PO Q4H PRN 11/14/20 11/14/20 History calcium carbonate [Tums] 400 mg PO Q6H PRN 11/14/20 11/14/20 History furosemide 60 mg PO BID 11/14/20 11/14/20 History insulin aspart U-100 [Novolog 0 units SQ UNKNOWN 11/14/20 11/14/20 History Flexpen U-100 Insulin] omega-3 fatty acids [Fish Oil] 1,000 mg PO DAILY 11/14/20 11/14/20 History omeprazole [Prilosec] 20 mg PO BID 11/14/20 11/14/20 History polyethylene glycol 3350 [Miralax] 17 g PO DAILY PRN 11/14/20 11/14/20 History Past Med/Surg History Medical History Acute diastolic congestive heart failure AICD discharge DALE (acute kidney injury) (08/22/13) Anemia Anxiety Atrial fibrillation Atrial fibrillation Bradycardia Cardiomyopathy Chronic congestive heart failure (04/03/13) Chronic kidney disease, stage III (moderate) COPD, moderate Coronary artery disease Depression Diabetes Diabetes mellitus type 2, uncontrolled Diabetes mellitus with kidney disease Dyslipidemia Hemorrhoid History of ME (myocardial infarction) Hypercholesterolemia Hypertension Hypertension Hypothyroidism Insomnia Ischemic cardiomyopathy Pacemaker malfunction Peptic ulcer Prostate cancer Prostate cancer Sleep apnea Ventricular tachycardia (paroxysmal) Surgical History History of appendectomy 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) History of heart bypass surgery Family History Unknown Diabetes Prostate cancer Uncle Prostate cancer Father Myocardial infarction Brother Myocardial infarction Other Family history non-contributory Denies family history of Ovarian cancer Breast cancer Colorectal cancer Social History Smoking Status: Former smoker Tobacco Type: Cigarettes Age Started Using Tobacco: 13; Age Quit Using Tobacco: 57; packs per day: 1; Years Smoked: 44; Cigarettes Per Day: 20; Number of Years Since Quit: 32; Second Hand Exposure: No; Do You Dip or Chew Tobacco: No; Hx Alcohol Use: No Hx Substance Use: No Preferred Language: Gibraltarian Communication Ability: Effective Communication Ability Comment: Very [place] Hearing Ability: Use of Hearing Aid Building Engineer Required: No Beliefs That Will Affect Care: None marital status: Current Living Situation: Rehab Current Living Situation Comment: lives w/ current occupational status: retired How many Children do You have: 2 Other Information That Helps Us Care for You: No Feels Safe at Home: Yes Safety Concerns: Feels Safe At This Time Dental Care, Regularly: No Physical Activity Frequency: Does not Exercise Seatbelt Use: never Sunscreen Use: No Assistive Devices: Glasses, Hearing Aid - Bilateral and Walker Review of Systems Review of Systems: All systems reviewed & are unremarkable except as noted in HPI & below Physical Exam Constitutional: well developed and + obese; no acute distress Eyes: + anicteric sclerae; normal pupil size ENMT: Ears: + hearing impairment (Very hard of hearing) Respiratory: normal respiratory effort, lungs clear to auscultation Auscultation: + diminished lung sounds; no crackles and no wheezes Cardiovascular: Rate/Rhythm: regular rate and regular rhythm Extremities: + pedal edema Gastrointestinal (Abdomen): normal bowel sounds, soft, nontender, no hepatosplenomegaly Skin: no rashes, warm and dry (No areas of cellulitis) Neurologic: moves all extremities and awake; not confused Psychiatric: A+Ox3, euthymic affect Genitourinary: no CVA tenderness Results & Data Results & Data ([facility]) Vital Signs (Past 12 Hours) Vital Signs Temp Pulse Resp BP Pulse Ox 11/14/20 13:30 139/81 98 11/14/20 13:22 123/72 97 04/14/21 12:40 98 11/14/20 12:30 122/87 97 11/14/20 12:00 90 20 122/62 92 11/14/20 11:42 90 16 109/65 98 11/14/20 11:06 36.9 C 90 16 126/73 98 Diagnostic Findings XR chest 1V portable IMPRESSION: 1. Mild pulmonary edema, slightly improved since prior exam. 2. Persistent dense left basilar opacity. This favors pneumonia however atelectasis could appear similar. Radiographic follow-up is recommended. 3. Small left pleural effusion. Medications Administered ER medications given: Daptomycin 500 mg IV Code Status & VTE Plan Code Status Full as discussed with the patient VTE Prophylaxis Plan VTE Prophylaxis will be ordered: Yes PG Care Time/CCT Total # of Minutes Spent Total Time Spent with Patient: Total time spent is greater than 50% in coordination of care (as documented) at patient's floor/unit and/or counseling patient: Coding Level of Care Code 35307 Initial Inpt Care Lvl 3 Diagnoses Bacteremia R78.81 Liver mass R16.0 Pulmonary nodule R91.1 Uncontrolled type 2 diabetes mellitus with chronic kidney disease, with long- term current use of insulin E11.22; E11.65; Z79.4 Hypothyroidism E03.9 Hypothyroidism type: unspecified COPD, moderate J44.9 Ischemic cardiomyopathy I25.5 Sleep apnea G47.30 Hypertension I10 Hypertension type: essential hypertension DVT prophylaxis Z29.9 (1) Hypothyroidism Hypothyroidism type: unspecified Qualified Code(s): E03.9 - Hypothyroidism, unspecified (2) Hypertension Hypertension type: essential hypertension Qualified Code(s): I10 - Essential (primary) hypertension
[2020-11-14 14:16] LABS: Appearance Urine Clear (Clear); Bilirubin Urine Negative (Negative); Blood Urine Negative (Negative); Color Urine Yellow; Glucose Urine UA Negative (Negative); Ketones Urine Negative (Negative); Leukocyte Esterase Urine Negative (Negative); Nitrite Urine Negative (Negative); Protein Urine Negative (Negative); Specific Gravity Urine 1.009 (1.000-1.030); Urobilinogen Urine Negative (Negative)
--- NOTE | 2020-11-14 14:31 | Emergency Department Note ---
History of Present Illness General Chief Complaint: Infection Time Seen by Provider: 11/14/20 12:03 History of Present Illness Provider Complaint: + abnormal lab (Positive blood cultures) and + needs IV antibiotics Returns today for: + needs IV antibiotics Associated symptoms: + chills; no fever, no chest pain, no shortness of breath, no rash, no malaise, no nausea and no abdominal pain HPI narrative: 79-year-old male presents emergency department from [facility] for positive blood cultures. On November 10 the patient's blood culture showed a staph infection. Patient is DNR. Patient reports chills. No fevers. No chest pain, abdominal pain, dysuria, nausea vomiting diarrhea. Home Medications Medication Instructions Recorded Confirmed Type ascorbic acid (vitamin C) 500 mg 500 mg PO HS tab 02/16/19 11/14/20 History tablet folic acid 1 mg tablet 1 mg PO HS tab 02/16/19 11/14/20 History lisinopril 10 mg tablet 10 mg PO QAM 02/16/19 11/14/20 History cholecalciferol (vitamin D3) 25 1,000 units PO HS 02/17/19 11/14/20 History mcg (1,000 unit) capsule ondansetron HCl 4 mg tablet 4 mg PO Q6H PRN #30 tab 02/21/19 11/14/20 Rx aspirin 81 mg PO HS 12/24/19 11/14/20 History fenofibrate nanocrystallized 145 145 mg PO HS #90 tab 02/27/20 11/14/20 Rx mg tablet metoprolol succinate 25 mg PO BID 03/19/20 11/14/20 History nitroglycerin 0.4 mg SL DIRECTED PRN 03/19/20 11/14/20 History levothyroxine 100 mcg tablet 100 mcg PO QAM #90 tab 07/17/20 11/14/20 Rx apixaban 5 mg PO BID 07/31/20 11/14/20 History bupropion HCl 150 mg PO BID 07/31/20 11/14/20 History Trulicity 1.5 mg SUBCUT WK 08/01/20 11/14/20 History ezetimibe 10 mg-simvastatin 80 mg 1 tab PO HS #90 tab 08/14/20 11/14/20 Rx tablet spironolactone 25 mg tablet 25 mg PO QAM #90 tab 09/06/20 11/14/20 Rx ferrous sulfate 325 mg PO BIDM 30 Days #60 tab 11/04/20 11/14/20 Rx tamsulosin 0.4 mg PO HS 30 Days #30 cap 11/04/20 11/14/20 Rx ampicillin sodium 2 g IV Q4H 11/10/20 11/14/20 History isosorbide mononitrate 60 mg PO QAM 11/10/20 11/14/20 History pantoprazole 40 mg PO QAM 11/10/20 11/14/20 History Tresiba FlexTouch U-100 16 unit SUBCUT BID 11/14/20 11/14/20 History acetaminophen [Tylenol] 650 mg PO Q4H PRN 11/14/20 11/14/20 History calcium carbonate [Tums] 400 mg PO Q6H PRN 11/14/20 11/14/20 History furosemide 60 mg PO BID 11/14/20 11/14/20 History insulin aspart U-100 [Novolog 0 units SQ UNKNOWN 11/14/20 11/14/20 History Flexpen U-100 Insulin] omega-3 fatty acids [Fish Oil] 1,000 mg PO DAILY 11/14/20 11/14/20 History omeprazole [Prilosec] 20 mg PO BID 11/14/20 11/14/20 History polyethylene glycol 3350 [Miralax] 17 g PO DAILY PRN 11/14/20 11/14/20 History Allergies Allergy/AdvReac Type Severity Reaction Status Date / Time carvedilol Allergy Unknown Unknown Verified 11/14/20 12:48 Past Med/Surg History Medical History Acute diastolic congestive heart failure AICD discharge DALE (acute kidney injury) (08/22/13) Anemia Anxiety Atrial fibrillation Atrial fibrillation Bradycardia Cardiomyopathy Chronic congestive heart failure (04/03/13) Chronic kidney disease, stage III (moderate) COPD, moderate Coronary artery disease Depression Diabetes Diabetes mellitus type 2, uncontrolled Diabetes mellitus with kidney disease Dyslipidemia Hemorrhoid History of [place] (myocardial infarction) Hypercholesterolemia Hypertension Hypertension Hypothyroidism Insomnia Ischemic cardiomyopathy Pacemaker malfunction Peptic ulcer Prostate cancer Prostate cancer Sleep apnea Ventricular tachycardia (paroxysmal) Surgical History History of appendectomy 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) History of heart bypass surgery Family History Unknown Diabetes Prostate cancer Uncle Prostate cancer Father Myocardial infarction Brother Myocardial infarction Other Family history non-contributory Denies family history of Ovarian cancer Breast cancer Colorectal cancer Social History Smoking Status: Former smoker Tobacco Type: Cigarettes Age Started Using Tobacco: 13; Age Quit Using Tobacco: 57; packs per day: 1; Years Smoked: 44; Cigarettes Per Day: 20; Number of Years Since Quit: 32; Second Hand Exposure: Yes; Hx Alcohol Use: No Hx Substance Use: No Preferred Language: Citizen Of [place] Communication Ability: Effective Hearing Ability: Use of Hearing Aid Hospital Personnel Director Required: No Beliefs That Will Affect Care: None marital status: Current Living Situation: Spouse Current Living Situation Comment: lives w/ current occupational status: retired How many Children do You have: 2 Feels Safe at Home: Yes Dental Care, Regularly: No Physical Activity Frequency: Does not Exercise Seatbelt Use: never Sunscreen Use: No Assistive Devices: Walker Review of Systems A total of 6 systems reviewed and were otherwise negative Physical Exam Vital Signs: Vital Signs - 24 hr 11/14/20 11:06 11/14/20 11:42 11/14/20 12:00 Temperature 36.9 C Temperature Source Oral Pulse Rate 90 90 90 Pulse Rate from Sp O2 Sensor 91 H 91 H Pulse Rhythm Regular Respiratory Rate 16 16 20 Respiratory Effort / Characteristics Non-Labored Sponta neous Respiratory Depth Normal Blood Pressure 126/73 109/65 122/62 Blood Pressure Joi n 90 79 82 Pulse Oximetry 98 98 92 Oxygen Delivery Me thod Room Air Sepsis Recent Feve r Within 48 Hours No Sepsis New/Unexpla ined Change in Men timur Status No Sepsis Action Take n by Nursing No Action Required 11/14/20 12:30 11/14/20 12:40 11/14/20 13:22 Temperature Temperature Source Pulse Rate Pulse Rate from Sp O2 Sensor 92 H 90 Pulse Rhythm Respiratory Rate Respiratory Effort / Characteristics Respiratory Depth Blood Pressure 122/87 123/72 Blood Pressure Joi n 98 89 Pulse Oximetry 97 98 97 Oxygen Delivery Me thod Room Air Sepsis Recent Feve r Within 48 Hours Sepsis New/Unexpla ined Change in Men timur Status Sepsis Action Take n by Nursing 11/14/20 13:30 Temperature Temperature Source Pulse Rate Pulse Rate from Sp O2 Sensor 89 Pulse Rhythm Respiratory Rate Respiratory Effort / Characteristics Respiratory Depth Blood Pressure 139/81 Blood Pressure Joi n 100 Pulse Oximetry 98 Oxygen Delivery Me thod Sepsis Recent Feve r Within 48 Hours Sepsis New/Unexpla ined Change in Men timur Status Sepsis Action Take n by Nursing Physical Exam: Physical Exam GENERAL: He is oriented to person, place, and time. He appears well-developed and well-nourished. He does not appear distressed. HENT: Exam performed. - Head: Normocephalic and atraumatic. - Right Ear: External ear normal. No mastoid tenderness. - Left Ear: External ear normal. No mastoid tenderness. - Mouth/Throat: The oropharynx is clear and moist. No trismus in the jaw. No dental abscesses or uvula swelling. No oropharyngeal exudate or tonsillar abscesses. EYES: Conjunctivae and EOM are normal. Pupils are equal, round, and reactive to light. Right eye exhibits no discharge. Left eye exhibits no discharge. No scleral icterus. NECK: Normal range of motion. Neck supple. No JVD present. No spinous process tenderness present. No carotid bruit present. No rigidity. No tracheal deviation and normal range of motion present. No Brudzinski's sign and no Kernig's sign noted. CV: Normal rate, regular rhythm, normal heart sounds and intact distal pulses. There is no peripheral edema. Palpable radial pulses bue. PULM/CHEST: Effort normal and breath sounds normal. No respiratory distress. No stridor. He has no wheezes. He has no rales. - Chest Wall: He exhibits no tenderness. ABD: The abdomen is soft. Bowel sounds are normal. He has no distension. No mass is present. There is no tenderness. There is no rebound, no guarding, no Olsen's sign and no tenderness at McBurney's point. Rovsig negative. MUSC/SKEL: Normal range of motion. There is no peripheral edema, tenderness or deformity. LYMPH: No cervical adenopathy. NEURO: He is alert and oriented to person, place, and time. He has normal strength. No cranial nerve deficit or sensory deficit. Coordination and gait normal. GCS eye subscore is 4. GCS verbal subscore is 5. GCS motor subscore is 6. Cerebellar tests wnl. SKIN: Skin is warm and dry. He is not diaphoretic. PSYCH: He has a normal mood and affect. Behavior is normal. Judgment and thought content normal. Course Course 1203: The patient was evaluated in room B2. A complete history and physical exam was performed Cardiac monitoring: An order was placed for continuous cardiac monitoring. The monitor shows a rate of [address] Jayna GUERRERO PG hospitalist contact me and stated he was called about this patient to be admitted for positive blood cultures. He stated that the infectious disease doctor Latisha Perkins wanted him admitted. He recommends starting patient on daptomycin and states he will admit the patient. Administered Medications Discontinued Medications Daptomycin 500 mg/ Syringe 10 mls @ 5 mls/min IV NOW ONE; Protocol Stop: 11/14/20 12:31 Last Admin: 11/14/20 13:52 Dose: 5 mls/min Documented by: [id number] Medical Decision Making Laboratory Data Result diagrams: 11/14/20 11:02 11/14/20 11:02 Lab Results 11/14/20 11/14/20 11/14/20 Range/Units 11:02 11:02 12:48 WBC 4.68 L (4.8-10.8) K/uL RBC 3.95 L (4.7-6.1) M/uL Hgb 10.4 L (14.0-18.0) g/dL Hct 31.7 L (42-52) % MCV 80.3 (80-100) fL MCH 26.3 (25-34) pg MCHC 32.8 (32-36) g/dL RDW Std Deviation 47.9 H (36.4-46.3) fL RDW Coeff of Beck 16.5 H (11.5-14.5) % Plt Count 208 (130-400) K/uL MPV 8.6 (7.4-10.4) fL Immature Gran % (Auto) 0.0 % Neut % (Auto) 70.1 % Lymph % (Auto) 20.7 % Preston % (Auto) 7.9 % Eos % (Auto) 1.1 % Baso % (Auto) 0.2 % Neut # (Auto) 3.28 (1.4-6.5) K/uL Lymph # (Auto) 0.97 L (1.2-3.4) K/uL Preston # (Auto) 0.37 (0.11-0.59) K/uL Eos # (Auto) 0.05 (0-0.5) K/uL Baso # (Auto) 0.01 (0-0.2) K/uL Immature Gran # (Auto) 0.00 (0.00-0.02) K/uL Sodium 136 (136-145) mmol/L Potassium 3.9 (3.5-5.1) mmol/L Chloride 104 (98-107) mmol/L Carbon Dioxide 25 (21-32) mmol/L Anion Gap 7.0 (3-11) BUN 20 H (7-18) mg/dl Creatinine 1.91 H (0.6-1.4) mg/dl Est Cr Clr Drug Dosing 43.3 ml/min Est GFR ( Amer) 38.3 Est GFR (Non-Af Amer) 33.1 BUN/Creatinine Ratio 10.6 (10-20) Glucose 129 H (70-99) mg/dl Lactate (0.4-2.0) mmol/L Calcium 8.7 (8.5-10.1) mg/dl Urine Color Urine Appearance (Clear) Urine pH (4.5-7.5) Ur Specific [place] (1.000-1.030) Urine Protein (Negative) Urine Glucose (UA) (Negative) Urine Ketones (Negative) Urine Blood (Negative) Urine Nitrite (Negative) Urine Bilirubin (Negative) Urine Urobilinogen (Negative) Ur Leukocyte Esterase (Negative) COVID-19 Eval Order CovFluRsv at [facility] SARS-CoV-2 (PCR) (Negative) Influenza Type A (PCR) (Neg) Influenza Type B (PCR) (Neg) RSV (RT-PCR) (Neg) 11/14/20 11/14/20 11/14/20 Range/Units 12:48 12:53 13:53 WBC (4.8-10.8) K/uL RBC (4.7-6.1) M/uL Hgb (14.0-18.0) g/dL Hct (42-52) % MCV (80-100) fL MCH (25-34) pg MCHC (32-36) g/dL RDW Std Deviation (36.4-46.3) fL RDW Coeff of Beck (11.5-14.5) % Plt Count (130-400) K/uL MPV (7.4-10.4) fL Immature Gran % (Auto) % Neut % (Auto) % Lymph % (Auto) % Preston % (Auto) % Eos % (Auto) % Baso % (Auto) % Neut # (Auto) (1.4-6.5) K/uL Lymph # (Auto) (1.2-3.4) K/uL Preston # (Auto) (0.11-0.59) K/uL Eos # (Auto) (0-0.5) K/uL Baso # (Auto) (0-0.2) K/uL Immature Gran # (Auto) (0.00-0.02) K/uL Sodium (136-145) mmol/L Potassium (3.5-5.1) mmol/L Chloride (98-107) mmol/L Carbon Dioxide (21-32) mmol/L Anion Gap (3-11) BUN (7-18) mg/dl Creatinine (0.6-1.4) mg/dl Est Cr Clr Drug Dosing ml/min Est GFR ( Amer) Est GFR (Non-Af Amer) BUN/Creatinine Ratio (10-20) Glucose (70-99) mg/dl Lactate 0.7 (0.4-2.0) mmol/L Calcium (8.5-10.1) mg/dl Urine Color Yellow Urine Appearance Clear (Clear) Urine pH 7.0 (4.5-7.5) Ur Specific [place] 1.009 (1.000-1.030) Urine Protein Negative (Negative) Urine Glucose (UA) Negative (Negative) Urine Ketones Negative (Negative) Urine Blood Negative (Negative) Urine Nitrite Negative (Negative) Urine Bilirubin Negative (Negative) Urine Urobilinogen Negative (Negative) Ur Leukocyte Esterase Negative (Negative) COVID-19 Eval Order SARS-CoV-2 (PCR) NEGATIVE (Negative) Influenza Type A (PCR) Negative (Neg) Influenza Type B (PCR) Negative (Neg) RSV (RT-PCR) Negative (Neg) MDM Narrative The patient was evaluated in room B2. A complete history and physical exam was performed Cardiac monitoring: An order was placed for continuous cardiac monitoring. The monitor shows a rate of [address] Jayna GUERRERO PG hospitalist contact me and stated he was called about this patient to be admitted for positive blood cultures. He stated that the infectious disease doctor Latisha Perkins wanted him admitted. He recommends starting patient on daptomycin and states he will admit the patient. Impression & Plan Bacteremia Discharge Plan Visit Data Chief Complaint: Infection ED Provider: Tin Madison Discharge Problem: Bacteremia Patient Disposition: Admitted As Inpatient Forms Stand Alone Forms: My [facility] Prescriptions Prescriptions: No Action fenofibrate nanocrystallized 145 mg tablet 145 mg PO HS Qty: 90 RF: 3 levothyroxine 100 mcg tablet 100 mcg PO QAM Qty: 90 RF: 3 ezetimibe-simvastatin 10-80 mg tablet 1 tab PO HS Qty: 90 RF: 3 spironolactone 25 mg tablet 25 mg PO QAM Qty: 90 RF: 3 folic acid 1 mg tablet 1 mg PO HS RF: 0 ascorbic acid (vitamin C) 500 mg tablet 500 mg PO HS RF: 0 lisinopril 10 mg tablet 10 mg PO QAM RF: 0 cholecalciferol (vitamin D3) 1,000 unit capsule 1,000 units PO HS RF: 0 ondansetron HCl [Zofran] 4 mg tablet 4 mg PO Q6H PRN (Reason: nausea and vomiting) Qty: 30 RF: 4 nitroglycerin 0.4 mg tablet, sublingual 0.4 mg SL DIRECTED PRN (Reason: chest pain) RF: 0 metoprolol succinate 25 mg tablet extended release 24 hr 25 mg PO BID RF: 0 apixaban 5 mg Tablet 5 mg PO BID RF: 0 bupropion HCl 150 mg Tablet Sustained-Release 12 Hr 150 mg PO BID RF: 0 Trulicity 1.5 mg/0.5 mL pen injector 1.5 mg SUBCUT WK RF: 0 aspirin 81 mg Tablet,Delayed Release (Dr/Ec) 81 mg PO HS RF: 0 ampicillin sodium 2 gram Recon Soln 2 g IV Q4H RF: 0 isosorbide mononitrate 60 mg tablet extended release 24 hr 60 mg PO QAM RF: 0 pantoprazole 40 mg tablet,delayed release (DR/EC) 40 mg PO QAM RF: 0 tamsulosin 0.4 mg Capsule 0.4 mg PO HS 30 Days Qty: 30 RF: 0 ferrous sulfate 325 mg (65 mg iron) Tablet,Delayed Release (Dr/Ec) 325 mg PO BIDM 30 Days Qty: 60 RF: 2 acetaminophen [Tylenol] 325 mg Tablet 650 mg PO Q4H PRN (Reason: fever and temp) RF: 0 polyethylene glycol 3350 [Miralax] 17 gram Powder In Packet 17 g PO DAILY PRN (Reason: Constipation) RF: 0 furosemide 20 mg Tablet 60 mg PO BID RF: 0 Tresiba FlexTouch U-100 100 unit/mL (3 mL) insulin pen 16 unit SUBCUT BID RF: 0 insulin aspart U-100 [Novolog Flexpen U-100 Insulin] 100 unit/mL (3 mL) insulin pen 0 units SQ UNKNOWN RF: 0 calcium carbonate [Tums] 200 mg calcium (500 mg) Tablet,Chewable 400 mg PO Q6H PRN (Reason: Indigestion) RF: 0 omeprazole [Prilosec] 20 mg Capsule,Delayed Release(Dr/Ec) 20 mg PO BID RF: 0 Fish Oil Capsule 1,000 mg PO DAILY RF: 0 Referrals Referrals: Gregorio [place] [Primary Care Provider] -
[2020-11-14] MEDS ORDERED: CALCIUM CARBONATE 500 MG CHEWABLE TAB PO PRN (16:30)
[2020-11-14] MEDS: FERROUS SULFATE 325 MG TAB PO SCH (18:20)
[2020-11-14] MEDS: FUROSEMIDE 20 MG TAB PO SCH (18:20)
[2020-11-14] MEDS: ONDANSETRON INJ 2 MG/ML 2 ML VIAL IV PRN (20:35)
[2020-11-14] MEDS: ASPIRIN 81 MG ECTAB PO SCH (20:36)
[2020-11-14] MEDS: PANTOprazole 40 MG TAB PO SCH (20:36)
[2020-11-14] MEDS: TAMSULOSIN HCL 0.4 MG CAP PO SCH (20:37)
[2020-11-14] MEDS: EZETIMIBE 10 MG TABLET PO SCH (20:37)
[2020-11-14] MEDS: APIXABAN 5 MG TABLET PO SCH (20:37)
[2020-11-14] MEDS: ASCORBIC ACID 500 MG TAB PO SCH (20:37)
[2020-11-14] MEDS: METOPROLOL SUCC 25MG EXT REL TAB PO SCH (20:38)
[2020-11-14] MEDS: CHOLECALCIFEROL 1,000 UNITS 25 MCG TAB PO SCH (20:38)
[2020-11-14] MEDS: FOLIC ACID 1 MG TAB PO SCH (20:38)
[2020-11-14] MEDS: buPROPion SR 150 MG TABCR PO SCH (20:38)
[2020-11-14] MEDS: FENOFIBRATE NANOCRYSTALLIZED 145 MG TABLET PO SCH (20:38)
[2020-11-14] MEDS: SIMVASTATIN 80 MG TAB PO SCH (20:39)
[2020-11-14] MEDS ORDERED: PANTOprazole 40 MG TAB PO SCH (21:00)
[2020-11-14] MEDS ORDERED: EZETIMIBE/SIMVASTATIN 10/80MG TAB PO SCH (21:00)
[2020-11-14] MEDS ORDERED: GLUCAGON FOR INJ 1 MG VIAL SQ PRN (23:49)
[2020-11-14] MEDS ORDERED: GLUCOSE 40% GEL 15 GM TUBE PO PRN (23:49)
[2020-11-14] MEDS ORDERED: CARBOHYDRATES FOR HYPOGLYCEMIA PO PRN (23:49)
[2020-11-14] MEDS ORDERED: GLUCOSE 10 TABS/TUBE PO PRN (23:49)
[2020-11-14] MEDS ORDERED: DEXTROSE 50% 50 ML SYRINGE IV PRN (23:49)
[2020-11-15] MEDS: LEVOTHYROXINE SODIUM 100 MCG TABLET PO SCH (05:58)
[2020-11-15 06:07] LABS: Basophils # (auto) 0.01 K/uL (0-0.2); Basophils % (auto) 0.2 %; Eosinophils % (auto) 2.1 %; Hematocrit (blood only) 32.5 % (42-52); Hemoglobin 10.7 g/dL (14.0-18.0); Immature Granulocytes # (auto) 0.01 K/uL (0.00-0.02); Immature Granulocytes % (auto) 0.2 %; Lymphocytes # (auto) 1.64 K/uL (1.2-3.4); Lymphocytes % (auto) 34.9 %; Mean Corpuscular Hemoglobin 26.2 pg (25-34); Mean Corpuscular Hgb Conc 32.9 g/dL (32-36); Mean Corpuscular Volume 79.7 fL (80-100); Mean Platelet Volume 8.5 fL (7.4-10.4); Monocytes # (auto) 0.39 K/uL (0.11-0.59); Monocytes % (auto) 8.3 %; Neutrophils # (auto) 2.55 K/uL (1.4-6.5); Neutrophils % (auto) 54.3 %; Platelet Count 198 K/uL (130-400); RDW Coefficient of Variation 16.6 % (11.5-14.5); Red Blood Count 4.08 M/uL (4.7-6.1)
[2020-11-15] MEDS: ONDANSETRON INJ 2 MG/ML 2 ML VIAL IV PRN (06:41)
[2020-11-15 06:44] LABS: BUN Creatinine Ratio 11.5 (10-20); C Reactive Protein 1.1 mg/dl (0-0.29); Calcium 8.7 mg/dl (8.5-10.1); Creatinine Clr Calc Pharmacy 38.7 ml/min; Est GFR (African American) 33.4; Est GFR (Non-African American) 28.8; Potassium 3.9 mmol/L (3.5-5.1)
[2020-11-15] MEDS: FUROSEMIDE 20 MG TAB PO SCH ×2 (07:57→17:34)
[2020-11-15] MEDS: PANTOprazole 40 MG TAB PO SCH (07:57)
[2020-11-15] MEDS: METOPROLOL SUCC 25MG EXT REL TAB PO SCH ×2 (07:57→21:11)
[2020-11-15] MEDS: ISOSORBIDE MONO EXTENDED REL 60 MG TABCR PO SCH (07:57)
[2020-11-15] MEDS: APIXABAN 5 MG TABLET PO SCH ×2 (07:57→21:08)
[2020-11-15] MEDS: SPIRONOLACTONE 25 MG TAB PO SCH (07:57)
[2020-11-15] MEDS: FERROUS SULFATE 325 MG TAB PO SCH ×2 (07:57→17:34)
[2020-11-15] MEDS: buPROPion SR 150 MG TABCR PO SCH ×2 (07:58→21:12)
[2020-11-15] MEDS: lisinopril 10 MG TAB PO SCH (07:58)
[2020-11-15] MEDS: INSULIN GLARGINE SOLOSTAR 100 UNITS/ML 3 ML PEN SC SCH ×2 (08:09→21:09)
[2020-11-15] MEDS: INSULIN ASPART 100 UNITS/ML 3 ML PEN SC SCH ×4 (08:10→21:10)
--- NOTE | 2020-11-15 08:32 | Hospitalist Progress Note ---
Date of Service November 15, 2020 Assessment & Plan (1) Bacteremia: Day 2 of daptomycin IV ID consult requested from [facility] Previous blood cultures were 1 of 2 sets for coag negative staph. Repeat blood culture showed staph [place] Repeat blood cultures this admission are currently pending Continue with IV antibiotics pending consult from [facility] Lactic acid is 0.7 WBC 4.7 Afebrile (2) Liver mass: Asymptomatic CT Exam Result Other Abnormalities: Other (5.3CM LOW-ATTENUATION MASS IN THE LEFT LOBE OF LIVER) Follow-up per primary care CINDY Muñoz Also noted and being managed by pulmonary nodule clinic (3) Pulmonary nodule: Pulmonary Nodule Details: > 8mm (1.5CM IRREGULAR PULMONARY NODULE LEFT LOWER LOBE) Follow-up per Fleischner criteria Pulmonary nodule clinic aware Ashely Begum PA-C notified (4) Nausea & vomiting: Resolved Prolonged QTC at 518 ms Avoid Zofran (5) Uncontrolled type 2 diabetes mellitus with chronic kidney disease, with long-term current use of insulin: Lantus 10 units twice daily Sliding scale insulin using NovoLog Hemoglobin A1c is 7.2% on 10/26/2020 (6) Ventricular tachycardia (paroxysmal): Continue to follow on telemetry Continue beta-gavin with metoprolol succinate Continue apixaban 5 mg twice daily (7) Hypothyroidism: Levothyroxine (8) Coronary artery disease: No chest pain or tightness EKG with ventricular paced rhythm No specific ST changes Continue metoprolol, lisinopril, Imdur, apixaban, aspirin (9) COPD, moderate: No respiratory complaints Continue usual outpatient medications (10) Atrial fibrillation: Continue apixaban and metoprolol AICD in place Follow on telemetry (11) DVT prophylaxis: Anticoagulated with apixaban Admission and Anticipated Discharge Date Admission Date: November 14, 2020 Subjective Attending: Ciara Snow This is a 79-year-old male from [facility]. He had Enterococcus and was referred to [facility] for IV antibiotics with daptomycin. A consult was placed with infectious disease and we are waiting the report. Lactic acid was 0.7. Patient is afebrile. Patient is oxygenating well on room air with an SaO2 of 93%. Procalcitonin is negative. Patient does have a mildly elevated creatinine at 2.14. Baseline is around 1.6. Chest x-ray shows opacity at the left base which could be atelectatic. Patient will be started on incentive spirometry. Patient states he is feeling better since admission. Has not yet had a bowel movement and requesting MiraLAX. No other acute complaints Review of Systems Review of Systems: All systems reviewed & are unremarkable except as noted in Subjective Physical Exam Physical Exam: GENERAL : No acute distress EYES: No icterus, gaze conjugate NOSE: No evidence of epistaxis MOUTH: No lesions or candidiasis NECK: Supple LUNGS: CTA B/L, no wheezes, rales or rhonchi HEART: Regular, rate controlled ABDOMEN: Soft, NT, ND, BS Present EXTREMITIES: No LE edema, pedal pulses intact NEURO: A&OX3 Results & Data Results & Data ([facility]) Vital Signs (Past 12 Hours) Vital Signs Temp Pulse Pulse Resp BP Pulse Ox 11/15/20 07:46 36.7 C 91 H 20 113/73 93 11/15/20 06:44 96 11/15/20 04:00 36.7 C 93 H 20 124/76 94 11/15/20 00:00 92 H 11/14/20 23:00 36.8 C 91 H 20 146/81 H 95 Laboratory Results 11/15/20 05:51 11/15/20 05:51 Laboratory Tests 11/15/20 05:51 Procalcitonin 0.08 Diagnostic Findings XR chest 1V portable CLINICAL HISTORY: Chest Pain COMPARISON STUDY: Chest radiograph October 30, 2020. FINDINGS: Biventricular pacer/AICD, median sternotomy wires and mediastinal surgical clips as well as a right PICC remain in place. Cardiomegaly is unchanged. There is no pneumothorax. Interstitial thickening has slightly improved. Dense left basilar opacity persists. IMPRESSION: 1. Mild pulmonary edema, slightly improved since prior exam. 2. Persistent dense left basilar opacity. This favors pneumonia however atelectasis could appear similar. Radiographic follow-up is recommended. 3. Small left pleural effusion. ACT 112: Negative or not required by law. Electronically signed by: Jason La M.D. 11/10/2020 8:17 AM PG Care Time/CCT Total # of Minutes Spent Total Time Spent with Patient: Total time spent is greater than 50% in coordination of care (as documented) at patient's floor/unit and/or counseling p atient: Coding Level of Care Code 68503 Subseq Hosp Care Lvl 3 Diagnoses Bacteremia R78.81 Liver mass R16.0 Pulmonary nodule R91.1 Nausea & vomiting R11.2 Vomiting type: unspecified Vomiting Intractability: unspecified Uncontrolled type 2 diabetes mellitus with chronic kidney disease, with long- term current use of insulin E11.22; E11.65; Z79.4 Ventricular tachycardia (paroxysmal) I47.2 Hypothyroidism E03.9 Hypothyroidism type: unspecified Coronary artery disease I25.10 Coronary Disease-Associated Artery/Lesion type: [place] artery [place] vs. transplanted heart: [place] heart Associated angina: angina presence unspecified COPD, moderate J44.9 Atrial fibrillation I48.20 Atrial fibrillation type: unspecified chronic DVT prophylaxis Z29.9 (1) Nausea & vomiting Vomiting type: unspecified Vomiting Intractability: unspecified Qualified Code(s): R11.2 - Nausea with vomiting, unspecified (2) Hypothyroidism Hypothyroidism type: unspecified Qualified Code(s): E03.9 - Hypothyroidism, unspecified (3) Coronary artery disease Coronary Disease-Associated Artery/Lesion type: [place] artery [place] vs. transplanted heart: [place] heart Associated angina: angina presence unspecified Qualified Code(s): I25.10 - Atherosclerotic heart disease of [place] coronary artery without angina pectoris (4) Atrial fibrillation Atrial fibrillation type: unspecified chronic Qualified Code(s): I48.20 - Chronic atrial fibrillation, unspecified
[2020-11-15] MEDS: DAPTOmycin 500 MG in SYRINGE 0 ML IV SCH (14:13)
[2020-11-15] MEDS: POLYETHYLENE (MIRALAX) 17 GM PACK PO SCH (17:31)
[2020-11-15] MEDS: ASPIRIN 81 MG ECTAB PO SCH (21:07)
[2020-11-15] MEDS: TAMSULOSIN HCL 0.4 MG CAP PO SCH (21:08)
[2020-11-15] MEDS: FOLIC ACID 1 MG TAB PO SCH (21:08)
[2020-11-15] MEDS: FENOFIBRATE NANOCRYSTALLIZED 145 MG TABLET PO SCH (21:12)
[2020-11-15] MEDS: ASCORBIC ACID 500 MG TAB PO SCH (21:12)
[2020-11-15] MEDS: CHOLECALCIFEROL 1,000 UNITS 25 MCG TAB PO SCH (21:12)
[2020-11-15] MEDS: EZETIMIBE 10 MG TABLET PO SCH (21:13)
[2020-11-15] MEDS: SIMVASTATIN 80 MG TAB PO SCH (21:13)
[2020-11-16] MEDS: LEVOTHYROXINE SODIUM 100 MCG TABLET PO SCH (06:00)
[2020-11-16] MEDS: METOPROLOL SUCC 25MG EXT REL TAB PO SCH ×2 (08:03→20:51)
[2020-11-16] MEDS: FERROUS SULFATE 325 MG TAB PO SCH ×2 (08:03→17:05)
[2020-11-16] MEDS: FUROSEMIDE 20 MG TAB PO SCH ×2 (08:03→17:05)
[2020-11-16] MEDS: APIXABAN 5 MG TABLET PO SCH ×2 (08:03→20:52)
[2020-11-16] MEDS: lisinopril 10 MG TAB PO SCH (08:04)
[2020-11-16] MEDS: SPIRONOLACTONE 25 MG TAB PO SCH (08:04)
[2020-11-16] MEDS: ISOSORBIDE MONO EXTENDED REL 60 MG TABCR PO SCH (08:04)
[2020-11-16] MEDS: PANTOprazole 40 MG TAB PO SCH (08:04)
[2020-11-16] MEDS: buPROPion SR 150 MG TABCR PO SCH ×2 (08:04→20:51)
[2020-11-16] MEDS: POLYETHYLENE (MIRALAX) 17 GM PACK PO SCH (08:05)
[2020-11-16] MEDS: INSULIN ASPART 100 UNITS/ML 3 ML PEN SC SCH ×4 (08:07→21:17)
[2020-11-16] MEDS: INSULIN GLARGINE SOLOSTAR 100 UNITS/ML 3 ML PEN SC SCH ×2 (08:07→21:16)
[2020-11-16 08:59] LABS: Est GFR (African American) 33.4; Est GFR (Non-African American) 28.8
[2020-11-16] MEDS: DAPTOmycin 500 MG in SYRINGE 0 ML IV SCH (14:13)
--- NOTE | 2020-11-16 16:36 | Hospitalist Progress Note ---
Date of Service November 16, 2020 Assessment & Plan (1) Bacteremia: Day 3 of daptomycin IV ID consult requested from [employer] Previous blood cultures were 1 of 2 sets for coag negative staph. Repeat blood culture showed staph Lugdunensis Repeat blood cultures this admission are no growth to date Continue with IV antibiotics Lactic acid is 0.7 WBC 4.7 Afebrile Patient appears improved clinically (2) Liver mass: Asymptomatic CT Exam Result Other Abnormalities: Other (5.3CM LOW-ATTENUATION MASS IN THE LEFT LOBE OF LIVER) Follow-up per primary care CINDY Muñoz Also noted and being followed by pulmonary nodule clinic (3) Pulmonary nodule: Pulmonary Nodule Details: > 8mm (1.5CM IRREGULAR PULMONARY NODULE LEFT LOWER LOBE) Follow-up per Fleischner criteria Pulmonary nodule clinic aware Ashely Begum PA-C notified (4) Nausea & vomiting: Resolved Prolonged QTC at 518 ms Avoid Zofran (5) Uncontrolled type 2 diabetes mellitus with chronic kidney disease, with long-term current use of insulin: Lantus 10 units twice daily Sliding scale insulin using NovoLog Hemoglobin A1c is 7.2% on 10/26/2020 (6) Ventricular tachycardia (paroxysmal): Continue to follow on telemetry Continue beta-gavin with metoprolol succinate Continue apixaban 5 mg twice daily (7) Hypothyroidism: Levothyroxine (8) Coronary artery disease: No chest pain or tightness EKG with ventricular paced rhythm No specific ST changes Continue metoprolol, lisinopril, Imdur, apixaban, aspirin (9) COPD, moderate: No respiratory complaints Continue usual outpatient medications (10) Atrial fibrillation: Continue apixaban and metoprolol AICD in place Follow on telemetry (11) DVT prophylaxis: Anticoagulated with apixaban Admission and Anticipated Discharge Date Admission Date: November 14, 2020 Subjective Attending: Dr. Snow Patient is doing better today. He has slight fever according his report. He is extremely hard of hearing which is chronic. The patient has no nausea or vomiting. He still is not had a bowel movement. He states that he is tired today but overall feeling better. Review of Systems Review of Systems: All systems reviewed & are unremarkable except as noted in Subjective Physical Exam Physical Exam: GENERAL : No acute distress. Hard of hearing EYES: No icterus, gaze conjugate NOSE: No evidence of epistaxis MOUTH: No lesions or candidiasis. Mucosa moist NECK: Supple LUNGS: CTA B/L, no wheezes, rales or rhonchi HEART: Regular, rate controlled ABDOMEN: Soft, NT, ND, BS Present EXTREMITIES: No LE edema, pedal pulses intact NEURO: A&OX3 Results & Data Results & Data ([facility]) Vital Signs (Past 12 Hours) Vital Signs Temp Pulse Pulse Pulse Resp BP Pulse Ox 11/16/20 16:00 87 11/16/20 15:25 36.7 C 91 H 18 124/75 96 11/16/20 12:00 36.7 C 90 18 95/61 L 99 11/16/20 08:30 90 11/16/20 07:30 36.6 C 90 16 117/74 96 11/16/20 05:55 91 H 11/16/20 04:34 36.6 C 90 20 107/69 94 Laboratory Results 11/15/20 05:51 11/16/20 05:39 Diagnostic Findings No further diagnostic imaging PG Care Time/CCT Total # of Minutes Spent Total Time Spent with Patient: Total time spent is greater than 50% in coordination of care (as documented) at patient's floor/unit and/or counseling patient: Coding Level of Care Code 32712 Subseq Hosp Care Lvl 2 Diagnoses Bacteremia R78.81 Liver mass R16.0 Pulmonary nodule R91.1 Nausea & vomiting R11.2 Vomiting type: unspecified Vomiting Intractability: unspecified Uncontrolled type 2 diabetes mellitus with chronic kidney disease, with long- term current use of insulin E11.22; E11.65; Z79.4 Ventricular tachycardia (paroxysmal) I47.2 Hypothyroidism E03.9 Hypothyroidism type: unspecified Coronary artery disease I25.10 Coronary Disease-Associated Artery/Lesion type: [place] artery [place] vs. transplanted heart: [place] heart Associated angina: angina presence unspecified COPD, moderate J44.9 Atrial fibrillation I48.20 Atrial fibrillation type: unspecified chronic DVT prophylaxis Z29.9 (1) Nausea & vomiting Vomiting type: unspecified Vomiting Intractability: unspecified Qualified Code(s): R11.2 - Nausea with vomiting, unspecified (2) Hypothyroidism Hypothyroidism type: unspecified Qualified Code(s): E03.9 - Hypothyroidism, unspecified (3) Coronary artery disease Coronary Disease-Associated Artery/Lesion type: [place] artery [place] vs. transplanted heart: [place] heart Associated angina: angina presence unspecified Qualified Code(s): I25.10 - Atherosclerotic heart disease of [place] coronary artery without angina pectoris (4) Atrial fibrillation Atrial fibrillation type: unspecified chronic Qualified Code(s): I48.20 - Chronic atrial fibrillation, unspecified
[2020-11-16] MEDS ORDERED: POLYETHYLENE (MIRALAX) 17 GM PACK PO ONE (16:51)
[2020-11-16] MEDS: ASPIRIN 81 MG ECTAB PO SCH (20:51)
[2020-11-16] MEDS: TAMSULOSIN HCL 0.4 MG CAP PO SCH (20:51)
[2020-11-16] MEDS: ASCORBIC ACID 500 MG TAB PO SCH (20:51)
[2020-11-16] MEDS: FOLIC ACID 1 MG TAB PO SCH (20:51)
[2020-11-16] MEDS: CHOLECALCIFEROL 1,000 UNITS 25 MCG TAB PO SCH (20:51)
[2020-11-16] MEDS: FENOFIBRATE NANOCRYSTALLIZED 145 MG TABLET PO SCH (20:51)
[2020-11-16] MEDS: SIMVASTATIN 80 MG TAB PO SCH (20:51)
[2020-11-16] MEDS: EZETIMIBE 10 MG TABLET PO SCH (20:52)
[2020-11-16] MEDS: DOCUSATE SODIUM 100 MG CAP PO SCH (20:52)
[2020-11-17] MEDS: LEVOTHYROXINE SODIUM 100 MCG TABLET PO SCH (06:17)
[2020-11-17] MEDS: FUROSEMIDE 20 MG TAB PO SCH ×2 (07:26→16:55)
[2020-11-17] MEDS: FERROUS SULFATE 325 MG TAB PO SCH ×2 (07:26→16:55)
[2020-11-17] MEDS: APIXABAN 5 MG TABLET PO SCH (07:26)
[2020-11-17] MEDS: buPROPion SR 150 MG TABCR PO SCH (07:27)
[2020-11-17] MEDS: SPIRONOLACTONE 25 MG TAB PO SCH (07:27)
[2020-11-17] MEDS: PANTOprazole 40 MG TAB PO SCH (07:27)
[2020-11-17] MEDS: lisinopril 10 MG TAB PO SCH (07:27)
[2020-11-17] MEDS: ISOSORBIDE MONO EXTENDED REL 60 MG TABCR PO SCH (07:27)
[2020-11-17] MEDS: METOPROLOL SUCC 25MG EXT REL TAB PO SCH (07:28)
[2020-11-17] MEDS: DOCUSATE SODIUM 100 MG CAP PO SCH (08:38)
[2020-11-17] MEDS: INSULIN GLARGINE SOLOSTAR 100 UNITS/ML 3 ML PEN SC SCH (08:38)
[2020-11-17] MEDS: INSULIN ASPART 100 UNITS/ML 3 ML PEN SC SCH ×3 (08:38→16:57)
[2020-11-17 10:46] LABS: Basophils # (auto) 0.02 K/uL (0-0.2); Basophils % (auto) 0.5 %; Eosinophils % (auto) 2.5 %; Hematocrit (blood only) 33.4 % (42-52); Hemoglobin 10.9 g/dL (14.0-18.0); Lymphocytes # (auto) 1.44 K/uL (1.2-3.4); Lymphocytes % (auto) 35.7 %; Mean Corpuscular Hemoglobin 26.1 pg (25-34); Mean Corpuscular Hgb Conc 32.6 g/dL (32-36); Mean Corpuscular Volume 79.9 fL (80-100); Mean Platelet Volume 8.6 fL (7.4-10.4); Neutrophils # (auto) 2.27 K/uL (1.4-6.5); Neutrophils % (auto) 56.3 %; Platelet Count 191 K/uL (130-400); RDW Coefficient of Variation 16.4 % (11.5-14.5); RDW Standard Deviation 47.8 fL (36.4-46.3); Red Blood Count 4.18 M/uL (4.7-6.1); White Blood Count 4.03 K/uL (4.8-10.8)
[2020-11-17 11:07] LABS: BUN Creatinine Ratio 18.7 (10-20); Calcium 8.9 mg/dl (8.5-10.1); Creatinine Clr Calc Pharmacy 41.5 ml/min; Est GFR (African American) 37.1; Potassium 4.2 mmol/L (3.5-5.1)
[2020-11-17 11:08] LABS: C Reactive Protein 0.31 mg/dl (0-0.29)
[2020-11-17] MEDS: ONDANSETRON INJ 2 MG/ML 2 ML VIAL IV PRN (12:18)
--- NOTE | 2020-11-17 18:16 | Discharge Summary ---
Date of Service November 17, 2020 Admission HPI Per Admitting Provider Edy Taylor is a 79-year-old male who presents to the ER from [facility] due to positive blood cultures. He was admitted at [facility] from October 25 to November 04 due to Enterococcus bacteremia with possible endocarditis. In addition he had a recent admission in July for Klebsiella bacteremia of unknown source. He was discharged for rehabilitation to [facility] on ampicillin after his last hospital admission. On November 10 he was sent to the emergency room with chest pain but per ER note this symptoms appears more factitious and had resolved by the time he had come to the ER. As part of his work-up during that visit however he had blood cultures taken. 1 out of 2 of these blood cultures grew Staphylococcus lugdunensis and coag negative staph resistant to oxacillin. This was discussed between the providers at [facility] and his infectious disease physician and recommended inpatient admission for intravenous daptomycin. The patient has no complaints at this time. In the ER lab work was relatively unremarkable. UA negative for infection. WBC 4.68. He was referred to medicine for admission and ongoing management of positive blood cultures. Admission Exam Per Admitting Provider Constitutional: well developed and + obese; no acute distress Eyes: + anicteric sclerae; normal pupil size ENMT: Ears: + hearing impairment (Very hard of hearing) Respiratory: normal respiratory effort, lungs clear to auscultation Auscultation: + diminished lung sounds; no crackles and no wheezes Cardiovascular: Rate/Rhythm: regular rate and regular rhythm Extremities: + pedal edema Gastrointestinal (Abdomen): normal bowel sounds, soft, nontender, no hepatosplenomegaly Skin: no rashes, warm and dry (No areas of cellulitis) Neurologic: moves all extremities and awake; not confused Psychiatric: A+Ox3, euthymic affect Genitourinary: no CVA tenderness Principal Diagnosis Bacteremia - subsequently determined to be skin contaminant Discharge Exam Constitutional well developed and + obese; no acute distress ENMT Ears: + hearing impairment (Very hard of hearing) Respiratory normal respiratory effort, lungs clear to auscultation Auscultation: no crackles and no wheezes Cardiovascular Rate/Rhythm: regular rate and regular rhythm Extremities: + pedal edema (1+ pre-tibial) Gastrointestinal (Abdomen) normal bowel sounds, soft, nontender, no hepatosplenomegaly Musculoskeletal no cyanosis or clubbing, extremities motor strength /5 Discharge Data Allergies Allergy/AdvReac Type Severity Reaction Status Date / Time carvedilol Allergy Unknown Unknown Verified 11/14/20 12:48 Consultations 11/14/20 12:31 ED Decision to Admit Stat 11/14/20 16:30 Consult Infectious Diseases Routine Hospital Course (1) Bacteremia: Edy Taylor is a 79 year old male admitted to [facility] from November 14-2020 due to positive blood culture from his ER visit on November 10 (1/2 bottles with Staph Lugdunesis and Coag negative staph). Repeat blood cultures however were negative and on consultation with infectious disease recommended discontinuing all antibiotics including those for your previous Enterococcus bacteremia at this time due to completion of over 14 days for this and blood cultures on November 10 suspected to be contaminant. PICC line was subsequently removed and he was discharged home after refusing any physical or occupational therapy. (2) Liver mass: (3) Pulmonary nodule: (4) Uncontrolled type 2 diabetes mellitus with chronic kidney disease, with long-term current use of insulin: (5) Hypothyroidism: (6) COPD, moderate: (7) Ischemic cardiomyopathy: (8) Sleep apnea: (9) Hypertension: Total Time Total Time Spent Total Time Spent (In Minutes): 35 Total Time Includes: Examination of the Patient, Discharge Planning, Medication Reconciliation and Communication With Other Providers Discharge Plan Discharge Items Patient Disposition: Home - Self-Care Reason For Visit: BACTEREMIA Discharge Diagnosis: Positive blood culture - suspected to be contamination Activity: Resume your previous activity Non-emergency contact: Primary Care Provider Call non-emergency contact if: you have any medication questions and your symptoms worsen Follow-up/Referrals: Clovis Klein III, MD [Physician] - (1-2 weeks routine hospital follow up) Gregorio Good [place] [Primary Care Provider] - Diet: Carb Consistent or DM2 Ambulatory Orders: Basic Metabolic Panel (Routine) Timeframe: 1 Week Location: Determined by Patient Ordered By: Roldan Dorantes Complete Blood Count with Diff (Routine) Timeframe: 1 Week Location: Determined by Patient Ordered By: Roldan Dorantes C Reactive Protein (Routine) Timeframe: 1 Week Location: Determined by Patient Ordered By: Roldan Dorantes Addtl Attending Provider Instructions: You are admitted to [facility] from November 14-2020 due to positive blood cultures from your ER visit on November 10. Repeat blood cultures however were negative and on consultation with infectious disease recommended discontinuing all antibiotics including those for your previous Enterococcus bacteremia at this time due to completion of over 14 days for this and blood cultures on November 10 suspected to be contaminant. PICC line was subsequently removed and you are now medically stable for discharge home. No physical or occupational therapy was performed by request. Please follow-up with your primary care physician in the next 1 to 2 weeks with repeat lab tests as ordered. Kind regards, Dr. Roldan Dorantes Pending Studies at Discharge: No Stand-Alone Forms: My [facility], Smoking Cessation Medications and DC Order Prescriptions: Continued fenofibrate nanocrystallized 145 mg tablet 145 mg PO HS Qty: 90 RF: 3 levothyroxine 100 mcg tablet 100 mcg PO QAM Qty: 90 RF: 3 ezetimibe-simvastatin 10-80 mg tablet 1 tab PO HS Qty: 90 RF: 3 spironolactone 25 mg tablet 25 mg PO QAM Qty: 90 RF: 3 folic acid 1 mg tablet 1 mg PO HS RF: 0 ascorbic acid (vitamin C) 500 mg tablet 500 mg PO HS RF: 0 lisinopril 10 mg tablet 10 mg PO QAM RF: 0 cholecalciferol (vitamin D3) 1,000 unit capsule 1,000 units PO HS RF: 0 nitroglycerin 0.4 mg tablet, sublingual 0.4 mg SL DIRECTED PRN (Reason: chest pain) RF: 0 metoprolol succinate 25 mg tablet extended release 24 hr 25 mg PO BID RF: 0 apixaban 5 mg Tablet 5 mg PO BID RF: 0 bupropion HCl 150 mg Tablet Sustained-Release 12 Hr 150 mg PO BID RF: 0 Trulicity 1.5 mg/0.5 mL pen injector 1.5 mg SUBCUT WK RF: 0 aspirin 81 mg Tablet,Delayed Release (Dr/Ec) 81 mg PO HS RF: 0 isosorbide mononitrate 60 mg tablet extended release 24 hr 60 mg PO QAM RF: 0 pantoprazole 40 mg tablet,delayed release (DR/EC) 40 mg PO QAM RF: 0 tamsulosin 0.4 mg Capsule 0.4 mg PO HS 30 Days Qty: 30 RF: 0 ferrous sulfate 325 mg (65 mg iron) Tablet,Delayed Release (Dr/Ec) 325 mg PO BIDM 30 Days Qty: 60 RF: 2 acetaminophen [Tylenol] 325 mg Tablet 650 mg PO Q4H PRN (Reason: fever and temp) RF: 0 polyethylene glycol 3350 [Miralax] 17 gram Powder In Packet 17 g PO DAILY PRN (Reason: Constipation) RF: 0 insulin aspart U-100 [Novolog Flexpen U-100 Insulin] 100 unit/mL (3 mL) insulin pen 0 units SQ UNKNOWN RF: 0 calcium carbonate [Tums] 200 mg calcium (500 mg) Tablet,Chewable 400 mg PO Q6H PRN (Reason: Indigestion) RF: 0 omega-3 fatty acids Capsule 1,000 mg PO DAILY RF: 0 Changed Tresiba FlexTouch U-100 100 unit/mL (3 mL) insulin pen 10 unit SUBCUT BID Qty: 0 RF: 0 Discontinued ampicillin sodium 2 gram Recon Soln 2 g IV Q4H RF: 0 omeprazole [Prilosec] 20 mg Capsule,Delayed Release(Dr/Ec) 20 mg PO BID RF: 0 No Action ondansetron HCl [Zofran] 4 mg tablet 4 mg PO Q6H PRN (Reason: nausea and vomiting) Qty: 30 RF: 4 furosemide 20 mg tablet 60 mg PO BID Qty: 180 RF: 5 Discharge Orders: Discharge Order (Routine); Ordered 11/17/20 Ordered By: Roldan Dorantes Admission Data Admit Date/Time: 11/14/20 13:58 Attending Provider: Roldan Dorantes Admit Provider: Roldan Dorantes Primary Care Provider: Gregorio Good [place] Other Providers: [facility] ; Roldan Dorantes ; Simon Miller ; Gloria Bansal ; Damian Griffith I. ; Yahir Bianchi II ; Becky Saleh ; Emigdio Cantu Other Interventions: Discharge Summary Assessment (RN) Last Done: 11/17/20 18:17 Coding Level of Care Code D/C Day Management >30 mins Diagnoses Bacteremia R78.81 Liver mass R16.0 Pulmonary nodule R91.1 Uncontrolled type 2 diabetes mellitus with chronic kidney disease, with long- term current use of insulin E11.22; E11.65; Z79.4 Hypothyroidism E03.9 Hypothyroidism type: unspecified COPD, moderate J44.9 Ischemic cardiomyopathy I25.5 Sleep apnea G47.30 Hypertension I10 Hypertension type: essential hypertension
[2020-11-17] MEDS ORDERED: INSULIN GLARGINE SOLOSTAR 100 UNITS/ML 3 ML PEN SC SCH (21:00)
== END 2020-11-17 19:50 | disposition home or self-care (01) | DRG 868 ==
LOC: ED 10:33 → INTOOBSV 13:58 → OBSVTOIN 13:58 → 2N 13:58 → SUATTDRO 13:58 → 2N 16:10

== ENCOUNTER 2020-12-05 06:58 | Inpatient (IN) ==
[2020-12-05] MEDS ORDERED: SODIUM CHLORIDE 0.9% 1000ML 1,000 ML IV SCH (07:15)
[2020-12-05] MEDS ORDERED: ONDANSETRON INJ 2 MG/ML 2 ML VIAL IV STA (07:15)
--- NOTE | 2020-12-05 07:42 | Emergency Department Note ---
History of Present Illness General Chief complaint: Hypoglycemia Time Seen by Provider: 12/05/20 07:04 Source: patient Mode of arrival: EMS Limitations: no limitations History of Present Illness Provider complaint: Upset stomach, shaky Maximum Pain Intensity: 6 This is a 79-year-old male who presents to the ED with a chief complaint of feeling shaky this morning. The patient reports an upset stomach. Shortly after getting here by EMS, he had one episode of vomiting and some diarrhea. T he patient states that he felt that his blood sugar was low but his EMS blood sugar was 75. The patient is hard of hearing. He has no additional complaints at this time. Nothing makes his symptoms better or worse. He was recently in the hospital for infection. Home Medications Medication Instructions Recorded Confirmed Type ascorbic acid (vitamin C) 500 mg 500 mg PO HS tab 02/16/19 11/28/20 History tablet folic acid 1 mg tablet 1 mg PO HS tab 02/16/19 11/28/20 History cholecalciferol (vitamin D3) 25 1,000 units PO HS 02/17/19 11/28/20 History mcg (1,000 unit) capsule aspirin 81 mg PO HS 12/24/19 11/28/20 History fenofibrate nanocrystallized 145 145 mg PO HS #90 tab 02/27/20 12/05/20 Rx mg tablet metoprolol succinate 25 mg PO BID 03/19/20 12/05/20 History nitroglycerin 0.4 mg SL DIRECTED PRN 03/19/20 12/05/20 History levothyroxine 100 mcg tablet 100 mcg PO QAM #90 tab 07/17/20 12/05/20 Rx Trulicity 1.5 mg SUBCUT WK 08/01/20 12/05/20 History ezetimibe 10 mg-simvastatin 80 mg 1 tab PO HS #90 tab 08/14/20 12/05/20 Rx tablet spironolactone 25 mg tablet 25 mg PO QAM #90 tab 09/06/20 12/05/20 Rx ferrous sulfate 325 mg PO BIDM 30 Days #60 tab 11/04/20 12/05/20 Rx isosorbide mononitrate 60 mg PO QAM 11/10/20 12/05/20 History acetaminophen [Tylenol] 650 mg PO Q4H PRN 11/14/20 11/14/20 History calcium carbonate [Tums] 400 mg PO Q6H PRN 11/14/20 11/28/20 History insulin aspart U-100 [Novolog 0 units SQ UNKNOWN 11/14/20 12/05/20 History Flexpen U-100 Insulin] omega-3 fatty acids 1,000 mg PO DAILY 11/14/20 11/28/20 History polyethylene glycol 3350 [Miralax] 17 g PO DAILY PRN 11/14/20 11/28/20 History Tresiba FlexTouch U-100 10 unit SUBCUT BID #0 ml 11/17/20 12/05/20 Rx ondansetron HCl 4 mg tablet 4 mg PO Q6H PRN #30 tab 11/19/20 11/28/20 Rx furosemide 20 mg tablet 60 mg PO BID #180 tab 11/20/20 12/05/20 Rx blood sugar diagnostic #300 ea 12/04/20 Rx Allergies Allergy/AdvReac Type Severity Reaction Status Date / Time carvedilol Allergy Unknown Unknown Verified 11/28/20 13:39 Past Med/Surg History Medical History Acute diastolic congestive heart failure AICD discharge DALE (acute kidney injury) (08/22/13) Anemia Anxiety Atrial fibrillation Atrial fibrillation Bradycardia Cardiomyopathy Chronic congestive heart failure (04/03/13) Chronic kidney disease, stage III (moderate) COPD, moderate Coronary artery disease Depression Diabetes Diabetes mellitus type 2, uncontrolled Diabetes mellitus with kidney disease Dyslipidemia Hemorrhoid History of [place] (myocardial infarction) Hypercholesterolemia Hypertension Hypertension Hypothyroidism Insomnia Ischemic cardiomyopathy Pacemaker malfunction Peptic ulcer Prostate cancer Prostate cancer Sleep apnea Ventricular tachycardia (paroxysmal) Surgical History History of appendectomy 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) History of heart bypass surgery Family History Unknown Diabetes Prostate cancer Uncle Prostate cancer Father Myocardial infarction Brother Myocardial infarction Other Family history non-contributory Denies family history of Ovarian cancer Breast cancer Colorectal cancer Social History Smoking Status: Former smoker Tobacco Type: Cigarettes Age Started Using Tobacco: 13; Age Quit Using Tobacco: 57; packs per day: 1; Years Smoked: 44; Cigarettes Per Day: 20; Number of Years Since Quit: 32; Second Hand Exposure: No; Hx Alcohol Use: No Hx Substance Use: No Preferred Language: [place] Communication Ability: Effective Hearing Ability: Use of Hearing Aid [place] Required: No Beliefs That Will Affect Care: None marital status: Current Living Situation: Rehab Current Living Situation Comment: lives w/ current occupational status: retired How many Children do You have: 2 Feels Safe at Home: Yes Dental Care, Regularly: No Physical Activity Frequency: Does not Exercise Seatbelt Use: never Sunscreen Use: No Assistive Devices: None Review of Systems A total of 10 systems reviewed and were otherwise negative Physical Exam Vital Signs Vital Signs - 24 hr 12/05/20 07:04 12/05/20 07:09 12/05/20 07:17 Temperature 37.2 C Temperature Source Oral Pulse Rate 90 90 92 H Pulse Rate from SpO2 Sensor Respiratory Rate 27 H 20 Respiratory Effort / Characteristics Non-Labored Respiratory Depth Normal Respiratory Pattern Regular Blood Pressure 94/57 L 94/57 L Blood Pressure Mean 69 69 Blood Pressure Position Sitting Pulse Oximetry 96 Oxygen Delivery Method Room Air Sepsis Recent Fever Within 48 Hours No Sepsis New/Unexplained Change in Mental Status No Sepsis Action Taken by Nursing No Action Required 12/05/20 07:20 12/05/20 07:59 12/05/20 08:00 Temperature Temperature Source Pulse Rate 90 90 Pulse Rate from SpO2 Sensor Respiratory Rate 17 25 H Respiratory Effort / Characteristics Respiratory Depth Respiratory Pattern Blood Pressure Blood Pressure Mean Blood Pressure Position Pulse Oximetry Oxygen Delivery Method Room Air Sepsis Recent Fever Within 48 Hours Sepsis New/Unexplained Change in Mental Status Sepsis Action Taken by Nursing 12/05/20 08:30 12/05/20 09:10 12/05/20 09:11 Temperature Temperature Source Pulse Rate 90 90 84 Pulse Rate from SpO2 Sensor 86 Respiratory Rate 21 23 25 H Respiratory Effort / Characteristics Respiratory Depth Respiratory Pattern Blood Pressure 107/61 Blood Pressure Mean 76 Blood Pressure Position Pulse Oximetry 97 Oxygen Delivery Method Sepsis Recent Fever Within 48 Hours Sepsis New/Unexplained Change in Mental Status Sepsis Action Taken by Nursing CONSTITUTIONAL/VITAL SIGNS: Reviewed / noted above. GENERAL: Non-toxic in appearance. Hard of hearing. Patient vomited once shortly after coming to the ED and was having a bowel movement. INTEGUMENTARY: Warm, dry, and [place]. HEAD: Normocephalic. EYES: without scleral icterus or trauma. ENT/OROPHARYNX: clear and moist. LYMPHADENOPATHY/NECK: Is supple without lymphadenopathy or meningismus. RESPIRATORY: Lungs clear and equal. CARDIOVASCULAR: Regular rate and rhythm. GI/ABDOMEN: Soft and nontender. No organomegaly or pulsatile mass. No rebound or guarding. Normal bowel sounds. EXTREMITIES: Warm and well perfused. BACK: No CVA tenderness. NEUROLOGICAL: Intact without focal deficits. PSYCHIATRIC: normal affect. MUSCULOSKELETAL: Normally developed with generalized weakness. The patient had difficulty ambulating on his own to the bathroom. TRIAGE NURSING DOCUMENTATION REVIEWED. Course Administered Medications Discontinued Medications Sodium Chloride (Nss 1000ml) 1,000 mls @ 999 mls/hr IV .Q1H1M SANTHOSH Stop: 12/05/20 08:15 Last Infusion: 12/05/20 08:47 Dose: 0 mls/hr Documented by: [id number] Admin: 12/05/20 07:46 Dose: 999 mls/hr Documented by: [id number] Ondansetron HCl (Ondansetron Inj 2 Mg/Ml 2 Ml Vial) 4 mg IV NOW STA Stop: 12/05/20 07:16 Last Admin: 12/05/20 07:46 Dose: 4 mg Documented by: [id number] Medical Decision Making Differential Diagnosis Differential includes acute coronary syndrome, myocardial infarction, CVA, TIA, anemia, infection, pneumonia, UTI, pyelonephritis, poor nutrition, dehydration, electrolyte disturbance,hypoglycemia. Medical Records Attestation: I reviewed the patient's medical records. Home Medications Current Medication List: was personally reviewed by me Laboratory Data Result diagrams: 12/05/20 07:41 12/05/20 07:41 Lab Results 12/05/20 12/05/20 12/05/20 Range/Units 07:03 07:41 07:41 WBC 5.83 (4.8-10.8) K/uL RBC 4.67 L (4.7-6.1) M/uL Hgb 12.3 L (14.0-18.0) g/dL Hct 37.0 L (42-52) % MCV 79.2 L (80-100) fL MCH 26.3 (25-34) pg MCHC 33.2 (32-36) g/dL RDW Std Deviation 46.6 H (36.4-46.3) fL RDW Coeff of Beck 16.1 H (11.5-14.5) % Plt Count 237 (130-400) K/uL MPV 9.0 (7.4-10.4) fL Immature Gran % (Auto) 0.2 % Neut % (Auto) 86.9 % Lymph % (Auto) 9.8 % [place] % (Auto) 2.2 % Eos % (Auto) 0.7 % Baso % (Auto) 0.2 % Neut # (Auto) 5.07 (1.4-6.5) K/uL Lymph # (Auto) 0.57 L (1.2-3.4) K/uL [place] # (Auto) 0.13 (0.11-0.59) K/uL Eos # (Auto) 0.04 (0-0.5) K/uL Baso # (Auto) 0.01 (0-0.2) K/uL Immature Gran # (Auto) 0.01 (0.00-0.02) K/uL PT 10.9 (9.0-12.0) Seconds INR 1.1 (0.9-1.1) Sodium (136-145) mmol/L Potassium (3.5-5.1) mmol/L Chloride (98-107) mmol/L Carbon Dioxide (21-32) mmol/L Anion Gap (3-11) BUN (7-18) mg/dl Creatinine (0.6-1.4) mg/dl Est Cr Clr Drug Dosing ml/min Est GFR ( Amer) Est GFR (Non-Af Amer) BUN/Creatinine Ratio (10-20) Glucose (70-99) mg/dl POC Glucose 82 (70-99) mg/dl Lactate (0.4-2.0) mmol/L Calcium (8.5-10.1) mg/dl Magnesium (1.8-2.4) mg/dl Total Bilirubin (0.2-1) mg/dl AST (15-37) U/L ALT (12-78) U/L Alkaline Phosphatase (45-117) U/L Total Creatine Kinase (39-308) U/L Troponin I (0-0.045) ng/ml Total Protein (6.4-8.2) gm/dl Albumin (3.4-5.0) gm/dl Globulin (2.5-4.0) gm/dl Albumin/Globulin Ratio (0.9-2) Lipase (73-393) U/L TSH (0.300-4.500) uIu/ml Free T4 (0.8-1.6) ng/dl 12/05/20 12/05/20 Range/Units 07:41 08:01 WBC (4.8-10.8) K/uL RBC (4.7-6.1) M/uL Hgb (14.0-18.0) g/dL Hct (42-52) % MCV (80-100) fL MCH (25-34) pg MCHC (32-36) g/dL RDW Std Deviation (36.4-46.3) fL RDW Coeff of Beck (11.5-14.5) % Plt Count (130-400) K/uL MPV (7.4-10.4) fL Immature Gran % (Auto) % Neut % (Auto) % Lymph % (Auto) % [place] % (Auto) % Eos % (Auto) % Baso % (Auto) % Neut # (Auto) (1.4-6.5) K/uL Lymph # (Auto) (1.2-3.4) K/uL [place] # (Auto) (0.11-0.59) K/uL Eos # (Auto) (0-0.5) K/uL Baso # (Auto) (0-0.2) K/uL Immature Gran # (Auto) (0.00-0.02) K/uL PT (9.0-12.0) Seconds INR (0.9-1.1) Sodium 138 (136-145) mmol/L Potassium 4.1 (3.5-5.1) mmol/L Chloride 104 (98-107) mmol/L Carbon Dioxide 25 (21-32) mmol/L Anion Gap 9.0 (3-11) BUN 37 H (7-18) mg/dl Creatinine 2.28 H (0.6-1.4) mg/dl Est Cr Clr Drug Dosing 36.3 ml/min Est GFR ( Amer) 30.9 Est GFR (Non-Af Amer) 26.7 BUN/Creatinine Ratio 16.3 (10-20) Glucose 91 (70-99) mg/dl POC Glucose (70-99) mg/dl Lactate 2.3 H* (0.4-2.0) mmol/L Calcium 9.8 (8.5-10.1) mg/dl Magnesium 1.9 (1.8-2.4) mg/dl Total Bilirubin 0.6 (0.2-1) mg/dl AST 34 (15-37) U/L ALT 21 (12-78) U/L Alkaline Phosphatase 67 (45-117) U/L Total Creatine Kinase 31 L (39-308) U/L Troponin I < 0.015 (0-0.045) ng/ml Total Protein 7.3 (6.4-8.2) gm/dl Albumin 3.2 L (3.4-5.0) gm/dl Globulin 4.1 H (2.5-4.0) gm/dl Albumin/Globulin Ratio 0.8 L (0.9-2) Lipase 117 (73-393) U/L TSH 4.520 H (0.300-4.500) uIu/ml Free T4 1.19 (0.8-1.6) ng/dl Imaging Data Radiologist's Impression: Abdomen/Pelvis CT 12/05/20 07:15 CT SCAN OF THE ABDOMEN AND PELVIS WITHOUT IV CONTRAST CLINICAL HISTORY: Vomiting. Generalized abdominal pain. COMPARISON STUDY: Abdominal CT dated 10/25/2020. TECHNIQUE: CT scan of the abdomen and pelvis is performed from the lung bases to the proximal femora. Images are reviewed in the axial, sagittal, and coronal planes. IV contrast was not administered for this examination. Note that the examination was performed in suboptimal fashion without oral and IV contrast. A dose lowering technique was utilized adhering to the principles of ALARA. The examination is degraded by motion artifact, and by streak artifact from the left arm which could not be elevated above the abdomen. CT DOSE: 1127.45 mGycm FINDINGS: Lung bases: The patient is status post midline sternotomy. The heart is enlarged and without pericardial effusion. 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 Pacemaker leads are noted. There is wedge- shaped consolidation at the left lung base, new from 10/25/2020. Chronic probable scarring is seen at both lung bases. No pleural effusion is identified. There is a small hiatal hernia. Liver: The unenhanced liver is liver is cirrhotic in morphology and heterogeneous in attenuation. There is nodularity of the surface contour.. There is no intrahepatic biliary ductal dilatation. A patient's subtle none left lobe hepatic lesion is not well-visualized on today's examination. Gallbladder: There are calcified gallstones without CT evidence of acute cholecystitis. Spleen: The spleen is enlarged measuring 17 cm in length. Pancreas: The unenhanced pancreas is moderately atrophic and grossly unremarkable. Adrenal glands: Unremarkable. Kidneys: The unenhanced kidneys demonstrate mild cortical atrophy and are without hydronephrosis. No renal calculi are identified. Renovascular calcifications are noted. A 3.9 cm peripherally calcified cyst is again noted on the left. Abdominal vasculature: There is advanced atherosclerotic calcification and ectasia of the abdominal aorta. Bowel: There is moderate colonic diverticulosis without CT evidence of acute diverticulitis. No bowel obstruction is seen. Mild fecal retention is noted throughout the colon. The appendix is not visualized. Peritoneum: There is no intraperitoneal free air or abdominal ascites. There is a large fat-containing umbilical hernia. Lymphadenopathy: None. Pelvic viscera: The prostate gland is diminutive and heterogeneous with brachy therapy implants in place. The bladder wall appears thickened and trabeculated indicating chronic outlet obstruction. Skeletal structures: The skeletal structures are osteopenic. There is mild lumbosacral spondylosis. No lytic or blastic lesions are seen. There are chronic/healed bilateral anterior rib fractures. IMPRESSION: 1. Suboptimal examination without oral and IV contrast. There is also streak and motion artifact. 2. There are no acute infectious or inflammatory findings in the abdomen or pelvis. 3. There is wedge-shaped consolidation identified at the left lung base. This is new from 10/25/2020, and could represent atelectasis, an infectious/inflammatory pneumonitis, or possibly a pulmonary infarct. If there is clinical concern for pulmonary infarct a CT angiogram of the chest should be obtained. 4. Cirrhotic liver morphology and splenomegaly. 5. Cholelithiasis. 6. Colonic diverticulosis without CT evidence of acute diverticulitis. 7. A left lobe hepatic lesion seen on prior examinations is not well-visualized on today's study. 8. Additional findings as above. ACT 112: Negative or not required by law. Electronically signed by: Indio Gomez M.D. 12/05/2020 9:34 AM Chest X-Ray 12/05/20 07:15 XR chest 1V portable CLINICAL HISTORY: weakness COMPARISON STUDY: 11/10/2020 FINDINGS: The heart is enlarged. There are postsurgical changes of midline sternotomy. There is a left-sided pacer/defibrillator. There is mild elevation of interstitium, likely secondary to mild pulmonary vascular congestion/fluid overload. Interstitial infectious/inflammatory processes could appear similar. There are no large pleural effusions.[ IMPRESSION: Cardiomegaly and mild elevation of interstitium, likely secondary to mild pulmonary vascular congestion/fluid overload. ACT 112: Negative or not required by law. Electronically signed by: Jose Sanchez M.D. 12/05/2020 8:[address] 12/05/20 07:15 CT head/brain wo con CLINICAL HISTORY: Vomiting. Head trauma COMPARISON STUDY: 10/25/2020 TECHNIQUE: Axial CT of the brain is performed from the vertex to the skull base. IV contrast was not administered for this examination. A dose lowering technique was utilized adhering to the principles of ALARA. CT DOSE: 1647.88 mGycm FINDINGS: No intra or extra-axial mass lesions are visualized. There is no CT evidence of acute cortical infarction. There is no evidence of midline shift. There is no acute hemorrhage. No calvarial fractures are visualized. There are patchy white matter hypodensities likely on a small vessel basis. There is persistent mild ventricular dilatation, likely secondary to volume loss There is no evidence of acute sinusitis IMPRESSION: No acute intracranial findings ACT 112: Negative or not required by law. Electronically signed by: Jose Sanchez M.D. 12/05/2020 9:13 AM ECG Data Attestation: I personally reviewed and interpreted this ECG as follows: Indication: + weakness Rate (beats per minute): 90 Rhythm: + other (Paced ventricular rhythm.) MDM Narrative Patient presents with generalized weakness and shakiness with concerns that his blood sugar was low. He states that his blood sugar was 50 but EMS had a blood sugar of 75 when they got there. The patient is an insulin-dependent diabetic. He also is chronically on apixaban for A. fib. He vomited once while he was here. He was recently in the hospital at the end of last month and was having vomiting at that time as well. He has a known liver mass. He recently was admitted to the hospital for positive blood cultures. His blood pressure is 94/57. Vital signs are otherwise normal. Patient's laboratory studies showed some worsening of his renal dysfunction compared to his previous admission. Lactic acid was slightly elevated. CT scan of the abdomen pelvis did not show acute intra-abdominal pathology but there was concern about a wedge-shaped consolidation of the left base that was not seen on a chest x-ray or previous CT scan. They suggested atelectasis versus pneumonia versus pulmonary infarct. Twelve-lead EKG shows a paced ventricular rhythm. Clinically this is most likely atelectasis. Lipase was negative, troponin was negative and chest x-ray showed some mild pulmonary vascular congestion. The patient's blood pressure here was somewhat low, with lows in the 90 systolic range and up to 100 after some fluids. The patient was helped to the bathroom. He would have never made it there on his own. He needed at least 1 person assist. The patient seems weak. He is currently living at home with his . He is not likely safe to go home at this point because of his weakness. He also was concerned about his blood sugar being low this morning. He was treated with IV Zofran and IV fluids. Impression & Plan Vomiting and diarrhea, Weakness, DALE (acute kidney injury), Hypoglycemia Discharge Plan Visit Data Chief Complaint: Hypoglycemia ED Provider: Farhad Layne Discharge Problem: Vomiting and diarrhea, Weakness, DALE (acute kidney injury), Hypoglycemia Forms Stand Alone Forms: [facility] [employer] Prescriptions Prescriptions: No Action fenofibrate nanocrystallized 145 mg tablet 145 mg PO HS Qty: 90 RF: 3 levothyroxine 100 mcg tablet 100 mcg PO QAM Qty: 90 RF: 3 ezetimibe-simvastatin 10-80 mg tablet 1 tab PO HS Qty: 90 RF: 3 spironolactone 25 mg tablet 25 mg PO QAM Qty: 90 RF: 3 ondansetron HCl [Zofran] 4 mg tablet 4 mg PO Q6H PRN (Reason: nausea and vomiting) Qty: 30 RF: 4 furosemide 20 mg tablet 60 mg PO BID Qty: 180 RF: 5 (DME) OneTouch Ultra Blue Test Strip Strip See Rx Instructions .ROUTE .MEDSUPPLY Qty: 300 RF: 3 folic acid 1 mg tablet 1 mg PO HS RF: 0 ascorbic acid (vitamin C) 500 mg tablet 500 mg PO HS RF: 0 cholecalciferol (vitamin D3) 1,000 unit capsule 1,000 units PO HS RF: 0 nitroglycerin 0.4 mg tablet, sublingual 0.4 mg SL DIRECTED PRN (Reason: chest pain) RF: 0 metoprolol succinate 25 mg tablet extended release 24 hr 25 mg PO BID RF: 0 Trulicity 1.5 mg/0.5 mL pen injector 1.5 mg SUBCUT WK RF: 0 aspirin 81 mg Tablet,Delayed Release (Dr/Ec) 81 mg PO HS RF: 0 isosorbide mononitrate 60 mg tablet extended release 24 hr 60 mg PO QAM RF: 0 ferrous sulfate 325 mg (65 mg iron) Tablet,Delayed Release (Dr/Ec) 325 mg PO BIDM 30 Days Qty: 60 RF: 2 acetaminophen [Tylenol] 325 mg Tablet 650 mg PO Q4H PRN (Reason: fever and temp) RF: 0 polyethylene glycol 3350 [Miralax] 17 gram Powder In Packet 17 g PO DAILY PRN (Reason: Constipation) RF: 0 insulin aspart U-100 [Novolog Flexpen U-100 Insulin] 100 unit/mL (3 mL) insulin pen 0 units SQ UNKNOWN RF: 0 calcium carbonate [Tums] 200 mg calcium (500 mg) Tablet,Chewable 400 mg PO Q6H PRN (Reason: Indigestion) RF: 0 omega-3 fatty acids Capsule 1,000 mg PO DAILY RF: 0 Tresiba FlexTouch U-100 100 unit/mL (3 mL) insulin pen 10 unit SUBCUT BID Qty: 0 RF: 0
[2020-12-05 07:58] LABS: Basophils # (auto) 0.01 K/uL (0-0.2); Basophils % (auto) 0.2 %; Eosinophils # (auto) 0.04 K/uL (0-0.5); Eosinophils % (auto) 0.7 %; Hemoglobin 12.3 g/dL (14.0-18.0); Immature Granulocytes # (auto) 0.01 K/uL (0.00-0.02); Immature Granulocytes % (auto) 0.2 %; Lymphocytes # (auto) 0.57 K/uL (1.2-3.4); Lymphocytes % (auto) 9.8 %; Mean Corpuscular Hemoglobin 26.3 pg (25-34); Mean Corpuscular Hgb Conc 33.2 g/dL (32-36); Mean Corpuscular Volume 79.2 fL (80-100); Monocytes # (auto) 0.13 K/uL (0.11-0.59); Monocytes % (auto) 2.2 %; Neutrophils # (auto) 5.07 K/uL (1.4-6.5); Neutrophils % (auto) 86.9 %; Platelet Count 237 K/uL (130-400); RDW Coefficient of Variation 16.1 % (11.5-14.5); RDW Standard Deviation 46.6 fL (36.4-46.3); Red Blood Count 4.67 M/uL (4.7-6.1); White Blood Count 5.83 K/uL (4.8-10.8)
[2020-12-05 08:07] LABS: INR 1.1 (0.9-1.1); Prothrombin Time 10.9 Seconds (9.0-12.0)
[2020-12-05 08:11] LABS: Alanine Aminotransferase 21 U/L (12-78); Albumin Level 3.2 gm/dl (3.4-5.0); Aspartate Aminotransferase 34 U/L (15-37); BUN Creatinine Ratio 16.3 (10-20); Blood Urea Nitrogen 37 mg/dl (7-18); Calcium 9.8 mg/dl (8.5-10.1); Carbon Dioxide 25 mmol/L (21-32); Chloride 104 mmol/L (98-107); Creatinine Clr Calc Pharmacy 36.3 ml/min; Est GFR (African American) 30.9; Est GFR (Non-African American) 26.7; Glucose 91 mg/dl (70-99); Lipase 117 U/L (73-393); Magnesium 1.9 mg/dl (1.8-2.4); Potassium 4.1 mmol/L (3.5-5.1); Sodium 138 mmol/L (136-145)
[2020-12-05 08:22] LABS: Albumin Globulin Ratio 0.8 (0.9-2); Alkaline Phosphatase 67 U/L (45-117); Bilirubin,Total 0.6 mg/dl (0.2-1); Creatine Kinase 31 U/L (39-308); Globulin 4.1 gm/dl (2.5-4.0); Total Protein 7.3 gm/dl (6.4-8.2); Troponin I < 0.015 ng/ml (0-0.045)
[2020-12-05 08:34] LABS: T4 Free Thyroxine 1.19 ng/dl (0.8-1.6)
--- NOTE | 2020-12-05 08:54 | XRay Report ---
XR chest 1V portable CLINICAL HISTORY: weakness COMPARISON STUDY: 11/10/2020 FINDINGS: The heart is enlarged. There are postsurgical changes of midline sternotomy. There is a lef t-sided pacer/defibrillator. There is mild elevation of interstitium, likely secondary to mild pulmon stanley vascular congestion/fluid overload. Interstitial infectious/inflammatory processes could appear s imilar. There are no large pleural effusions.[ IMPRESSION: Cardiomegaly and mild elevation of interstitium, likely secondary to mild pulmonary vascu lar congestion/fluid overload. ACT 112: Negative or not required by law. Electronically signed by: Jose Sanchez M.D. 12/05/2020 8:53 AM
--- NOTE | 2020-12-05 09:10 | Electrocardiogram Report ---
Test Reason : Blood Pressure : / mmHG Vent. Rate : 090 BPM Atrial Rate : 091 BPM P-R Int : 000 ms QRS Dur : 158 ms QT Int : 416 ms P-R-T Axes : 000 166 067 degrees QTc Int : 508 ms Ventricular-paced rhythm Biventricular pacemaker detected Abnormal ECG When compared with ECG of 10-NOV-2020 05:37, Premature ventricular complexes are no longer Present Confirmed by Carson Boyer ([id number]), editor trade journal Bob Garces ([id number]) on 12/06/2020 2:24:21 PM Referred By: REFERRED SELF Confirmed By:Carson Boyer
--- NOTE | 2020-12-05 09:14 | CT Scan Report ---
CT head/brain wo con CLINICAL HISTORY: Vomiting. Head trauma COMPARISON STUDY: 10/25/2020 TECHNIQUE: Axial CT of the brain is performed from the vertex to the skull base. IV contrast was not administered for this examination. A dose lowering technique was utilized adhering to the principles of ALARA. CT DOSE: 1647.88 mGycm FINDINGS: No intra or extra-axial mass lesions are visualized. There is no CT evidence of acute cortical infarc tion. There is no evidence of midline shift. There is no acute hemorrhage. No calvarial fractures ar e visualized. There are patchy white matter hypodensities likely on a small vessel basis. There is persistent mild ventricular dilatation, likely secondary to volume loss There is no evidence of acute sinusitis IMPRESSION: No acute intracranial findings ACT 112: Negative or not required by law. Electronically signed by: Jose Sanchez M.D. 12/05/2020 9:13 AM
--- NOTE | 2020-12-05 09:35 | CT Scan Report ---
CT SCAN OF THE ABDOMEN AND PELVIS WITHOUT IV CONTRAST CLINICAL HISTORY: Vomiting. Generalized abdominal pain. COMPARISON STUDY: Abdominal CT dated 10/25/2020. TECHNIQUE: CT scan of the abdomen and pelvis is performed from the lung bases to the proximal femora. Images are reviewed in the axial, sagittal, and coronal planes. IV contrast was not administered for this examination. Note that the examination was performed in suboptimal fashion without oral and IV contrast. A dose lowering technique was utilized adhering to the principles of ALARA. The examination is degraded by motion artifact, and by streak artifact from the left arm which could not be elevated above the abdomen. CT DOSE: 1127.45 mGycm FINDINGS: Lung bases: The patient is status post midline sternotomy. The heart is enlarged and without pericard ial effusion. 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 Pacemaker l kylah are noted. There is wedge-shaped consolidation at the left lung base, new from 10/25/2020. Chroni c probable scarring is seen at both lung bases. No pleural effusion is identified. There is a small h iatal hernia. Liver: The unenhanced liver is liver is cirrhotic in morphology and heterogeneous in attenuation. The re is nodularity of the surface contour.. There is no intrahepatic biliary ductal dilatation. A patie nt's subtle none left lobe hepatic lesion is not well-visualized on today's examination. Gallbladder: There are calcified gallstones without CT evidence of acute cholecystitis. Spleen: The spleen is enlarged measuring 17 cm in length. Pancreas: The unenhanced pancreas is moderately atrophic and grossly unremarkable. Adrenal glands: Unremarkable. Kidneys: The unenhanced kidneys demonstrate mild cortical atrophy and are without hydronephrosis. No renal calculi are identified. Renovascular calcifications are noted. A 3.9 cm peripherally calcified cyst is again noted on the left. Abdominal vasculature: There is advanced atherosclerotic calcification and ectasia of the abdominal a keyla. Bowel: There is moderate colonic diverticulosis without CT evidence of acute diverticulitis. No bowel obstruction is seen. Mild fecal retention is noted throughout the colon. The appendix is not visual ized. Peritoneum: There is no intraperitoneal free air or abdominal ascites. There is a large fat-containin g umbilical hernia. Lymphadenopathy: None. Pelvic viscera: The prostate gland is diminutive and heterogeneous with brachy therapy implants in pl piero. The bladder wall appears thickened and trabeculated indicating chronic outlet obstruction. Skeletal structures: The skeletal structures are osteopenic. There is mild lumbosacral spondylosis. N o lytic or blastic lesions are seen. There are chronic/healed bilateral anterior rib fractures. IMPRESSION: 1. Suboptimal examination without oral and IV contrast. There is also streak and motion artifact. 2. There are no acute infectious or inflammatory findings in the abdomen or pelvis. 3. There is wedge-shaped consolidation identified at the left lung base. This is new from 10/25/2020, and could represent atelectasis, an infectious/inflammatory pneumonitis, or possibly a pulmonary infa rct. If there is clinical concern for pulmonary infarct a CT angiogram of the chest should be obtaine d. 4. Cirrhotic liver morphology and splenomegaly. 5. Cholelithiasis. 6. Colonic diverticulosis without CT evidence of acute diverticulitis. 7. A left lobe hepatic lesion seen on prior examinations is not well-visualized on today's study. 8. Additional findings as above. ACT 112: Negative or not required by law. Electronically signed by: Indio Gomez M.D. 12/05/2020 9:34 AM
[2020-12-05] MEDS ORDERED: LACTATED RINGER'S 1,000 ML IV ONE (11:09)
[2020-12-05] MEDS ORDERED: LACTATED RINGER'S 250 ML IV ONE (11:09)
[2020-12-05] MEDS ORDERED: GLUCOSE 10 TABS/TUBE PO PRN (11:32)
[2020-12-05] MEDS ORDERED: GLUCAGON FOR INJ 1 MG VIAL SQ PRN (11:32)
[2020-12-05] MEDS ORDERED: GLUCOSE 40% GEL 15 GM TUBE PO PRN (11:32)
[2020-12-05] MEDS ORDERED: DEXTROSE 50% 50 ML SYRINGE IV PRN (11:32)
[2020-12-05] MEDS ORDERED: CARBOHYDRATES FOR HYPOGLYCEMIA PO PRN (11:32)
--- NOTE | 2020-12-05 11:32 | History & Physical Report ---
Date of Service December 05, 2020 Assessment & Plan (1) Vomiting and diarrhea: Repeating issue with patient, he seen GI in October and symptoms were controlled - was put on Famotidine, Omeprazole, and Carafate at that time - He has refused EGD in the past and with his microcytic anemia, multiple ther apeutics may assist - Consideration to stopping his Trulicity as known side effect profile- his HGBa1c is at 7 - Zofran while in house, he endorses that this is better on admission - Judicious resuscitation with LR x1 liter CDIFF toxin if diarrhea continues- with his recent antibiotic use (2) DALE (acute kidney injury): Prerenal appearing at this time - As above - will also hold his SHAYY - Can restart in morning if improved (3) Weakness: Multifactorial with N/V no oral intake of food or water, and hypoglycemia - support- Hold long lasting insulins at this time (4) Hypoglycemia: As above, ensure he is keeping food down and participating with meals - SSI 35 correction factor with 1:15 carb ratio - Hypoglycemia in the ER covered with short acting Dextrose and long lasting carbs with milk and sandwhich - Recehceck at 1400 then AC/HS (5) Chronic kidney disease: CKD III - As above with DALE - Avoid nephrotoxic agents and if needed minimize exposure time - BP Goal <130 (6) Liver mass: Known and stable - no acute needs at this time (7) Uncontrolled type 2 diabetes mellitus with chronic kidney disease, with long-term current use of insulin: As above - follow glucose - consider discontinuing Trulicity (8) Atrial fibrillation: AICD - Vpace - Continue apixaban 5 mg BID - Rate controlled - Continue metoprolol 25 PO BID (9) Ischemic cardiomyopathy: EF 25-30% in October -Continue Metoprolol as above - Continue Isosorbide 60 mg - Continue ezetimibe/simvastain - SHAYY as above - Continue ASA (10) Hypertension: Patient appears to have been on Lisinopril 10 mg daily when he went to rehab - is not on medication rec- will hold for now secondary to his renal function - likely can restart in the morning. (11) Anemia: As above microcytic - Continue with ferrous sulfate - may be able to re-evaluate EGD although he has declined this in the past (12) Hx of splenomegaly: Decrease in size from previous imaging - continue to follow, no acute needs- platelet count 237 History of Present Illness Primary Care Provider: NO PCP 79 YOM with past medical history of: Nausea and Vomiting, Liver mass, permanent AFIB (on Apixaban 5mg BID), ICM, hfRef (25-30%) with AICD, CABG x3 (2012), hypothyroidism, HAYLEE, HTN, DMII (on insulin). Recently admitted and was treated for +BCX that showed S. lugdunensis, and CONS. He was treated with Ampicillin and Daptomycin. His remaining repeat blood cultures were negative an d he was discharged rehab and then to home. He was also admitted to [facility] from October 25 to November 04 due to Enterococcus bacteremia. In addition he had a recent admission in July for Klebsiella bacteremia of unknown source. He returns today for nausea and vomiting for 2 days with decreased PO intake of food and water. He also reported symptomatic hypoglycemia this morning with his BG in 60 at home. He came to the emergency room. The patient also reports that he fell on Thursday after tripping over a rug and landed on his left chest. His nausea he feels is improved today, but had 3-4 episodes yesterday that was brown in color, no hematemesis, and has had 4 bouts of diarrhea since then as well that is also brown. He denies any fevers or chills or abdominal pain. He did not eat anything yesterday and continued his insulin, he had one cup of ice yesterday as well and continued his diuretics. 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 In the ER he had a CT scan of his abdomen performed, CXR, and ECG. Patient will be admitted for to gently rehydrate, follow renal function, control N/V and follow blood glucose. Allergies Allergy/AdvReac Type Severity Reaction Status Date / Time carvedilol Allergy Unknown Unknown Verified 11/28/20 13:39 Home Medications Medication Instructions Recorded Confirmed Type ascorbic acid (vitamin C) 500 mg 500 mg PO HS tab 02/16/19 11/28/20 History tablet folic acid 1 mg tablet 1 mg PO HS tab 02/16/19 11/28/20 History cholecalciferol (vitamin D3) 25 1,000 units PO HS 02/17/19 11/28/20 History mcg (1,000 unit) capsule aspirin 81 mg PO HS 12/24/19 11/28/20 History fenofibrate nanocrystallized 145 145 mg PO HS #90 tab 02/27/20 12/05/20 Rx mg tablet metoprolol succinate 25 mg PO BID 03/19/20 12/05/20 History nitroglycerin 0.4 mg SL DIRECTED PRN 03/19/20 12/05/20 History levothyroxine 100 mcg tablet 100 mcg PO QAM #90 tab 07/17/20 12/05/20 Rx Trulicity 1.5 mg SUBCUT WK 08/01/20 12/05/20 History ezetimibe 10 mg-simvastatin 80 mg 1 tab PO HS #90 tab 08/14/20 12/05/20 Rx tablet spironolactone 25 mg tablet 25 mg PO QAM #90 tab 09/06/20 12/05/20 Rx ferrous sulfate 325 mg PO BIDM 30 Days #60 tab 11/04/20 12/05/20 Rx isosorbide mononitrate 60 mg PO QAM 11/10/20 12/05/20 History acetaminophen [Tylenol] 650 mg PO Q4H PRN 11/14/20 11/14/20 History calcium carbonate [Tums] 400 mg PO Q6H PRN 11/14/20 11/28/20 History insulin aspart U-100 [Novolog 0 units SQ UNKNOWN 11/14/20 12/05/20 History Flexpen U-100 Insulin] omega-3 fatty acids 1,000 mg PO DAILY 11/14/20 11/28/20 History polyethylene glycol 3350 [Miralax] 17 g PO DAILY PRN 11/14/20 11/28/20 History Tresiba FlexTouch U-100 10 unit SUBCUT BID #0 ml 11/17/20 12/05/20 Rx ondansetron HCl 4 mg tablet 4 mg PO Q6H PRN #30 tab 11/19/20 11/28/20 Rx furosemide 20 mg tablet 60 mg PO BID #180 tab 11/20/20 12/05/20 Rx blood sugar diagnostic #300 ea 12/04/20 Rx Past Med/Surg History Medical History Acute diastolic congestive heart failure AICD discharge DALE (acute kidney injury) (08/22/13) Anemia Anxiety Atrial fibrillation Atrial fibrillation Bradycardia Cardiomyopathy Chronic congestive heart failure (04/03/13) Chronic kidney disease, stage III (moderate) COPD, moderate Coronary artery disease Depression Diabetes Diabetes mellitus type 2, uncontrolled Diabetes mellitus with kidney disease Dyslipidemia Hemorrhoid History of RI (myocardial infarction) Hypercholesterolemia Hypertension Hypertension Hypothyroidism Insomnia Ischemic cardiomyopathy Pacemaker malfunction Peptic ulcer Prostate cancer Prostate cancer Sleep apnea Ventricular tachycardia (paroxysmal) Surgical History History of appendectomy 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) History of heart bypass surgery Family History Unknown Diabetes Prostate cancer Uncle Prostate cancer Father Myocardial infarction Brother Myocardial infarction Other Family history non-contributory Denies family history of Ovarian cancer Breast cancer Colorectal cancer Social History Smoking Status: Former smoker Tobacco Type: Cigarettes Age Started Using Tobacco: 13; Age Quit Using Tobacco: 57; packs per day: 1; Years Smoked: 44; Cigarettes Per Day: 20; Number of Years Since Quit: 32; Second Hand Exposure: No; Do You Dip or Chew Tobacco: No; Tobacco Cessation Education Requested by Patient: No Hx Alcohol Use: No Hx Substance Use: No Preferred Language: Persian Communication Ability: Effective Hearing Ability: Use of Hearing Aid 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 Beliefs That Will Affect Care: None marital status: Current Living Situation: Spouse Current Living Situation Comment: lives w/ current occupational status: retired How many Children do You have: 2 Other Information That Helps Us Care for You: No Feels Safe at Home: Yes Safety Concerns: Feels Safe At This Time Dental Care, Regularly: No Physical Activity Frequency: Does not Exercise Seatbelt Use: never Sunscreen Use: No Assistive Devices: None Review of Systems Review of Systems: REVIEW OF SYSTEMS: Constitutional: No fever, sweats or chills Eyes: No diplopia, no worsening or blurred vision ENT: (+) difficulty hearing, no trouble swallowing Respiratory: No cough, sputum, dyspnea at rest or on exertion Cardiovascular: No chest pain, tightness or palpitations Abdomen: (+) nausea, vomiting, diarrhea, No pain, or constipation Musculoskeletal: (+) left chest wall pain from fall, No joint pain, calf pain, swelling Neurologic: No weakness, numbness/tingling, or balance problems Psychiatric: No anxiety or depression Skin: No rash or itch Physical Exam Physical Exam: PHYSICAL EXAM: General: awake, alert, no apparent distress Head: Normocephalic, atraumatic ENT: PERRLA, EOMI, no pharyngeal exudate, mucous membranes moist Neuro: AAO x 3, speech clear and appropriate, strength intact bilaterally 5/5, sensation intact and equal all extremities and dermatomes, no pronator drift Chest: equal rise and fall of the chest, no accessory muscle use, no heaves or thrills, Clear to auscultation, on room air, Cardiac: 100% Vpace regular, telemetry reviewed, skin warm and dry, cap refill <3 seconds, peripheral pulses +2 no JVD, no murmur, trace bilateral lower extremity edema GI: NABS x 4 quadrants, soft, nontender to palpation, no rebound, guarding or tenderness : Spontaneously voiding, no pain, no CVA tenderness, Extremities: Normal inspection, or erythema, calfs nontender to palpation Psych: Normal mood and affect Skin: no rash or erythema, bruising to abdomen from insulin injection sites Results & Data Results & Data ([facility]) Vital Signs (Past 12 Hours) Vital Signs Temp Pulse Resp BP Pulse Ox 12/05/20 10:31 91 H 12/05/20 10:30 90 23 107/55 L 12/05/20 10:01 91 H 23 98 12/05/20 10:00 91 H 23 103/74 99 12/05/20 09:45 92 H 23 96/61 L 98 12/05/20 09:31 90 20 96 12/05/20 09:30 91 H 20 90/63 L 94 12/05/20 09:12 90 23 98 12/05/20 09:11 84 25 H 107/61 12/05/20 09:10 90 23 97 12/05/20 08:30 90 21 12/05/20 08:00 90 25 H 12/05/20 07:59 90 17 12/05/20 07:17 37.2 C 92 H 20 94/57 L 96 12/05/20 07:09 90 12/05/20 07:04 90 27 H 94/57 L Laboratory Results Abnormal lab results 12/05/20 12/05/20 12/05/20 Range/Units 07:41 07:41 08:01 RBC 4.67 L (4.7-6.1) M/uL Hgb 12.3 L (14.0-18.0) g/dL Hct 37.0 L (42-52) % MCV 79.2 L (80-100) fL RDW Std Deviation 46.6 H (36.4-46.3) fL RDW Coeff of Beck 16.1 H (11.5-14.5) % Lymph # (Auto) 0.57 L (1.2-3.4) K/uL BUN 37 H (7-18) mg/dl Creatinine 2.28 H (0.6-1.4) mg/dl POC Glucose (70-99) mg/dl Lactate 2.3 H* (0.4-2.0) mmol/L Total Creatine Kinase 31 L (39-308) U/L Albumin 3.2 L (3.4-5.0) gm/dl Globulin 4.1 H (2.5-4.0) gm/dl Albumin/Globulin Ratio 0.8 L (0.9-2) TSH 4.520 H (0.300-4.500) uIu/ml 12/05/20 Range/Units 11:29 RBC (4.7-6.1) M/uL Hgb (14.0-18.0) g/dL Hct (42-52) % MCV (80-100) fL RDW Std Deviation (36.4-46.3) fL RDW Coeff of Beck (11.5-14.5) % Lymph # (Auto) (1.2-3.4) K/uL BUN (7-18) mg/dl Creatinine (0.6-1.4) mg/dl POC Glucose 39 L* (70-99) mg/dl Lactate (0.4-2.0) mmol/L Total Creatine Kinase (39-308) U/L Albumin (3.4-5.0) gm/dl Globulin (2.5-4.0) gm/dl Albumin/Globulin Ratio (0.9-2) TSH (0.300-4.500) uIu/ml Diagnostic Findings Abdomen/Pelvis CT 12/05/20 07:15 CT SCAN OF THE ABDOMEN AND PELVIS WITHOUT IV CONTRAST CLINICAL HISTORY: Vomiting. Generalized abdominal pain. COMPARISON STUDY: Abdominal CT dated 10/25/2020. TECHNIQUE: CT scan of the abdomen and pelvis is performed from the lung bases to the proximal femora. Images are reviewed in the axial, sagittal, and coronal planes. IV contrast was not administered for this examination. Note that the examination was performed in suboptimal fashion without oral and IV contrast. A dose lowering technique was utilized adhering to the principles of ALARA. The examination is degraded by motion artifact, and by streak artifact from the left arm which could not be elevated above the abdomen. CT DOSE: 1127.45 mGycm FINDINGS: Lung bases: The patient is status post midline sternotomy. The heart is enlarged and without pericardial effusion. 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 Pacemaker leads are noted. There is wedge- shaped consolidation at the left lung base, new from 10/25/2020. Chronic probable scarring is seen at both lung bases. No pleural effusion is identified. There is a small hiatal hernia. Liver: The unenhanced liver is liver is cirrhotic in morphology and heterogeneous in attenuation. There is nodularity of the surface contour.. There is no intrahepatic biliary ductal dilatation. A patient's subtle none left lobe hepatic lesion is not well-visualized on today's examination. Gallbladder: There are calcified gallstones without CT evidence of acute cholecystitis. Spleen: The spleen is enlarged measuring 17 cm in length. Pancreas: The unenhanced pancreas is moderately atrophic and grossly unremarkable. Adrenal glands: Unremarkable. Kidneys: The unenhanced kidneys demonstrate mild cortical atrophy and are without hydronephrosis. No renal calculi are identified. Renovascular calcifications are noted. A 3.9 cm peripherally calcified cyst is again noted on the left. Abdominal vasculature: There is advanced atherosclerotic calcification and ectasia of the abdominal aorta. Bowel: There is moderate colonic diverticulosis without CT evidence of acute diverticulitis. No bowel obstruction is seen. Mild fecal retention is noted throughout the colon. The appendix is not visualized. Peritoneum: There is no intraperitoneal free air or abdominal ascites. There is a large fat-containing umbilical hernia. Lymphadenopathy: None. Pelvic viscera: The prostate gland is diminutive and heterogeneous with brachy therapy implants in place. The bladder wall appears thickened and trabeculated indicating chronic outlet obstruction. Skeletal structures: The skeletal structures are osteopenic. There is mild lumbosacral spondylosis. No lytic or blastic lesions are seen. There are chronic/healed bilateral anterior rib fractures. IMPRESSION: 1. Suboptimal examination without oral and IV contrast. There is also streak and motion artifact. 2. There are no acute infectious or inflammatory findings in the abdomen or pelvis. 3. There is wedge-shaped consolidation identified at the left lung base. This is new from 10/25/2020, and could represent atelectasis, an infectious/inflammatory pneumonitis, or possibly a pulmonary infarct. If there is clinical concern for pulmonary infarct a CT angiogram of the chest should be obtained. 4. Cirrhotic liver morphology and splenomegaly. 5. Cholelithiasis. 6. Colonic diverticulosis without CT evidence of acute diverticulitis. 7. A left lobe hepatic lesion seen on prior examinations is not well-visualized on today's study. 8. Additional findings as above. Electronically signed by: Indio Gomez M.D. 12/05/2020 9:34 AM Chest X-Ray 12/05/20 07:15 XR chest 1V portable CLINICAL HISTORY: weakness COMPARISON STUDY: 11/10/2020 FINDINGS: The heart is enlarged. There are postsurgical changes of midline sternotomy. There is a left-sided pacer/defibrillator. There is mild elevation of interstitium, likely secondary to mild pulmonary vascular congestion/fluid overload. Interstitial infectious/inflammatory processes could appear similar. There are no large pleural effusions.[ IMPRESSION: Cardiomegaly and mild elevation of interstitium, likely secondary to mild pulmonary vascular congestion/fluid overload. Electronically signed by: Jose Sanchez M.D. 12/05/2020 8:[address] 12/05/20 07:15 CT head/brain wo con CLINICAL HISTORY: Vomiting. Head trauma COMPARISON STUDY: 10/25/2020 TECHNIQUE: Axial CT of the brain is performed from the vertex to the skull base. IV contrast was not administered for this examination. A dose lowering technique was utilized adhering to the principles of ALARA. CT DOSE: 1647.88 mGycm FINDINGS: No intra or extra-axial mass lesions are visualized. There is no CT evidence of acute cortical infarction. There is no evidence of midline shift. There is no acute hemorrhage. No calvarial fractures are visualized. There are patchy white matter hypodensities likely on a small vessel basis. There is persistent mild ventricular dilatation, likely secondary to volume loss There is no evidence of acute sinusitis IMPRESSION: No acute intracranial findings Electronically signed by: Jose Sanchez M.D. 12/05/2020 9:13 AM Medications Administered Dextrose (Dextrose 50% 50 Ml Syringe) 25 - 50 ml IV UD PRN; Protocol PRN Reason: Hypoglycemia Protocol Stop: 01/04/21 11:31 Last Admin: 12/05/20 11:44 Dose: 50 ml Documented by: [id number] Miscellaneous (Carbohydrates For Hypoglycemia ) 15 - 30 gm PO UD PRN PRN Reason: Hypoglycemia Protocol Stop: 01/04/21 11:31 Last Admin: 12/05/20 11:46 Dose: 30 gm Documented by: [id number] Discontinued Medications Sodium Chloride (Nss 1000ml) 1,000 mls @ 999 mls/hr IV .Q1H1M SANTHOSH Stop: 12/05/20 08:15 Last Infusion: 12/05/20 08:47 Dose: 0 mls/hr Documented by: [id number] Admin: 12/05/20 07:46 Dose: 999 mls/hr Documented by: [id number] Ondansetron HCl (Ondansetron Inj 2 Mg/Ml 2 Ml Vial) 4 mg IV NOW STA Stop: 12/05/20 07:16 Last Admin: 12/05/20 07:46 Dose: 4 mg Documented by: [id number] Home Medications ascorbic acid (vitamin C) 500 mg tablet 500 mg PO HS tab 02/16/19 [History Confirmed 11/28/20] folic acid 1 mg tablet 1 mg PO HS tab 02/16/19 [History Confirmed 11/28/20] cholecalciferol (vitamin D3) 25 mcg (1,000 unit) capsule 1,000 units PO HS 02/17/19 [History Confirmed 11/28/20] aspirin 81 mg PO HS 12/24/19 [History Confirmed 11/28/20] fenofibrate nanocrystallized 145 mg tablet 145 mg PO HS #90 tab 02/27/20 [Rx Confirmed 12/05/20] metoprolol succinate 25 mg PO BID 03/19/20 [History Confirmed 12/05/20] nitroglycerin 0.4 mg SL DIRECTED PRN 03/19/20 [History Confirmed 12/05/20] levothyroxine 100 mcg tablet 100 mcg PO QAM #90 tab 07/17/20 [Rx Confirmed 12/05/20] Trulicity 1.5 mg SUBCUT WK 08/01/20 [History Confirmed 12/05/20] ezetimibe 10 mg-simvastatin 80 mg tablet 1 tab PO HS #90 tab 08/14/20 [Rx Confirmed 12/05/20] spironolactone 25 mg tablet 25 mg PO QAM #90 tab 09/06/20 [Rx Confirmed 12/05/20] ferrous sulfate 325 mg PO BIDM 30 Days #60 tab 11/04/20 [Rx Confirmed 12/05/20] isosorbide mononitrate 60 mg PO QAM 11/10/20 [History Confirmed 12/05/20] acetaminophen [Tylenol] 650 mg PO Q4H PRN 11/14/20 [History Confirmed 11/14/20] calcium carbonate [Tums] 400 mg PO Q6H PRN 11/14/20 [History Confirmed 11/28/20] insulin aspart U-100 [Novolog Flexpen U-100 Insulin] 0 units SQ UNKNOWN 11/14/20 [History Confirmed 12/05/20] omega-3 fatty acids 1,000 mg PO DAILY 11/14/20 [History Confirmed 11/28/20] polyethylene glycol 3350 [Miralax] 17 g PO DAILY PRN 11/14/20 [History Confirmed 11/28/20] Tresiba FlexTouch U-100 10 unit SUBCUT BID #0 ml 11/17/20 [Rx Confirmed 12/05/20] ondansetron HCl 4 mg tablet 4 mg PO Q6H PRN #30 tab 11/19/20 [Rx Confirmed 11/28/20] furosemide 20 mg tablet 60 mg PO BID #180 tab 11/20/20 [Rx Confirmed 12/05/20] blood sugar diagnostic #300 ea 12/04/20 [Rx] Active Medications Dextrose (Dextrose 50% 50 Ml Syringe) 25 - 50 ml IV UD PRN; Protocol PRN Reason: Hypoglycemia Protocol Stop: 01/04/21 11:31 Last Admin: 12/05/20 11:44 Dose: 50 ml Documented by: Glucagon (Glucagon For Inj 1 Mg Vial) 1 mg SQ UD PRN; Protocol PRN Reason: Hypoglycemia Protocol Stop: 01/04/21 11:31 Glucose (Glucose 10 Tabs/Tube) 4 - 8 tabs PO UD PRN; Protocol PRN Reason: Hypoglycemia Protocol Stop: 01/04/21 11:31 Glucose (Glucose 40% Gel 15 Gm Tube) 15 - 30 gm PO UD PRN; Protocol PRN Reason: Hypoglycemia Protocol Stop: 01/04/21 11:31 Lactated Ringer's (Lr) 1,000 mls @ 80 mls/hr IV .[id number] ONE Stop: 12/05/20 23:38 Miscellaneous (Carbohydrates For Hypoglycemia ) 15 - 30 gm PO UD PRN PRN Reason: Hypoglycemia Protocol Stop: 01/04/21 11:31 Last Admin: 12/05/20 11:46 Dose: 30 gm Documented by: ECG Additional Comments: Vent. 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 Supervision note: I have personally seen and examined the patient and discussed and verified the alonso points of the history and physical along with the plan with CINDY De La Garza with the following exceptions and/or additions: This patient is a 79-year-old male known to me from recent previous hospitalization with history of chronic systolic CHF, permanent atrial fibrillation on Eliquis, COPD, CAD status post CABG, HTN, pacer/ICD, HAYLEE, paroxysmal ventricular tachycardia, prostate cancer status post brachytherapy seeds, CKD stage III, liver mass which seems to have shrunk, hypothyroidism, DM 2, cirrhosis and splenomegaly, with recent admissions for Klebsiella bacteremia of unknown source, Enterococcus bacteremia, as well as Staphylococcus bacteremia all of unknown sources. He presents to the ER today with complaints of a recent fall and concern for his pacemaker being shifted out of place, as well as hypoglycemia, nausea and vomiting and one stool that he tells me was not even loose. His blood sugar was 60 apparently at home, but here in the ER at one point was down to 39. He was treated with D50 and IV fluids for mild acute kidney injury as well. He denies any abdominal pain, nose chest pain or shortness of breath over his baseline. Of note, on previous admissions for bacteremia, he presented with nausea and vomiting. History and ROS reviewed as above Vitals reviewed Gen: AAOx3, NAD, extremely hard of hearing, overweight HEENT: Anicteric sclerae, EOMI CV: Irregularly irregular, normal rate no mgr nl S1S2 Pulm: CTAB no wcr Abd: +BS soft NT ND no masses or hernias Ext: No edema, palpable pedal pulses Skin: No rashes, warm/dry Neuro: Full strength throughout Laboratory values and radiology reports reviewed 79-year-old male here with nausea/vomiting, hypoglycemia, with history of multiple occurrences of bacteremia with Enterococcus, Klebsiella, and coagulase- negative Staphylococcus. After admission, he did develop some rigors and Tylenol was given, empiric antibiotics were started with Zosyn and vancomycin. Continue to closely monitor his blood sugars and holding long-acting insulin Consider discontinuing Trulicity as he frequently has nausea, however his nausea and vomiting likely seem to be related to recurrence of bacteremia in the past. Monitor cultures carefully. Giving gentle IV fluid hydration for 1 more liter of fluid and then he is able to p.o. hydrate on his own PG Care Time/CCT Total # of Minutes Spent Total Time Spent with Patient: Total time spent is greater than 50% in coordination of care (as documented) at patient's floor/unit and/or counseling patient: Coding Level of Care Code 51140 OBS Care - Level 3 Diagnoses Vomiting and diarrhea R11.10; R19.7 DALE (acute kidney injury) N17.9 Weakness R53.1 Hypoglycemia E16.2 Chronic kidney disease N18.32 Chronic kidney disease stage: stage 3 (moderate) Chronic kidney disease stage 3 subtype: stage 3b (GFR 30-44) Liver mass R16.0 Uncontrolled type 2 diabetes mellitus with chronic kidney disease, with long- term current use of insulin E11.22; E11.65; Z79.4 Atrial fibrillation I48.20 Atrial fibrillation type: unspecified chronic Ischemic cardiomyopathy I25.5 Hypertension I10 Hypertension type: essential hypertension Anemia D64.89 Anemia type: other cause Other causes of anemia: other cause, not classified Hx of splenomegaly Z87.898 (1) Anemia Anemia type: other cause Other causes of anemia: other cause, not classified Qualified Code(s): D64.89 - Other specified anemias (2) Atrial fibrillation Atrial fibrillation type: unspecified chronic Qualified Code(s): I48.20 - Chronic atrial fibrillation, unspecified (3) Chronic kidney disease Chronic kidney disease stage: stage 3 (moderate) Chronic kidney disease stage 3 subtype: stage 3b (GFR 30-44) Qualified Code(s): N18.32 - Chronic kidney disease, stage 3b (4) Hypertension Hypertension type: essential hypertension Qualified Code(s): I10 - Essential (primary) hypertension
[2020-12-05 11:38] LABS: Influenza A virus by PCR Negative (Neg); Influenza B virus by PCR Negative (Neg); RSV by PCR Negative (Neg); SARS CoV2 RNA(COVID-19) InHosp NEGATIVE (Negative)
[2020-12-05] MEDS ORDERED: FAMOTIDINE 10 MG TABLET PO SCH (13:17)
[2020-12-05] MEDS ORDERED: NITROGLYCERIN SL 0.4 MG/TAB TAB SL PRN (13:17)
[2020-12-05] MEDS ORDERED: ONDANSETRON 4 MG OD TAB PO PRN (14:32)
[2020-12-05] MEDS: INSULIN ASPART 100 UNITS/ML 3 ML PEN SC SCH ×3 (15:21→20:44)
[2020-12-05] MEDS: FAMOTIDINE 20 MG TAB PO SCH ×2 (16:29→19:51)
[2020-12-05] MEDS: FERROUS SULFATE 325 MG TAB PO SCH (16:29)
[2020-12-05] MEDS ORDERED: ACETAMINOPHEN 500 MG TAB PO STA (17:34)
[2020-12-05] MEDS ORDERED: ACETAMINOPHEN 325 MG TAB PO PRN (17:40)
[2020-12-05 17:42] LABS: Appearance Urine Clear (Clear); Bilirubin Urine Negative (Negative); Blood Urine Negative (Negative); Color Urine Yellow; Glucose Urine UA Negative (Negative); Ketones Urine Trace (Negative); Leukocyte Esterase Urine Negative (Negative); Nitrite Urine Negative (Negative); Protein Urine Negative (Negative); Specific Gravity Urine 1.017 (1.000-1.030); Urobilinogen Urine Negative (Negative); pH Urine 6.5 (4.5-7.5)
[2020-12-05] MEDS ORDERED: VANCOMYCIN CONSULT ACTIVE PRN (17:51)
[2020-12-05] MEDS ORDERED: VANCOMYCIN HCL 1,000 MG/270 ML BAG IV STA (17:51)
[2020-12-05] MEDS ORDERED: PIPERACILL/TAZOBAC CONSULT ACTIVE PRN (17:51)
[2020-12-05] MEDS ORDERED: PIPERACILLIN/TAZOBACTAM 4.5 GM in DEXTROSE 5% 100 ML IV ONE (18:30)
[2020-12-05] MEDS ORDERED: VANCOMYCIN HCL 2,250 MG in SODIUM CHLORIDE 0.9% 500 ML IV ONE (18:30)
[2020-12-05] MEDS: APIXABAN 5 MG TABLET PO SCH (19:49)
[2020-12-05] MEDS: FENOFIBRATE NANOCRYSTALLIZED 145 MG TABLET PO SCH (19:50)
[2020-12-05] MEDS: FOLIC ACID 1 MG TAB PO SCH (19:51)
[2020-12-05] MEDS: EZETIMIBE 10 MG TABLET PO SCH (19:51)
[2020-12-05] MEDS: METOPROLOL SUCC 25MG EXT REL TAB PO SCH (19:51)
[2020-12-05] MEDS: PANTOprazole 40 MG TAB PO SCH (19:52)
[2020-12-05] MEDS: SIMVASTATIN 80 MG TAB PO SCH (19:52)
[2020-12-05] MEDS: SUCRALFATE 1 GM/10 ML UDC PO SCH (19:53)
--- NOTE | 2020-12-05 20:15 | Pharmacy Report ---
Pharmacy Abx Dose Short Note - Date of Service December 05, 2020 - Assessment & Plan Assessment 79 year old M receiving VANC/ZOSYN for empiric treatment (48 hours). Plan Vancomycin * Pt is excluded for Vanc AUC dosing based on weight>100kg and labile Scr. * Estimate p'kinetics: Ke: 0.0343hr-1, t1/2~20hrs * Loading Dose: Vanc 2250mg (20mg/kg) IV x 1 * Maintenance dose: Vanc 1500mg (~13mg/kg) IV q24h * Will order daily Scr and monitor closely. Will order Vanc trough if Vanc continued beyond 48 hours. Pharmacy will continue to follow and will adjust dose/frequency as necessary. Thank you.
[2020-12-05] MEDS ORDERED: EZETIMIBE/SIMVASTATIN 10/80MG TAB PO SCH (21:00)
[2020-12-05] MEDS ORDERED: ACETAMINOPHEN 1000 MG/100 ML IV IV PRN (21:37)
[2020-12-05] MEDS ORDERED: diphenhydrAMINE 50 MG/ML VIAL IV PRN (21:38)
[2020-12-05] MEDS ORDERED: ACETAMINOPHEN 1,000 MG/100 ML VIAL IV PRN (22:00)
[2020-12-05] MEDS: PIPERACILLIN/TAZOBACTAM 4.5 GM in DEXTROSE 5% 100 ML IV SCH (23:38)
[2020-12-06] MEDS ORDERED: SODIUM CHLORIDE 0.9% 1000ML 1,000 ML IV SCH (03:00)
[2020-12-06] MEDS: LEVOTHYROXINE SODIUM 100 MCG TABLET PO SCH (04:18)
[2020-12-06 07:09] LABS: Basophils # (auto) 0.01 K/uL (0-0.2); Basophils % (auto) 0.2 %; Hemoglobin 10.1 g/dL (14.0-18.0); Immature Granulocytes # (auto) 0.01 K/uL (0.00-0.02); Immature Granulocytes % (auto) 0.2 %; Lymphocytes # (auto) 0.79 K/uL (1.2-3.4); Lymphocytes % (auto) 13.7 %; Mean Corpuscular Hemoglobin 25.8 pg (25-34); Mean Corpuscular Hgb Conc 32.6 g/dL (32-36); Mean Corpuscular Volume 79.1 fL (80-100); Mean Platelet Volume 8.8 fL (7.4-10.4); Monocytes % (auto) 8.7 %; Neutrophils # (auto) 4.47 K/uL (1.4-6.5); Neutrophils % (auto) 77.2 %; Platelet Count 142 K/uL (130-400); RDW Coefficient of Variation 16.7 % (11.5-14.5); RDW Standard Deviation 48.3 fL (36.4-46.3); Red Blood Count 3.92 M/uL (4.7-6.1); White Blood Count 5.78 K/uL (4.8-10.8)
[2020-12-06 07:46] LABS: BUN Creatinine Ratio 17.5 (10-20); Calcium 8.3 mg/dl (8.5-10.1); Creatinine Clr Calc Pharmacy 34.1 ml/min; Est GFR (African American) 27.8; Potassium 4.4 mmol/L (3.5-5.1)
[2020-12-06] MEDS: ISOSORBIDE MONO EXTENDED REL 60 MG TABCR PO SCH ×2 (07:46→07:52)
[2020-12-06] MEDS: PIPERACILLIN/TAZOBACTAM 4.5 GM in DEXTROSE 5% 100 ML IV SCH ×2 (07:46→16:28)
[2020-12-06] MEDS: ASPIRIN 81 MG ECTAB PO SCH ×2 (07:46→07:52)
[2020-12-06] MEDS: PANTOprazole 40 MG TAB PO SCH ×2 (07:47→07:52)
[2020-12-06] MEDS: APIXABAN 5 MG TABLET PO SCH ×3 (07:47→19:43)
[2020-12-06] MEDS: METOPROLOL SUCC 25MG EXT REL TAB PO SCH ×3 (07:47→19:39)
[2020-12-06] MEDS: FERROUS SULFATE 325 MG TAB PO SCH ×3 (07:47→16:28)
[2020-12-06] MEDS: FAMOTIDINE 20 MG TAB PO SCH ×3 (07:47→19:43)
[2020-12-06] MEDS: SUCRALFATE 1 GM/10 ML UDC PO SCH ×4 (07:47→19:45)
[2020-12-06] MEDS: INSULIN ASPART 100 UNITS/ML 3 ML PEN SC SCH ×4 (07:53→22:04)
--- NOTE | 2020-12-06 08:01 | Ultrasound Report ---
US gallbladder HISTORY: 79 years-old Male evaluate for chloangitis as well as liver lesion the right upper quadrant abdominal pain COMPARISON: CT abdomen pelvis 12/05/2020 TECHNIQUE: Multiple real-time sonographic images of the abdominal right upper quadrant were obtained assessing grayscale appearance and color flow FINDINGS: Limited exam secondary to patient condition and body habitus. Pancreas is mostly obscured by bowel gas with the imaged portions appearing unremarkable. The liver i s within normal limits. No hepatic mass identified. A stone is present within the gallbladder neck. N o gallbladder wall thickening or pericholecystic fluid. Negative sonographic Olsen's sign. Normal co mmon bile duct, 6 mm. The imaged right kidney is unremarkable without hydronephrosis. IMPRESSION: 1. Cholelithiasis without sonographic evidence of acute cholecystitis. 2. No biliary ductal dilation. 3. No hepatic lesions identified ACT 112: Negative or not required by law. The above report was generated using voice recognition software. It may contain grammatical, syntax o r spelling errors. Electronically signed by: Federico Ramsey M.D. 12/06/2020 8:00 AM
--- NOTE | 2020-12-06 08:07 | Electrocardiogram Report ---
Test Reason : Blood Pressure : / mmHG Vent. Rate : 090 BPM Atrial Rate : 076 BPM P-R Int : 000 ms QRS Dur : 162 ms QT Int : 404 ms P-R-T Axes : 000 182 054 degrees QTc Int : 494 ms Ventricular-paced rhythm Biventricular pacemaker detected Abnormal ECG When compared with ECG of 05-DEC-2020 07:06, No significant change was found Confirmed by Carson Boyer ([id number]), supervising editor trailer Bob Garces ([id number]) on 12/06/2020 2:25:33 PM Referred By: REFERRED SELF Confirmed By:Carson Boyer
--- NOTE | 2020-12-06 09:21 | Hospitalist Progress Note ---
Date of Service December 06, 2020 Assessment & Plan (1) Bacteremia: This patient is a 79-year-old male known to me from recent previous hospitalization with history of chronic systolic CHF, permanent atrial fibrillation on Eliquis, COPD, CAD status post CABG, HTN, pacer/ICD, HAYLEE, paroxysmal ventricular tachycardia, prostate cancer status post brachytherapy seeds, CKD stage III, liver mass which seems to have shrunk, hypothyroidism, DM 2, cirrhosis and splenomegaly, with recent admissions for Klebsiella bacteremia of unknown source, Enterococcus bacteremia, as well as Staphylococcus bacteremia all of unknown sources. He presents to the ER today with complaints of a recent fall and concern for his pacemaker being shifted out of place, as well as hypoglycemia, nausea and vomiting and one stool that he tells me was not even loose. His blood sugar was 60 apparently at home, but here in the ER at one point was down to 39. He was treated with D50 and IV fluids for mild acute kidney injury as well. CXR without evidence of infection but does have some mild pulmonary vascular congestion/overload. L sided pacer/defibrillator Head CT negative CT A/P without acute infectious/inflammatory findings in abd/pelvis. -- Does notes wedge-shaped consolidation identified at the left lung base. This is new from 10/25/2020, and could represent atelectasis, an infectious/inflammatory pneumonitis, or possibly a pulmonary infarct. If there is clinical concern for pulmonary infarct a CT angiogram of the chest should be obtained. --> Refusing to obtain any further imaging for today, denied sob, VS stable. On room air. Will hold off for now, but need to monitor closely. Of note, also on Eliquis 5mg BID so doubt PE unless missed doses Of note, on previous admissions for bacteremia, he presented with nausea and vomiting. Temp 38.6C evening 12/05 Blood cultures pending -- 2/2 with gram positive cocci in chains preliminary Continues on Vanco/Zosyn Discussed with ID -- formal consult pending for today (possible continued Enterococcus). Would continue Vanco but suspect Amp/+ other for IE pending consultation SUE ordered after discussion -- ?infected lead? Cardiology + Anesthesia consulted for SUE (follows with [facility], records requested -- states AICD was placed 2-3 years ago in [facility]) Continue to monitor labs (2) Vomiting and diarrhea: Repeating issue with patient, he seen GI in October and symptoms were controlled. Could be from bacteremia as previous episodes/admissions this was presenting symptoms - was put on Famotidine, Omeprazole, and Carafate at that time. Will hold protonix given CKD/DALE - He has refused EGD in the past and with his microcytic anemia, multiple therapeutics may assist - Consideration to stopping his Trulicity as known side effect profile- his HGBa1c is at 7 No further n/v since admission Continues on IVF for today but stopped as ordered diet for today (need NPO after midnight for SUE) cidff ordered but no further diarrhea. remains on precautions (3) DALE (acute kidney injury): Prerenal appearing at this time however worsened with IVF and holding diuretics. Resume lasix 60mg BID for today in addition to 10mg lisinopril BMP in AM (4) Weakness: Multifactorial with N/V no oral intake of food or water, and hypoglycemia See above (5) Hypoglycemia: As above, ensure he is keeping food down and participating with meals BSG 39 yesterday but improved today -- 77-126 BSG Ac/hs Pharmacy consulted for glycemic management Holding long lasting and will utilize SSI while inpatient (6) Chronic kidney disease: CKD III Cr 2.49 from 2.28 on admission but appears overloaded IVF stopped, lisinopril and lasix resumed as above Avoid nephrotoxic agents and if needed minimize exposure time BMP in AM (7) Liver mass: Known and stable - no acute needs at this time US GB without acute infection (8) Uncontrolled type 2 diabetes mellitus with chronic kidney disease, with long-term current use of insulin: As above - follow glucose - consider discontinuing Trulicity (9) Atrial fibrillation: AICD - Vpace - Continue apixaban 5 mg BID - Rate controlled - Continue metoprolol 25 PO BID (10) Ischemic cardiomyopathy: EF 25-30% in October -Continue Metoprolol as above - Continue Isosorbide 60 mg - Continue ezetimibe/simvastain - SHAYY as above - Continue ASA SUE as above for possible IE/septic emboli (11) Hypertension: Patient appears to have been on Lisinopril 10 mg daily when he went to rehab Resumed this morning given HFrEF Continue to monitor (12) Anemia: As above microcytic - Continue with ferrous sulfate - may be able to re-evaluate EGD although he has declined this in the past (13) Hx of splenomegaly: Decrease in size from previous imaging - continue to follow, no acute needs- platelet count 237 DVT Proph - Eliquis BID Dispo: changed to full admission Cardio consult/SUE for AM/ID consultation pending Will obtain PT/OT prior to d/c Admission and Anticipated Discharge Date Admission Date: December 05, 2020 Subjective Patient evaluated this morning. He states he is irritated that he has not gotten anything to eat or drink since being up on the floor and has not seen a doctor since last evening. Discussed continuing a diet and will provide him with water this morning. Discussed repeat blood cultures are both positive and prior recommendations for SUE which she had refused at that time however is agreeable and pursued a work-up for possible infection related to his AICD. He does note that he fell approximately 3 to 4 days ago and since that time his pacemaker has become loosened in the pocket and pain is increased when he is using his left arm. He states that the pain was improved when he decreased use of the left arm but once he started using it again the pain returned. He states that he told prior providers about issues with pacemaker and is frustrated that no one has been seeming to listen to him.. He denies any further fevers or chills or rigors since last evening, no chest pain, no shortness of breath, no abdominal pain, nausea or vomiting since admission. He has not had a further bowel movement since his previous bouts of diarrhea prior to admission with his emesis. Review of Systems Review of Systems: All systems reviewed & are unremarkable except as noted in HPI & below Physical Exam Physical Exam: PHYSICAL EXAM: General: awake, alert, no apparent distress sitting in bed. Irritable about having his water taken away Head: Normocephalic, atraumatic ENT: PERRLA, EOMI, no pharyngeal exudate, mucous membranes moist. HARD OF HEARING Neuro: AAO x 3, speech clear and appropriate, strength intact bilaterally 5/5, sensation intact and equal all extremities and dermatomes, no pronator drift Chest left pacemaker able to be moved within pocket. no erythema/drainage. minimally tender to palpation equal rise and fall of the chest, no accessory muscle use, no heaves or thrills, Respiratory: Lungs CTAB however does have end expiratory wheezing throughout posterior lung jaramillo. No crackles/rhonchi appreciated Cardiac: paced rhythm, no m/r/g appreciated 1+ b/l pitting LE edema cap refil <3 seconds GI: NABS x 4 quadrants, soft, nontender to palpation, no rebound, guarding or tenderness : Spontaneously voiding, no pain, no CVA tenderness, Extremities: Normal inspection, or erythema, calfs nontender to palpation Psych: Normal mood, irritable affect. Poor insight/intermittent confusion noted/repeating himself Skin: no rash or erythema, bruising to abdomen from insulin injection sites Results & Data Results & Data ([facility]) Vital Signs (Past 12 Hours) Vital Signs Temp Pulse Pulse Resp BP Pulse Ox 12/06/20 07:40 90 12/06/20 07:26 36.4 C L 91 H 20 102/64 95 12/06/20 02:33 36.8 C 91 H 22 96/60 L 99 12/06/20 02:32 89/56 L 12/06/20 00:39 90 12/05/20 23:52 69 22 92/58 L 94 12/05/20 23:23 37.0 C 12/05/20 23:03 90 12/05/20 22:46 38.0 C H 89 22 96/57 L 93 12/05/20 21:25 38.6 C H Laboratory Results 12/06/20 12/06/20 12/06/20 Range/Units 07:50 06:48 06:48 WBC 5.78 (4.8-10.8) K/uL RBC 3.92 L (4.7-6.1) M/uL Hgb 10.1 L (14.0-18.0) g/dL Hct 31.0 L (42-52) % MCV 79.1 L (80-100) fL MCH 25.8 (25-34) pg MCHC 32.6 (32-36) g/dL RDW Std Deviation 48.3 H (36.4-46.3) fL RDW Coeff of Beck 16.7 H (11.5-14.5) % Plt Count 142 (130-400) K/uL MPV 8.8 (7.4-10.4) fL Immature Gran % (Auto) 0.2 % Neut % (Auto) 77.2 % Lymph % (Auto) 13.7 % [place] % (Auto) 8.7 % Eos % (Auto) 0.0 % Baso % (Auto) 0.2 % Neut # (Auto) 4.47 (1.4-6.5) K/uL Lymph # (Auto) 0.79 L (1.2-3.4) K/uL [place] # (Auto) 0.50 (0.11-0.59) K/uL Eos # (Auto) 0.00 (0-0.5) K/uL Baso # (Auto) 0.01 (0-0.2) K/uL Immature Gran # (Auto) 0.01 (0.00-0.02) K/uL Sodium 136 (136-145) mmol/L Potassium 4.4 (3.5-5.1) mmol/L Chloride 106 (98-107) mmol/L Carbon Dioxide 24 (21-32) mmol/L Anion Gap 6.0 (3-11) BUN 44 H (7-18) mg/dl Creatinine 2.49 H (0.6-1.4) mg/dl Est Cr Clr Drug Dosing 34.1 ml/min Est GFR ( Amer) 27.8 Est GFR (Non-Af Amer) 24.0 BUN/Creatinine Ratio 17.5 (10-20) Glucose 66 L (70-99) mg/dl POC Glucose 77 (70-99) mg/dl Calcium 8.3 L D (8.5-10.1) mg/dl Magnesium 2.0 (1.8-2.4) mg/dl Procalcitonin (0-0.5) ng/ml Urine Color Urine Appearance (Clear) Urine pH (4.5-7.5) Ur Specific [place] (1.000-1.030) Urine Protein (Negative) Urine Glucose (UA) (Negative) Urine Ketones (Negative) Urine Blood (Negative) Urine Nitrite (Negative) Urine Bilirubin (Negative) Urine Urobilinogen (Negative) Ur Leukocyte Esterase (Negative) COVID-19 Eval Order SARS-CoV-2 (PCR) (Negative) Influenza Type A (PCR) (Neg) Influenza Type B (PCR) (Neg) RSV (RT-PCR) (Neg) 12/05/20 12/05/20 12/05/20 Range/Units 20:41 17:36 17:18 WBC (4.8-10.8) K/uL RBC (4.7-6.1) M/uL Hgb (14.0-18.0) g/dL Hct (42-52) % MCV (80-100) fL MCH (25-34) pg MCHC (32-36) g/dL RDW Std Deviation (36.4-46.3) fL RDW Coeff of Beck (11.5-14.5) % Plt Count (130-400) K/uL MPV (7.4-10.4) fL Immature Gran % (Auto) % Neut % (Auto) % Lymph % (Auto) % [place] % (Auto) % Eos % (Auto) % Baso % (Auto) % Neut # (Auto) (1.4-6.5) K/uL Lymph # (Auto) (1.2-3.4) K/uL [place] # (Auto) (0.11-0.59) K/uL Eos # (Auto) (0-0.5) K/uL Baso # (Auto) (0-0.2) K/uL Immature Gran # (Auto) (0.00-0.02) K/uL Sodium (136-145) mmol/L Potassium (3.5-5.1) mmol/L Chloride (98-107) mmol/L Carbon Dioxide (21-32) mmol/L Anion Gap (3-11) BUN (7-18) mg/dl Creatinine (0.6-1.4) mg/dl Est Cr Clr Drug Dosing ml/min Est GFR ( Amer) Est GFR (Non-Af Amer) BUN/Creatinine Ratio (10-20) Glucose (70-99) mg/dl POC Glucose 126 H 173 H (70-99) mg/dl Calcium (8.5-10.1) mg/dl Magnesium (1.8-2.4) mg/dl Procalcitonin (0-0.5) ng/ml Urine Color Yellow Urine Appearance Clear (Clear) Urine pH 6.5 (4.5-7.5) Ur Specific [place] 1.017 (1.000-1.030) Urine Protein Negative (Negative) Urine Glucose (UA) Negative (Negative) Urine Ketones Trace H (Negative) Urine Blood Negative (Negative) Urine Nitrite Negative (Negative) Urine Bilirubin Negative (Negative) Urine Urobilinogen Negative (Negative) Ur Leukocyte Esterase Negative (Negative) COVID-19 Eval Order SARS-CoV-2 (PCR) (Negative) Influenza Type A (PCR) (Neg) Influenza Type B (PCR) (Neg) RSV (RT-PCR) (Neg) 12/05/20 12/05/20 12/05/20 Range/Units 16:34 13:35 12:45 WBC (4.8-10.8) K/uL RBC (4.7-6.1) M/uL Hgb (14.0-18.0) g/dL Hct (42-52) % MCV (80-100) fL MCH (25-34) pg MCHC (32-36) g/dL RDW Std Deviation (36.4-46.3) fL RDW Coeff of Beck (11.5-14.5) % Plt Count (130-400) K/uL MPV (7.4-10.4) fL Immature Gran % (Auto) % Neut % (Auto) % Lymph % (Auto) % [place] % (Auto) % Eos % (Auto) % Baso % (Auto) % Neut # (Auto) (1.4-6.5) K/uL Lymph # (Auto) (1.2-3.4) K/uL [place] # (Auto) (0.11-0.59) K/uL Eos # (Auto) (0-0.5) K/uL Baso # (Auto) (0-0.2) K/uL Immature Gran # (Auto) (0.00-0.02) K/uL Sodium (136-145) mmol/L Potassium (3.5-5.1) mmol/L Chloride (98-107) mmol/L Carbon Dioxide (21-32) mmol/L Anion Gap (3-11) BUN (7-18) mg/dl Creatinine (0.6-1.4) mg/dl Est Cr Clr Drug Dosing ml/min Est GFR ( Amer) Est GFR (Non-Af Amer) BUN/Creatinine Ratio (10-20) Glucose (70-99) mg/dl POC Glucose 189 H 118 H 91 (70-99) mg/dl Calcium (8.5-10.1) mg/dl Magnesium (1.8-2.4) mg/dl Procalcitonin (0-0.5) ng/ml Urine Color Urine Appearance (Clear) Urine pH (4.5-7.5) Ur Specific [place] (1.000-1.030) Urine Protein (Negative) Urine Glucose (UA) (Negative) Urine Ketones (Negative) Urine Blood (Negative) Urine Nitrite (Negative) Urine Bilirubin (Negative) Urine Urobilinogen (Negative) Ur Leukocyte Esterase (Negative) COVID-19 Eval Order SARS-CoV-2 (PCR) (Negative) Influenza Type A (PCR) (Neg) Influenza Type B (PCR) (Neg) RSV (RT-PCR) (Neg) 12/05/20 12/05/20 12/05/20 Range/Units 12:07 11:49 11:47 WBC (4.8-10.8) K/uL RBC (4.7-6.1) M/uL Hgb (14.0-18.0) g/dL Hct (42-52) % MCV (80-100) fL MCH (25-34) pg MCHC (32-36) g/dL RDW Std Deviation (36.4-46.3) fL RDW Coeff of Beck (11.5-14.5) % Plt Count (130-400) K/uL MPV (7.4-10.4) fL Immature Gran % (Auto) % Neut % (Auto) % Lymph % (Auto) % [place] % (Auto) % Eos % (Auto) % Baso % (Auto) % Neut # (Auto) (1.4-6.5) K/uL Lymph # (Auto) (1.2-3.4) K/uL [place] # (Auto) (0.11-0.59) K/uL Eos # (Auto) (0-0.5) K/uL Baso # (Auto) (0-0.2) K/uL Immature Gran # (Auto) (0.00-0.02) K/uL Sodium (136-145) mmol/L Potassium (3.5-5.1) mmol/L Chloride (98-107) mmol/L Carbon Dioxide (21-32) mmol/L Anion Gap (3-11) BUN (7-18) mg/dl Creatinine (0.6-1.4) mg/dl Est Cr Clr Drug Dosing ml/min Est GFR ( Amer) Est GFR (Non-Af Amer) BUN/Creatinine Ratio (10-20) Glucose (70-99) mg/dl POC Glucose 121 H 177 H 202 H (70-99) mg/dl Calcium (8.5-10.1) mg/dl Magnesium (1.8-2.4) mg/dl Procalcitonin (0-0.5) ng/ml Urine Color Urine Appearance (Clear) Urine pH (4.5-7.5) Ur Specific [place] (1.000-1.030) Urine Protein (Negative) Urine Glucose (UA) (Negative) Urine Ketones (Negative) Urine Blood (Negative) Urine Nitrite (Negative) Urine Bilirubin (Negative) Urine Urobilinogen (Negative) Ur Leukocyte Esterase (Negative) COVID-19 Eval Order SARS-CoV-2 (PCR) (Negative) Influenza Type A (PCR) (Neg) Influenza Type B (PCR) (Neg) RSV (RT-PCR) (Neg) 12/05/20 12/05/20 12/05/20 Range/Units 11:29 10:12 10:12 WBC (4.8-10.8) K/uL RBC (4.7-6.1) M/uL Hgb (14.0-18.0) g/dL Hct (42-52) % MCV (80-100) fL MCH (25-34) pg MCHC (32-36) g/dL RDW Std Deviation (36.4-46.3) fL RDW Coeff of Beck (11.5-14.5) % Plt Count (130-400) K/uL MPV (7.4-10.4) fL Immature Gran % (Auto) % Neut % (Auto) % Lymph % (Auto) % [place] % (Auto) % Eos % (Auto) % Baso % (Auto) % Neut # (Auto) (1.4-6.5) K/uL Lymph # (Auto) (1.2-3.4) K/uL [place] # (Auto) (0.11-0.59) K/uL Eos # (Auto) (0-0.5) K/uL Baso # (Auto) (0-0.2) K/uL Immature Gran # (Auto) (0.00-0.02) K/uL Sodium (136-145) mmol/L Potassium (3.5-5.1) mmol/L Chloride (98-107) mmol/L Carbon Dioxide (21-32) mmol/L Anion Gap (3-11) BUN (7-18) mg/dl Creatinine (0.6-1.4) mg/dl Est Cr Clr Drug Dosing ml/min Est GFR ( Amer) Est GFR (Non-Af Amer) BUN/Creatinine Ratio (10-20) Glucose (70-99) mg/dl POC Glucose 39 L* (70-99) mg/dl Calcium (8.5-10.1) mg/dl Magnesium (1.8-2.4) mg/dl Procalcitonin (0-0.5) ng/ml Urine Color Urine Appearance (Clear) Urine pH (4.5-7.5) Ur Specific [place] (1.000-1.030) Urine Protein (Negative) Urine Glucose (UA) (Negative) Urine Ketones (Negative) Urine Blood (Negative) Urine Nitrite (Negative) Urine Bilirubin (Negative) Urine Urobilinogen (Negative) Ur Leukocyte Esterase (Negative) COVID-19 Eval Order [facility] at [facility] SARS-CoV-2 (PCR) NEGATIVE (Negative) Influenza Type A (PCR) Negative (Neg) Influenza Type B (PCR) Negative (Neg) RSV (RT-PCR) Negative (Neg) 12/05/20 Range/Units 08:03 WBC (4.8-10.8) K/uL RBC (4.7-6.1) M/uL Hgb (14.0-18.0) g/dL Hct (42-52) % MCV (80-100) fL MCH (25-34) pg MCHC (32-36) g/dL RDW Std Deviation (36.4-46.3) fL RDW Coeff of Beck (11.5-14.5) % Plt Count (130-400) K/uL MPV (7.4-10.4) fL Immature Gran % (Auto) % Neut % (Auto) % Lymph % (Auto) % [place] % (Auto) % Eos % (Auto) % Baso % (Auto) % Neut # (Auto) (1.4-6.5) K/uL Lymph # (Auto) (1.2-3.4) K/uL [place] # (Auto) (0.11-0.59) K/uL Eos # (Auto) (0-0.5) K/uL Baso # (Auto) (0-0.2) K/uL Immature Gran # (Auto) (0.00-0.02) K/uL Sodium (136-145) mmol/L Potassium (3.5-5.1) mmol/L Chloride (98-107) mmol/L Carbon Dioxide (21-32) mmol/L Anion Gap (3-11) BUN (7-18) mg/dl Creatinine (0.6-1.4) mg/dl Est Cr Clr Drug Dosing ml/min Est GFR ( Amer) Est GFR (Non-Af Amer) BUN/Creatinine Ratio (10-20) Glucose (70-99) mg/dl POC Glucose (70-99) mg/dl Calcium (8.5-10.1) mg/dl Magnesium (1.8-2.4) mg/dl Procalcitonin 0.37 (0-0.5) ng/ml Urine Color Urine Appearance (Clear) Urine pH (4.5-7.5) Ur Specific [place] (1.000-1.030) Urine Protein (Negative) Urine Glucose (UA) (Negative) Urine Ketones (Negative) Urine Blood (Negative) Urine Nitrite (Negative) Urine Bilirubin (Negative) Urine Urobilinogen (Negative) Ur Leukocyte Esterase (Negative) COVID-19 Eval Order SARS-CoV-2 (PCR) (Negative) Influenza Type A (PCR) (Neg) Influenza Type B (PCR) (Neg) RSV (RT-PCR) (Neg) Diagnostic Findings Abdomen/Pelvis CT 12/05/20 07:15 CT SCAN OF THE ABDOMEN AND PELVIS WITHOUT IV CONTRAST CLINICAL HISTORY: Vomiting. Generalized abdominal pain. COMPARISON STUDY: Abdominal CT dated 10/25/2020. TECHNIQUE: CT scan of the abdomen and pelvis is performed from the lung bases to the proximal femora. Images are reviewed in the axial, sagittal, and coronal planes. IV contrast was not administered for this examination. Note that the examination was performed in suboptimal fashion without oral and IV contrast. A dose lowering technique was utilized adhering to the principles of ALARA. The examination is degraded by motion artifact, and by streak artifact from the left arm which could not be elevated above the abdomen. CT DOSE: 1127.45 mGycm FINDINGS: Lung bases: The patient is status post midline sternotomy. The heart is enlarged and without pericardial effusion. 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 Pacemaker leads are noted. There is wedge- shaped consolidation at the left lung base, new from 10/25/2020. Chronic probable scarring is seen at both lung bases. No pleural effusion is identified. There is a small hiatal hernia. Liver: The unenhanced liver is liver is cirrhotic in morphology and heterogeneous in attenuation. There is nodularity of the surface contour.. There is no intrahepatic biliary ductal dilatation. A patient's subtle none left lobe hepatic lesion is not well-visualized on today's examination. Gallbladder: There are calcified gallstones without CT evidence of acute cholecystitis. Spleen: The spleen is enlarged measuring 17 cm in length. Pancreas: The unenhanced pancreas is moderately atrophic and grossly unremarkable. Adrenal glands: Unremarkable. Kidneys: The unenhanced kidneys demonstrate mild cortical atrophy and are without hydronephrosis. No renal calculi are identified. Renovascular calcifications are noted. A 3.9 cm peripherally calcified cyst is again noted on the left. Abdominal vasculature: There is advanced atherosclerotic calcification and ectasia of the abdominal aorta. Bowel: There is moderate colonic diverticulosis without CT evidence of acute diverticulitis. No bowel obstruction is seen. Mild fecal retention is noted throughout the colon. The appendix is not visualized. Peritoneum: There is no intraperitoneal free air or abdominal ascites. There is a large fat-containing umbilical hernia. Lymphadenopathy: None. Pelvic viscera: The prostate gland is diminutive and heterogeneous with brachy therapy implants in place. The bladder wall appears thickened and trabeculated indicating chronic outlet obstruction. Skeletal structures: The skeletal structures are osteopenic. There is mild lumbosacral spondylosis. No lytic or blastic lesions are seen. There are chronic/healed bilateral anterior rib fractures. IMPRESSION: 1. Suboptimal examination without oral and IV contrast. There is also streak and motion artifact. 2. There are no acute infectious or inflammatory findings in the abdomen or pe lvis. 3. There is wedge-shaped consolidation identified at the left lung base. This is new from 10/25/2020, and could represent atelectasis, an infectious/inflammatory pneumonitis, or possibly a pulmonary infarct. If there is clinical concern for pulmonary infarct a CT angiogram of the chest should be obtained. 4. Cirrhotic liver morphology and splenomegaly. 5. Cholelithiasis. 6. Colonic diverticulosis without CT evidence of acute diverticulitis. 7. A left lobe hepatic lesion seen on prior examinations is not well-visualized on today's study. 8. Additional findings as above. ACT 112: Negative or not required by law. Electronically signed by: Indio Gomez M.D. 12/05/2020 9:34 AM Gallbladder Ultrasound 12/05/20 17:58 US gallbladder HISTORY: 79 years-old Male evaluate for chloangitis as well as liver lesion the right upper quadrant abdominal pain COMPARISON: CT abdomen pelvis 12/05/2020 TECHNIQUE: Multiple real-time sonographic images of the abdominal right upper quadrant were obtained assessing grayscale appearance and color flow FINDINGS: Limited exam secondary to patient condition and body habitus. Pancreas is mostly obscured by bowel gas with the imaged portions appearing unremarkable. The liver is within normal limits. No hepatic mass identified. A stone is present within the gallbladder neck. No gallbladder wall thickening or pericholecystic fluid. Negative sonographic Olsen's sign. Normal common bile duct, 6 mm. The imaged right kidney is unremarkable without hydronephrosis. IMPRESSION: 1. Cholelithiasis without sonographic evidence of acute cholecystitis. 2. No biliary ductal dilation. 3. No hepatic lesions identified ACT 112: Negative or not required by law. The above report was generated using voice recognition software. It may contain grammatical, syntax or spelling errors. Electronically signed by: Federico Ramsey M.D. 12/06/2020 8:00 AM PG Care Time/CCT Total # of Minutes Spent Total Time Spent with Patient: Total time spent is greater than 50% in coordination of care (as documented) at patient's floor/unit and/or counseling patient: Coding Level of Care Code 63203 Subseq Hosp Care Lvl 3 Diagnoses Bacteremia R78.81 Vomiting and diarrhea R11.10; R19.7 DALE (acute kidney injury) N17.9 Weakness R53.1 Hypoglycemia E16.2 Chronic kidney disease N18.32 Chronic kidney disease stage: stage 3 (moderate) Chronic kidney disease stage 3 subtype: stage 3b (GFR 30-44) Liver mass R16.0 Uncontrolled type 2 diabetes mellitus with chronic kidney disease, with long- term current use of insulin E11.22; E11.65; Z79.4 Atrial fibrillation I48.20 Atrial fibrillation type: unspecified chronic Ischemic cardiomyopathy I25.5 Hypertension I10 Hypertension type: essential hypertension Anemia D64.89 Anemia type: other cause Other causes of anemia: other cause, not classified Hx of splenomegaly Z87.898 (1) Anemia Anemia type: other cause Other causes of anemia: other cause, not classified Qualified Code(s): D64.89 - Other specified anemias (2) Atrial fibrillation Atrial fibrillation type: unspecified chronic Qualified Code(s): I48.20 - Chronic atrial fibrillation, unspecified (3) Chronic kidney disease Chronic kidney disease stage: stage 3 (moderate) Chronic kidney disease stage 3 subtype: stage 3b (GFR 30-44) Qualified Code(s): N18.32 - Chronic kidney disease, stage 3b (4) Hypertension Hypertension type: essential hypertension Qualified Code(s): I10 - Essential (primary) hypertension
[2020-12-06] MEDS ORDERED: PHARMACY GLYCEMIC MGMT CONSULT PRN (12:01)
--- NOTE | 2020-12-06 12:02 | Anesthesiology Consultation ---
Date of Service December 06, 2020 Assessment & Plan Chart Review Chart Review: Pending: Refer to Additional Notes / Consult section (Await cardiology recommendations) History Height/Weight Height: 6 ft 2 in Weight: 119.6 kg Allergies Allergy/AdvReac Type Severity Reaction Status Date / Time carvedilol Allergy Unknown Unknown Verified 11/28/20 13:39 Medications Home Medications Medication Instructions Recorded Confirmed Last Taken ascorbic acid (vitamin C) 500 mg 500 mg PO HS tab 02/16/19 11/28/20 11/13/20 tablet folic acid 1 mg tablet 1 mg PO HS tab 02/16/19 11/28/20 11/13/20 cholecalciferol (vitamin D3) 25 1,000 units PO HS 02/17/19 11/28/20 11/13/20 mcg (1,000 unit) capsule aspirin 81 mg PO HS 12/24/19 11/28/20 11/13/20 fenofibrate nanocrystallized 145 145 mg PO HS #90 tab 02/27/20 12/05/20 11/13/20 mg tablet metoprolol succinate 25 mg PO BID 03/19/20 12/05/20 11/14/20 nitroglycerin 0.4 mg SL DIRECTED PRN 03/19/20 12/05/20 11/10/20 levothyroxine 100 mcg tablet 100 mcg PO QAM #90 tab 07/17/20 12/05/20 11/14/20 Trulicity 1.5 mg SUBCUT WK 08/01/20 12/05/20 11/12/20 ezetimibe 10 mg-simvastatin 80 mg 1 tab PO HS #90 tab 08/14/20 12/05/20 11/13/20 tablet spironolactone 25 mg tablet 25 mg PO QAM #90 tab 09/06/20 12/05/20 11/14/20 ferrous sulfate 325 mg PO BIDM 30 Days #60 tab 11/04/20 12/05/20 11/14/20 isosorbide mononitrate 60 mg PO QAM 11/10/20 12/05/20 11/14/20 acetaminophen [Tylenol] 650 mg PO Q4H PRN 11/14/20 11/14/20 11/11/20 16:40 calcium carbonate [Tums] 400 mg PO Q6H PRN 11/14/20 11/28/2011/14/21 insulin aspart U-100 [Novolog 0 units SQ UNKNOWN 11/14/20 12/05/20 Unknown Flexpen U-100 Insulin] omega-3 fatty acids 1,000 mg PO DAILY 11/14/20 11/28/20 11/14/20 polyethylene glycol 3350 [Miralax] 17 g PO DAILY PRN 11/14/20 11/28/20 11/10/20 Tresiba FlexTouch U-100 10 unit SUBCUT BID #0 ml 11/17/20 12/05/20 11/14/20 ondansetron HCl 4 mg tablet 4 mg PO Q6H PRN #30 tab 11/19/20 11/28/20 Unknown furosemide 20 mg tablet 60 mg PO BID #180 tab 11/20/20 12/05/20 Unknown blood sugar diagnostic #300 ea 12/04/20 Unknown Active Medications Generic Name Dose Route Start Last Admin Trade Name Freq PRN Reason Stop Dose Admin Apixaban 5 mg 12/05/20 21:00 12/06/20 07:52 Apixaban 5 Mg Tablet PO 01/04/21 20:59 Not Given BID SANTHOSH Aspirin 81 mg 12/06/20 09:00 12/06/20 07:52 Aspirin 81 Mg Ectab PO 01/05/21 08:59 Not Given DAILY SANTHOSH Dextrose 25 - 50 ml 12/05/20 11:32 12/05/20 11:44 Dextrose 50% 50 Ml Syringe IV 01/04/21 11:31 50 ml UD PRN Administration Hypoglycemia Protocol Protocol Diphenhydramine HCl 25 mg 12/05/20 21:38 12/05/20 23:17 Diphenhydramine 50 Mg/Ml Vial IV 01/04/21 21:37 25 mg Q8H PRN Administration Nausea Ezetimibe 10 mg 12/05/20 21:00 12/05/20 19:51 Ezetimibe 10 Mg Tablet PO 01/04/21 20:59 10 mg HS SANTHOSH Administration Famotidine 20 mg 12/05/20 14:15 12/06/20 07:52 Famotidine 20 Mg Tab PO 01/04/21 14:14 Not Given BID SANTHOSH Fenofibrate 145 mg 12/05/20 21:00 12/05/20 19:50 Fenofibrate Nanocrystallized 145 Mg Tablet PO 01/04/21 20:59 145 mg HS SANTHOSH Administration Ferrous Sulfate 325 mg 12/05/20 17:00 12/06/20 07:53 Ferrous Sulfate 325 Mg Tab PO 01/04/21 16:59 Not Given BIDM SANTHOSH Folic Acid 1 mg 12/05/20 21:00 12/05/20 19:51 Folic Acid 1 Mg Tab PO 01/04/21 20:59 1 mg HS SANTHOSH Administration Piperacillin Sod/Tazobactam 120 mls @ 30 mls/hr 12/06/20 00:00 12/06/20 12:07 Sod 4.5 gm/ Dextrose IV 12/13/20 00:00 Infused Q8H SANTHOSH Infusion Protocol Acetaminophen 1,000 mg in 100 mls @ 400 mls/hr 12/05/20 22:00 12/05/20 22:20 Ofirmev IV 12/08/20 21:59 Infused Q8H PRN Infusion Pain or Fever Protocol Sodium Chloride 1,000 mls @ 80 mls/hr 12/06/20 03:00 12/06/20 04:16 Nss 1000ml IV 12/06/20 15:29 80 mls/hr .[id number] SANTHOSH Administration Insulin Aspart 0 units 12/05/20 13:17 12/06/20 12:49 Insulin Aspart 100 Units/Ml 3 Ml Pen SC 01/04/21 13:16 Not Given ACHS SANTHOSH Isosorbide Mononitrate 60 mg 12/06/20 09:00 12/06/20 07:52 Isosorbide [place] Extended Rel 60 Mg Tabcr PO 01/05/21 08:59 Not Given QAM SANTHOSH Levothyroxine Sodium 100 mcg 12/06/20 06:30 12/06/20 04:18 Levothyroxine Sodium 100 Mcg Tablet PO 01/05/21 06:29 Not Given DAILYBB SANTHOSH Metoprolol Succinate 25 mg 12/05/20 21:00 12/06/20 07:52 Metoprolol Succ 25mg Ext Rel Tab PO 01/04/21 20:59 Not Given BID SANTHOSH Miscellaneous 15 - 30 gm 12/05/20 11:32 12/05/20 11:46 Carbohydrates For Hypoglycemia PO 01/04/21 11:31 30 gm UD PRN Administration Hypoglycemia Protocol Ondansetron HCl 4 mg 12/05/20 14:32 05/05/21 19:11 Ondansetron 4 Mg Od Tab PO 01/04/21 14:31 4 mg Q6H PRN Administration Nausea And Vomiting Simvastatin 80 mg 12/05/20 21:00 12/05/20 19:52 Simvastatin 80 Mg Tab PO 01/04/21 20:59 80 mg HS SANTHOSH Administration Sucralfate 1 gm 12/05/20 21:00 12/06/20 12:50 Sucralfate 1 Gm/10 Ml Udc PO 01/04/21 20:59 1 gm TID SANTHOSH Administration Past Medical History Medical History Acute diastolic congestive heart failure AICD discharge DALE (acute kidney injury) (08/22/13) Anemia Anxiety Atrial fibrillation Atrial fibrillation Bradycardia Cardiomyopathy Chronic congestive heart failure (04/03/13) Chronic kidney disease, stage III (moderate) COPD, moderate Coronary artery disease Depression Diabetes Diabetes mellitus type 2, uncontrolled Diabetes mellitus with kidney disease Dyslipidemia Hemorrhoid History of AR (myocardial infarction) Hypercholesterolemia Hypertension Hypertension Hypothyroidism Insomnia Ischemic cardiomyopathy Pacemaker malfunction Peptic ulcer Prostate cancer Prostate cancer Sleep apnea Ventricular tachycardia (paroxysmal) Past Family History Family History Unknown Diabetes Prostate cancer Uncle Prostate cancer Father Myocardial infarction Brother Myocardial infarction Other Family history non-contributory Denies family history of Ovarian cancer Breast cancer Colorectal cancer Past Surgical History Surgical History History of appendectomy 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) History of heart bypass surgery Social History Smoking Status: Former smoker tobacco type: cigarettes Smoking cigarettes per day: 20 Do You Dip or Chew Tobacco: No Hx Alcohol Use: No Hx Substance Use: No substance use type: does not use Physical Exam Vital Signs Last Vital Signs Temp 36.4 C L 12/06/20 11:15 Pulse 91 H 12/06/20 11:15 Resp 18 12/06/20 11:15 BP 108/70 12/06/20 11:15 Pulse Ox 96 12/06/20 11:15 Testing Laboratory Results 12/06/20 06:48 12/06/20 06:48 PT 10.9 Seconds (9.0-12.0) 12/05/20 07:41 INR 1.1 (0.9-1.1) 12/05/20 07:41 Urine Color Yellow 12/05/20 17:36 Urine Appearance Clear (Clear) 12/05/20 17:36 Urine pH 6.5 (4.5-7.5) 12/05/20 17:36 Ur Specific [place] 1.017 (1.000-1.030) 12/05/20 17:36 Urine Protein Negative (Negative) 12/05/20 17:36 Urine Glucose (UA) Negative (Negative) 12/05/20 17:36 Urine Ketones Trace (Negative) H 12/05/20 17:36 Urine Nitrite Negative (Negative) 12/05/20 17:36 Ur Leukocyte Esterase Negative (Negative) 12/05/20 17:36 12/05/20 08:01 Aerobic Blood Culture - Preliminary Blood No growth in Aerobic bottle after 24 hours. Anaerobic Blood Culture - Preliminary Gram positive cocci in chains 12/05/20 07:41 Aerobic Blood Culture - Preliminary Blood Gram positive cocci in chains Anaerobic Blood Culture - Preliminary Gram positive cocci in chains 12/06/20 12/06/20 12/06/20 12:49 12:14 12:14 POC Glucose 75 62 L* 59 L* 12/06/20 07:50 POC Glucose 77 Electrocardiogram Date: 12/05/20 biventricular paced at 90 Echocardiogram Date: 10/26/20 EF: 25-30% Valvular Disease: + MR (Moderate)
--- NOTE | 2020-12-06 12:53 | Cardiology Consultation ---
Date of Consultation December 06, 2020 Assessment & Plan (1) Bacteremia: From the chart it appears that he has had bacteremia identified with various organisms although some cultures are pending. An ID consult is also pending I believe for this admission. If it is felt that he should have a patel sesophageal echocardiogram we can probably do it, however when I mentioned it to the patient he seemed unwilling to consider it although generally steered the conversation away from specifically refusing. I have therefore not arrange for the study pending the ID recommendation and the patient's willingness to have it done. (2) ICD (implantable cardioverter-defibrillator), biventricular, in situ: He has a biventricular ICD in place, it is a [employer] device and it has been evaluated (per the patient) several months ago although I do not have records from that recently. It appears to be working well on telemetry but we could interrogated if needed. The ICD site does not appear abnormal, the device is movable but that is expected and the device is located just below the scar which would also be normal. The scar and the device is somewhat lateral. There does not appear to me discomfort with movement of the device and there is no swelling or erythema. There is no evidence that the device site is infected. (3) Atrial fibrillation: He seems to be in continuous atrial fibrillation here, whether that is true in the past or not I am not sure. He should remain on anticoagulation and he is currently on Eliquis. (4) Ischemic cardiomyopathy: He has a significant cardiomyopathy which is probably ischemic based on his history. He is not on much in the way of heart failure medications, he is on low-dose lisinopril and metoprolol succinate. Over time he probably should be on a more aggressive regimen although perhaps he could not tolerate it in the past. History of Present Illness Reason for Consultation: Possible SUE Attending Physician: Edy Horner MD History of Present Illness This is a 79-year-old male who has a long and complex cardiac history the details of which are not present in our chart as they took place in [place] and he does not know details. From the chart he has a long history of coronary disease and had bypass surgery in 2012, he has a cardiomyopathy with an ejection fraction of 25 to 30% by echocardiography here and he has had an ICD in place for many years, it is a [employer] biventricular ICD and his current device was implanted in 2016 although he had prior devices. He also has atrial fibrillation and is on Eliquis. He is followed by [place] [facility]. He has had multiple recent admissions for bacteremia. We were asked to see him for the possibility of SUE. He is difficult to communicate with because he is extremely hard of hearing and he also is more concerned about movement of his ICD then he is about the possibility of an infection. It sounds as though he has not had difficulty with chest discomfort or heart failure symptoms that he is aware of recently. Allergies Allergy/AdvReac Type Severity Reaction Status Date / Time carvedilol Allergy Unknown Unknown Verified 11/28/20 13:39 Home Medications Medication Instructions Recorded Confirmed Type ascorbic acid (vitamin C) 500 mg 500 mg PO HS tab 02/16/19 11/28/20 History tablet folic acid 1 mg tablet 1 mg PO HS tab 02/16/19 11/28/20 History cholecalciferol (vitamin D3) 25 1,000 units PO HS 02/17/19 11/28/20 History mcg (1,000 unit) capsule aspirin 81 mg PO HS 12/24/19 11/28/20 History fenofibrate nanocrystallized 145 145 mg PO HS #90 tab 02/27/20 12/05/20 Rx mg tablet metoprolol succinate 25 mg PO BID 03/19/20 12/05/20 History nitroglycerin 0.4 mg SL DIRECTED PRN 03/19/20 12/05/20 History levothyroxine 100 mcg tablet 100 mcg PO QAM #90 tab 07/17/20 12/05/20 Rx Trulicity 1.5 mg SUBCUT WK 08/01/20 12/05/20 History ezetimibe 10 mg-simvastatin 80 mg 1 tab PO HS #90 tab 08/14/20 12/05/20 Rx tablet spironolactone 25 mg tablet 25 mg PO QAM #90 tab 09/06/20 12/05/20 Rx ferrous sulfate 325 mg PO BIDM 30 Days #60 tab 11/04/20 12/05/20 Rx isosorbide mononitrate 60 mg PO QAM 11/10/20 12/05/20 History acetaminophen [Tylenol] 650 mg PO Q4H PRN 11/14/20 11/14/20 History calcium carbonate [Tums] 400 mg PO Q6H PRN 11/14/20 11/28/20 History insulin aspart U-100 [Novolog 0 units SQ UNKNOWN 11/14/20 12/05/20 History Flexpen U-100 Insulin] omega-3 fatty acids 1,000 mg PO DAILY 11/14/20 11/28/20 History polyethylene glycol 3350 [Miralax] 17 g PO DAILY PRN 11/14/20 11/28/20 History Tresiba FlexTouch U-100 10 unit SUBCUT BID #0 ml 11/17/20 12/05/20 Rx ondansetron HCl 4 mg tablet 4 mg PO Q6H PRN #30 tab 11/19/20 11/28/20 Rx furosemide 20 mg tablet 60 mg PO BID #180 tab 11/20/20 12/05/20 Rx blood sugar diagnostic #300 ea 12/04/20 Rx Patient History Medical History Acute diastolic congestive heart failure AICD discharge DALE (acute kidney injury) (08/22/13) Anemia Anxiety Atrial fibrillation Atrial fibrillation Bradycardia Cardiomyopathy Chronic congestive heart failure (04/03/13) Chronic kidney disease, stage III (moderate) COPD, moderate Coronary artery disease Depression Diabetes Diabetes mellitus type 2, uncontrolled Diabetes mellitus with kidney disease Dyslipidemia Hemorrhoid History of RI (myocardial infarction) Hypercholesterolemia Hypertension Hypertension Hypothyroidism Insomnia Ischemic cardiomyopathy Pacemaker malfunction Peptic ulcer Prostate cancer Prostate cancer Sleep apnea Ventricular tachycardia (paroxysmal) Surgical History History of appendectomy 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) History of heart bypass surgery Family History Unknown Diabetes Prostate cancer Uncle Prostate cancer Father Myocardial infarction Brother Myocardial infarction Other Family history non-contributory Denies family history of Ovarian cancer Breast cancer Colorectal cancer Social History Smoking Status: Former smoker Tobacco Type: Cigarettes Age Started Using Tobacco: 13; Age Quit Using Tobacco: 57; packs per day: 1; Years Smoked: 44; Cigarettes Per Day: 20; Number of Years Since Quit: 32; Second Hand Exposure: No; Do You Dip or Chew Tobacco: No; Tobacco Cessation Education Requested by Patient: No Hx Alcohol Use: No Hx Substance Use: No Preferred Language: Andorran Communication Ability: Effective Hearing Ability: Use of Hearing Aid Arts Therapist Required: No Beliefs That Will Affect Care: None marital status: Current Living Situation: Spouse Current Living Situation Comment: lives w/ current occupational status: retired How many Children do You have: 2 Other Information That Helps Us Care for You: No Feels Safe at Home: Yes Safety Concerns: Feels Safe At This Time Dental Care, Regularly: No Physical Activity Frequency: Does not Exercise Seatbelt Use: never Sunscreen Use: No Assistive Devices: Hearing Aid - Bilateral Physical Exam Physical Exam: Constitutional: Alert, cooperative and in no distress. HEENT: Unremarkable other than being extremely hard of hearing. Neck: No jugular venous distention, carotid pulses are normal and equal bilaterally without bruits. Pulmonary: Clear to auscultation bilaterally. Cardiac: Regular rhythm with no murmur, gallop or rub. Abdomen: Soft, nontender with normal bowel sounds. Extremities: No edema. Distal pulses intact. Neurologic: No focal findings. Gait was not tested. Skin: No rash, ecchymoses or petechiae. His ICD pocket shows multiple implant scars, the current device is situated appropriately below the scars. It is in a somewhat lateral position and is movable but it does not seem remarkable. Results & Data ([facility]) Vital Signs (Past 12 Hours) Vital Signs Temp Pulse Pulse Resp BP BP Pulse Ox 12/06/20 11:15 36.4 C L 91 H 18 108/70 96 12/06/20 07:40 90 12/06/20 07:26 36.4 C L 91 H 20 102/64 95 12/06/20 02:33 36.8 C 91 H 22 96/60 L 99 12/06/20 02:32 89/56 L Laboratory Results CBC 12/06/20 Range/Units 06:48 WBC 5.78 (4.8-10.8) K/uL RBC 3.92 L (4.7-6.1) M/uL Hgb 10.1 L (14.0-18.0) g/dL Hct 31.0 L (42-52) % Plt Count 142 (130-400) K/uL Neut # (Auto) 4.47 (1.4-6.5) K/uL Lymph # (Auto) 0.79 L (1.2-3.4) K/uL [place] # (Auto) 0.50 (0.11-0.59) K/uL Eos # (Auto) 0.00 (0-0.5) K/uL Baso # (Auto) 0.01 (0-0.2) K/uL Comprehensive Metabolic Panel 12/06/20 Range/Units 06:48 Sodium 136 (136-145) mmol/L Potassium 4.4 (3.5-5.1) mmol/L Chloride 106 (98-107) mmol/L Carbon Dioxide 24 (21-32) mmol/L BUN 44 H (7-18) mg/dl Creatinine 2.49 H (0.6-1.4) mg/dl Glucose 66 L (70-99) mg/dl Calcium 8.3 L D (8.5-10.1) mg/dl Intake and Output 12/05/20 12/06/20 12/06/20 22:59 06:59 14:59 Intake Total 1015 / 3310 1120 / 3310 120 / 120 Output Total 325 / 325 Balance 690 / 2985 1120 / 2985 120 / 120 Intake: IV 1015 / 3135 1120 / 3135 120 / 120 Acetaminophen 1,000 mg In 100 100 / 100 ml @ 400 mls/hr IV Q8H PRN Rx#: [id number] Lactated Ringer's 1,000 ml @ 80 250 / 1250 1000 / 1250 mls/hr IV .[id number] ONE Rx#: [id number] Piperacillin/Tazobactam 4.5 gm 120 / 240 120 / 240 120 / 120 In Dextrose 5% 100 ml @ 30 mls/ hr IV Q8H [facility] Rx#:[id number] Vancomycin HCl 2,250 mg In 545 / 545 Sodium Chloride 0.9% 500 ml @ 200 mls/hr IV NOW ONE Rx#: [id number] Output: Urine 325 / 325 Other: Other Intake Source sips and chips NPO Weight 119.6 kg 119.6 kg Weight Measurement Method Built in [facility] Patient Weight 12/07/20 06:59 Weight 119.6 kg Diagnostic Findings ECG: Atrial fibrillation with appropriate biventricular pacing Telemetry: Atrial fibrillation with biventricular pacing. PG Care Time/CCT Total # of Minutes Spent Total Time Spent with Patient: Total time spent is greater than 50% in coordination of care (as documented) at patient's floor/unit and/or counseling patient: Coding Level of Care Code 93669 Initial Inpt Care Lvl 3 Diagnoses Bacteremia R78.81 ICD (implantable cardioverter-defibrillator), biventricular, in situ Z95.810 Atrial fibrillation I48.20 Atrial fibrillation type: unspecified chronic Ischemic cardiomyopathy I25.5 (1) Atrial fibrillation Atrial fibrillation type: unspecified chronic Qualified Code(s): I48.20 - Chronic atrial fibrillation, unspecified
--- NOTE | 2020-12-06 12:55 | XCELERA ---
[id number]
--- NOTE | 2020-12-06 14:53 | Pharmacy Report ---
Pharmacy Glycemic Short Note 2 - Date of Service December 06, 2020 - Glycemic Short BSG Results (Last 24 hours): 12/05/20 12/05/20 12/05/20 16:34 17:18 20:41 Glucose POC Glucose 189 H 173 H 126 H 12/06/20 12/06/20 12/06/20 06:48 07:50 12:14 Glucose 66 L POC Glucose 77 59 L* 12/06/20 12/06/20 12:14 12:49 Glucose POC Glucose 62 L* 75 OUTPATIENT ANTIDIABETIC REGIMEN: * Trulicity 1.5mg SQ weekly * Tresiba 10 units SQ BID * Novolog (according to reports from [facility], pt no longer uses Novolog) * HbA1c: 7.2% (10/26/20) ASSESSMENT: * Mr Taylor is a 79yo diabetic male, admitted with vomiting, weakness, DALE. * Pt has not received any insulin or other anti-diabetic medications since being admitted, but has had a couple of episodes of hypoglycemia. * For now, have removed carb coverage with Novolog and will utilize it only for correction if pt becomes hyperglycemic. PLAN FOR INPATIENT GLYCEMIC CONTROL: * Hold outpatient oral diabetes medications * Basal insulin * None at this time * Bolus insulin * NovoLog per scale ACHS or Q6hrs while NPO * Goal Range: Low 100 mg/dL - High 180 mg/dL * Correction Factor: 35 mg/dL/unit * Nutritional / Prandial insulin: none at this time PLAN FOR DISCHARGE: * tbd
--- NOTE | 2020-12-06 15:02 | Electrocardiogram Report ---
Test Reason : Blood Pressure : / mmHG Vent. Rate : 091 BPM Atrial Rate : 092 BPM P-R Int : 000 ms QRS Dur : 160 ms QT Int : 424 ms P-R-T Axes : 000 172 019 degrees QTc Int : 521 ms Ventricular-paced rhythm Underlying atrial fibrillation Biventricular pacemaker detected Abnormal ECG When compared with ECG of 05-DEC-2020 23:50, No significant change was found Confirmed by Ez Aragon ([id number]) on 12/06/2020 3:02:16 PM Referred By: REFERRED SELF Confirmed By:Ez Aragon
[2020-12-06] MEDS: FUROSEMIDE 20 MG TAB PO SCH (16:29)
[2020-12-06] MEDS: FENOFIBRATE NANOCRYSTALLIZED 145 MG TABLET PO SCH (19:39)
[2020-12-06] MEDS: SIMVASTATIN 80 MG TAB PO SCH (19:42)
[2020-12-06] MEDS: FOLIC ACID 1 MG TAB PO SCH (19:44)
[2020-12-06] MEDS: EZETIMIBE 10 MG TABLET PO SCH (19:44)
[2020-12-06] MEDS ORDERED: VANCOMYCIN HCL 1,500 MG in SODIUM CHLORIDE 0.9% 500 ML IV SCH (20:00)
[2020-12-07] MEDS: LEVOTHYROXINE SODIUM 100 MCG TABLET PO SCH (06:30)
--- NOTE | 2020-12-07 07:37 | Hospitalist Progress Note ---
Date of Service December 07, 2020 Assessment & Plan Admission and Anticipated Discharge Date Admission Date: December 06, 2020 Results & Data Results & Data ([facility]) Vital Signs (Past 12 Hours) Vital Signs Temp Pulse Resp BP BP Pulse Ox 12/07/20 03:33 98.6 F 90 18 104/67 93 12/06/20 22:16 98.2 F 90 20 108/70 94 12/06/20 20:38 97.2 F L 91 H 24 105/71 96 PG Care Time/CCT Total # of Minutes Spent Total Time Spent with Patient: Total time spent is greater than 50% in coordination of care (as documented) at patient's floor/unit and/or counseling patient: Coding
[2020-12-07] MEDS: FAMOTIDINE 20 MG TAB PO SCH (07:56)
[2020-12-07] MEDS: APIXABAN 5 MG TABLET PO SCH (07:56)
[2020-12-07] MEDS: ASPIRIN 81 MG ECTAB PO SCH (07:56)
[2020-12-07] MEDS: SUCRALFATE 1 GM/10 ML UDC PO SCH (07:57)
[2020-12-07] MEDS: FUROSEMIDE 20 MG TAB PO SCH (07:57)
[2020-12-07] MEDS: ISOSORBIDE MONO EXTENDED REL 60 MG TABCR PO SCH (07:58)
[2020-12-07] MEDS: METOPROLOL SUCC 25MG EXT REL TAB PO SCH (07:58)
[2020-12-07] MEDS: INSULIN ASPART 100 UNITS/ML 3 ML PEN SC SCH (07:59)
[2020-12-07] MEDS: FERROUS SULFATE 325 MG TAB PO SCH (07:59)
[2020-12-07] MEDS ORDERED: lisinopril 10 MG TAB PO SCH (09:00)
--- NOTE | 2020-12-07 09:24 | Electrocardiogram Report ---
Test Reason : Blood Pressure : / mmHG Vent. Rate : 093 BPM Atrial Rate : 087 BPM P-R Int : 000 ms QRS Dur : 158 ms QT Int : 406 ms P-R-T Axes : 000 006 180 degrees QTc Int : 504 ms Ventricular-paced rhythm with occasional Premature ventricular complexes Biventricular pacemaker detected Abnormal ECG When compared with ECG of 06-DEC-2020 14:06, Premature ventricular complexes are now Present Vent. rate has increased BY 2 BPM Confirmed by Carson Boyer ([id number]) on 12/07/2020 9:24:27 AM Referred By: REFERRED SELF Confirmed By:Carson Boyer
--- NOTE | 2020-12-07 09:50 | Discharge Summary ---
Date of Service December 07, 2020 Admission HPI Per Admitting Provider 79 YOM with past medical history of: Nausea and Vomiting, Liver mass, permanent AFIB (on Apixaban 5mg BID), ICM, hfRef (25-30%) with AICD, CABG x3 (2012), hypothyroidism, HAYLEE, HTN, DMII (on insulin). Recently admitted and was treated for +BCX that showed S. lugdunensis, and CONS. He was treated with Ampicillin and Daptomycin. His remaining repeat blood cultures were negative and he was discharged rehab and then to home. He was also admitted to [facility] from October 25 to November 04 due to Enterococcus bacteremia. In addition he had a recent admission in July for Klebsiella bacteremia of unknown source. He returns today for nausea and vomiting for 2 days with decreased PO intake of food and water. He also reported symptomatic hypoglycemia this morning with his BG in 60 at home. He came to the emergency room. The patient also reports that he fell on Thursday after tripping over a rug and landed on his left chest. His nausea he feels is improved today, but had 3-4 episodes yesterday that was brown in color, no hematemesis, and has had 4 bouts of diarrhea since then as well that is also brown. He denies any fevers or chills or abdominal pain. He did not eat anything yesterday and continued his insulin, he had one cup of ice yesterday as well and continued his diuretics. On his admission blood work was noted increase in his BUN and SUPERINTENDENT TERMINAL from baseline and mild elevation of lactic acid to 2.3. In the ER he had a CT scan of his abdomen performed, CXR, and ECG. Patient will be admitted for to gently rehydrate, follow renal function, control N/V and follow blood glucose. Admission Exam Per Admitting Provider PHYSICAL EXAM: General: awake, alert, no apparent distress Head: Normocephalic, atraumatic ENT: PERRLA, EOMI, no pharyngeal exudate, mucous membranes moist Neuro: AAO x 3, speech clear and appropriate, strength intact bilaterally 5/5, sensation intact and equal all extremities and dermatomes, no pronator drift Chest: equal rise and fall of the chest, no accessory muscle use, no heaves or thrills, Clear to auscultation, on room air, Cardiac: 100% Vpace regular, telemetry reviewed, skin warm and dry, cap refill <3 seconds, peripheral pulses +2 no JVD, no murmur, trace bilateral lower extremity edema GI: NABS x 4 quadrants, soft, nontender to palpation, no rebound, guarding or tenderness : Spontaneously voiding, no pain, no CVA tenderness, Extremities: Normal inspection, or erythema, calfs nontender to palpation Psych: Normal mood and affect Skin: no rash or erythema, bruising to abdomen from insulin injection sites Principal Diagnosis Bacteremia Discharge Exam PHYSICAL EXAM: General: awake, alert, no apparent distress sitting in bed. Irritable and demanding to be discharged and wanting to go to [facility] Head: Normocephalic, atraumatic ENT: PERRLA, EOMI, no pharyngeal exudate, mucous membranes moist. HARD OF HEARING Neuro: AAO x 3, speech clear and appropriate, strength intact bilaterally 5/5, sensation intact and equal all extremities and dermatomes, no pronator drift Chest left pacemaker able to be moved within pocket laterally. no erythema/drainage. minimally tender to palpation equal rise and fall of the chest, no accessory muscle use, no heaves or thrills, Respiratory: Lungs CTAB however does have end expiratory wheezing throughout posterior lung jaramillo. No crackles/rhonchi appreciated Cardiac: paced rhythm, no m/r/g appreciated 1+ b/l pitting LE edema cap refil <3 seconds GI: NABS x 4 quadrants, soft, nontender to palpation, no rebound, guarding or tenderness : Spontaneously voiding, no pain, no CVA tenderness, Extremities: Normal inspection, or erythema, calfs nontender to palpation Psych: Normal mood, irritable affect. Poor insight/intermittent confusion noted/repeating himself Skin: no rash or erythema, bruising to abdomen from insulin injection sites Discharge Data Allergies Allergy/AdvReac Type Severity Reaction Status Date / Time carvedilol Allergy Unknown Unknown Verified 11/28/20 13:39 Consultations 12/05/20 10:13 ED Decision to Admit Stat 12/06/20 10:10 Consult Infectious Diseases Routine 12/06/20 11:42 Consult Cardiology Routine 12/06/20 11:45 Consult Anesthesiology Routine 12/06/20 11:46 Consult Health Information Management Routine 12/07/20 08:24 Consult Health Information Management Routine Ordered Studies 12/05/20 07:15 CT abd pelvis wo con Stat CT head/brain wo con Stat CXR US gallbladder Routine 12/06 ECHO Hospital Course (1) Bacteremia: This patient is a 79-year-old male known to me from recent previous hospitalization with history of chronic systolic CHF, permanent atrial fibrillation on Eliquis, COPD, CAD status post CABG, HTN, pacer/ICD, HAYLEE, paroxysmal ventricular tachycardia, prostate cancer status post brachytherapy seeds, CKD stage III, liver mass which seems to have shrunk, hypothyroidism, DM 2, cirrhosis and splenomegaly, with recent admissions for Klebsiella bacteremia of unknown source, Enterococcus bacteremia, as well as Staphylococcus bacteremia all of unknown sources. He presents to the ER today with complaints of a recent fall and concern for his pacemaker being shifted out of place, as well as hypoglycemia, nausea and vomiting and one stool that he tells me was not even loose. His blood sugar was 60 apparently at home, but here in the ER at one point was down to 39. He was treated with D50 and IV fluids for mild acute kidney injury as well. Hx of KPN bacteremia of unclear etiology (07/2020), S lugdunensis bacteremia (11/2020), Enterococcus bacteremia (10/25/20), uncontrolled DM2, liver mass, CKD3, A fib s/p AICD CXR without evidence of infection but does have some mild pulmonary vascular congestion/overload. L sided pacer/defibrillator Head CT negative CT A/P without acute infectious/inflammatory findings in abd/pelvis. -- Does notes wedge-shaped consolidation identified at the left lung base. This is new from 10/25/2020, and could represent atelectasis, an infectio us/inflammatory pneumonitis, or possibly a pulmonary infarct. If there is clinical concern for pulmonary infarct a CT angiogram of the chest should be obtained. --> Refusing to obtain any further imaging for today, denied sob, VS stable. On room air. Will hold off for now, but need to monitor closely. Of note, also on Eliquis 5mg BID so doubt PE unless missed doses Of note, on previous admissions for bacteremia, he presented with nausea and vomiting. Temp 38.6C evening 12/05 Blood cultures pending -- 2/2 with gram positive cocci in chains preliminary Continues on Vanco/Zosyn Discussed with ID -- formal consult pending for today (possible continued Enterococcus). Would continue Vanco but suspect Amp/+ other for IE pending consultation SUE ordered after discussion -- ?infected lead? Cardiology + Anesthesia consulted for SUE (follows with [facility], records requested -- states AICD was placed 2-3 years ago in [place] area) 12/07--> AM demanding to leave AMA. Stated this hospital is a place for student doctors and that no one is listening to him and that he wanted his pacemaker stapled back into place Discussed positive blood cultures and that source unidentified but could be infected lead wires and dangerous Patient continued to demand to be discharged Seen by supervising physician this morning who spoke with patient and /daughter and allowed to sign out AMA and attempted to get release signed for copied chart for d/c as they were to be taking him to [facility] where his english composition instructor is, Dr. Stone. Sent rx for Linezolid. Initial blood cultures from admission with streptococcus species 2/2 sets. Repeat bcx from 12/06 pending at time of discharge -- suspect bug related Strep spp or Enterococcus spp ID consultation on 12/06 and continued on Vancomycin with recs to d/c ZOsyn. No further fevers Patient to be picked up by daughter and stated they will be going to [facility]. (2) Vomiting and diarrhea: Repeating issue with patient, he seen GI in October and symptoms were controlled. Could be from bacteremia as previous episodes/admissions this was presenting symptoms - was put on Famotidine, Omeprazole, and Carafate at that time. Will hold protonix given CKD/DALE - He has refused EGD in the past and with his microcytic anemia, multiple therapeutics may assist - Consideration to stopping his Trulicity as known side effect profile- his HGBa1c is at 7 No further n/v since admission Continues on IVF for today but stopped as ordered diet for today (need NPO after midnight for SUE) cidff ordered but no further diarrhea. remains on precautions (3) DALE (acute kidney injury): Prerenal appearing at this time however worsened with IVF and holding diuretics. Resumed lasix 60mg BID for today in addition to 10mg lisinopril BMP in AM (4) Weakness: Multifactorial with N/V no oral intake of food or water, and hypoglycemia See above (5) Hypoglycemia: As above, ensure he is keeping food down and participating with meals BSG 39 yesterday and did have continued low sugars --> instructed to follow up with PCP and to have closer monitoring, however patient signed out AMA as above (6) Chronic kidney disease: CKD III Cr 2.49 from 2.28 on admission but appears overloaded IVF stopped, lisinopril and lasix resumed as above Avoid nephrotoxic agents and if needed minimize exposure time BMP in AM (7) Liver mass: Known and stable - no acute needs at this time US GB without acute infection (8) Uncontrolled type 2 diabetes mellitus with chronic kidney disease, with long-term current use of insulin: As above - follow glucose - consider discontinuing Trulicity (9) Atrial fibrillation: AICD - Vpace - Continue apixaban 5 mg BID - Rate controlled - Continue metoprolol 25 PO BID (10) Ischemic cardiomyopathy: EF 25-30% in October -Continue Metoprolol as above - Continue Isosorbide 60 mg - Continue ezetimibe/simvastatin - SHAYY as above - Continue ASA SUE as above for possible IE/septic emboli (11) Hypertension: Patient appears to have been on Lisinopril 10 mg daily when he went to rehab Resumed this morning given HFrEF Continue to monitor (12) Anemia: As above microcytic - Continue with ferrous sulfate - may be able to re-evaluate EGD although he has declined this in the past (13) Hx of splenomegaly: Decrease in size from previous imaging - continue to follow, no acute needs- platelet count 237 DVT Proph - Eliquis BID Signed out AMA Total Time Total Time Spent Total Time Spent (In Minutes): 65 Discharge Plan Discharge Items Patient Disposition: Against Medical Advice Reason For Visit: VOMITING, WEAKNESS, DALE Activity: Resume your previous activity Non-emergency contact: Primary Care Provider and [employer] [employer] Supervisor Follow-up/Referrals: PCP,NO [Primary Care Provider] - Pending Studies at Discharge: Yes Stand-Alone Forms: My Zapa, Smoking Cessation Medications and DC Order Prescriptions: New linezolid [Zyvox] 600 mg tablet 600 mg PO BID 28 Days Qty: 56 RF: 0 Continued fenofibrate nanocrystallized 145 mg tablet 145 mg PO HS Qty: 90 RF: 3 levothyroxine 100 mcg tablet 100 mcg PO QAM Qty: 90 RF: 3 ezetimibe-simvastatin 10-80 mg tablet 1 tab PO HS Qty: 90 RF: 3 spironolactone 25 mg tablet 25 mg PO QAM Qty: 90 RF: 3 ondansetron HCl [Zofran] 4 mg tablet 4 mg PO Q6H PRN (Reason: nausea and vomiting) Qty: 30 RF: 4 furosemide 20 mg tablet 60 mg PO BID Qty: 180 RF: 5 (DME) OneTouch Ultra Blue Test Strip Strip See Rx Instructions .ROUTE .MEDSUPPLY Qty: 300 RF: 3 folic acid 1 mg tablet 1 mg PO HS RF: 0 ascorbic acid (vitamin C) 500 mg tablet 500 mg PO HS RF: 0 cholecalciferol (vitamin D3) 1,000 unit capsule 1,000 units PO HS RF: 0 nitroglycerin 0.4 mg tablet, sublingual 0.4 mg SL DIRECTED PRN (Reason: chest pain) RF: 0 metoprolol succinate 25 mg tablet extended release 24 hr 25 mg PO BID RF: 0 Trulicity 1.5 mg/0.5 mL pen injector 1.5 mg SUBCUT WK RF: 0 aspirin 81 mg Tablet,Delayed Release (Dr/Ec) 81 mg PO HS RF: 0 isosorbide mononitrate 60 mg tablet extended release 24 hr 60 mg PO QAM RF: 0 ferrous sulfate 325 mg (65 mg iron) Tablet,Delayed Release (Dr/Ec) 325 mg PO BIDM 30 Days Qty: 60 RF: 2 acetaminophen [Tylenol] 325 mg Tablet 650 mg PO Q4H PRN (Reason: fever and temp) RF: 0 polyethylene glycol 3350 [Miralax] 17 gram Powder In Packet 17 g PO DAILY PRN (Reason: Constipation) RF: 0 insulin aspart U-100 [Novolog Flexpen U-100 Insulin] 100 unit/mL (3 mL) ins ulin pen 0 units SQ UNKNOWN RF: 0 calcium carbonate [Tums] 200 mg calcium (500 mg) Tablet,Chewable 400 mg PO Q6H PRN (Reason: Indigestion) RF: 0 omega-3 fatty acids Capsule 1,000 mg PO DAILY RF: 0 Tresiba FlexTouch U-100 100 unit/mL (3 mL) insulin pen 10 unit SUBCUT BID Qty: 0 RF: 0 Discharge Orders: Left Against Medical Advice (Routine); Ordered 12/07/20 Ordered By: Edy Horner Admission Data Admit Date/Time: 12/06/20 11:41 Attending Provider: Edy Horner Admit Provider: Savannah Mccrary Primary Care Provider: PCP,NO Other Providers: Savannah Mccrary ; [facility] ; Simon Miller ; Gloria Bansal ; Damian Griffith I. ; Yahir Bianchi II ; Becky Saleh ; Emigdio Cantu ; Abhinav Martinez ; Anna Amador Other Interventions: Discharge Summary Assessment (RN) Last Done: 12/07/20 08:51 Supervising Physician Co-Signing Physician Notes Patient was seen and examined independently I discussed the case with Clare Severino PAC I reviewed pertinent past medical social family history and also the plan of ca re and agree with the plan of care. I was called to the floor earlier this morning as the patient had requested to leave AGAINST MEDICAL ADVICE. I spent some time discussing with the patient to try to alleviate some of his displeasure with what he perceives was an adequate care here at [facility]. Patient was self and refused possible echocardiographic work-up to evaluate for endocarditis. Patient states he wanted to go to [facility] to be with his english composition instructor. I told the patient that leaving was a risky venture he could become more ill he can become septic and that we will be glad to complete his work-up here. He said he did not care and wished to leave even if he would risk his life upon the way. He was may decide AGAINST MEDICAL ADVICE papers. Prior to the patient leaving I did attempt to call his and received no answer. I phoned the patient's daughter who is a nurse I explained the situation to her she is that she understands the situation however she lives 2 hours away. She said she try to call her father and talk to him however this did not prove to alter his course and he still left AGAINST MEDICAL ADVICE. Also called the patient's english composition instructor, Dr. Farrar, and left a message with his nurse with my personal cell phone for him to call me. Upon leaving the patient was yelling belligerent and appear to be in no particular distress. He did sign AMA papers as listed Any exceptions will be noted below Coding Level of Care Code D/C Day Management >30 mins Diagnoses Bacteremia R78.81 Vomiting and diarrhea R11.10; R19.7 DALE (acute kidney injury) N17.9 Weakness R53.1 Hypoglycemia E16.2 Chronic kidney disease N18.32 Chronic kidney disease stage: stage 3 (moderate) Chronic kidney disease stage 3 subtype: stage 3b (GFR 30-44) Liver mass R16.0 Uncontrolled type 2 diabetes mellitus with chronic kidney disease, with long- term current use of insulin E11.22; E11.65; Z79.4 Atrial fibrillation I48.20 Atrial fibrillation type: unspecified chronic Ischemic cardiomyopathy I25.5 Hypertension I10 Hypertension type: essential hypertension Anemia D64.89 Anemia type: other cause Other causes of anemia: other cause, not classified Hx of splenomegaly Z87.898
[2020-12-07] MEDS ORDERED: VANCOMYCIN TROUGH ONE (19:30)
== END 2020-12-07 09:00 | disposition left against medical advice (07) | DRG 872 ==
LOC: ED 06:58 → 2N 06:58 → SUATTDRO 11:09 → 2N 13:00 → 2W 18:43

== ENCOUNTER 2021-06-13 09:14 | Inpatient (IN) ==
[2021-06-13] MEDS ORDERED: FAMOTIDINE 20MG IV PUSH 20 MG/5 ML SYR IV STA (09:33)
[2021-06-13] MEDS ORDERED: SODIUM CHLORIDE 0.9% 500 ML IV ONE (09:33)
[2021-06-13] MEDS ORDERED: ONDANSETRON INJ 2 MG/ML 2 ML VIAL IV STA (09:33)
[2021-06-13 09:48] LABS: Basophils # (auto) 0.01 K/uL (0-0.2); Basophils % (auto) 0.1 %; Eosinophils # (auto) 0.01 K/uL (0-0.5); Eosinophils % (auto) 0.1 %; Hematocrit (blood only) 29.4 % (42-52); Hemoglobin 9.4 g/dL (14.0-18.0); Immature Granulocytes # (auto) 0.04 K/uL (0.00-0.02); Immature Granulocytes % (auto) 0.3 %; Lymphocytes # (auto) 1.48 K/uL (1.2-3.4); Lymphocytes % (auto) 12.1 %; Mean Corpuscular Hemoglobin 25.8 pg (25-34); Mean Corpuscular Volume 80.8 fL (80-100); Mean Platelet Volume 8.5 fL (7.4-10.4); Monocytes # (auto) 0.77 K/uL (0.11-0.59); Monocytes % (auto) 6.3 %; Neutrophils # (auto) 9.88 K/uL (1.4-6.5); Neutrophils % (auto) 81.1 %; Platelet Count 182 K/uL (130-400); RDW Coefficient of Variation 24.3 % (11.5-14.5); RDW Standard Deviation 71.3 fL (36.4-46.3); Red Blood Count 3.64 M/uL (4.7-6.1); White Blood Count 12.19 K/uL (4.8-10.8)
[2021-06-13] MEDS ORDERED: PIPERACILL/TAZOBAC CONSULT ACTIVE PRN (09:53)
[2021-06-13] MEDS ORDERED: PIPERACILLIN/TAZOBACTAM 4.5 GM/120 ML BAG IV ONE (09:53)
[2021-06-13] MEDS ORDERED: DAPTOmycin 525 MG in SYRINGE 0 ML IV ONE (09:53)
[2021-06-13] MEDS ORDERED: ACETAMINOPHEN 1,000 MG/100 ML VIAL IV STA (09:53)
[2021-06-13 10:08] LABS: Base Excess VBG -3.5 mEq/L; HCO3 VBG 22 mmol/L; PCO2 VBG 43 mmHg (38-50); PO2 VBG 28 mmHg; pH VBG 7.33 (7.36-7.41)
[2021-06-13 10:08] LABS: Alanine Aminotransferase 16 U/L (12-78); Albumin Level 1.6 gm/dl (3.4-5.0); Aspartate Aminotransferase 30 U/L (15-37); BUN Creatinine Ratio 20.7 (10-20); Bilirubin Direct 0.5 mg/dl (0-0.2); Blood Urea Nitrogen 58 mg/dl (7-18); Carbon Dioxide 25 mmol/L (21-32); Chloride 108 mmol/L (98-107); Creatinine Clr Calc Pharmacy 27.6 ml/min; Est GFR (African American) 24.2 ml/min; Est GFR (Non-African American) 20.9 ml/min; Glucose 68 mg/dl (70-99); INR 1.2 (0.9-1.1); Lipase 45 U/L (73-393); Magnesium 1.8 mg/dl (1.8-2.4); Partial Thromboplastin Ratio 1.1; Partial Thromboplastin Time 29.7 Seconds (21.0-31.0); Prothrombin Time 12.3 Seconds (9.0-12.0); Sodium 139 mmol/L (136-145)
[2021-06-13 10:09] LABS: Oxygen Saturation VBG < 60.0 %
[2021-06-13 10:20] LABS: Albumin Globulin Ratio 0.4 (0.9-2); Alkaline Phosphatase 108 U/L (45-117); Bilirubin,Total 0.8 mg/dl (0.2-1); Creatine Kinase 19 U/L (39-308); Globulin 4.2 gm/dl (2.5-4.0); NT Pro B Type Natriuretic Pept 24079 pg/ml (0-1800); Phosphorus 3.2 mg/dl (2.5-4.9); Total Protein 5.8 gm/dl (6.4-8.2); Troponin I < 0.015 ng/ml (0-0.045)
[2021-06-13 10:20] LABS: Appearance Urine Turbid (Clear); Bacteria Urine Automated Negative (Negative); Blood Urine 2+ (Negative); Color Urine Dark Yellow; Epithelial Cell Urine Auto >30 /lpf (0-5); Glucose Urine UA Negative (Negative); Ketones Urine Trace (Negative); Leukocyte Esterase Urine 3+ (Negative); Nitrite Urine Negative (Negative); Protein Urine 2+ (Negative); Specific Gravity Urine 1.019 (1.000-1.030); Urobilinogen Urine Negative (Negative); WBC Urine Automated >30 /hpf (0-5)
[2021-06-13 10:21] LABS: Bilirubin Urine 1+ (Negative)
[2021-06-13 10:21] LABS: Anisocytosis Present
[2021-06-13 10:29] LABS: Amorphous Sediment Urine Present (None Prsent)
[2021-06-13 10:33] LABS: T4 Free Thyroxine 1.71 ng/dl (0.8-1.6)
--- NOTE | 2021-06-13 10:34 | XRay Report ---
XR chest 1V portable HISTORY: 80 years-old Male SEPSIS acute sepsis COMPARISON: Chest CT of same day, chest radiograph 12/05/2020 TECHNIQUE: Portable AP view of the chest FINDINGS: Cardiac silhouette is enlarged. Left subclavian pacer/AICD calcified plaque the thoracic aorta. Prior median sternotomy with probable CABG. Small pleural effusions with dependent bibasilar consolidation . Nodular opacity of the super segment left lower lobe seen on the chest CT of same day is not well v isualized by radiography. Pulmonary vascular congestion with interstitial coarsening. Emphysema. Dege nerative changes of the shoulders and spine.. IMPRESSION: 1. Cardiomegaly with pulmonary edema. 2. Small layering pleural effusions with bibasilar consolidation. 3. Nodular consolidative opacity of the superior segment left lower lobe is better characterized on t he chest CT of same day. ACT 112: Negative or not required by law. The above report was generated using voice recognition software. It may contain grammatical, syntax o r spelling errors. Electronically signed by: Federico Ramsey M.D. 06/13/2021 10:33 AM
--- NOTE | 2021-06-13 10:57 | CT Scan Report ---
CT SCAN OF THE ABDOMEN AND PELVIS WITHOUT IV CONTRAST CLINICAL HISTORY: Sepsis. Hypotension. Nausea and vomiting. COMPARISON STUDY: Abdominal CT dated 12/05/2020. TECHNIQUE: CT scan of the abdomen and pelvis is performed from the lung bases to the proximal femora. Images are reviewed in the axial, sagittal, and coronal planes. IV contrast was not administered for this examination. Note that the examination is significantly suboptimal without oral and IV contrast . There is also motion artifact, as well as streak artifact from the arms which could not be elevated above the abdomen. A dose lowering technique was utilized adhering to the principles of ALARA. CT DOSE: 2613.98 mGy.cm FINDINGS: Lung bases: The patient is status post midline sternotomy. A pacemaker is partially visualized in the left chest wall. The heart is enlarged and without pericardial effusion. There are small pleural eff usions with bibasilar consolidation. Liver: Evaluation of the liver is significantly degraded by streak artifact. The unenhanced liver is liver is cirrhotic in morphology and heterogeneous in attenuation. There is nodularity of the hepatic surface contour. There is no intrahepatic biliary ductal dilatation. Gallbladder: Calcified gallstones are noted. There is no CT evidence of acute cholecystitis. Spleen: The spleen is enlarged measuring 18.5 cm in length. Pancreas: The unenhanced pancreas is moderately atrophic and grossly unremarkable. Adrenal glands: Unremarkable. Kidneys: The unenhanced kidneys are atrophic and without hydronephrosis. There are no renal calculi i dentified. A 4 cm calcification containing cyst is again seen arising from the left kidney. Additiona l subcentimeter cortical hypodensities and hyperdensities also likely represent cysts but are too sma ll for definitive characterization. Abdominal vasculature: There is advanced atherosclerotic calcification and ectasia of the abdominal a keyla. Bowel: The stomach and proximal small bowel loops are distended and fluid-filled with fluid. Proximal small bowel loops measure up to 4 cm diameter. The distal small bowel loops are decompressed and a t ransition point is suggested in the ventral lower abdomen on image #299. The appearance is consistent with a small bowel obstruction. No pneumatosis intestinalis or portal venous gas is identified. No f ocally thick walled small bowel loops are identified. There is trace interloop fluid in the left lowe r quadrant. There is moderate colonic diverticulosis without CT evidence of acute diverticulitis. Mod erate fecal retention is noted in the rectosigmoid with surrounding infiltration. The appendix is no t visualized. Peritoneum: There is no intraperitoneal free air or abdominal ascites. There is a fat-containing umbi lical hernia. Lymphadenopathy: None. Pelvic viscera: The prostate gland is diminutive and heterogeneous with brachytherapy implants in erick ce. The bladder is decompressed around a Person catheter and cannot be evaluated. Skeletal structures: The skeletal structures are osteopenic. There is moderate lumbosacral spondylosi s. No lytic or blastic lesions are seen. There are healed left anterior rib fractures. Soft tissues: There is body wall edema. IMPRESSION: 1. Significantly suboptimal examination without oral and IV contrast. There is also streak and motion artifact. 2. Findings are consistent with a small bowel obstruction as detailed above. This is likely on the ba sis of adhesions. 3. Interloop fluid is noted. No focally thick walled small bowel loops are identified. There is no in traperitoneal free air, and no pneumatosis intestinalis or portal venous gas is seen. 4. There is rectosigmoid fecal impaction with mild surrounding infiltration. Correlate clinically for evidence of a nonspecific proctocolitis which may be stercoral. 5. Cardiomegaly with small pleural effusions and bibasilar consolidation. 6. Cirrhotic liver morphology. 7. Splenomegaly. 8. Cholelithiasis. 9. Additional findings as above. ACT 112: Negative or not required by law. Electronically signed by: Indio Gomez M.D. 06/13/2021 10:56 AM
--- NOTE | 2021-06-13 11:00 | CT Scan Report ---
CT chest diagnostic wo con CLINICAL HISTORY: sepsis, sob TECHNIQUE: Multidetector row helical CT of the chest was performed. Coronal and sagittal reformations were obtained. Automated dose lowering techniques and/or adjustment according to patient size were u tilized for this exam. Comparison: Comparison is made to CT thorax 08/02/2020 FINDINGS: Lungs and pleura: Bilateral pleural effusions with underlying atelectasis is seen. Nodular thickening of the right major fissure is seen. A 13 mm nodule is again seen in the left lower lobe superior seg ment. Heart and pericardium: Cardiomegaly is seen with biatrial enlargement. Vessels: Severe atherosclerotic changes in the aorta and coronary arteries. Mediastinum and annalisa: Multiple lymph nodes are seen in the mediastinum, the largest on the right ashkan ures approximately 14 mm in short axis. Chest wall and lower neck: Unremarkable. Abdomen: For findings below the diaphragm, please refer to CT of the abdomen dated the same. Bones: Multiple compression deformities are seen in T5, T6, and T7. The deformities of T5 and T6 are new from prior exam. IMPRESSION: 1. Small bilateral pleural effusions are seen. 2. Redemonstration of left lower lobe pulmonary nodule. Nodular thickening in the right major fissur e may represent loculated pleural effusion, however underlying nodules cannot be excluded. Follow-up to resolution is recommended. 3. Interval multiple thoracic compression fractures. ACT 112: Negative or not required by law. Electronically signed by: Jacques Ramirez M.D. 06/13/2021 10:58 AM
[2021-06-13] MEDS ORDERED: LIDOCAINE 2% JELLY 5 ML TUBE ONE (11:17)
[2021-06-13] MEDS ORDERED: STAT IV Infusion **Titration per Protocol STA (11:25)
[2021-06-13] MEDS: NOREPINEPHRINE/D5W 8 MG/508 ML BAG IV SCH ×2 (11:33→19:27)
--- NOTE | 2021-06-13 11:46 | Surgery Consultation ---
Date of Consultation June 13, 2021 Assessment & Plan Small bowel obstruction, hypotension, and significant surgical risk. He is being evaluated for admission to ICU. May need to ask GI for assistance with placing NG. His indicates he would want a conservative approach, will continue to discuss with her as the situation evolves. Supervising Physician Co-Signing Physician Notes Dr Cornejo- pt seen in ER- hypovolemic shock , severe dehydration, renal insufficiency- severe cardiac disease recent treatment for endocarditis- ICD lead, pacer dependent. CT- dilated sb c/w sbo- no pneumatosis, or severe distention. would benefit from NG. Significant stool in rectum- enemas would help Extreme risk for surgery even if improves significantly. No plan for surgery at this point has had gradual deterioration both mentally and physically in recent months. History of Present Illness History of Present Illness 80 y/o male with significant cardiac history EF 25%, COPD, CKD III brought in from [facility] with extremity swelling and vomiting. He is not oriented, not able to offer history. CT showed SBO, 2 attempts were made by ER staff at placing NG but were unsuccessful. 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 The patient has been in and out of the hospital and rehab facilities and has not been home for the past 6 months. Allergies Allergy/AdvReac Type Severity Reaction Status Date / Time carvedilol Allergy Unknown Unknown Verified 06/13/21 10:57 Home Medications Medication Instructions Recorded Confirmed Type cholecalciferol (vitamin D3) 25 1,000 units PO HS 02/17/19 06/13/21 History mcg (1,000 unit) capsule aspirin 81 mg tablet,delayed 81 mg PO HS 12/24/19 06/13/21 History release levothyroxine 100 mcg tablet 100 mcg PO QAM #90 tab 07/17/20 06/13/21 Rx ezetimibe 10 mg-simvastatin 80 mg 1 tab PO HS #90 tab 08/14/20 06/13/21 Rx tablet insulin aspart U-100 100 unit/mL 0 units SQ UNKNOWN 11/14/20 06/13/21 History (3 mL) subcutaneous pen (Novolog Flexpen U-100 Insulin aspart) polyethylene glycol 3350 17 gram 17 g PO DAILY PRN 11/14/20 06/13/21 History oral powder packet (Miralax) blood sugar diagnostic (OneTouch #300 ea 12/04/20 Rx Ultra Blue Test Strip) fenofibrate nanocrystallized 145 145 mg PO HS #90 tab 02/28/21 06/13/21 Rx mg tablet metoprolol succinate 25 mg See Rx Instructions .ROUTE 03/11/21 06/13/21 Rx tablet,extended release 24 hr .COMPLEX #180 tablet fluticasone 100 mcg-salmeterol 50 2 inh INHALATION BID 06/13/21 06/13/21 History mcg/dose blistr powdr for inhalation (Advair Diskus) furosemide 20 mg tablet 40 mg PO BID 06/13/21 06/13/21 History insulin glargine 100 unit/mL (3 5 unit SUBCUT HS 06/13/21 06/13/21 History mL) subcutaneous pen lisinopril 10 mg tablet 10 mg PO DAILY 06/13/21 06/13/21 History pantoprazole 40 mg tablet,delayed 40 mg PO DAILY 06/13/21 06/13/21 History release thiamine HCl (vitamin B1) 100 mg 100 mg PO DAILY 06/13/21 06/13/21 History tablet Patient History Medical History Acute diastolic congestive heart failure AICD discharge DALE (acute kidney injury) (08/22/13) Anemia Anxiety Atrial fibrillation Atrial fibrillation Bradycardia Cardiomyopathy Chronic congestive heart failure (04/03/13) Chronic kidney disease, stage III (moderate) COPD, moderate Coronary artery disease Depression Diabetes Diabetes mellitus type 2, uncontrolled Diabetes mellitus with kidney disease Dyslipidemia Hemorrhoid History of [place] (myocardial infarction) Hypercholesterolemia Hypertension Hypertension Hypothyroidism Insomnia Ischemic cardiomyopathy Pacemaker malfunction Peptic ulcer Prostate cancer Prostate cancer Sleep apnea Ventricular tachycardia (paroxysmal) Surgical History History of appendectomy 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) History of heart bypass surgery Family History Unknown Diabetes Prostate cancer Uncle Prostate cancer Father Myocardial infarction Brother Myocardial infarction Other Family history non-contributory Denies family history of Ovarian cancer Breast cancer Colorectal cancer Social History Smoking Status: Unknown if ever smoked Tobacco Type: Cigarettes Age Started Using Tobacco: 13; Age Quit Using Tobacco: 57; packs per day: 1; Years Smoked: 44; Cigarettes Per Day: 20; Number of Years Since Quit: 32; Second Hand Exposure: No; Hx Alcohol Use: No Hx Substance Use: No Preferred Language: Persian Communication Ability: Effective Hearing Ability: Use of Hearing Aid Title Search Manager Required: No Beliefs That Will Affect Care: None marital status: Current Living Situation: Spouse Current Living Situation Comment: lives w/ current occupational status: retired How many Children do You have: 2 Feels Safe at Home: Yes Dental Care, Regularly: No Physical Activity Frequency: Does not Exercise Seatbelt Use: never Sunscreen Use: No Assistive Devices: Hearing Aid - Bilateral Review of Systems Review of Systems: Unobtainable due to cognitive status Physical Exam Constitutional: + obese and + altered mental status Respiratory: + labored breathing Cardiovascular: Rate/Rhythm: regular rate Gastrointestinal (Abdomen): Inspection/Auscultation: + abdomen distended and + abdominal surgical scar (lower midline) Percussion/Palpation: + abdomen tender (appears), abdomen soft and + tympanic to percussion Neurologic: awake and + obtunded Results & Data ([facility]) Vital Signs (Past 12 Hours) Vital Signs Temp Pulse Pulse Resp BP BP Pulse Ox 06/13/21 11:41 75 28 H 64/38 L 91 06/13/21 11:29 75 22 57/37 L 06/13/21 11:14 74 16 60/44 L 97 06/13/21 10:10 75 29 H 64/33 L 89 L 06/13/21 10:00 75 31 H 87 L 06/13/21 09:56 95 06/13/21 09:50 75 24 96 06/13/21 09:43 36.7 C 75 22 74/43 L 88 L 06/13/21 09:40 75 27 H 95 06/13/21 09:30 76 27 H 64/37 L 97 06/13/21 09:20 75 23 66/36 L 96 PG Care Time/CCT Total # of Minutes Spent Total Time Spent with Patient: Total time spent is greater than 50% in coordination of care (as documented) at patient's floor/unit and/or counseling patient: Coding Level of Care Code 37053 Office/Outpt Visit, New
--- NOTE | 2021-06-13 11:53 | History & Physical Report ---
Date of Service June 13, 2021 Assessment & Plan (1) Septic shock: Plan: NSS 2L bolus given in ER. Will defer further IV fluids to ICU given the patient's systolic CHF and significant anasarca on exam. Started on Levophed in the ER, defer ongoing treatment and central line placement to the ICU. If unable to place central line or causing significant distress to patient will transfer to comfort care. Continue Zosyn and daptomycin pending blood cultures Admit to ICU for ongoing care (2) Small bowel obstruction: Plan: Unable to place NG tube after three attempts and now patient is more alert l ikely to pull this out. Appreciate surgery consult, discussed with Dr Cornejo at bedside, agree in no way is patient a surgical candidate (3) ICD (implantable cardioverter-defibrillator), biventricular, in situ: Plan: Noted (4) Bacteremia: Plan: History of recurrent bacteremia (5) Diabetes mellitus type 2, uncontrolled: Plan: HbA1C 7.2 Consult pharmacy for glycemic control (6) Coronary artery disease: Plan: Holding all PO meds due to SBO as above (7) COPD, moderate: Plan: Continue Adviar (8) Ischemic cardiomyopathy: Plan: Holding all PO meds due to SBO at this time. (9) Hypertension: Plan: Holding all PO meds due to SBO as above Plan: VTE Prophylaxis - deferred pending ongoing discussions regarding goals of care Diet - NPO Disposition - admit to ICU Admission and Anticipated Discharge Date Admission Date: June 13, 2021 History of Present Illness Chief Complaint: Abdominal pain, lethargy, hypotension, bilateral LE edema Primary Care Provider: [facility] Edy Taylor is a 80 year old male with systolic congestive heart failure, ischemic cardiomyopathy, recurrent bacteremia, atrial fibrillation, recurrent bacteremia. Unable to get any history from the patient. From handover from [facility] patient has been getting weaker for the last week with increased leg edema. Complaining of abdominal pain today. Hypotensive this morning and his usual anti-hypertensives were held. The patient has a POLST form with do not resuscitate but otherwise full treatment. Discussed extent of care with his at bedside as currently on Levophed through peripheral line. Using iPad Quintic waste baler. She under stands the severity of his condition and that he will likely from this. She does not wish him to be uncomfortable but is ok with him having a central line placed for continued Levophed. If this is attempted or causing the patient significant distress she wishes to switch to a more comfort care approach. Not for intubation or resuscitation in the event of a respiratory/cardiac arrest. She wished me to call her daughter who is a nurse in [place] which went through to [employer] and I left a message for her to call me back. Allergies Allergy/AdvReac Type Severity Reaction Status Date / Time carvedilol Allergy Unknown Unknown Verified 06/13/21 10:57 Home Medications Medication Instructions Recorded Confirmed Type cholecalciferol (vitamin D3) 25 1,000 units PO HS 02/17/19 06/13/21 History mcg (1,000 unit) capsule aspirin 81 mg tablet,delayed 81 mg PO HS 12/24/19 06/13/21 History release levothyroxine 100 mcg tablet 100 mcg PO QAM #90 tab 07/17/20 06/13/21 Rx ezetimibe 10 mg-simvastatin 80 mg 1 tab PO HS #90 tab 08/14/20 06/13/21 Rx tablet insulin aspart U-100 100 unit/mL 0 units SQ UNKNOWN 11/14/20 06/13/21 History (3 mL) subcutaneous pen (Novolog Flexpen U-100 Insulin aspart) polyethylene glycol 3350 17 gram 17 g PO DAILY PRN 11/14/20 06/13/21 History oral powder packet (Miralax) blood sugar diagnostic (OneTouch #300 ea 12/04/20 Rx Ultra Blue Test Strip) fenofibrate nanocrystallized 145 145 mg PO HS #90 tab 02/28/21 06/13/21 Rx mg tablet metoprolol succinate 25 mg See Rx Instructions .ROUTE 03/11/21 06/13/21 Rx tablet,extended release 24 hr .COMPLEX #180 tablet fluticasone 100 mcg-salmeterol 50 2 inh INHALATION BID 06/13/21 06/13/21 History mcg/dose blistr powdr for inhalation (Advair Diskus) furosemide 20 mg tablet 40 mg PO BID 06/13/21 06/13/21 History insulin glargine 100 unit/mL (3 5 unit SUBCUT HS 06/13/21 06/13/21 History mL) subcutaneous pen lisinopril 10 mg tablet 10 mg PO DAILY 06/13/21 06/13/21 History pantoprazole 40 mg tablet,delayed 40 mg PO DAILY 06/13/21 06/13/21 History release thiamine HCl (vitamin B1) 100 mg 100 mg PO DAILY 06/13/21 06/13/21 History tablet Past Med/Surg History Medical History Acute diastolic congestive heart failure AICD discharge DALE (acute kidney injury) (08/22/13) Anemia Anxiety Atrial fibrillation Atrial fibrillation Bradycardia Cardiomyopathy Chronic congestive heart failure (04/03/13) Chronic kidney disease, stage III (moderate) COPD, moderate Coronary artery disease Depression Diabetes Diabetes mellitus type 2, uncontrolled Diabetes mellitus with kidney disease Dyslipidemia Hemorrhoid History of [place] (myocardial infarction) Hypercholesterolemia Hypertension Hypertension Hypothyroidism Insomnia Ischemic cardiomyopathy Pacemaker malfunction Peptic ulcer Prostate cancer Prostate cancer Sleep apnea Ventricular tachycardia (paroxysmal) Surgical History History of appendectomy 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) History of heart bypass surgery Family History Unknown Diabetes Prostate cancer Uncle Prostate cancer Father Myocardial infarction Brother Myocardial infarction Other Family history non-contributory Denies family history of Ovarian cancer Breast cancer Colorectal cancer Social History Smoking Status: Unknown if ever smoked Tobacco Type: Cigarettes Age Started Using Tobacco: 13; Age Quit Using Tobacco: 57; packs per day: 1; Years Smoked: 44; Cigarettes Per Day: 20; Number of Years Since Quit: 32; Second Hand Exposure: No; Hx Alcohol Use: No Hx Substance Use: No Preferred Language: Slovenian Communication Ability: Impaired Hearing Ability: Use of Hearing Aid Pulling Machine Operator Required: No Beliefs That Will Affect Care: None marital status: Current Living Situation: Spouse and Rehab Current Living Situation Comment: lives w/ current occupational status: retired How many Children do You have: 2 Feels Safe at Home: Yes Dental Care, Regularly: No Physical Activity Frequency: Does not Exercise Seatbelt Use: never Sunscreen Use: No Assistive Devices: Hearing Aid - Bilateral Review of Systems Review of Systems: Unobtainable due to cognitive status Physical Exam Constitutional: + disheveled, + lethargic and + edematous; + not well nourished Eyes: PERRL, conjunctivae normal, anicteric sclerae Respiratory: + labored breathing and + uses accessory muscles Auscultation: + rhonchi (throughout) Cardiovascular: Rate/Rhythm: regular rate and regular rhythm Extremities: + edema (generalized bilateral LE and LUE) Gastrointestinal (Abdomen): Inspection/Auscultation: + abdomen distended and + hypoactive bowel sounds Percussion/Palpation: abdomen soft; abdomen nontender, no guarding and abdomen not rigid Skin: no rashes, warm and dry Neurologic: + confused; + not awake (moans to voice) Psychiatric: Orientation: + not alert and + not oriented x 3 Results & Data Results & Data ([facility]) Vital Signs (Past 12 Hours) Vital Signs Temp Pulse Pulse Resp BP BP Pulse Ox 06/13/21 11:50 75 24 73/42 L 93 06/13/21 11:46 75 26 H 69/48 L 92 06/13/21 11:41 75 28 H 64/38 L 91 06/13/21 11:29 75 22 57/37 L 06/13/21 11:14 74 16 60/44 L 97 06/13/21 10:10 75 29 H 64/33 L 89 L 06/13/21 10:00 75 31 H 87 L 06/13/21 09:56 95 06/13/21 09:50 75 24 96 06/13/21 09:43 36.7 C 75 22 74/43 L 88 L 06/13/21 09:40 75 27 H 95 06/13/21 09:30 76 27 H 64/37 L 97 06/13/21 09:20 75 23 66/36 L 96 Diagnostic Findings XR chest 1V portable HISTORY: 80 years-old Male SEPSIS acute sepsis COMPARISON: Chest CT of same day, chest radiograph 12/05/2020 TECHNIQUE: Portable AP view of the chest FINDINGS: Cardiac silhouette is enlarged. Left subclavian pacer/AICD calcified plaque the thoracic aorta. Prior median sternotomy with probable CABG. Small pleural effusions with dependent bibasilar consolidation. Nodular opacity of the super segment left lower lobe seen on the chest CT of same day is not well visualized by radiography. Pulmonary vascular congestion with interstitial coarsening. Emphysema. Degenerative changes of the shoulders and spine.. IMPRESSION: 1. Cardiomegaly with pulmonary edema. 2. Small layering pleural effusions with bibasilar consolidation. 3. Nodular consolidative opacity of the superior segment left lower lobe is better characterized on the chest CT of same day. CT chest diagnostic wo con CLINICAL HISTORY: sepsis, sob TECHNIQUE: Multidetector row helical CT of the chest was performed. Coronal and sagittal reformations were obtained. Automated dose lowering techniques and/or adjustment according to patient size were utilized for this exam. Comparison: Comparison is made to CT thorax 08/02/2020 FINDINGS: Lungs and pleura: Bilateral pleural effusions with underlying atelectasis is seen. Nodular thickening of the right major fissure is seen. A 13 mm nodule is again seen in the left lower lobe superior segment. Heart and pericardium: Cardiomegaly is seen with biatrial enlargement. Vessels: Severe atherosclerotic changes in the aorta and coronary arteries. Mediastinum and annalisa: Multiple lymph nodes are seen in the mediastinum, the largest on the right measures approximately 14 mm in short axis. Chest wall and lower neck: Unremarkable. Abdomen: For findings below the diaphragm, please refer to CT of the abdomen dated the same. Bones: Multiple compression deformities are seen in T5, T6, and T7. The deformities of T5 and T6 are new from prior exam. IMPRESSION: 1. Small bilateral pleural effusions are seen. 2. Redemonstration of left lower lobe pulmonary nodule. Nodular thickening in the right major fissure may represent loculated pleural effusion, however underlying nodules cannot be excluded. Follow-up to resolution is recommended. 3. Interval multiple thoracic compression fractures. CT SCAN OF THE ABDOMEN AND PELVIS WITHOUT IV CONTRAST CLINICAL HISTORY: Sepsis. Hypotension. Nausea and vomiting. COMPARISON STUDY: Abdominal CT dated 12/05/2020. TECHNIQUE: CT scan of the abdomen and pelvis is performed from the lung bases to the proximal femora. Images are reviewed in the axial, sagittal, and coronal planes. IV contrast was not administered for this examination. Note that the examination is significantly suboptimal without oral and IV contrast. There is also motion artifact, as well as streak artifact from the arms which could not be elevated above the abdomen. A dose lowering technique was utilized adhering to the principles of ALARA. CT DOSE: 2613.98 mGy.cm FINDINGS: Lung bases: The patient is status post midline sternotomy. A pacemaker is partially visualized in the left chest wall. The heart is enlarged and without pericardial effusion. There are small pleural effusions with bibasilar consolida tion. Liver: Evaluation of the liver is significantly degraded by streak artifact. The unenhanced liver is liver is cirrhotic in morphology and heterogeneous in attenuation. There is nodularity of the hepatic surface contour. There is no intrahepatic biliary ductal dilatation. Gallbladder: Calcified gallstones are noted. There is no CT evidence of acute cholecystitis. Spleen: The spleen is enlarged measuring 18.5 cm in length. Pancreas: The unenhanced pancreas is moderately atrophic and grossly unremarkable. Adrenal glands: Unremarkable. Kidneys: The unenhanced kidneys are atrophic and without hydronephrosis. There are no renal calculi identified. A 4 cm calcification containing cyst is again seen arising from the left kidney. Additional subcentimeter cortical hypodensities and hyperdensities also likely represent cysts but are too small for definitive characterization. Abdominal vasculature: There is advanced atherosclerotic calcification and ectasia of the abdominal aorta. Bowel: The stomach and proximal small bowel loops are distended and fluid-filled with fluid. Proximal small bowel loops measure up to 4 cm diameter. The distal small bowel loops are decompressed and a transition point is suggested in the ventral lower abdomen on image #299. The appearance is consistent with a small bowel obstruction. No pneumatosis intestinalis or portal venous gas is identified. No focally thick walled small bowel loops are identified. There is trace interloop fluid in the left lower quadrant. There is moderate colonic diverticulosis without CT evidence of acute diverticulitis. Moderate fecal retention is noted in the rectosigmoid with surrounding infiltration. The appendix is not visualized. Peritoneum: There is no intraperitoneal free air or abdominal ascites. There is a fat-containing umbilical hernia. Lymphadenopathy: None. Pelvic viscera: The prostate gland is diminutive and heterogeneous with brachytherapy implants in place. The bladder is decompressed around a Person catheter and cannot be evaluated. Skeletal structures: The skeletal structures are osteopenic. There is moderate lumbosacral spondylosis. No lytic or blastic lesions are seen. There are healed left anterior rib fractures. Soft tissues: There is body wall edema. IMPRESSION: 1. Significantly suboptimal examination without oral and IV contrast. There is also streak and motion artifact. 2. Findings are consistent with a small bowel obstruction as detailed above. This is likely on the basis of adhesions. 3. Interloop fluid is noted. No focally thick walled small bowel loops are identified. There is no intraperitoneal free air, and no pneumatosis intestinalis or portal venous gas is seen. 4. There is rectosigmoid fecal impaction with mild surrounding infiltration. Correlate clinically for evidence of a nonspecific proctocolitis which may be stercoral. 5. Cardiomegaly with small pleural effusions and bibasilar consolidation. 6. Cirrhotic liver morphology. 7. Splenomegaly. 8. Cholelithiasis. 9. Additional findings as above. Medications Administered ER Medications Given: NSS 2L bolus Ondansetron 4mg IV Famotidine 20mg IV Acetaminophen 1g IV Zosyn 4.5g IV Daptomycin 525mg IV Norepinephrine IV drip @ 0.05 mcg/kg/min ECG Rate (beats per minute): 75 Findings: + paced rhythm (ventricular) Comparison ECG Date: from (December 07, 2020) Change: the following changes noted (PVCs no longer present) Code Status & VTE Plan Code Status DNR/DNI VTE Prophylaxis Plan VTE Prophylaxis will be ordered: Yes PG Care Time/CCT Total # of Minutes Spent Total Time Spent with Patient: Total time spent is greater than 50% in coordination of care (as documented) at patient's floor/unit and/or counseling patient: Coding Level of Care Code 20286 Initial Inpt Care Lvl 3 Diagnoses ICD (implantable cardioverter-defibrillator), biventricular, in situ Z95.810 Bacteremia R78.81 Septic shock A41.9; R65.21 Small bowel obstruction K56.609 Diabetes mellitus type 2, uncontrolled E11.65 Coronary artery disease I25.10 Associated angina: angina presence unspecified Coronary Disease-Associated Artery/Lesion type: [place] artery [place] vs. transplanted heart: [place] heart COPD, moderate J44.9 Ischemic cardiomyopathy I25.5 Hypertension I10 Hypertension type: essential hypertension (1) Coronary artery disease Associated angina: angina presence unspecified Coronary Disease-Associated Artery/Lesion type: [place] artery [place] vs. transplanted heart: [place] heart Qualified Code(s): I25.10 - Atherosclerotic heart disease of [place] coronary artery without angina pectoris (2) Hypertension Hypertension type: essential hypertension Qualified Code(s): I10 - Essential (primary) hypertension
[2021-06-13] MEDS ORDERED: ICU PROTOCOL FOR HYPERGLYCEMIA PRN (14:52)
[2021-06-13] MEDS ORDERED: PHARMACY GLYCEMIC MGMT CONSULT PRN (15:53)
[2021-06-13] MEDS ORDERED: GLUCOSE 10 TABS/TUBE PO PRN (16:15)
[2021-06-13] MEDS ORDERED: CARBOHYDRATES FOR HYPOGLYCEMIA PO PRN (16:15)
[2021-06-13] MEDS ORDERED: GLUCAGON FOR INJ 1 MG VIAL SQ PRN (16:15)
[2021-06-13] MEDS ORDERED: DEXTROSE 50% 50 ML SYRINGE IV PRN (16:15)
[2021-06-13] MEDS ORDERED: GLUCOSE 40% GEL 15 GM TUBE PO PRN (16:15)
[2021-06-13] MEDS ORDERED: INSULIN ASPART 100 UNITS/ML 3 ML PEN SC SCH (16:30)
--- NOTE | 2021-06-13 17:02 | Pharmacy Report ---
Pharmacy Glycemic Short Note 2 - Date of Service June 13, 2021 - Glycemic Short BSG Results (Last 24 hours): 06/13/21 09:35 Glucose 68 L OUTPATIENT ANTIDIABETIC REGIMEN: * Lantus 5 units HS * Novolog sliding scale ASSESSMENT: * 80 year old male admitted with SBO from [facility], type 2 diabetic on minimal insulin as outpatient, BSG 68mg/dl on admission. * Hold basal at this time while NPO and only use CF, adjust as diet advances/patient status improves PLAN FOR INPATIENT GLYCEMIC CONTROL: * Basal insulin * Hold for now * Bolus insulin * NovoLog per scale ACHS or Q6hrs while NPO * Goal Range: Low 120 mg/dL - High 150 mg/dL * Correction Factor: 35 mg/dL/unit * Nutritional / Prandial insulin per carb ratio: None at this time
--- NOTE | 2021-06-13 17:03 | Critical Care Consultation ---
Date of Consultation June 13, 2021 Assessment & Plan (1) Small bowel obstruction: (2) Septic shock: (3) Elevated lactic acid level: (4) Acute kidney injury: (5) Weakness: Impression: 80-year-old male with multiple medical problems who has been clinically declining for months. He is DO NOT INTUBATE DO NOT RESUSCITATE in presents to the emergency room with a bowel obstruction. Surgically evaluated the patient and does not feel he is a candidate for surgery which I would agree with. He has refused placement of an NG tube but was initiated on pressors. At this point in time, there is no real role for continued vasopressor agents if we are not going to try and correct the patient's underlying problem. I had a long discussion with the patient's daughter. She states that she has not yet completed paperwork to become the medical power of compliance attorney but this has been in the works previously. She states that she and the patient's brothers have had multiple discussions on numerous occasions in the past regarding the patient's overall plan of care. She understands the severity of his illness. Fortunately she is a nurse so has some medical background. I reviewed his case with her extensively. She understands the gravity of the situation and insists that her father be kept comfortable without longstanding or aggressive interventions. We discussed antibiotics and pressor agents. She is leaning towards transition to full palliative measures. I did request that she contact the patient's and brothers to ensure that all were on the same page as discontinuation of his pressor agents would likely result in his demise. She requests being able to come to the hospital to visit with him after visiting hours. I spoke with the charge nurse who will try and facilitate that request. I did request that after she speak with the patient , she call to confirm whether or not we are continuing with vasopressor agents overnight until the rest the family can, or discontinuing them at this point time and transitioning him to full comfort care measures. Again my opinion is that continuing pressors in the absence of treating the underlying problem is unlikely to improve his outcome and would meet the definition of futility. The patient's daughter does request that additional aggressive invasive or potentially uncomfortable procedures not be performed on her father which I think is wholly reasonable. We will not perform any additional imaging and I am not sure that we need to do any additional lab work or blood draws at this point time as that information will not be actionable. 77 minutes of critical care time including end-of-life discussions were spent in this patient including discussions with the bedside nurse and the patient's family. I anticipate the patient will transition to full comfort care measures and be eligible to transfer out of the intensive care unit within the next 3 to 24 hours History of Present Illness Attending Physician: Roldan Dorantes MD History of Present Illness Asked by hospitalist to evaluate this patient and assist with management in the ICU setting for hypotension related to a bowel obstruction as well as acute kidney injury. History is obtained from review electronic medical record and discussion with the ER staff. The patient is obtunded and unable to provide any history. This 80-year-old male has a multitude of medical issues which are well delineated in his electronic medical record. He was brought to the emergency room from his detention facility with abdominal pain. CT scan demonstrated a high-grade proximal bowel obstruction without evidence of pneumatosis or perforation. He was hypotensive in the emergency room and initiated on Levophed. He is DO NOT INTUBATE DO NOT RESUSCITATE but reportedly was okay with medical management. He has had prolonged and protracted hospitalizations including treatments for endocarditis and significant infection s. I did discuss the case with the patient's daughter who is a nurse. She was very beneficial in providing some additional information. Apparently the patient's speaks only Mandarin and there was some confusion regarding goals of therapy in this patient. They apparently attempted to place an NG tube to decompress the bowel obstruction in the emergency room on several occasions however the patient was combative and removed the tube it was never successfully placed. The requested no additional attempts be made. She was not present on my arrival to assess the patient in the ICU. The patient is completely obtunded and responds only to painful stimuli. Allergies Allergy/AdvReac Type Severity Reaction Status Date / Time carvedilol Allergy Unknown Unknown Verified 06/13/21 10:57 Home Medications Medication Instructions Recorded Confirmed Type cholecalciferol (vitamin D3) 25 1,000 units PO HS 02/17/19 06/13/21 History mcg (1,000 unit) capsule aspirin 81 mg tablet,delayed 81 mg PO HS 12/24/19 06/13/21 History release levothyroxine 100 mcg tablet 100 mcg PO QAM #90 tab 07/17/20 06/13/21 Rx ezetimibe 10 mg-simvastatin 80 mg 1 tab PO HS #90 tab 08/14/20 06/13/21 Rx tablet insulin aspart U-100 100 unit/mL 0 units SQ UNKNOWN 11/14/20 06/13/21 History (3 mL) subcutaneous pen (Novolog Flexpen U-100 Insulin aspart) polyethylene glycol 3350 17 gram 17 g PO DAILY PRN 11/14/20 06/13/21 History oral powder packet (Miralax) blood sugar diagnostic (OneTouch #300 ea 12/04/20 Rx Ultra Blue Test Strip) fenofibrate nanocrystallized 145 145 mg PO HS #90 tab 02/28/21 06/13/21 Rx mg tablet metoprolol succinate 25 mg See Rx Instructions .ROUTE 03/11/21 06/13/21 Rx tablet,extended release 24 hr .COMPLEX #180 tablet fluticasone 100 mcg-salmeterol 50 2 inh INHALATION BID 06/13/21 06/13/21 History mcg/dose blistr powdr for inhalation (Advair Diskus) furosemide 20 mg tablet 40 mg PO BID 06/13/21 06/13/21 History insulin glargine 100 unit/mL (3 5 unit SUBCUT HS 06/13/21 06/13/21 History mL) subcutaneous pen lisinopril 10 mg tablet 10 mg PO DAILY 06/13/21 06/13/21 History pantoprazole 40 mg tablet,delayed 40 mg PO DAILY 06/13/21 06/13/21 History release thiamine HCl (vitamin B1) 100 mg 100 mg PO DAILY 06/13/21 06/13/21 History tablet Patient History Medical History Acute diastolic congestive heart failure AICD discharge DALE (acute kidney injury) (08/22/13) Anemia Anxiety Atrial fibrillation Atrial fibrillation Bradycardia Cardiomyopathy Chronic congestive heart failure (04/03/13) Chronic kidney disease, stage III (moderate) COPD, moderate Coronary artery disease Depression Diabetes Diabetes mellitus type 2, uncontrolled Diabetes mellitus with kidney disease Dyslipidemia Hemorrhoid History of DC (myocardial infarction) Hypercholesterolemia Hypertension Hypertension Hypothyroidism Insomnia Ischemic cardiomyopathy Pacemaker malfunction Peptic ulcer Prostate cancer Prostate cancer Sleep apnea Ventricular tachycardia (paroxysmal) Surgical History History of appendectomy 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) History of heart bypass surgery Family History Unknown Diabetes Prostate cancer Uncle Prostate cancer Father Myocardial infarction Brother Myocardial infarction Other Family history non-contributory Denies family history of Ovarian cancer Breast cancer Colorectal cancer Social History Smoking Status: Former smoker Tobacco Type: Cigarettes Age Started Using Tobacco: 13; Age Quit Using Tobacco: 57; packs per day: 1; Years Smoked: 44; Cigarettes Per Day: 20; Number of Years Since Quit: 32; Second Hand Exposure: No; Hx Alcohol Use: No Hx Substance Use: No Preferred Language: Palauan Communication Ability: Effective Hearing Ability: Use of Hearing Aid Slate Splitter Required: No Beliefs That Will Affect Care: None marital status: Current Living Situation: Spouse Current Living Situation Comment: lives w/ current occupational status: retired How many Children do You have: 2 Feels Safe at Home: Yes Dental Care, Regularly: No Physical Activity Frequency: Does not Exercise Seatbelt Use: never Sunscreen Use: No Assistive Devices: Hearing Aid - Bilateral Review of Systems Review of Systems: Unobtainable due to reduced consciousness Physical Exam Constitutional: + obese and + altered mental status Respiratory: + labored breathing Cardiovascular: Rate/Rhythm: regular rate Gastrointestinal (Abdomen): Inspection/Auscultation: + abdomen distended and + abdominal surgical scar (lower midline) Percussion/Palpation: + abdomen tender (appears), abdomen soft and + tympanic to percussion Neurologic: awake and + obtunded Results & Data Results & Data ([facility]) Vital Signs (Past 12 Hours) Vital Signs Temp Pulse Pulse Resp BP BP Pulse Ox 06/13/21 15:37 34.9 C L 06/13/21 15:23 34.9 C L 06/13/21 14:52 75 06/13/21 13:35 77 20 117/57 L 95 06/13/21 13:30 22 93 06/13/21 13:26 75 25 H 95/71 L 97 06/13/21 13:18 75 22 105/59 L 96 06/13/21 13:08 75 25 H 87/58 L 94 06/13/21 13:00 24 92 06/13/21 12:56 75 24 99/53 L 93 06/13/21 12:51 73 22 90/56 L 95 06/13/21 12:50 77 24 98/45 L 93 06/13/21 12:45 75 22 88/40 L 93 06/13/21 12:36 75 19 98/64 L 93 06/13/21 12:30 75 26 H 76/43 L 95 06/13/21 12:23 75 24 97/68 L 93 06/13/21 12:18 76 23 104/52 L 94 06/13/21 12:07 75 24 93/41 L 95 06/13/21 12:04 75 26 H 86/52 L 93 06/13/21 12:03 25 H 93 06/13/21 11:55 71 23 81/44 L 93 06/13/21 11:50 75 24 73/42 L 93 06/13/21 11:46 75 26 H 69/48 L 92 06/13/21 11:41 75 28 H 64/38 L 91 06/13/21 11:29 75 22 57/37 L 06/13/21 11:14 74 16 60/44 L 97 06/13/21 10:10 75 29 H 64/33 L 89 L 06/13/21 10:00 75 31 H 87 L 06/13/21 09:56 95 06/13/21 09:50 75 24 96 06/13/21 09:43 36.7 C 75 22 74/43 L 88 L 06/13/21 09:40 75 27 H 95 06/13/21 09:30 76 27 H 64/37 L 97 06/13/21 09:20 75 23 66/36 L 96 Critical Care Results & Data Vital Signs (Past 12 Hours) Vital Signs Temp Pulse Pulse Resp BP BP Pulse Ox 06/13/21 15:37 34.9 C L 06/13/21 15:23 34.9 C L 06/13/21 14:52 75 06/13/21 13:35 77 20 117/57 L 95 06/13/21 13:30 22 93 06/13/21 13:26 75 25 H 95/71 L 97 06/13/21 13:18 75 22 105/59 L 96 06/13/21 13:08 75 25 H 87/58 L 94 06/13/21 13:00 24 92 06/13/21 12:56 75 24 99/53 L 93 06/13/21 12:51 73 22 90/56 L 95 06/13/21 12:50 77 24 98/45 L 93 06/13/21 12:45 75 22 88/40 L 93 06/13/21 12:36 75 19 98/64 L 93 06/13/21 12:30 75 26 H 76/43 L 95 06/13/21 12:23 75 24 97/68 L 93 06/13/21 12:18 76 23 104/52 L 94 06/13/21 12:07 75 24 93/41 L 95 06/13/21 12:04 75 26 H 86/52 L 93 06/13/21 12:03 25 H 93 06/13/21 11:55 71 23 81/44 L 93 06/13/21 11:50 75 24 73/42 L 93 06/13/21 11:46 75 26 H 69/48 L 92 06/13/21 11:41 75 28 H 64/38 L 91 06/13/21 11:29 75 22 57/37 L 06/13/21 11:14 74 16 60/44 L 97 06/13/21 10:10 75 29 H 64/33 L 89 L 06/13/21 10:00 75 31 H 87 L 06/13/21 09:56 95 06/13/21 09:50 75 24 96 06/13/21 09:43 36.7 C 75 22 74/43 L 88 L 06/13/21 09:40 75 27 H 95 06/13/21 09:30 76 27 H 64/37 L 97 06/13/21 09:20 75 23 66/36 L 96 Lab & Micro Results (Past 24 Hours) RBC 3.64 M/uL (4.7-6.1) L 06/13/21 WBC 12.19 K/uL (4.8-10.8) H 06/13/21 Hgb 9.4 g/dL (14.0-18.0) L 06/13/21 Hct 29.4 % (42-52) L 06/13/21 MCV 80.8 fL (80-100) 06/13/21 MCH 25.8 pg (25-34) 06/13/21 MCHC 32.0 g/dL (32-36) 06/13/21 RDW Standard Deviation 71.3 fL (36.4-46.3) H 06/13/21 RDW Coefficient of Variation 24.3 % (11.5-14.5) H 06/13/21 Plt Count 182 K/uL (130-400) 06/13/21 MPV 8.5 fL (7.4-10.4) 06/13/21 Neutrophils (%) (Auto) 81.1 % 06/13/21 Lymphocytes (%) (Auto) 12.1 % 06/13/21 Monocytes # (Auto) 0.77 K/uL (0.11-0.59) H 06/13/21 Eosinophils # (Auto) 0.01 K/uL (0-0.5) 06/13/21 Immature Granulocyte % (Auto) 0.3 % 06/13/21 Neutrophils # (Auto) 9.88 K/uL (1.4-6.5) H 06/13/21 Lymphocytes # (Auto) 1.48 K/uL (1.2-3.4) 06/13/21 Monocytes # (Auto) 0.77 K/uL (0.11-0.59) H 06/13/21 Eosinophils # (Auto) 0.01 K/uL (0-0.5) 06/13/21 Basophils # (Auto) 0.01 K/uL (0-0.2) 06/13/21 Immature Granulocyte # (Auto) 0.04 K/uL (0.00-0.02) H 06/13/21 Hyposegmented Neutrophils 1+ 06/13/21 Anisocytosis Present 06/13/21 Na 139 mmol/L (136-145) 06/13/21 K 5.0 mmol/L (3.5-5.1) 06/13/21 Cl 108 mmol/L (98-107) H 06/13/21 CO2 25 mmol/L (21-32) 06/13/21 Anion Gap 6.0 (3-11) 06/13/21 BUN 58 mg/dl (7-18) H 06/13/21 Creatinine 2.78 mg/dl (0.6-1.4) H 06/13/21 Estimated GFR ( Amer) 24.2 ml/min 06/13/21 Estimated GFR (Non-Af Amer) 20.9 ml/min 06/13/21 BUN/Creatinine Ratio 20.7 (10-20) H 06/13/21 Glu 68 mg/dl (70-99) L 06/13/21 Ca 9.0 mg/dl (8.5-10.1) 06/13/21 Phosphorus Level 3.2 mg/dl (2.5-4.9) 06/13/21 Total Bilirubin 0.8 mg/dl (0.2-1) 06/13/21 Direct Bilirubin 0.5 mg/dl (0-0.2) H 06/13/21 AST 30 U/L (15-37) 06/13/21 ALT 16 U/L (12-78) 06/13/21 Alkaline Phosphatase 108 U/L (45-117) 06/13/21 TP 5.8 gm/dl (6.4-8.2) L 06/13/21 Albumin 1.6 gm/dl (3.4-5.0) L 06/13/21 Globulin 4.2 gm/dl (2.5-4.0) H 06/13/21 Albumin/Globulin Ratio 0.4 (0.9-2) L 06/13/21 Mg 1.8 mg/dl (1.8-2.4) 06/13/21 09:35 06/13/21 Calcium Level 9.0 mg/dl (8.5-10.1) 06/13/21 09:35 06/13/21 Prothromb Time International Ratio 1.2 (0.9-1.1) H 06/13/21 09:35 06/13/21 Venous Blood pH 7.33 (7.36-7.41) L 06/13/21 09:49 06/13/21 Venous Blood Partial Pressure CO2 43 mmHg (38-50) 06/13/21 09:49 06/13/21 Venous Blood Partial Pressure O2 28 mmHg 06/13/21 09:49 06/13/21 Venous Blood HCO3 22 mmol/L 06/13/21 09:49 06/13/21 Venous Blood Base Excess -3.5 mEq/L 06/13/21 09:49 06/13/21 Venous Blood Oxygen Saturation < 60.0 % 06/13/21 09:49 06/13/21 Blood Gas Barometric Pressure 736.1 mm/Hg 06/13/21 09:49 06/13/21 Blood Gas Barometric Pressure 736.1 mm/Hg 06/13/21 09:49 06/13/21 Diagnostic Findings (Past 24 Hours) Chest X-Ray 06/13/21 09:31 XR chest 1V portable HISTORY: 80 years-old Male SEPSIS acute sepsis COMPARISON: Chest CT of same day, chest radiograph 12/05/2020 TECHNIQUE: Portable AP view of the chest FINDINGS: Cardiac silhouette is enlarged. Left subclavian pacer/AICD calcified plaque the thoracic aorta. Prior median sternotomy with probable CABG. Small pleural effusions with dependent bibasilar consolidation. Nodular opacity of the super segment left lower lobe seen on the chest CT of same day is not well visualized by radiography. Pulmonary vascular congestion with interstitial coarsening. Emphysema. Degenerative changes of the shoulders and spine.. IMPRESSION: 1. Cardiomegaly with pulmonary edema. 2. Small layering pleural effusions with bibasilar consolidation. 3. Nodular consolidative opacity of the superior segment left lower lobe is better characterized on the chest CT of same day. ACT 112: Negative or not required by law. The above report was generated using voice recognition software. It may contain grammatical, syntax or spelling errors. Electronically signed by: Federico Ramsey M.D. 06/13/2021 10:33 AM Abdomen/Pelvis CT 06/13/21 09:52 CT SCAN OF THE ABDOMEN AND PELVIS WITHOUT IV CONTRAST CLINICAL HISTORY: Sepsis. Hypotension. Nausea and vomiting. COMPARISON STUDY: Abdominal CT dated 12/05/2020. TECHNIQUE: CT scan of the abdomen and pelvis is performed from the lung bases to the proximal femora. Images are reviewed in the axial, sagittal, and coronal planes. IV contrast was not administered for this examination. Note that the examination is significantly suboptimal without oral and IV contrast. There is also motion artifact, as well as streak artifact from the arms which could not be elevated above the abdomen. A dose lowering technique was utilized adhering to the principles of ALARA. CT DOSE: 2613.98 mGy.cm FINDINGS: Lung bases: The patient is status post midline sternotomy. A pacemaker is partially visualized in the left chest wall. The heart is enlarged and without pericardial effusion. There are small pleural effusions with bibasilar consolidation. Liver: Evaluation of the liver is significantly degraded by streak artifact. The unenhanced liver is liver is cirrhotic in morphology and heterogeneous in attenuation. There is nodularity of the hepatic surface contour. There is no intrahepatic biliary ductal dilatation. Gallbladder: Calcified gallstones are noted. There is no CT evidence of acute cholecystitis. Spleen: The spleen is enlarged measuring 18.5 cm in length. Pancreas: The unenhanced pancreas is moderately atrophic and grossly unremarkable. Adrenal glands: Unremarkable. Kidneys: The unenhanced kidneys are atrophic and without hydronephrosis. There are no renal calculi identified. A 4 cm calcification containing cyst is again seen arising from the left kidney. Additional subcentimeter cortical hypodensities and hyperdensities also likely represent cysts but are too small for definitive characterization. Abdominal vasculature: There is advanced atherosclerotic calcification and ectasia of the abdominal aorta. Bowel: The stomach and proximal small bowel loops are distended and fluid-filled with fluid. Proximal small bowel loops measure up to 4 cm diameter. The distal small bowel loops are decompressed and a transition point is suggested in the ventral lower abdomen on image #299. The appearance is consistent with a small bowel obstruction. No pneumatosis intestinalis or portal venous gas is identified. No focally thick walled small bowel loops are identified. There is trace interloop fluid in the left lower quadrant. There is moderate colonic diverticulosis without CT evidence of acute diverticulitis. Moderate fecal retention is noted in the rectosigmoid with surrounding infiltration. The appendix is not visualized. Peritoneum: There is no intraperitoneal free air or abdominal ascites. There is a fat-containing umbilical hernia. Lymphadenopathy: None. Pelvic viscera: The prostate gland is diminutive and heterogeneous with brachytherapy implants in place. The bladder is decompressed around a Person catheter and cannot be evaluated. Skeletal structures: The skeletal structures are osteopenic. There is moderate lumbosacral spondylosis. No lytic or blastic lesions are seen. There are healed left anterior rib fractures. Soft tissues: There is body wall edema. IMPRESSION: 1. Significantly suboptimal examination without oral and IV contrast. There is also streak and motion artifact. 2. Findings are consistent with a small bowel obstruction as detailed above. This is likely on the basis of adhesions. 3. Interloop fluid is noted. No focally thick walled small bowel loops are identified. There is no intraperitoneal free air, and no pneumatosis intestinalis or portal venous gas is seen. 4. There is rectosigmoid fecal impaction with mild surrounding infiltration. Correlate clinically for evidence of a nonspecific proctocolitis which may be stercoral. 5. Cardiomegaly with small pleural effusions and bibasilar consolidation. 6. Cirrhotic liver morphology. 7. Splenomegaly. 8. Cholelithiasis. 9. Additional findings as above. ACT 112: Negative or not required by law. Electronically signed by: Indio Gomez M.D. 06/13/2021 10:[address] 06/13/21 09:52 CT chest diagnostic wo con CLINICAL HISTORY: sepsis, sob TECHNIQUE: Multidetector row helical CT of the chest was performed. Coronal and sagittal reformations were obtained. Automated dose lowering techniques and/or adjustment according to patient size were utilized for this exam. Comparison: Comparison is made to CT thorax 08/02/2020 FINDINGS: Lungs and pleura: Bilateral pleural effusions with underlying atelectasis is seen. Nodular thickening of the right major fissure is seen. A 13 mm nodule is again seen in the left lower lobe superior segment. Heart and pericardium: Cardiomegaly is seen with biatrial enlargement. Vessels: Severe atherosclerotic changes in the aorta and coronary arteries. Mediastinum and annalisa: Multiple lymph nodes are seen in the mediastinum, the largest on the right measures approximately 14 mm in short axis. Chest wall and lower neck: Unremarkable. Abdomen: For findings below the diaphragm, please refer to CT of the abdomen dated the same. Bones: Multiple compression deformities are seen in T5, T6, and T7. The deformities of T5 and T6 are new from prior exam. IMPRESSION: 1. Small bilateral pleural effusions are seen. 2. Redemonstration of left lower lobe pulmonary nodule. Nodular thickening in the right major fissure may represent loculated pleural effusion, however underlying nodules cannot be excluded. Follow-up to resolution is recommended. 3. Interval multiple thoracic compression fractures. ACT 112: Negative or not required by law. Electronically signed by: Jacques Ramirez M.D. 06/13/2021 10:58 AM I & O Totals 24 Hours 06/12/21 06/13/21 06/14/21 06:59 06:59 06:59 Intake Total 782.399 / 782.399 Balance 782.399 / 782.399 Cumulative 06/13/21 09:07 thru 06/13/21 14:52 Intake Total 782.399 Balance 782.399 RT Ventilator Mngmt (Last Documented) Ventilator Ordered Settings Respiratory Rate 20 06/13/21 13:35 Ventilator - PT Measurements Respiratory Rate 20 Coding Level of Care Code Critical Care ea addt'l 30 min Diagnoses Small bowel obstruction K56.609 Septic shock A41.9; R65.21 Elevated lactic acid level R79.89 Acute kidney injury N17.9 Weakness R53.1 Time Spent (min) 75 Comment [id number] and [id number]
[2021-06-13] MEDS ORDERED: Nursing to Pharmacy Communication SCH (18:00)
[2021-06-13] MEDS ORDERED: PIPERACILLIN/TAZOBACTAM 3.375 GM in DEXTROSE 5% 100 ML IV SCH (18:00)
[2021-06-13] MEDS ORDERED: INFLUENZA VACCINE HIGH DOSE PF 65+ 0.7 ML SYR IM ONE (18:00)
[2021-06-13] MEDS ORDERED: PNEUMOCOCCAL POLYSACCHARIDES 25 MCG/0.5 ML VIAL/SYR IM ONE (18:00)
[2021-06-13] MEDS: INSULIN ASPART 100 UNITS/ML 3 ML PEN SC SCH (18:08)
[2021-06-13 20:35] VITALS: BP 120/82
[2021-06-13] MEDS ORDERED: MoRPHine SULFATE 2 MG/ML CARP IV STA ×2 (20:36→22:51)
--- NOTE | 2021-06-13 20:37 | Communication Note ---
Date of Service: June 13, 2021 2015: Informant nursing staff the patient's daughter, Megan, did present at bedside and requested update. I did have a conversation with her at bedside. 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 She states that per previous conversations with her father, that he would not wish to continue to undergo aggressive measures, particularly ongoing use of vasopressors. Patient is agitated and complaining of some abdominal discomfort. She is requesting morphine. Orders placed for 2 mg IV mo rphine. We did discuss transition to comfort measures at this point, however patient's is on her way and we will have a formal conversation when she arrives. 2245: Patient's presented to bedside as well with research affiliate present. After further discussion, is in agreement with daughter with proceeding with comfort measures only at this time. I did discuss ongoing medications including antibiotics etc. which they declined at this point. Orders placed for as needed morphine for agitation air hunger. All questions were answered to the best of my abilities. Family requesting to continue with full COMFORT MEASURES ONLY at this time. Orders updated to reflect this request in the EMR. I have personally spent 35 minutes of critical care time in the direct management of this patient. This is a life/limb threatening event. This includes time spent evaluating patient, direct bedside care, chart review, placing orders, interpretation of diagnostic studies, discussion with consultants, patient, and family members, as well as other required patient management activities. This time is exclusive of all separately billable procedures, and teaching time and separate from and in addition to any other critical care service time. Coding Level of Care Code Critical Care marilyn salguero'l 30 min Time Spent (min) 35
[2021-06-13] MEDS: ACETAMINOPHEN 1,000 MG/100 ML VIAL IV PRN (20:43)
[2021-06-13] MEDS ORDERED: ONDANSETRON INJ 2 MG/ML 2 ML VIAL IV PRN (23:10)
--- NOTE | 2021-06-13 23:31 | Electrocardiogram Report ---
Test Reason : Blood Pressure : / mmHG Vent. Rate : 075 BPM Atrial Rate : 075 BPM P-R Int : 000 ms QRS Dur : 140 ms QT Int : 442 ms P-R-T Axes : 000 201 -12 degrees QTc Int : 493 ms Ventricular-paced rhythm Abnormal ECG When compared with ECG of 07-DEC-2020 06:35, Premature ventricular complexes are no longer Present Vent. rate has decreased BY 18 BPM Confirmed by Abhinav Martinez ([id number]) on 06/13/2021 11:30:57 PM Referred By: SELF Confirmed By:Abhinav Martinez
--- NOTE | 2021-06-13 23:46 | Emergency Department Note ---
Impression & Plan Septic shock, Small bowel obstruction, Ischemic cardiomyopathy, Elevated lactic acid level, Acute on chronic renal insufficiency, UTI (urinary tract infection) ED Provider Note NAME: SAMANTHA SALAS AGE: 80 SEX: M ARRIVES VIA: Ambulance INFORMANT: Patient, SNF, ED PROVIDER(S): Juan Hess MD CHIEF COMPLAINT: N/v, edema, sob PLAN: Disposition: Admit MEDICAL DECISION MAKING: The patient is a 80y/o gentleman with a complicated pmhx of dementia, ischemic cardiomyopathy with EF of 25%, s/p ICD, h/o recurrent bacteremia and ICD lead infection with decision for medical management (deferred lead extraction), Atrial fibrillation not on AC 2/2 spontaneous psoas hematoma who presents to the emergency department from his SNF at [facility] for n/v, SOB, and increased edema, which has evolved over the past 24 hours. Per POLST, which was faxed from his SNF, the patient is DNR but full treatment otherwise. On arrival the patient is critically ill appearing, hypotensive 60-70s/30-40s, O2 saturation 90s on 2L NC. Patient is awake and mentating at this baseline confusion in the setting of his dementia. Alert to self. Aware he is in the hospital. Lungs clear anteriorly, diminished at the bases. Abdomen with moderate distension. Nontender. 2+ BLE edema, non-tender. EKG is paced. CXR with pulmonary edema and bibasilar effusion and consolidation. WBC 12K. H/H similar to prior. Platelets wnl. VBG unremarkable. Chemistry without acidosis. Cr. 2.7, uptrending from recent values. Lactic acid 2.9, unchanged after IVF hydration, empiric abx, and initiation of Levophed. LFTs unremarkable. Troponin negative/undetectable. BNP 24K without recent for comparison, in setting of patient's known systolic failure. Lipase is not elevated. Procalcitonin elevated at 2.25. UA is c/w infection. CT chest and abd/pelvis performed. SBO is seen. Patient was treated empirically with Zosyn and Daptomycin, in addition to initial IVF for presumed septic shock followed by levophed. I contacted the patient's upon the patient's arrival and informed her of his critical condition. Communication was limited as she has limited Maltese and speaks Mandarin. She did understand the urgency and to come to the ED and was en route. Case d/w Amrit Apodacaelijah general surgery PAC with Dr Cornejo general surgery. Appreciate consultation. Case was d/w Dr. Dorantes, [facility] hospitalist who will evaluate the patient for admission. Unfortunately, RN attempted NGT twice but was unsuccessful 2/2 patient's inability to follow instructions in the setting of his dementia. I also attempted placement but was similar unsuccessful. The patient's did arrive to the bedside at this time, with her close friend who served as initial antique refinisher with her permission. She requested no further attempts at NGT at this time. Dr. Dorantes engaged in further goals of care discussion with . Case d/w Dr. De Paz, ICU .net architect, on behalf of admitting team. Triage Nursing notes reviewed and agree them. Additional history obtained from SNF Prior medical records reviewed Vital Signs: reviewed and remarkable for hypotension. Differential diagnosis: Sepsis, UTI, pneumonia, metabolic, electrolyte abnormalities, cardiac sources, intracerebral event, toxicologic, neurologic, as well as other pathologies. ER treatment provided: See below. Diagnostics interpreted by me: ECG: Ventricular-paced rhythm, 75 bpm, no ectopy, no overt acute ischemia. Cardiac Monitoring: An order for continuous cardiac monitoring was placed and demonstrated Ventricular-paced rhythm, 75 bpm, no ectopy. Laboratory studies: See below. Imaging studies: See below. Consultation(s): Dr. Dorantes [facility] hospitalist who will evaluate the patient for admission. Amrit Apodacaelijah general surgery PAC with Dr Cornejo general lizz HPI: The patient is a 80y/o gentleman with a complicated pmhx of dementia, ischemic cardiomyopathy with EF of 25%, s/p ICD, h/o recurrent bacteremia and ICD lead infection with decision for medical management (deferred lead extraction), Atrial fibrillation not on AC 2/2 spontaneous psoas hematoma who presents to the emergency department from his SNF at [facility] for n/v, SOB, and increased edema, which has evolved over the past 24 hours. Per POLST, which was faxed from his SNF, the patient is DNR but full treatment otherwise. ROS: See above HPI for pertinent positives & negatives. A total of [10] systems reviewed and were otherwise negative. PAST MEDICAL HISTORY:See below. PAST SURGICAL HISTORY:See below. FAMILY HISTORY:See below. SOCIAL HISTORY:See below. HOME MEDICATIONS:See below. ALLERGIES:See below. VITALS:See below. PHYSICAL EXAMINATION: GENERAL: Awake, alert, confused at baseline dementia, critically ill-appearing. HENT: Normocephalic, atraumatic. Oropharynx with dry mucous membranes and otherwise unremarkable. EYES: Normal conjunctiva. Sclera non-icteric. NECK: Supple. No nuchal rigidity. FROM. No JVD. RESPIRATORY: Clear anteriorly. Diminished at bases. CARDIAC: Regular rate, normal rhythm. Extremities warm and well perfused. Pulses equal. ABDOMEN: Moderate distended. No tenderness to palpation. No rebound or guarding. No masses. Anasarca. RECTAL: Deferred. MUSCULOSKELETAL: Chest examination reveals no tenderness. The back is symmetrical on inspection without obvious abnormality. There is no CVA tenderness to palpation. LOWER EXTREMITIES: Calves are equal size bilaterally and non-tender. 2+ BLE pitting edema. Right heel ulcer with overlying eschar. No erythema, warmth, induration, or crepitus. NEURO: Normal sensorium. No sensory or motor deficits noted. SKIN: No rash or jaundice noted. ED COURSE: Critical Care: I have personally spent greater than 95 minutes of critical care time in the direct management of this patient. This includes bedside care, interpretation of diagnostic studies, and testing, discussion with consultants, patient, and family members, and other required patient management activities. This 95 minutes is in excess of all separately billable procedures. Juan Hess MD Past Med/Surg History Medical History Acute diastolic congestive heart failure AICD discharge DALE (acute kidney injury) (08/22/13) Anemia Anxiety Atrial fibrillation Atrial fibrillation Bradycardia Cardiomyopathy Chronic congestive heart failure (04/03/13) Chronic kidney disease, stage III (moderate) COPD, moderate Coronary artery disease Depression Diabetes Diabetes mellitus type 2, uncontrolled Diabetes mellitus with kidney disease Dyslipidemia Hemorrhoid History of [place] (myocardial infarction) Hypercholesterolemia Hypertension Hypertension Hypothyroidism Insomnia Ischemic cardiomyopathy Pacemaker malfunction Peptic ulcer Prostate cancer Prostate cancer Sleep apnea Ventricular tachycardia (paroxysmal) Surgical History History of appendectomy 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) History of heart bypass surgery Family History Unknown Diabetes Prostate cancer Uncle Prostate cancer Father Myocardial infarction Brother Myocardial infarction Other Family history non-contributory Denies family history of Ovarian cancer Breast cancer Colorectal cancer Social History Smoking Status: Unknown if ever smoked Tobacco Type: Cigarettes Age Started Using Tobacco: 13; Age Quit Using Tobacco: 57; packs per day: 1; Years Smoked: 44; Cigarettes Per Day: 20; Number of Years Since Quit: 32; Second Hand Exposure: No; Hx Alcohol Use: No Hx Substance Use: No Preferred Language: Maltese Communication Ability: Impaired Hearing Ability: Use of Hearing Aid Trestle Mechanic Required: No Beliefs That Will Affect Care: None marital status: Current Living Situation: Spouse and Rehab Current Living Situation Comment: lives w/ current occupational status: retired How many Children do You have: 2 Feels Safe at Home: Yes Dental Care, Regularly: No Physical Activity Frequency: Does not Exercise Seatbelt Use: never Sunscreen Use: No Assistive Devices: Hearing Aid - Bilateral Allergies Allergies Allergy/AdvReac Type Severity Reaction Status Date / Time carvedilol Allergy Unknown Unknown Verified 06/13/21 10:57 Home Meds Home Medications Medication Instructions Recorded Confirmed cholecalciferol (vitamin D3) 25 1,000 units PO HS 02/17/19 06/13/21 mcg (1,000 unit) capsule aspirin 81 mg tablet,delayed 81 mg PO HS 12/24/19 06/13/21 release insulin aspart U-100 100 unit/mL 0 units SQ UNKNOWN 11/14/20 06/13/21 (3 mL) subcutaneous pen (Novolog Flexpen U-100 Insulin aspart) polyethylene glycol 3350 17 gram 17 g PO DAILY PRN 11/14/20 06/13/21 oral powder packet (Miralax) fluticasone 100 mcg-salmeterol 50 2 inh INHALATION BID 06/13/21 06/13/21 mcg/dose blistr powdr for inhalation (Advair Diskus) furosemide 20 mg tablet 40 mg PO BID 06/13/21 06/13/21 insulin glargine 100 unit/mL (3 5 unit SUBCUT HS 06/13/21 06/13/21 mL) subcutaneous pen lisinopril 10 mg tablet 10 mg PO DAILY 06/13/21 06/13/21 pantoprazole 40 mg tablet,delayed 40 mg PO DAILY 06/13/21 06/13/21 release thiamine HCl (vitamin B1) 100 mg 100 mg PO DAILY 06/13/21 06/13/21 tablet Previous Rx's Medication Instructions Recorded levothyroxine 100 mcg tablet 100 mcg PO QAM #90 tab 07/17/20 ezetimibe 10 mg-simvastatin 80 mg 1 tab PO HS #90 tab 08/14/20 tablet blood sugar diagnostic (OneTouch #300 ea 12/04/20 Ultra Blue Test Strip) fenofibrate nanocrystallized 145 145 mg PO HS #90 tab 02/28/21 mg tablet metoprolol succinate 25 mg See Rx Instructions .ROUTE 03/11/21 tablet,extended release 24 hr .COMPLEX #180 tablet Results & Data (ED) Vital Signs Vital Signs - 24 hr 06/13/21 09:20 06/13/21 09:30 06/13/21 09:40 Temperature Temperature Source Pulse Rate 75 76 75 Pulse Rate [Left] Pulse Rate from SpO2 Sensor 77 76 75 Pulse Rhythm [Left] Pulse Strength [Left] Respiratory Rate 23 27 H 27 H Respiratory Effort / Characteristics Respiratory Depth Blood Pressure 66/36 L 64/37 L Blood Pressure [Right Arm] Blood Pressure Mean 46 46 Blood Pressure Mean [Right Arm] Blood Pressure Position [Right Arm] Pulse Oximetry 96 97 95 Oxygen Delivery Method Oxygen Flow Rate Sepsis Recent Fever Within 48 Hours Sepsis New/Unexplained Change in Mental Status Sepsis Action Taken by Nursing 06/13/21 09:43 06/13/21 09:50 06/13/21 09:56 Temperature 36.7 C Temperature Source Axillary Pulse Rate 75 75 Pulse Rate [Left] Pulse Rate from SpO2 Sensor 75 Pulse Rhythm [Left] Pulse Strength [Left] Respiratory Rate 22 24 Respiratory Effort / Characteristics Non-Labored Respiratory Depth Normal Blood Pressure 74/43 L Blood Pressure [Right Arm] Blood Pressure Mean 53 Blood Pressure Mean [Right Arm] Blood Pressure Position [Right Arm] Pulse Oximetry 88 L 96 95 Oxygen Delivery Method Room Air Nasal Cannula Oxygen Flow Rate 2 Sepsis Recent Fever Within 48 Hours No Sepsis New/Unexplained Change in Mental Status No Sepsis Action Taken by Nursing Physician Notified 06/13/21 10:00 06/13/21 10:10 06/13/21 11:14 Temperature Temperature Source Pulse Rate 75 75 Pulse Rate [Left] 74 Pulse Rate from SpO2 Sensor 79 77 Pulse Rhythm [Left] Regular Pulse Strength [Left] Normal Respiratory Rate 31 H 29 H 16 Respiratory Effort / Characteristics Non-Labored Respiratory Depth Normal Blood Pressure 64/33 L Blood Pressure [Right Arm] 60/44 L Blood Pressure Mean 43 Blood Pressure Mean [Right Arm] 49 Blood Pressure Position [Right Arm] Lying Pulse Oximetry 87 L 89 L 97 Oxygen Delivery Method Nasal Cannula Oxygen Flow Rate 2 Sepsis Recent Fever Within 48 Hours Sepsis New/Unexplained Change in Mental Status Sepsis Action Taken by Nursing 06/13/21 11:29 Temperature Temperature Source Pulse Rate Pulse Rate [Left] 75 Pulse Rate from SpO2 Sensor Pulse Rhythm [Left] Regular Pulse Strength [Left] Normal Respiratory Rate 22 Respiratory Effort / Characteristics Non-Labored Respiratory Depth Normal Blood Pressure Blood Pressure [Right Arm] 57/37 L Blood Pressure Mean Blood Pressure Mean [Right Arm] 43 Blood Pressure Position [Right Arm] Pulse Oximetry Oxygen Delivery Method Oxygen Flow Rate Sepsis Recent Fever Within 48 Hours Sepsis New/Unexplained Change in Mental Status Sepsis Action Taken by Nursing Laboratory Data Attestation: I reviewed the patient's lab results. Result diagrams: 06/13/21 09:35 06/13/21 09:35 Lab Results 06/13/21 06/13/21 06/13/21 Range/Units 09:35 09:35 09:35 WBC 12.19 H (4.8-10.8) K/uL RBC 3.64 L (4.7-6.1) M/uL Hgb 9.4 L (14.0-18.0) g/dL Hct 29.4 L (42-52) % MCV 80.8 (80-100) fL MCH 25.8 (25-34) pg MCHC 32.0 (32-36) g/dL RDW Std Deviation 71.3 H (36.4-46.3) fL RDW Coeff of Beck 24.3 H (11.5-14.5) % Plt Count 182 (130-400) K/uL MPV 8.5 (7.4-10.4) fL Immature Gran % (Auto) 0.3 % Neut % (Auto) 81.1 % Lymph % (Auto) 12.1 % [facility] % (Auto) 6.3 % Eos % (Auto) 0.1 % Baso % (Auto) 0.1 % Neut # (Auto) 9.88 H (1.4-6.5) K/uL Lymph # (Auto) 1.48 (1.2-3.4) K/uL [facility] # (Auto) 0.77 H (0.11-0.59) K/uL Eos # (Auto) 0.01 (0-0.5) K/uL Baso # (Auto) 0.01 (0-0.2) K/uL Immature Gran # (Auto) 0.04 H (0.00-0.02) K/uL Hyposegmented Neuts 1+ Anisocytosis Present PT 12.3 H (9.0-12.0) Seconds INR 1.2 H (0.9-1.1) APTT 29.7 (21.0-31.0) Seconds PTT Ratio 1.1 VBG pH (7.36-7.41) VBG pCO2 (38-50) mmHg VBG pO2 mmHg VBG HCO3 mmol/L VBG O2 Saturation % VBG Base Excess mEq/L Barometric Pressure mm/Hg Sodium 139 (136-145) mmol/L Potassium 5.0 (3.5-5.1) mmol/L Chloride 108 H (98-107) mmol/L Carbon Dioxide 25 (21-32) mmol/L Anion Gap 6.0 (3-11) BUN 58 H (7-18) mg/dl Creatinine 2.78 H (0.6-1.4) mg/dl Est Cr Clr Drug Dosing 27.6 ml/min Est GFR ( Amer) 24.2 ml/min Est GFR (Non-Af Amer) 20.9 ml/min BUN/Creatinine Ratio 20.7 H (10-20) Glucose 68 L (70-99) mg/dl Lactate (0.4-2.0) mmol/L Calcium 9.0 (8.5-10.1) mg/dl Phosphorus 3.2 (2.5-4.9) mg/dl Magnesium 1.8 (1.8-2.4) mg/dl Total Bilirubin 0.8 (0.2-1) mg/dl Direct Bilirubin 0.5 H (0-0.2) mg/dl AST 30 (15-37) U/L ALT 16 (12-78) U/L Alkaline Phosphatase 108 (45-117) U/L Total Creatine Kinase 19 L (39-308) U/L Troponin I < 0.015 (0-0.045) ng/ml NT-Pro-B Natriuret Pep 14959 H (0-1800) pg/ml Total Protein 5.8 L (6.4-8.2) gm/dl Albumin 1.6 L (3.4-5.0) gm/dl Globulin 4.2 H (2.5-4.0) gm/dl Albumin/Globulin Ratio 0.4 L (0.9-2) Lipase 45 L (73-393) U/L Procalcitonin (0-0.5) ng/ml TSH 6.240 H (0.300-4.500) uIu/ml Free T4 1.71 H (0.8-1.6) ng/dl Urine Color Urine Appearance (Clear) Urine pH (4.5-7.5) Ur Specific [place] (1.000-1.030) Urine Protein (Negative) Urine Glucose (UA) (Negative) Urine Ketones (Negative) Urine Blood (Negative) Urine Nitrite (Negative) Urine Bilirubin (Negative) Urine Urobilinogen (Negative) Ur Leukocyte Esterase (Negative) Urine WBC (Auto) (0-5) /hpf Urine RBC (Auto) (0-4) /hpf U Hyaline Cast (Auto) (0-5) /lpf U Epithel Cells (Auto) (0-5) /lpf Urine Bacteria (Auto) (Negative) Amorphous Sediment (None Prsent) Urine Yeast (None Prsent) COVID-19 Eval Order SARS-CoV-2 (PCR) (Negative) Blood Type Antibody Screen 06/13/21 06/13/21 06/13/21 Range/Units 09:35 09:35 09:49 WBC (4.8-10.8) K/uL RBC (4.7-6.1) M/uL Hgb (14.0-18.0) g/dL Hct (42-52) % MCV (80-100) fL MCH (25-34) pg MCHC (32-36) g/dL RDW Std Deviation (36.4-46.3) fL RDW Coeff of Beck (11.5-14.5) % Plt Count (130-400) K/uL MPV (7.4-10.4) fL Immature Gran % (Auto) % Neut % (Auto) % Lymph % (Auto) % [facility] % (Auto) % Eos % (Auto) % Baso % (Auto) % Neut # (Auto) (1.4-6.5) K/uL Lymph # (Auto) (1.2-3.4) K/uL [place] # (Auto) (0.11-0.59) K/uL Eos # (Auto) (0-0.5) K/uL Baso # (Auto) (0-0.2) K/uL Immature Gran # (Auto) (0.00-0.02) K/uL Hyposegmented Neuts Anisocytosis PT (9.0-12.0) Seconds INR (0.9-1.1) APTT (21.0-31.0) Seconds PTT Ratio VBG pH 7.33 L (7.36-7.41) VBG pCO2 43 (38-50) mmHg VBG pO2 28 mmHg VBG HCO3 22 mmol/L VBG O2 Saturation < 60.0 % VBG Base Excess -3.5 mEq/L Barometric Pressure 736.1 mm/Hg Sodium (136-145) mmol/L Potassium (3.5-5.1) mmol/L Chloride (98-107) mmol/L Carbon Dioxide (21-32) mmol/L Anion Gap (3-11) BUN (7-18) mg/dl Creatinine (0.6-1.4) mg/dl Est Cr Clr Drug Dosing ml/min Est GFR ( Amer) ml/min Est GFR (Non-Af Amer) ml/min BUN/Creatinine Ratio (10-20) Glucose (70-99) mg/dl Lactate 2.9 H* (0.4-2.0) mmol/L Calcium (8.5-10.1) mg/dl Phosphorus (2.5-4.9) mg/dl Magnesium (1.8-2.4) mg/dl Total Bilirubin (0.2-1) mg/dl Direct Bilirubin (0-0.2) mg/dl AST (15-37) U/L ALT (12-78) U/L Alkaline Phosphatase (45-117) U/L Total Creatine Kinase (39-308) U/L Troponin I (0-0.045) ng/ml NT-Pro-B Natriuret Pep (0-1800) pg/ml Total Protein (6.4-8.2) gm/dl Albumin (3.4-5.0) gm/dl Globulin (2.5-4.0) gm/dl Albumin/Globulin Ratio (0.9-2) Lipase (73-393) U/L Procalcitonin 2.26 H (0-0.5) ng/ml TSH (0.300-4.500) uIu/ml Free T4 (0.8-1.6) ng/dl Urine Color Urine Appearance (Clear) Urine pH (4.5-7.5) Ur Specific [place] (1.000-1.030) Urine Protein (Negative) Urine Glucose (UA) (Negative) Urine Ketones (Negative) Urine Blood (Negative) Urine Nitrite (Negative) Urine Bilirubin (Negative) Urine Urobilinogen (Negative) Ur Leukocyte Esterase (Negative) Urine WBC (Auto) (0-5) /hpf Urine RBC (Auto) (0-4) /hpf U Hyaline Cast (Auto) (0-5) /lpf U Epithel Cells (Auto) (0-5) /lpf Urine Bacteria (Auto) (Negative) Amorphous Sediment (None Prsent) Urine Yeast (None Prsent) COVID-19 Eval Order SARS-CoV-2 (PCR) (Negative) Blood Type Antibody Screen 06/13/21 06/13/21 06/13/21 Range/Units 09:50 09:53 09:53 WBC (4.8-10.8) K/uL RBC (4.7-6.1) M/uL Hgb (14.0-18.0) g/dL Hct (42-52) % MCV (80-100) fL MCH (25-34) pg MCHC (32-36) g/dL RDW Std Deviation (36.4-46.3) fL RDW Coeff of Beck (11.5-14.5) % Plt Count (130-400) K/uL MPV (7.4-10.4) fL Immature Gran % (Auto) % Neut % (Auto) % Lymph % (Auto) % [facility] % (Auto) % Eos % (Auto) % Baso % (Auto) % Neut # (Auto) (1.4-6.5) K/uL Lymph # (Auto) (1.2-3.4) K/uL [facility] # (Auto) (0.11-0.59) K/uL Eos # (Auto) (0-0.5) K/uL Baso # (Auto) (0-0.2) K/uL Immature Gran # (Auto) (0.00-0.02) K/uL Hyposegmented Neuts Anisocytosis PT (9.0-12.0) Seconds INR (0.9-1.1) APTT (21.0-31.0) Seconds PTT Ratio VBG pH (7.36-7.41) VBG pCO2 (38-50) mmHg VBG pO2 mmHg VBG HCO3 mmol/L VBG O2 Saturation % VBG Base Excess mEq/L Barometric Pressure mm/Hg Sodium (136-145) mmol/L Potassium (3.5-5.1) mmol/L Chloride (98-107) mmol/L Carbon Dioxide (21-32) mmol/L Anion Gap (3-11) BUN (7-18) mg/dl Creatinine (0.6-1.4) mg/dl Est Cr Clr Drug Dosing ml/min Est GFR ( Amer) ml/min Est GFR (Non-Af Amer) ml/min BUN/Creatinine Ratio (10-20) Glucose (70-99) mg/dl Lactate (0.4-2.0) mmol/L Calcium (8.5-10.1) mg/dl Phosphorus (2.5-4.9) mg/dl Magnesium (1.8-2.4) mg/dl Total Bilirubin (0.2-1) mg/dl Direct Bilirubin (0-0.2) mg/dl AST (15-37) U/L ALT (12-78) U/L Alkaline Phosphatase (45-117) U/L Total Creatine Kinase (39-308) U/L Troponin I (0-0.045) ng/ml NT-Pro-B Natriuret Pep (0-1800) pg/ml Total Protein (6.4-8.2) gm/dl Albumin (3.4-5.0) gm/dl Globulin (2.5-4.0) gm/dl Albumin/Globulin Ratio (0.9-2) Lipase (73-393) U/L Procalcitonin (0-0.5) ng/ml TSH (0.300-4.500) uIu/ml Free T4 (0.8-1.6) ng/dl Urine Color Urine Appearance (Clear) Urine pH (4.5-7.5) Ur Specific [place] (1.000-1.030) Urine Protein (Negative) Urine Glucose (UA) (Negative) Urine Ketones (Negative) Urine Blood (Negative) Urine Nitrite (Negative) Urine Bilirubin (Negative) Urine Urobilinogen (Negative) Ur Leukocyte Esterase (Negative) Urine WBC (Auto) (0-5) /hpf Urine RBC (Auto) (0-4) /hpf U Hyaline Cast (Auto) (0-5) /lpf U Epithel Cells (Auto) (0-5) /lpf Urine Bacteria (Auto) (Negative) Amorphous Sediment (None Prsent) Urine Yeast (None Prsent) COVID-19 Eval Order Covid19 at [facility] SARS-CoV-2 (PCR) NEGATIVE (Negative) Blood Type A Positive Antibody Screen NEGATIVE 06/13/21 06/13/21 Range/Units 10:08 11:28 WBC (4.8-10.8) K/uL RBC (4.7-6.1) M/uL Hgb (14.0-18.0) g/dL Hct (42-52) % MCV (80-100) fL MCH (25-34) pg MCHC (32-36) g/dL RDW Std Deviation (36.4-46.3) fL RDW Coeff of Beck (11.5-14.5) % Plt Count (130-400) K/uL MPV (7.4-10.4) fL Immature Gran % (Auto) % Neut % (Auto) % Lymph % (Auto) % [facility] % (Auto) % Eos % (Auto) % Baso % (Auto) % Neut # (Auto) (1.4-6.5) K/uL Lymph # (Auto) (1.2-3.4) K/uL [facility] # (Auto) (0.11-0.59) K/uL Eos # (Auto) (0-0.5) K/uL Baso # (Auto) (0-0.2) K/uL Immature Gran # (Auto) (0.00-0.02) K/uL Hyposegmented Neuts Anisocytosis PT (9.0-12.0) Seconds INR (0.9-1.1) APTT (21.0-31.0) Seconds PTT Ratio VBG pH (7.36-7.41) VBG pCO2 (38-50) mmHg VBG pO2 mmHg VBG HCO3 mmol/L VBG O2 Saturation % VBG Base Excess mEq/L Barometric Pressure mm/Hg Sodium (136-145) mmol/L Potassium (3.5-5.1) mmol/L Chloride (98-107) mmol/L Carbon Dioxide (21-32) mmol/L Anion Gap (3-11) BUN (7-18) mg/dl Creatinine (0.6-1.4) mg/dl Est Cr Clr Drug Dosing ml/min Est GFR ( Amer) ml/min Est GFR (Non-Af Amer) ml/min BUN/Creatinine Ratio (10-20) Glucose (70-99) mg/dl Lactate 2.9 H* (0.4-2.0) mmol/L Calcium (8.5-10.1) mg/dl Phosphorus (2.5-4.9) mg/dl Magnesium (1.8-2.4) mg/dl Total Bilirubin (0.2-1) mg/dl Direct Bilirubin (0-0.2) mg/dl AST (15-37) U/L ALT (12-78) U/L Alkaline Phosphatase (45-117) U/L Total Creatine Kinase (39-308) U/L Troponin I (0-0.045) ng/ml NT-Pro-B Natriuret Pep (0-1800) pg/ml Total Protein (6.4-8.2) gm/dl Albumin (3.4-5.0) gm/dl Globulin (2.5-4.0) gm/dl Albumin/Globulin Ratio (0.9-2) Lipase (73-393) U/L Procalcitonin (0-0.5) ng/ml TSH (0.300-4.500) uIu/ml Free T4 (0.8-1.6) ng/dl Urine Color Dark Yellow Urine Appearance Turbid A (Clear) Urine pH 5.0 (4.5-7.5) Ur Specific [place] 1.019 (1.000-1.030) Urine Protein 2+ H (Negative) Urine Glucose (UA) Negative (Negative) Urine Ketones Trace H (Negative) Urine Blood 2+ H (Negative) Urine Nitrite Negative (Negative) Urine Bilirubin 1+ H (Negative) Urine Urobilinogen Negative (Negative) Ur Leukocyte Esterase 3+ H (Negative) Urine WBC (Auto) >30 H (0-5) /hpf Urine RBC (Auto) 5-10 H (0-4) /hpf U Hyaline Cast (Auto) 1-5 (0-5) /lpf U Epithel Cells (Auto) >30 H (0-5) /lpf Urine Bacteria (Auto) Negative (Negative) Amorphous Sediment Present A (None Prsent) Urine Yeast Budding A (None Prsent) COVID-19 Eval Order SARS-CoV-2 (PCR) (Negative) Blood Type Antibody Screen Administered Medications Norepinephrine Bitartrate (Levophed/D5w) 8 mg in 508 mls @ 0 mls/hr IV .Q0M [facility]; Protocol Stop: 07/13/21 11:29 Last Titration: 06/13/21 23:10 Dose: 0 mcg/kg/min, 0 mls/hr Documented by: [id number] Admin: 06/13/21 19:27 Dose: 0.19 mcg/kg/min, 77.2 mls/hr Documented by: [id number] Cosigned by: [id number] Titration: 06/13/21 19:02 Dose: 0.19 mcg/kg/min, 77.2 mls/hr Documented by: [id number] Cosigned by: [id number] Titration: 06/13/21 12:45 Dose: 0.19 mcg/kg/min, 77.2 mls/hr Documented by: [id number] Titration: 06/13/21 12:33 Dose: 0.17 mcg/kg/min, 69 mls/hr Documented by: [id number] Titration: 06/13/21 12:06 Dose: 0.15 mcg/kg/min, 60.9 mls/hr Documented by: [id number] Titration: 06/13/21 11:59 Dose: 0.13 mcg/kg/min, 52.8 mls/hr Documented by: [id number] Titration: 06/13/21 11:50 Dose: 0.11 mcg/kg/min, 44.7 mls/hr Documented by: [id number] Titration: 06/13/21 11:43 Dose: 0.09 mcg/kg/min, 36.6 mls/hr Documented by: [id number] Titration: 06/13/21 11:38 Dose: 0.07 mcg/kg/min, 28.4 mls/hr Documented by: [id number] Admin: 06/13/21 11:33 Dose: 0.05 mcg/kg/min, 20.3 mls/hr Documented by: [id number] Cosigned by: [id number] Piperacillin Sod/Tazobactam (Sod 3.375 gm/ Dextrose) 115 mls @ 28.75 mls/hr IV Q12H SANTHOSH; Protocol Stop: 06/15/21 17:59 Last Infusion: 06/13/21 21:53 Dose: 0 mls/hr Documented by: [id number] Admin: 06/13/21 17:48 Dose: 28.8 mls/hr Documented by: [id number] Acetaminophen (Ofirmev) 1,000 mg in 100 mls @ 400 mls/hr IV Q8H PRN PRN Reason: Pain or Fever Stop: 06/16/21 15:37 Last Infusion: 06/13/21 21:00 Dose: 0 mls/hr Documented by: [id number] Admin: 06/13/21 20:43 Dose: 400 mls/hr Documented by: [id number] Insulin Aspart (Insulin Aspart 100 Units/Ml 3 Ml Pen) 0 units SC Q6 SANTHOSH; Protocol Stop: 07/13/21 17:59 Last Admin: 06/13/21 18:08 Dose: Not Given Documented by: [id number] Discontinued Medications Sodium Chloride (Nss) 500 mls @ 999 mls/hr IV .Q31M ONE Stop: 06/13/21 10:03 Last Infusion: 06/13/21 11:45 Dose: 0 mls/hr Documented by: [id number] Admin: 06/13/21 09:40 Dose: 999 mls/hr Documented by: [id number] Famotidine (Pepcid 20mg Iv Push) 20 mg in 5 mls @ 2.5 mls/min IV NOW STA Stop: 06/13/21 09:34 Last Admin: 06/13/21 09:39 Dose: 2.5 mls/min Documented by: [id number] Acetaminophen (Ofirmev) 1,000 mg in 100 mls @ 400 mls/hr IV NOW STA Stop: 06/13/21 10:07 Last Infusion: 06/13/21 10:25 Dose: 0 mls/hr Documented by: [id number] Admin: 06/13/21 10:03 Dose: 400 mls/hr Documented by: [id number] Piperacillin Sod/Tazobactam Sod (Zosyn) 4.5 gm in 120 mls @ 240 mls/hr IV NOW ONE Stop: 06/13/21 10:22 Last Infusion: 06/13/21 11:44 Dose: 0 mls/hr Documented by: [id number] Admin: 06/13/21 10:03 Dose: 240 mls/hr Documented by: [id number] Daptomycin 525 mg/ Syringe 10.5 mls @ 5.25 mls/min IV NOW ONE; Protocol Stop: 06/13/21 09:54 Last Admin: 06/13/21 10:36 Dose: 5.25 mls/min Documented by: [id number] Insulin Aspart (Insulin Aspart 100 Units/Ml 3 Ml Pen) 0 units SC [facility]; Protocol Stop: 07/13/21 16:29 Last Admin: 06/13/21 18:11 Dose: Not Given Documented by: [id number] Lidocaine HCl (Lidocaine 2% Jelly 5 Ml Tube) Confirm Administered Dose 5 ml .ROUTE .STK-MED ONE Stop: 06/13/21 11:18 Last Admin: 06/13/21 11:20 Dose: 5 ml Documented by: [id number] Miscellaneous (Stat Iv Infusion Titration Per Protocol) 1 ea N/A NOW STA; Protocol Stop: 06/13/21 11:26 Last Admin: 06/13/21 12:34 Dose: 1 ea Documented by: [id number] Morphine Sulfate (Morphine Sulfate 2 Mg/Ml Carp) 2 mg IV NOW STA Stop: 06/13/21 20:37 Last Admin: 06/13/21 20:59 Dose: 2 mg Documented by: [id number] Morphine Sulfate (Morphine Sulfate 2 Mg/Ml Carp) 2 mg IV NOW STA Stop: 06/13/21 22:52 Last Admin: 06/13/21 23:15 Dose: 2 mg Documented by: [id number] Ondansetron HCl (Ondansetron Inj 2 Mg/Ml 2 Ml Vial) 4 mg IV NOW STA Stop: 06/13/21 09:34 Last Admin: 06/13/21 09:39 Dose: 4 mg Documented by: [id number] Imaging Data Radiologist's Impression: Chest X-Ray 06/13/21 09:31 XR chest 1V portable HISTORY: 80 years-old Male SEPSIS acute sepsis COMPARISON: Chest CT of same day, chest radiograph 12/05/2020 TECHNIQUE: Portable AP view of the chest FINDINGS: Cardiac silhouette is enlarged. Left subclavian pacer/AICD calcified plaque the thoracic aorta. Prior median sternotomy with probable CABG. Small pleural effusions with dependent bibasilar consolidation. Nodular opacity of the super segment left lower lobe seen on the chest CT of same day is not well visualized by radiography. Pulmonary vascular congestion with interstitial coarsening. Emphysema. Degenerative changes of the shoulders and spine.. IMPRESSION: 1. Cardiomegaly with pulmonary edema. 2. Small layering pleural effusions with bibasilar consolidation. 3. Nodular consolidative opacity of the superior segment left lower lobe is better characterized on the chest CT of same day. ACT 112: Negative or not required by law. The above report was generated using voice recognition software. It may contain grammatical, syntax or spelling errors. Electronically signed by: Federico Ramsey M.D. 06/13/2021 10:33 AM Abdomen/Pelvis CT 06/13/21 09:52 CT SCAN OF THE ABDOMEN AND PELVIS WITHOUT IV CONTRAST CLINICAL HISTORY: Sepsis. Hypotension. Nausea and vomiting. COMPARISON STUDY: Abdominal CT dated 12/05/2020. TECHNIQUE: CT scan of the abdomen and pelvis is performed from the lung bases to the proximal femora. Images are reviewed in the axial, sagittal, and coronal planes. IV contrast was not administered for this examination. Note that the examination is significantly suboptimal without oral and IV contrast. There is also motion artifact, as well as streak artifact from the arms which could not be elevated above the abdomen. A dose lowering technique was utilized adhering to the principles of ALARA. CT DOSE: 2613.98 mGy.cm FINDINGS: Lung bases: The patient is status post midline sternotomy. A pacemaker is partially visualized in the left chest wall. The heart is enlarged and without pericardial effusion. There are small pleural effusions with bibasilar consolidation. Liver: Evaluation of the liver is significantly degraded by streak artifact. The unenhanced liver is liver is cirrhotic in morphology and heterogeneous in attenuation. There is nodularity of the hepatic surface contour. There is no intrahepatic biliary ductal dilatation. Gallbladder: Calcified gallstones are noted. There is no CT evidence of acute cholecystitis. Spleen: The spleen is enlarged measuring 18.5 cm in length. Pancreas: The unenhanced pancreas is moderately atrophic and grossly unremarkable. Adrenal glands: Unremarkable. Kidneys: The unenhanced kidneys are atrophic and without hydronephrosis. There are no renal calculi identified. A 4 cm calcification containing cyst is again seen arising from the left kidney. Additional subcentimeter cortical hypodensities and hyperdensities also likely represent cysts but are too small for definitive characterization. Abdominal vasculature: There is advanced atherosclerotic calcification and ectasia of the abdominal aorta. Bowel: The stomach and proximal small bowel loops are distended and fluid-filled with fluid. Proximal small bowel loops measure up to 4 cm diameter. The distal small bowel loops are decompressed and a transition point is suggested in the ventral lower abdomen on image #299. The appearance is consistent with a small bowel obstruction. No pneumatosis intestinalis or portal venous gas is identified. No focally thick walled small bowel loops are identified. There is trace interloop fluid in the left lower quadrant. There is moderate colonic diverticulosis without CT evidence of acute diverticulitis. Moderate fecal retention is noted in the rectosigmoid with surrounding infiltration. The appendix is not visualized. Peritoneum: There is no intraperitoneal free air or abdominal ascites. There is a fat-containing umbilical hernia. Lymphadenopathy: None. Pelvic viscera: The prostate gland is diminutive and heterogeneous with brachytherapy implants in place. The bladder is decompressed around a Person catheter and cannot be evaluated. Skeletal structures: The skeletal structures are osteopenic. There is moderate lumbosacral spondylosis. No lytic or blastic lesions are seen. There are healed left anterior rib fractures. Soft tissues: There is body wall edema. IMPRESSION: 1. Significantly suboptimal examination without oral and IV contrast. There is also streak and motion artifact. 2. Findings are consistent with a small bowel obstruction as detailed above. This is likely on the basis of adhesions. 3. Interloop fluid is noted. No focally thick walled small bowel loops are identified. There is no intraperitoneal free air, and no pneumatosis intestinalis or portal venous gas is seen. 4. There is rectosigmoid fecal impaction with mild surrounding infiltration. Correlate clinically for evidence of a nonspecific proctocolitis which may be stercoral. 5. Cardiomegaly with small pleural effusions and bibasilar consolidation. 6. Cirrhotic liver morphology. 7. Splenomegaly. 8. Cholelithiasis. 9. Additional findings as above. ACT 112: Negative or not required by law. Electronically signed by: Indio Gomez M.D. 06/13/2021 10:[address] 06/13/21 09:52 CT chest diagnostic wo con CLINICAL HISTORY: sepsis, sob TECHNIQUE: Multidetector row helical CT of the chest was performed. Coronal and sagittal reformations were obtained. Automated dose lowering techniques and/or adjustment according to patient size were utilized for this exam. Comparison: Comparison is made to CT thorax 08/02/2020 FINDINGS: Lungs and pleura: Bilateral pleural effusions with underlying atelectasis is seen. Nodular thickening of the right major fissure is seen. A 13 mm nodule is again seen in the left lower lobe superior segment. Heart and pericardium: Cardiomegaly is seen with biatrial enlargement. Vessels: Severe atherosclerotic changes in the aorta and coronary arteries. Mediastinum and annalisa: Multiple lymph nodes are seen in the mediastinum, the largest on the right measures approximately 14 mm in short axis. Chest wall and lower neck: Unremarkable. Abdomen: For findings below the diaphragm, please refer to CT of the abdomen dated the same. Bones: Multiple compression deformities are seen in T5, T6, and T7. The deformities of T5 and T6 are new from prior exam. IMPRESSION: 1. Small bilateral pleural effusions are seen. 2. Redemonstration of left lower lobe pulmonary nodule. Nodular thickening in the right major fissure may represent loculated pleural effusion, however underlying nodules cannot be excluded. Follow-up to resolution is recommended. 3. Interval multiple thoracic compression fractures. ACT 112: Negative or not required by law. Electronically signed by: Jacques Ramirez M.D. 06/13/2021 10:58 AM Discharge Plan Visit Data Chief Complaint: Swelling/Edema to Extremity Stated Complaint: CONFUSION, L SIDE EDEMA ED Provider: Juan Hess Discharge Problem: Septic shock, Small bowel obstruction, Ischemic cardiomyopathy, Elevated lactic acid level, Acute on chronic renal insufficiency, UTI (urinary tract infection) Patient Disposition: Admitted As Inpatient Discharge Instructions Interventions: ED Discharge Assessment Last Done: 06/13/21 13:48 Discharge Problem: UTI (urinary tract infection) Qualifiers: Urinary tract infection type: acute cystitis Hematuria presence: with hematuria Qualified Code(s): N30.01 - Acute cystitis with hematuria
[2021-06-14] MEDS: MoRPHine SULFATE 2 MG/ML CARP IV PRN ×4 (01:17→07:55)
[2021-06-14 03:06] VITALS: TEMP 99; O2SAT 95
[2021-06-14] MEDS: INSULIN ASPART 100 UNITS/ML 3 ML PEN SC SCH ×2 (04:23→06:00)
[2021-06-14] MEDS: ACETAMINOPHEN 1,000 MG/100 ML VIAL IV PRN ×2 (04:57→23:34)
--- NOTE | 2021-06-14 08:30 | Critical Care Progress Note ---
Date of Service June 14, 2021 Assessment & Plan (1) Small bowel obstruction: (2) Septic shock: (3) Elevated lactic acid level: (4) Acute kidney injury: (5) Weakness: Plan: Impression: 80-year-old male with multiple medical problems who has been clinically declining for months. After extensive discussions with the patient's daughter and , they have elected to pursue comfort care measures. His pressors have been discontinued. He received some morphine. At this point time he no longer requires ICU level care. Discussed with the hospitalist. We will transfer the floor with comfort care measures. Critical care services will sign off. Feel free to contact us if we can be of additional assistance. 35 minutes critical care time including end-of-life discussions with family and coordinating care with hospitalist bedside nurse and discussion on multidisciplinary rounds Admission and Anticipated Discharge Date Admission Date: June 13, 2021 Subjective More awake and alert. Decision made for comfort care last night. Pressors off Review of Systems Review of Systems: Unobtainable due to reduced consciousness Physical Exam Constitutional: + obese and + altered mental status Respiratory: + labored breathing Cardiovascular: Rate/Rhythm: regular rate Gastrointestinal (Abdomen): Inspection/Auscultation: + abdomen distended and + abdominal surgical scar (lower midline) Percussion/Palpation: + abdomen tender (appears), abdomen soft and + tympanic to percussion Neurologic: awake and + obtunded Results & Data Results & Data ([facility]) Vital Signs (Past 12 Hours) Vital Signs Temp Pulse Resp Pulse Ox 06/14/21 03:00 76 06/13/21 23:51 75 06/13/21 23:00 37.2 C 75 30 H 95 06/13/21 22:00 37.0 C 76 23 96 06/13/21 21:00 36.8 C 97 H 25 H 99 06/13/21 20:31 36.6 C 75 24 96 06/13/21 20:30 36.6 C 78 22 96 06/13/21 20:29 36.6 C 78 20 96 06/13/21 20:28 36.6 C 75 22 97 Critical Care Results & Data Vital Signs (Past 12 Hours) Vital Signs Temp Pulse Resp Pulse Ox 06/14/21 03:00 76 06/13/21 23:51 75 06/13/21 23:00 37.2 C 75 30 H 95 06/13/21 22:00 37.0 C 76 23 96 06/13/21 21:00 36.8 C 97 H 25 H 99 06/13/21 20:31 36.6 C 75 24 96 06/13/21 20:30 36.6 C 78 22 96 Lab & Micro Results (Past 24 Hours) RBC 3.64 M/uL (4.7-6.1) L 06/13/21 WBC 12.19 K/uL (4.8-10.8) H 06/13/21 Hgb 9.4 g/dL (14.0-18.0) L 06/13/21 Hct 29.4 % (42-52) L 06/13/21 MCV 80.8 fL (80-100) 06/13/21 MCH 25.8 pg (25-34) 06/13/21 MCHC 32.0 g/dL (32-36) 06/13/21 RDW Standard Deviation 71.3 fL (36.4-46.3) H 06/13/21 RDW Coefficient of Variation 24.3 % (11.5-14.5) H 06/13/21 Plt Count 182 K/uL (130-400) 06/13/21 MPV 8.5 fL (7.4-10.4) 06/13/21 Neutrophils (%) (Auto) 81.1 % 06/13/21 Lymphocytes (%) (Auto) 12.1 % 06/13/21 Monocytes # (Auto) 0.77 K/uL (0.11-0.59) H 06/13/21 Eosinophils # (Auto) 0.01 K/uL (0-0.5) 06/13/21 Immature Granulocyte % (Auto) 0.3 % 06/13/21 Neutrophils # (Auto) 9.88 K/uL (1.4-6.5) H 06/13/21 Lymphocytes # (Auto) 1.48 K/uL (1.2-3.4) 06/13/21 Monocytes # (Auto) 0.77 K/uL (0.11-0.59) H 06/13/21 Eosinophils # (Auto) 0.01 K/uL (0-0.5) 06/13/21 Basophils # (Auto) 0.01 K/uL (0-0.2) 06/13/21 Immature Granulocyte # (Auto) 0.04 K/uL (0.00-0.02) H 06/13/21 Hyposegmented Neutrophils 1+ 06/13/21 Anisocytosis Present 06/13/21 Na 139 mmol/L (136-145) 06/13/21 K 5.0 mmol/L (3.5-5.1) 06/13/21 Cl 108 mmol/L (98-107) H 06/13/21 CO2 25 mmol/L (21-32) 06/13/21 Anion Gap 6.0 (3-11) 06/13/21 BUN 58 mg/dl (7-18) H 06/13/21 Creatinine 2.78 mg/dl (0.6-1.4) H 06/13/21 Estimated GFR ( Amer) 24.2 ml/min 06/13/21 Estimated GFR (Non-Af Amer) 20.9 ml/min 06/13/21 BUN/Creatinine Ratio 20.7 (10-20) H 06/13/21 Glu 68 mg/dl (70-99) L 06/13/21 Ca 9.0 mg/dl (8.5-10.1) 06/13/21 Phosphorus Level 3.2 mg/dl (2.5-4.9) 06/13/21 Total Bilirubin 0.8 mg/dl (0.2-1) 06/13/21 Direct Bilirubin 0.5 mg/dl (0-0.2) H 06/13/21 AST 30 U/L (15-37) 06/13/21 ALT 16 U/L (12-78) 06/13/21 Alkaline Phosphatase 108 U/L (45-117) 06/13/21 TP 5.8 gm/dl (6.4-8.2) L 06/13/21 Albumin 1.6 gm/dl (3.4-5.0) L 06/13/21 Globulin 4.2 gm/dl (2.5-4.0) H 06/13/21 Albumin/Globulin Ratio 0.4 (0.9-2) L 06/13/21 Mg 1.8 mg/dl (1.8-2.4) 06/13/21 09:35 06/13/21 Calcium Level 9.0 mg/dl (8.5-10.1) 06/13/21 09:35 06/13/21 Prothromb Time International Ratio 1.2 (0.9-1.1) H 06/13/21 09:35 06/13/21 Venous Blood pH 7.33 (7.36-7.41) L 06/13/21 09:49 06/13/21 Venous Blood Partial Pressure CO2 43 mmHg (38-50) 06/13/21 09:49 06/13/21 Venous Blood Partial Pressure O2 28 mmHg 06/13/21 09:49 06/13/21 Venous Blood HCO3 22 mmol/L 06/13/21 09:49 06/13/21 Venous Blood Base Excess -3.5 mEq/L 06/13/21 09:49 06/13/21 Venous Blood Oxygen Saturation < 60.0 % 06/13/21 09:49 06/13/21 Blood Gas Barometric Pressure 736.1 mm/Hg 06/13/21 09:49 06/13/21 Blood Gas Barometric Pressure 736.1 mm/Hg 06/13/21 09:49 06/13/21 Microbiology 06/13/21 10:08 Urine Culture - Preliminary Urine,Straight Cath Yeast- ident to follow Diagnostic Findings (Past 24 Hours) Chest X-Ray 06/13/21 09:31 XR chest 1V portable HISTORY: 80 years-old Male SEPSIS acute sepsis COMPARISON: Chest CT of same day, chest radiograph 12/05/2020 TECHNIQUE: Portable AP view of the chest FINDINGS: Cardiac silhouette is enlarged. Left subclavian pacer/AICD calcified plaque the thoracic aorta. Prior median sternotomy with probable CABG. Small pleural eff usions with dependent bibasilar consolidation. Nodular opacity of the super segment left lower lobe seen on the chest CT of same day is not well visualized by radiography. Pulmonary vascular congestion with interstitial coarsening. Emphysema. Degenerative changes of the shoulders and spine.. IMPRESSION: 1. Cardiomegaly with pulmonary edema. 2. Small layering pleural effusions with bibasilar consolidation. 3. Nodular consolidative opacity of the superior segment left lower lobe is better characterized on the chest CT of same day. ACT 112: Negative or not required by law. The above report was generated using voice recognition software. It may contain grammatical, syntax or spelling errors. Electronically signed by: Federico Ramsey M.D. 06/13/2021 10:33 AM Abdomen/Pelvis CT 06/13/21 09:52 CT SCAN OF THE ABDOMEN AND PELVIS WITHOUT IV CONTRAST CLINICAL HISTORY: Sepsis. Hypotension. Nausea and vomiting. COMPARISON STUDY: Abdominal CT dated 12/05/2020. TECHNIQUE: CT scan of the abdomen and pelvis is performed from the lung bases to the proximal femora. Images are reviewed in the axial, sagittal, and coronal planes. IV contrast was not administered for this examination. Note that the examination is significantly suboptimal without oral and IV contrast. There is also motion artifact, as well as streak artifact from the arms which could not be elevated above the abdomen. A dose lowering technique was utilized adhering to the principles of ALARA. CT DOSE: 2613.98 mGy.cm FINDINGS: Lung bases: The patient is status post midline sternotomy. A pacemaker is partially visualized in the left chest wall. The heart is enlarged and without pericardial effusion. There are small pleural effusions with bibasilar consolidation. Liver: Evaluation of the liver is significantly degraded by streak artifact. The unenhanced liver is liver is cirrhotic in morphology and heterogeneous in attenuation. There is nodularity of the hepatic surface contour. There is no intrahepatic biliary ductal dilatation. Gallbladder: Calcified gallstones are noted. There is no CT evidence of acute cholecystitis. Spleen: The spleen is enlarged measuring 18.5 cm in length. Pancreas: The unenhanced pancreas is moderately atrophic and grossly unremarkable. Adrenal glands: Unremarkable. Kidneys: The unenhanced kidneys are atrophic and without hydronephrosis. There are no renal calculi identified. A 4 cm calcification containing cyst is again seen arising from the left kidney. Additional subcentimeter cortical hypodensities and hyperdensities also likely represent cysts but are too small for definitive characterization. Abdominal vasculature: There is advanced atherosclerotic calcification and ectasia of the abdominal aorta. Bowel: The stomach and proximal small bowel loops are distended and fluid-filled with fluid. Proximal small bowel loops measure up to 4 cm diameter. The distal small bowel loops are decompressed and a transition point is suggested in the ventral lower abdomen on image #299. The appearance is consistent with a small bowel obstruction. No pneumatosis intestinalis or portal venous gas is identified. No focally thick walled small bowel loops are identified. There is trace interloop fluid in the left lower quadrant. There is moderate colonic diverticulosis without CT evidence of acute diverticulitis. Moderate fecal retention is noted in the rectosigmoid with surrounding infiltration. The appendix is not visualized. Peritoneum: There is no intraperitoneal free air or abdominal ascites. There is a fat-containing umbilical hernia. Lymphadenopathy: None. Pelvic viscera: The prostate gland is diminutive and heterogeneous with brachytherapy implants in place. The bladder is decompressed around a Person catheter and cannot be evaluated. Skeletal structures: The skeletal structures are osteopenic. There is moderate lumbosacral spondylosis. No lytic or blastic lesions are seen. There are healed left anterior rib fractures. Soft tissues: There is body wall edema. IMPRESSION: 1. Significantly suboptimal examination without oral and IV contrast. There is also streak and motion artifact. 2. Findings are consistent with a small bowel obstruction as detailed above. This is likely on the basis of adhesions. 3. Interloop fluid is noted. No focally thick walled small bowel loops are identified. There is no intraperitoneal free air, and no pneumatosis intestinalis or portal venous gas is seen. 4. There is rectosigmoid fecal impaction with mild surrounding infiltration. Correlate clinically for evidence of a nonspecific proctocolitis which may be stercoral. 5. Cardiomegaly with small pleural effusions and bibasilar consolidation. 6. Cirrhotic liver morphology. 7. Splenomegaly. 8. Cholelithiasis. 9. Additional findings as above. ACT 112: Negative or not required by law. Electronically signed by: Indio Gomez M.D. 06/13/2021 10:[address] 06/13/21 09:52 CT chest diagnostic wo con CLINICAL HISTORY: sepsis, sob TECHNIQUE: Multidetector row helical CT of the chest was performed. Coronal and sagittal reformations were obtained. Automated dose lowering techniques and/or adjustment according to patient size were utilized for this exam. Comparison: Comparison is made to CT thorax 08/02/2020 FINDINGS: Lungs and pleura: Bilateral pleural effusions with underlying atelectasis is seen. Nodular thickening of the right major fissure is seen. A 13 mm nodule is again seen in the left lower lobe superior segment. Heart and pericardium: Cardiomegaly is seen with biatrial enlargement. Vessels: Severe atherosclerotic changes in the aorta and coronary arteries. Mediastinum and annalisa: Multiple lymph nodes are seen in the mediastinum, the largest on the right measures approximately 14 mm in short axis. Chest wall and lower neck: Unremarkable. Abdomen: For findings below the diaphragm, please refer to CT of the abdomen dated the same. Bones: Multiple compression deformities are seen in T5, T6, and T7. The deformities of T5 and T6 are new from prior exam. IMPRESSION: 1. Small bilateral pleural effusions are seen. 2. Redemonstration of left lower lobe pulmonary nodule. Nodular thickening in the right major fissure may represent loculated pleural effusion, however underlying nodules cannot be excluded. Follow-up to resolution is recommended. 3. Interval multiple thoracic compression fractures. ACT 112: Negative or not required by law. Electronically signed by: Jacques Ramirez M.D. 06/13/2021 10:58 AM I & O Totals 24 Hours 06/13/21 06/14/21 06/15/21 06:59 06:59 06:59 Intake Total 1829.927 / 1829.927 Output Total 80 / 80 Balance 1749.927 / 1749.927 Cumulative 06/13/21 09:07 thru 06/14/21 05:14 Intake Total 1829.927 Output Total 80 Balance 1749.927 RT Ventilator Mngmt (Last Documented) Ventilator Ordered Settings Respiratory Rate 30 06/13/21 23:00 Ventilator - PT Measurements Respiratory Rate 30 Coding Level of Care Code Critical Care 1st 30-74 mins Diagnoses Small bowel obstruction K56.609 Septic shock A41.9; R65.21 Elevated lactic acid level R79.89 Acute kidney injury N17.9 Weakness R53.1 Time Spent (min) 35
[2021-06-14] MEDS ORDERED: LORazepam 0.5 MG/1 ML VIAL IV PRN (09:05)
[2021-06-14 09:40] VITALS: PULSE 75
--- NOTE | 2021-06-14 10:05 | Palliative Care Consultation ---
Date of Consultation June 14, 2021 Assessment & Plan (1) Pain: He is unable to articulate but appears to have abdominal pain as well as generalized pain with care. Given DALE, will rotate opioid to hydromorphone every two hours as needed. Monitor dosing and how he tolerates care. He may need infusion for adequate analgesia. 1510 Resting comfortably after one dose of hydromorphone this morning. He does have increased tracheal secretions. Glycopyrrolate ordered. (2) Palliative care encounter: Family was at bedside and went home to sleep. Per RN, his daughter is en route from [place]. (3) Small bowel obstruction: (4) Septic shock: (5) ICD (implantable cardioverter-defibrillator), biventricular, in situ: (6) Acute kidney injury: History of Present Illness Reason for Consultation: goals of care Requesting Physician: Dr. Dorantes Attending Physician: Sandro Maria MD History of Present Illness 80 yo gentleman with heart failure, ischemic cardiomyopathy and atrial fibrillation. He has had functional decline with endocarditis and other infections and multiple hospitalizations. He had been at the [facility] and presented with abdominal pain and hypotension. He was found to have small bowel obstruction on CT. There was difficulty with NG tube placement and consideration of central line for pressors. He had been admitted to the ICU for management. However, his family has decided that he would not want further aggressive care and has requested shift of focus to comfort directed care. He is currently in the ICU awaiting an available bed for transfer to the floor. He does not respond to voice or touch but appears comfortable at rest. Per RN, he has moaning and grimacing with movement or care. He has had multiple doses of IV morphine overnight for pain relief. He does have significant DALE with a creatinine of 2.78. Allergies Allergy/AdvReac Type Severity Reaction Status Date / Time carvedilol Allergy Unknown Unknown Verified 06/13/21 10:57 Home Medications Medication Instructions Recorded Confirmed Type cholecalciferol (vitamin D3) 25 1,000 units PO HS 02/17/19 06/13/21 History mcg (1,000 unit) capsule aspirin 81 mg tablet,delayed 81 mg PO HS 12/24/19 06/13/21 History release levothyroxine 100 mcg tablet 100 mcg PO QAM #90 tab 07/17/20 06/13/21 Rx ezetimibe 10 mg-simvastatin 80 mg 1 tab PO HS #90 tab 08/14/20 06/13/21 Rx tablet insulin aspart U-100 100 unit/mL 0 units SQ UNKNOWN 11/14/20 06/13/21 History (3 mL) subcutaneous pen (Novolog Flexpen U-100 Insulin aspart) polyethylene glycol 3350 17 gram 17 g PO DAILY PRN 11/14/20 06/13/21 History oral powder packet (Miralax) blood sugar diagnostic (OneTouch #300 ea 12/04/20 Rx Ultra Blue Test Strip) fenofibrate nanocrystallized 145 145 mg PO HS #90 tab 02/28/21 06/13/21 Rx mg tablet metoprolol succinate 25 mg See Rx Instructions .ROUTE 03/11/21 06/13/21 Rx tablet,extended release 24 hr .COMPLEX #180 tablet fluticasone 100 mcg-salmeterol 50 2 inh INHALATION BID 06/13/21 06/13/21 History mcg/dose blistr powdr for inhalation (Advair Diskus) furosemide 20 mg tablet 40 mg PO BID 06/13/21 06/13/21 History insulin glargine 100 unit/mL (3 5 unit SUBCUT HS 06/13/21 06/13/21 History mL) subcutaneous pen lisinopril 10 mg tablet 10 mg PO DAILY 06/13/21 06/13/21 History pantoprazole 40 mg tablet,delayed 40 mg PO DAILY 06/13/21 06/13/21 History release thiamine HCl (vitamin B1) 100 mg 100 mg PO DAILY 06/13/21 06/13/21 History tablet Patient History Medical History Acute diastolic congestive heart failure AICD discharge DALE (acute kidney injury) (08/22/13) Anemia Anxiety Atrial fibrillation Atrial fibrillation Bradycardia Cardiomyopathy Chronic congestive heart failure (04/03/13) Chronic kidney disease, stage III (moderate) COPD, moderate Coronary artery disease Depression Diabetes Diabetes mellitus type 2, uncontrolled Diabetes mellitus with kidney disease Dyslipidemia Hemorrhoid History of NC (myocardial infarction) Hypercholesterolemia Hypertension Hypertension Hypothyroidism Insomnia Ischemic cardiomyopathy Pacemaker malfunction Peptic ulcer Prostate cancer Prostate cancer Sleep apnea Ventricular tachycardia (paroxysmal) Surgical History History of appendectomy 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) History of heart bypass surgery Family History Unknown Diabetes Prostate cancer Uncle Prostate cancer Father Myocardial infarction Brother Myocardial infarction Other Family history non-contributory Denies family history of Ovarian cancer Breast cancer Colorectal cancer Social History Smoking Status: Unknown if ever smoked Tobacco Type: Cigarettes Age Started Using Tobacco: 13; Age Quit Using Tobacco: 57; packs per day: 1; Years Smoked: 44; Cigarettes Per Day: 20; Number of Years Since Quit: 32; Second Hand Exposure: No; Hx Alcohol Use: No Hx Substance Use: No Preferred Language: [place] Communication Ability: Impaired Hearing Ability: Use of Hearing Aid Motor Vehicle Clerk Required: No Beliefs That Will Affect Care: None marital status: Current Living Situation: Spouse and Rehab Current Living Situation Comment: lives w/ current occupational status: retired How many Children do You have: 2 Feels Safe at Home: Yes Dental Care, Regularly: No Physical Activity Frequency: Does not Exercise Seatbelt Use: never Sunscreen Use: No Assistive Devices: Oxygen - Continuous Review of Systems Review of Systems: Unobtainable due to reduced consciousness [place] Symptom Assessment Scale Pain by observation 0/3 Dyspnea by observation 0/3 Palliative Performance Score 20% Physical Exam Constitutional: + ill appearing; no acute distress ENMT: Mouth: + dry oral mucous membranes Respiratory: normal respiratory effort; no labored breathing Cardiovascular: Rate/Rhythm: regular rate and regular rhythm edema of LUE and b/l lower extremities Gastrointestinal (Abdomen): distended, firm Neurologic: + obtunded no myoclonus Genitourinary: chow catheter Results & Data ([facility]) Vital Signs (Past 12 Hours) Vital Signs Temp Pulse Resp Pulse Ox 06/14/21 08:00 75 06/14/21 03:00 76 06/13/21 23:51 75 06/13/21 23:00 99.0 F 75 30 H 95 PG Care Time/CCT Total # of Minutes Spent Total Time Spent: 60 Total Time Spent with Patient: Total time spent is greater than 50% in coordination of care (as documented) at patient's floor/unit and/or counseling patient: symptom management, coordination of care Coding Level of Care Code 92553 Initial Inpt Care Lvl 2 Diagnoses Pain R52 Palliative care encounter Z51.5 Small bowel obstruction K56.609 Septic shock A41.9; R65.21 ICD (implantable cardioverter-defibrillator), biventricular, in situ Z95.810 Acute kidney injury N17.9
[2021-06-14] MEDS: HYDROmorphone INJ 0.5 MG/0.5 ML SYR IV PRN ×3 (11:25→21:46)
[2021-06-14] MEDS: GLYCOPYRROLATE 0.2 MG/ML VIAL IV PRN ×3 (13:10→21:46)
--- NOTE | 2021-06-14 16:38 | Hospitalist Progress Note ---
Date of Service June 14, 2021 Assessment & Plan (1) Comfort measures only status: Plan: Edy is a 80-year-old male with chronic decline who presented to the emergency department with septic shock and bowel obstruction, was initially treated with antibiotics and pressors, following goals of care discussion comfort measures only goals were pursued and patient was downgraded from ICU status. Palliative on board. FISH DRIER Discontinue glucose checks, noncomfort medications Glycopyrrolate for secretions Hydromorphone every 2 hours for analgesia Lorazepam for anxiety/distress Continue to follow Patient is not stable for transport home hospice at this time (2) Septic shock: Plan: NSS 2L bolus given in ER. No additional fluids given due to anasarca/CHF Started on Levophed in ER, following ICU admission goals of care discussion were had with family, decision to move to comfort care Pressors discontinued Comfort measures only (3) Small bowel obstruction: Plan: Patient is not a surgical candidate Comfort measures as noted above (4) ICD (implantable cardioverter-defibrillator), biventricular, in situ: Plan: Noted (5) Bacteremia: Plan: History of recurrent bacteremia (6) Diabetes mellitus type 2, uncontrolled: Plan: A1c 7.2 Insulin check/glycemic management deferred with FISH DRIER goals of care (7) Coronary artery disease: Plan: All meds initially held due to SBO, continue to be held for comfort measures only (8) COPD, moderate: Plan: CML (9) Ischemic cardiomyopathy: Plan: Meds held as above, FISH DRIER (10) Hypertension: Plan: Meds held as above, FISH DRIER Plan: FISH DRIER Admission and Anticipated Discharge Date Admission Date: June 13, 2021 Elan Snow is seen at bedside. Somnolent, opens eyes transiently to voice before falling back asleep. Does not answer questions or give spontaneous conversation. Review of Systems Review of Systems: Unobtainable due to cognitive status Physical Exam Physical Exam: General: No spontaneous speech, does not answer questions, does not follow commands. HEENT: Atraumatic, normocephalic. Pulm: Diminished, Symmetrical chest rise. No increase work of breathing. No respiratory distress. Cardiac: RRR, -mrg. Radial pulses intact and symmetrical. Abdominal: Grimaces on abdominal palpation. Results & Data Results & Data ([facility]) Vital Signs (Past 12 Hours) Vital Signs Pulse 06/14/21 08:00 75 PG Care Time/CCT Total # of Minutes Spent Total Time Spent with Patient: Total time spent is greater than 50% in coordination of care (as documented) at patient's floor/unit and/or counseling patient: Coding Level of Care Code 67398 Subseq Hosp Care Lvl 1 Diagnoses Septic shock A41.9; R65.21 Small bowel obstruction K56.609 ICD (implantable cardioverter-defibrillator), biventricular, in situ Z95.810 Bacteremia R78.81 Diabetes mellitus type 2, uncontrolled E11.65 Coronary artery disease I25.10 Coronary Disease-Associated Artery/Lesion type: [place] artery [place] vs. transplanted heart: [place] heart Associated angina: angina presence unspecified COPD, moderate J44.9 Ischemic cardiomyopathy I25.5 Hypertension I10 Hypertension type: essential hypertension Comfort measures only status Z51.5 (1) Coronary artery disease Coronary Disease-Associated Artery/Lesion type: [place] artery [place] vs. transplanted heart: [place] heart Associated angina: angina presence unspecified Qualified Code(s): I25.10 - Atherosclerotic heart disease of [place] coronary artery without angina pectoris (2) Hypertension Hypertension type: essential hypertension Qualified Code(s): I10 - Essential (primary) hypertension
[2021-06-15] MEDS: HYDROmorphone INJ 0.5 MG/0.5 ML SYR IV PRN ×6 (04:49→23:23)
[2021-06-15] MEDS: GLYCOPYRROLATE 0.2 MG/ML VIAL IV PRN (04:49)
[2021-06-15] MEDS ORDERED: DAPTOmycin 475 MG in SYRINGE 0 ML IV SCH (10:00)
--- NOTE | 2021-06-15 12:31 | Hospitalist Progress Note ---
Date of Service June 15, 2021 Assessment & Plan (1) Comfort measures only status: Plan: Edy is a 80-year-old male with chronic decline who presented to the emergency department with septic shock and bowel obstruction, was initially treated with antibiotics and pressors, following goals of care discussion comfort measures only goals were pursued and patient was downgraded from ICU status. Palliative on board. POST HOLE DIGGER Discontinue glucose checks, noncomfort medications Glycopyrrolate for secretions Hydromorphone every 2 hours for analgesia Lorazepam for anxiety/distress Continue to follow Patient is not stable for transport home hospice at this time (2) Septic shock: Plan: NSS 2L bolus given in ER. No additional fluids given due to anasarca/CHF Started on Levophed in ER, following ICU admission goals of care discussion were had with family, decision to move to comfort care Pressors discontinued Comfort measures only (3) Small bowel obstruction: Plan: Patient is not a surgical candidate Comfort measures as noted above (4) ICD (implantable cardioverter-defibrillator), biventricular, in situ: Plan: Noted (5) Bacteremia: Plan: History of recurrent bacteremia (6) Diabetes mellitus type 2, uncontrolled: Plan: A1c 7.2 Insulin check/glycemic management deferred with POST HOLE DIGGER goals of care (7) Coronary artery disease: Plan: All meds initially held due to SBO, continue to be held for comfort measures only (8) COPD, moderate: Plan: CML (9) Ischemic cardiomyopathy: Plan: Meds held as above, POST HOLE DIGGER (10) Hypertension: Plan: Meds held as above, POST HOLE DIGGER Plan: POST HOLE DIGGER Admission and Anticipated Discharge Date Admission Date: June 13, 2021 Elan Snow is seen at bedside. Somnolent, opens eyes transiently to voice before falling back asleep. Does not answer questions or give spontaneous conversation. Slightly tachypneic on exam. Review of Systems Review of Systems: Unobtainable due to cognitive status and Unobtainable due to reduced consciousness Physical Exam Physical Exam: General: No spontaneous speech, does not answer questions, does not follow commands. HEENT: Atraumatic, normocephalic. Pulm: Diminished, Symmetrical chest rise. No increase work of breathing. No respiratory distress. Cardiac: RRR, -mrg. Radial pulses intact and symmetrical. Abdominal: Grimaces on abdominal palpation. PG Care Time/CCT Total # of Minutes Spent Total Time Spent with Patient: Total time spent is greater than 50% in coordination of care (as documented) at patient's floor/unit and/or counseling patient: Coding Level of Care Code 14230 Subseq Hosp Care Lvl 1 Diagnoses Comfort measures only status Z51.5 Septic shock A41.9; R65.21 Small bowel obstruction K56.609 ICD (implantable cardioverter-defibrillator), biventricular, in situ Z95.810 Bacteremia R78.81 Diabetes mellitus type 2, uncontrolled E11.65 Coronary artery disease I25.10 Coronary Disease-Associated Artery/Lesion type: [place] artery [place] vs. transplanted heart: [place] heart Associated angina: angina presence unspecified COPD, moderate J44.9 Ischemic cardiomyopathy I25.5 Hypertension I10 Hypertension type: essential hypertension (1) Coronary artery disease Coronary Disease-Associated Artery/Lesion type: [place] artery [place] vs. transplanted heart: [place] heart Associated angina: angina presence unspecified Qualified Code(s): I25.10 - Atherosclerotic heart disease of [place] coronary artery without angina pectoris (2) Hypertension Hypertension type: essential hypertension Qualified Code(s): I10 - Essential (primary) hypertension
[2021-06-15] MEDS: ACETAMINOPHEN 1,000 MG/100 ML VIAL IV PRN (13:40)
[2021-06-16] MEDS: GLYCOPYRROLATE 0.2 MG/ML VIAL IV PRN (01:27)
--- NOTE | 2021-06-16 04:51 | Death Pronouncement Note ---
Date of Service June 16, 2021 Pronouncement Note Admission Date Admission Date: June 13, 2021 Date and Time of Date of : 06/16/21 Time of : 04:45 Contributing Factors (1) Comfort measures only status: (2) Septic shock: (3) Small bowel obstruction: (4) ICD (implantable cardioverter-defibrillator), biventricular, in situ: (5) Bacteremia: (6) Diabetes mellitus type 2, uncontrolled: (7) Coronary artery disease: (8) COPD, moderate: (9) Ischemic cardiomyopathy: (10) Hypertension: Hospital Course Hospital Course: Pt was brought to emergency department for treatment, found to have small bowel obstruction and subsequent septic shock. Initially treated with pressors, not a surgical candidate, changed to comfort measures only after discussion with family and goals of care and transferred out of the ICU. Notified by nursing that patient had , confirmed on exam. Time of 4:45AM. Additional Data Confirmation of : no pulse, no respirations, no heart sounds and pupils f ixed and dilated Attending physician: Sandro Maria MD
--- NOTE | 2021-06-16 04:51 | Discharge Summary ---
Date of Service June 16, 2021 Admission HPI Per Admitting Provider Edy Taylor is a 80 year old male with systolic congestive heart failure, ischemic cardiomyopathy, recurrent bacteremia, atrial fibrillation, recurrent bacteremia. Unable to get any history from the patient. From handover from [facility] patient has been getting weaker for the last week with increased leg edema. Complaining of abdominal pain today. Hypotensive this morning and his usual anti-hypertensives were held. The patient has a POLST form with do not resuscitate but otherwise full treatment. Discussed extent of care with his at bedside as currently on Levophed through peripheral line. 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 She understands the severity of his condition and that he will likely from this. She does not wish him to be uncomfortable but is ok with him having a central line placed for continued Levophed. If this is attempted or causing the patient significant distress she wishes to switch to a more comfort care approach. Not for intubation or resuscitation in the event of a respiratory/cardiac arrest. She wished me to call her daughter who is a nurse in [place] which went through to [employer] and I left a message for her to call me back. Admission Exam Per Admitting Provider Constitutional: + disheveled, + lethargic and + edematou s; + not well nourished Eyes: PERRL, conjunctivae normal, anicteric sclerae Respiratory: + labored breathing and + uses accessory muscles Auscultation: + rhonchi (throughout) Cardiovascular: Rate/Rhythm: regular rate and regular rhythm Extremities: + edema (generalized bilateral LE and LUE) Gastrointestinal (Abdomen): Inspection/Auscultation: + abdomen distended and + hypoactive bowel sounds Percussion/Palpation: abdomen soft; abdomen nontender, no guarding and abdomen not rigid Skin: no rashes, warm and dry Neurologic: + confused; + not awake (moans to voice) Psychiatric: Orientation: + not alert and + not oriented x 3 Principal Diagnosis septic shock Discharge Exam const: unmoving eyes: pupils fixed and dilated card: no pulse, no heart sounds pulm: no breath sounds Discharge Data Allergies Allergy/AdvReac Type Severity Reaction Status Date / Time carvedilol Allergy Unknown Unknown Verified 06/13/21 10:57 Consultations 06/13/21 11:25 ED Decision to Admit Stat 06/13/21 11:39 Consult Industrial Tech Instructor Routine 06/13/21 12:11 Consult Palliative Care Routine 06/13/21 23:11 Consult Palliative Care Routine Ordered Studies 06/13/21 09:52 CT abd pelvis wo con Stat CT chest diagnostic wo con Stat Hospital Course (1) Comfort measures only status: Edy is a 80-year-old male with chronic decline who presented to the emergency department with septic shock and bowel obstruction, was initially treated with antibiotics and pressors, following goals of care discussion comfort measures only goals were pursued and patient was downgraded from ICU status. CLINICAL ASST Discontinue glucose checks, noncomfort medications Glycopyrrolate for secretions Hydromorphone every 2 hours for analgesia Lorazepam for anxiety/distress Continue to follow Patient is not stable for transport home hospice at time of CLINICAL ASST initiation. Remained in hospital for CLINICAL ASST care, passed evening of 06/15-06/16 (2) Septic shock: NSS 2L bolus given in ER. No additional fluids given due to anasarca/CHF Started on Levophed in ER, following ICU admission goals of care discussion were had with family, decision to move to comfort care Pressors discontinued Comfort measures only pursued as above (3) Small bowel obstruction: Patient is not a surgical candidate Given sepsis, severe chronic illness, and SBO transitioned to comfort measures as noted above (4) ICD (implantable cardioverter-defibrillator), biventricular, in situ: Noted (5) Bacteremia: As above (6) Diabetes mellitus type 2, uncontrolled: initially on basal/ssi glycemic management and ICU hyperglycemic protocol, no further BSG checks after CLINICAL ASST transition (7) Coronary artery disease: - CAD medications discontinued with CLINICAL ASST, see above (8) COPD, moderate: Moderate, moved to CLINICAL ASST as above (9) Ischemic cardiomyopathy: (10) Hypertension: - See above Total Time Total Time Spent Total Time Spent (In Minutes): see attending attestation Discharge Plan Discharge Items Patient Disposition: Other Date/Time: 06/16/21 04:45 Supervising Physician Co-Signing Physician Notes Chart reviewed, case discussed with Dr. Ram. Plan of care narrative updated. Pt passed 06/16 at 0445 while CLINICAL ASST. Reviwed, on emax unmoving, pupils fixed and dilated, no pulse, no heart sounds, no breath sounds. Total tiem spend including documentation on day of expiry 15 minutes.
== END 2021-06-16 10:53 | disposition expired | DRG 871 ==
LOC: ED 09:14 → 1E 11:38 → SUATTDRO 11:38 → 1E 13:48 → 3N 06-14 08:19